=== PATIENT | female | born 1940 | race Caucasian/White ===

== ENCOUNTER → 2023-05-31 | Outpatient (CLI) | payer MEDICARE, SELFPAY ==
--- NOTE | 2023-05-31 07:48 | CT_ITS ---
STUDY: CT LEFT SHOULDER REASON FOR EXAM: Female, 82 years old. Left shoulder pain. Blueprint Protocol. RADIATION DOSAGE (If Supplied By Facility): CTDIvol = ( 22.34 ) mGy, DLP = ( 689.40 ) mGycm TECHNIQUE: The patient was scanned in a multi detector CT scanner. High resolution transaxial imaging was performed without the administration of intravenous contrast material. Sagittal and coronal images were reconstructed. Individualized dose optimization techniques were used for this CT. COMPARISON: None. FINDINGS: There is mild glenohumeral arthrosis with mild marginal osteophyte formation. Intact glenoid rim, neck and visualized scapula. There is superior subluxation of the humeral head with respect to the glenoid with narrowing of the acromiohumeral space. Intact humeral head, neck and tuberosities. Normal coracoid process. Normal visualized lateral clavicle. There is hypertrophic acromioclavicular arthrosis, with inferior osteophyte formation, with mild effacement of the supraspinatus tendon. There is a Type II morphology (curved), with a neutral orientation. Normal visualized muscles and soft tissue structures. CT/Extremity Upper without Contra IMPRESSION: Mild glenohumeral arthrosis. Superior subluxation of the humeral head with narrowing of the acromiohumeral space. Hypertrophic acromioclavicular arthrosis, with inferior osteophyte formation, with mild effacement of the supraspinatus tendon. Electronically Signed: Bishop Solano MD at 8:36 EST ,
--- OUTSIDE RECORDS SUMMARY | 2023-05-31 08:09 | XMS RPT_ITS | CCD ---
Author Name Unknown Address [address] [place] [address] Organization [facility] Care Team Providers Care Senior Project Coordinator Name Role Phone Goode Alice PETERS Primary Care Provider [phone] ZOEY HENDERSON MD Attending Unavailable ZOEY HENDERSON MD Primary Care Unavailable ZOEY HENDERSON MD Admitting Unavailable Goode Alice PETERS Primary Care Provider [phone] DAWNA WICK Referring Unavailable GOODE, M ROGELIO Primary Care Unavailable GOODE, M ROGELIO Primary Care Unavailable ALEJO WHITTEN Attending Unavailable ALEJO WHITTEN Admitting Unavailable GOODE, M ROGELIO Referring Unavailable GOODE, M ROGELIO Primary Care Unavailable ALEJO WHITTEN Attending Unavailable GOODE, M ROGELIO Primary Care Unavailable STEPHANY GONZALEZ Attending Unavailable GOODE, M ROGELIO Primary Care Unavailable GOODE, M ROGELIO Primary Care Unavailable GOODE, M ROGELIO Referring Unavailable MARGARETH SHAVER Attending Unavailable GOODE, M ROGELIO Primary Care Unavailable GOODE, M ROGELIO Primary Care Unavailable TOBY REICH Referring Unavailable GOODE, M ROGELIO Primary Care Unavailable GOODE, M ROGELIO Primary Care Unavailable GOODE, M ROGELIO Referring Unavailable GOODE, M ROGELIO Attending Unavailable GOODE, M ROGELIO Primary Care Unavailable GOODE, M ROGELIO Attending Unavailable GOODE, M ROGELIO Primary Care Unavailable GOODE, M ROGELIO Primary Care Unavailable MATTHIAS JOHNSON Attending Unavailable CHANTALE COULTER Referring Unavailable GOODE, M ROGELIO Primary Care Unavailable CHANTALE COULTER Referring Unavailable GOODE, M ROGELIO Primary Care Unavailable MINDY PANTOJA Attending Unavailable GOODE, M ROGELIO Primary Care Unavailable GOODE, M ROGELIO Attending Unavailable GOODE, M ROGELIO Primary Care Unavailable CHANTALE COULTER Referring Unavailable GOODE, M ROGELIO Primary Care Unavailable TIMA TYLER Referring Unavailable CHANTALE COULTER Attending Unavailable GOODE, M ROGELIO Primary Care Unavailable COULTER, CHANTALE Referring Unavailable GOODE, M ROGELIO Primary Care Unavailable COULTER, CHANTALE Referring Unavailable GOODE, M ROGELIO Primary Care Unavailable KEMI ALEJO T Attending Unavailable GOODE, M ROGELIO Primary Care Unavailable GOODE, M ROGELIO Referring Unavailable GOODE, M ROGELIO Primary Care Unavailable TIMA TYLER A Referring Unavailable GOODE, M ROGELIO Primary Care Unavailable COULTER, CHANTALE Referring Unavailable GOODE, M ROGELIO Primary Care Unavailable GOODE, M ROGELIO Primary Care Unavailable MATTHIAS JOHNSON Attending Unavailable MINDY PANTOJA Referring Unavailable DAWNA WICK Attending Unavailable GOODE, M ROGELIO Primary Care Unavailable GOODE, M ROGELIO Attending Unavailable GOODE, M ROGELIO Primary Care Unavailable GOODE, M ROGELIO Referring Unavailable GOODE, M ROGELIO Primary Care Unavailable GOODE, M ROGELIO Primary Care Unavailable GOODE, M ROGELIO Referring Unavailable KEMI, ALEJO T Referring Unavailable GOODE, M RGOELIO Primary Care Unavailable KEMI, ALEJO T Referring Unavailable GOODE, M ROGELIO Primary Care Unavailable KEMI, ALEJO T Attending Unavailable GOODE, M ROGELIO Primary Care Unavailable HARESH MYLES Referring Unavailable GOODE, M ROGELIO Primary Care Unavailable GOODE, M ROGELIO Referring Unavailable GOODE, M ROGELIO Primary Care Unavailable NATALIYA GROSSMAN Referring Unavailable GOODE, M ROGELIO Attending Unavailable GOODE, M ROGELIO Primary Care Unavailable Medications Current Medications Medication Drug Class(es) Dates Sig (Normalized) Sig (Original) benoxinate hydrochloride 4 mg/ml / fluorescein sodium 2.5 mg/ml ophthalmic solution (2 sources) Diagnostic Dye Start: 11-10-2022 End: 11-11-2022 fluorescein-benoxi mckenzie 0.25-0.4 % 1 Drop (FLURESS) Completed/Discontinued Medications Medication Drug Class(es) Dates Sig (Normalized) Sig (Original) ammonium lactate/emu oil (EMU-LAC TOPICAL) (20 sources) ammonium lactate /emu oil (EMU-LAC TOPICAL) Apply 1 application to affected area as needed. 0 Active Problems Active Problems Problem Classification Problem Date Documented Da te Episodic/Chronic Abdominal hernia (5 sources) Incisional hernia; Translations: [Incisional hernia without obstruction or gangrene] Onset: 03-29-2023 01-21-2023 Episodic Blindness and vision defects (16 sources) Low vision, both eyes ; Translations: [Low vision right eye category 1, low vision left eye category 1] Onset: 12-31-2022 12-31-2022 Chronic Blindness and vision defects (16 sources) Bilateral regular astigmatism; Translations: [Regular astigmatism, bilateral] Onset: 12-31-2022 12-31-2022 Episodic Cataract (20 sources) Bilateral pseudophakia; Translations: [Presence of intraocular lens] Onset: 11-13-2020 12-11-2020 Chronic Diabetes mellitus with complications (20 sources) Type 2 diabetes mellitus; Translations: [Type 2 diabetes mellitus with unspecified complications] Onset: 03-20-2021 Chronic Diabetes mellitus without complication (9 sources) Type 2 diabetes mellitus without complication; Translations: [Type 2 diabetes mellitus without complications] Onset: 03-20-2021 03-20-2021 Chronic Disorders of lipid metabolism (20 sources) Mixed hyperlipidemia; Translations: [Mixed hyperlipidemia] Onset: 04-09-2008 04-20-2018 Chronic E Codes: Adverse effects of medical drugs (1 source) Proton pump inhibitor adverse reaction; Translations: [Adverse effect of other antacids and etys-nonhdii-qhroymz on drugs, initial encounter] Episodic Gastritis and duodenitis (4 sources) Chronic superficial gastritis; Translations: [Chronic superficial gastritis without bleeding] Onset: 07-02-2022 Chronic Miscellaneous mental health disorders (20 sources) Primary insomnia; Translations: [Primary insomnia] Onset: 08-01-2015 08-01-2015 Chronic Mycoses (1 source) Candidiasis of vagina; Translations: [Vaginal yeast infection] Episodic Nutritional deficiencies (20 sources) Vitamin D deficiency; Translations: [Vitamin D deficiency, unspecified] Onset: 08-01-2015 08-01-2015 Chronic Other aftercare (1 source) Drug therapy finding; Translations: [Other usp (current) drug therapy] Episodic Other connective tissue disease (10 sources) History of total replacement of bilateral hip joints; Translations: [Presence of artificial hip joint, bilateral] Onset: 03-16-2023 03-16-2023 Chronic Other connective tissue disease (10 sources) History of right total knee replacement; Translations: [Presence of right artificial knee joint] Onset: 03-16-2023 03-16-2023 Chronic Other connective tissue disease (1 source) Subacromial bursitis of left shoulder; Translations: [Bursitis of left shoulder] Episodic Other endocrine disorders (20 sources) Hyperparathyroidism; Translations: [Hyperparathyroidism , unspecified] Onset: 10-28-2016 06-25-2021 Chronic Other endocrine disorders (1 source) Primary hyperparathyroidism; Translations: [Primary hyperparathyroidism] 03-18-2023 Chronic Other endocrine disorders (1 source) Hyperparathyroidism, unspecified; Translations: [Hyperparathyroidism (HCC)] Onset: 06-25-2021 Chronic Other eye disorders (20 sources) Bilateral posterior vitreous detachment; Translations: [Vitreous degeneration, bilateral] Onset: 01-01-2021 01-01-2021 Chronic Other gastrointestinal disorders (20 sources) Malabsorption - iron; Translations: [Intestinal malabsorption, unspecified] Onset: 12-11-2014 04-30-2016 Chronic Other gastrointestinal disorders (1 source) Intestinal malabsorption, unspecified; Translations: [Malabsorption of iron] Onset: 12-11-2014 Chronic Other injuries and conditions due to external causes (3 sources) Injury of hip region; Translations: [Unspecified injury of right hip, initial encounter] Episodic Other liver diseases (1 source) Elevated liver enzymes level; Translations: [Abnormal levels of other serum enzymes] Episodic Other nervous system disorders (2 sources) Chronic pain syndrome; Translations: [Chronic pain syndrome] Chronic Other nervous system disorders (1 source) Right-sided piriformis syndrome; Translations: [Lesion of sciatic nerve, right lower limb] Chronic Other nervous system disorders (1 source) Other chronic pain; Translations: [Chronic right SI joint pain] Onset: 02-22-2017 Chronic Other nutritional; endocrine; and metabolic disorders (20 sources) Hypercalcemia; Translations: [Hypercalcemia] Onset: 07-01-2017 07-01-2017 Chronic Other nutritional; endocrine; and metabolic disorders (2 sources) Hypercalcemia; Translations: [Serum calcium elevated] Onset: 07-01-2017 Chronic Other skin disorders (1 source) Seborrheic keratosis; Translations: [Other seborrheic keratosis] 01-04-2023 Episodic Regional enteritis and ulcerative colitis (20 sources) Ulcerative pancolitis; Translations: [Ulcerative (chronic) pancolitis with unspecified complications] Onset: 10-26-2016 11-12-2020 Chronic Residual codes; unclassified (1 source) Pain; Translations: [Pain, unspecified] 11-09-2022 Episodic Retinal detachments; defects; vascular occlusion; and retinopathy (20 sources) Retinal pigment epithelium atrophy; 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 primarily involving the retinal pigment epithelium] Onset: 01-01-2021 01-01-2021 Chronic Screening and history of mental health and substance abuse codes (10 sources) Ex-smoker; Translations: [Personal history of nicotine dependence] Onset: 03-16-2023 03-16-2023 Episodic Spondylosis; intervertebral disc disorders; other back problems (20 sources) Degeneration of lumbosacral intervertebral disc; Translations: [Other intervertebral disc degeneration, lumbosacral region] Onset: 08-13-2006 08-13-2006 Chronic Sprains and strains (2 sources) Rupture of tendon of biceps; Translations: [Strain of muscle, fascia and tendon of other parts of biceps, left arm, initial encounter] 03-25-2023 Episodic Thyroid disorders (9 sources) Multinodular goiter; Translations: [Nontoxic multinodular goiter] Onset: 04-20-2018 03-25-2021 Chronic Past or Other Problems Problem Classification Problem Date Documented Date Episodic/Chronic Conditions associated with dizziness or vertigo (20 sources) Lightheadedness; Translations: [Dizziness and giddiness] Onset: 06-10-2020 06-10-2020 Episodic Deficiency and other anemia (20 sources) Iron deficiency anemia secondary to inadequate dietary iron intake; Translations: [Other iron deficiency anemias] Onset: 01-23-2016 01-23-2016 Episodic Deficiency and other anemia (1 source) Other iron deficiency anemias; Translations: [Iron deficiency anemia secondary to inadequate dietary iron intake] Onset: 01-23-2016 Episodic Diabetes mellitus without complication (8 sources) Impaired fasting glycemia; Translations: [Impaired fasting glucose] Onset: 02-19-2021 02-19-2021 Episodic Fluid and electrolyte disorders (1 source) Dehydration; Translations: [Dehydration] Onset: 10-16-2022 Episodic Gastroduodenal ulcer (except hemorrhage) (20 sources) H/O: gastric ulcer; Translations: [Personal history of peptic ulcer disease] Onset: 02-19-2021 02-19-2021 Episodic Other aftercare (1 source) 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; Translations: [Current use of proton pump inhibitor] Onset: 07-02-2022 Episodic Other bone disease and musculoskeletal deformities (20 sources) Disorder of skeletal system; Translations: [Disorder of bone, unspecified] Onset: 04-09-2008 04-20-2018 Episodic Other circulatory disease (20 sources) Orthostatic hypotension; Translations: [Orthostatic hypotension] Onset: 07-22-2020 07-22-2020 Episodic Other circulatory disease (1 source) Orthostatic hypotension; Translations: [Orthostatic hypotension] Onset: 07-22-2020 Episodic Other connective tissue disease (20 sources) Fibromyalgia; Translations: [Fibromyalgia] Onset: 08-01-2015 08-01-2015 Episodic Other connective tissue disease (1 source) Fibromyalgia; Translations: [Fibromyalgia] Onset: 08-01-2015 Episodic Other eye disorders (11 sources) Excess skin of eyelid; Translations: [Dermatochalasis of right upper eyelid] Onset: 01-01-2021 01-01-2021 Episodic Other eye disorders (20 sources) Tear film insufficiency; Translations: [Dry eye syndrome of bilateral lacrimal glands] Onset: 07-02-2021 07-02-2021 Episodic Other eye disorders (20 sources) Dermatochalasis of right upper eyelid; Translations: [Dermatochalasis] Onset: 01-01-2021 01-01-2021 Episodic Other injuries and conditions due to external causes (1 source) Unspecified injury of right hip, initial encounter; Translations: [Hip injury, right, initial encounter] Onset: 07-17-2022 Episodic Other screening for suspected conditions (not mental disorders or infectious disease) (20 sources) Other specified abnormal findings of blood chemistry; Translations: [Other abnormal blood chemistry] Onset: 02-19-2021 02-19-2021 Episodic Other skin disorders (1 source) Other seborrheic keratosis; Translations: [Seborrheic keratosis] Onset: 01-04-2023 Episodic Residual codes; unclassified (20 sources) History of total colectomy; Translations: [Acquired absence of other specified parts of digestive tract] Onset: 04-30-2016 04-30-2016 Episodic Residual codes; unclassified (1 source) Pain, unspecified; Translations: [Pain] Onset: 11-17-2022 Episodic Residual codes; unclassified (1 source) Acquired absence of other specified parts of digestive tract; Translations: [H/O total colectomy] Onset: 04-30-2016 Episodic Spondylosis; intervertebral disc disorders; other back problems (20 sources) Spinal stenosis of lumbar region; Translations: [Spinal stenosis, lumbar region with neurogenic claudication] Onset: 02-13-2016 02-13-2016 Episodic Syncope (20 sources) Near syncope; Translations: [Syncope and collapse] Onset: 06-10-2020 11-12-2020 Episodic Results Test Name Value Interpretation Reference Range Facil ity Vital Signs Date Time Vital Sign Value Performing Clinician Samantha litgerardo 03-25-2023 10:00-0500 Diastolic blood pressure 79 mm[Hg] Treatment Wstr Work Phone: [facility] 03-25-2023 10:00-0500 Heart rate 69 /min Treatment Wstr Work Phone: [facility] 03-25-2023 10:00-0500 SaO2% (BldA) [Mass fraction] 97 % Treatment Wstr Work Phone: [facility] 03-25-2023 10:00-0500 Systolic blood pressure 139 mm[Hg] Treatment Wstr Work Phone: [facility] 03-12-2023 08:46-0500 Body height 167.6 cm Pacc 1 Work Phone: [facility] 03-12-2023 08:46-0500 Body temperature 98.1 [degF] Pacc 1 Work Phone: [facility] 03-12-2023 08:46-0500 Body weight 76.2 kg Pacc 1 Work Phone: [facility] 03-12-2023 08:46-0500 Diastolic blood pressure 82 mm[Hg] Pacc 1 Work Phone: [facility] 03-12-2023 08:46-0500 Heart rate 88 /min Pacc 1 Work Phone: [facility] 03-12-2023 08:46-0500 Respiratory rate 16 /min Pacc 1 Work Phone: [facility] 03-12-2023 08:46-0500 SaO2% (BldA) [Mass fraction] 94 % Pacc 1 Work Phone: [facility] 03-12-2023 08:46-0500 Systolic blood pressure 124 mm[Hg] Pacc 1 Work Phone: [facility] 02-18-2023 15:07-0500 Body height 167.6 cm Alejo Whitten MD Work Phone: [facility] 02-18-2023 15:07-0500 Body temperature 97.7 [degF] Alejo Whitten MD Work Phone: [facility] 02-18-2023 15:07-0500 Body weight 79.74 kg Alejo Whitten MD Work Phone: [facility] 02-18-2023 15:07-0500 Diastolic blood pressure 80 mm[Hg] Alejo Whitten MD Work Phone: [facility] 02-18-2023 15:07-0500 Heart rate 86 /min Alejo Whitten MD Work Phone: [facility] 02-18-2023 15:07-0500 SaO2% (BldA) [Mass fraction] 95 % Alejo Whitten MD Work Phone: [facility] 02-18-2023 15:07-0500 Systolic blood pressure 140 mm[Hg] Alejo Whitten MD Work Phone: [facility] 01-21-2023 15:53-0400 Body height 167.6 cm Alejo Whitten MD Work Phone: [facility] 01-21-2023 15:53-0400 Body temperature 98.2 [degF] Alejo Whitten MD Work Phone: [facility] 01-21-2023 15:53-0400 Body weight 78.93 kg Alejo Whitten MD Work Phone: [facility] 01-21-2023 15:53-0400 Diastolic blood pressure 66 mm[Hg] Alejo Whitten MD Work Phone: [facility] 01-21-2023 15:53-0400 Heart rate 91 /min Alejo Whitten MD Work Phone: [facility] 01-21-2023 15:53-0400 SaO2% (BldA) [Mass fraction] 97 % Alejo Whitten MD Work Phone: [facility] 01-21-2023 15:53-0400 Systolic blood pressure 128 mm[Hg] Alejo Whitten MD Work Phone: [facility] 01-04-2023 10:33-0400 Body weight 78.47 kg NA Goode PA-C Work Phone: [facility] 01-04-2023 10:33-0400 Diastolic blood pressure 64 mm[Hg] NA Goode PA-C Work Phone: [facility] 01-04-2023 10:33-0400 Heart rate 68 /min NA Goode PA-C Work Phone: [facility] 01-04-2023 10:33-0400 Respiratory rate 16 /min NA Goode PA-C Work Phone: [facility] 01-04-2023 10:33-0400 SaO2% (BldA) [Mass fraction] 99 % NA Goode PA-C Work Phone: [facility] 01-04-2023 10:33-0400 Systolic blood pressure 128 mm[Hg] NA Goode PA-C Work Phone: [facility] 11-11-2022 14:00-0400 Body temperature 97.59 [degF] Treatment Wstr Work Phone: [facility] 11-11-2022 14:00-0400 Diastolic blood pressure 73 mm[Hg] Treatment Wstr Work Phone: [facility] 11-11-2022 14:00-0400 Heart rate 77 /min Treatment Wstr Work Phone: [facility] 11-11-2022 14:00-0400 Respiratory rate 18 /min Treatment Wstr Work Phone: [facility] 11-11-2022 14:00-0400 SaO2% (BldA) [Mass fraction] 96 % Treatment Wstr Work Phone: [facility] 11-11-2022 14:00-0400 Systolic blood pressure 131 mm[Hg] Treatment Wstr Work Phone: [facility] 11-09-2022 14:51-0400 Body temperature 97.7 [degF] Treatment Wstr Work Phone: [facility] 11-09-2022 14:51-0400 Diastolic blood pressure 63 mm[Hg] Treatment Wstr Work Phone: [facility] 11-09-2022 14:51-0400 Heart rate 84 /min Treatment Wstr Work Phone: [facility] 11-09-2022 14:51-0400 Respiratory rate 22 /min Treatment Wstr Work Phone: [facility] 11-09-2022 14:51-0400 Systolic blood pressure 110 mm[Hg] Treatment Wstr Work Phone: [facility] 11-06-2022 11:00-0400 Body temperature 97.59 [degF] Treatment Wstr Work Phone: [facility] 11-06-2022 11:00-0400 Diastolic blood pressure 80 mm[Hg] Treatment Wstr Work Phone: [facility] 11-06-2022 11:00-0400 Heart rate 79 /min Treatment Wstr Work Phone: [facility] 11-06-2022 11:00-0400 Respiratory rate 18 /min Treatment Wstr Work Phone: [facility] 11-06-2022 11:00-0400 SaO2% (BldA) [Mass fraction] 98 % Treatment Wstr Work Phone: [facility] 11-06-2022 11:00-0400 Systolic blood pressure 135 mm[Hg] Treatment Wstr Work Phone: [facility] 10-23-2022 10:08-0400 Body height 165.1 cm Whiteville Coulter TEXT TRANSCRIBER.COLD STORAGE WORKER Work Phone: [facility] 10-23-2022 10:08-0400 Body temperature 98.1 [degF] Chantale Coulter TEXT TRANSCRIBER.COLD STORAGE WORKER Work Phone: [facility] 10-23-2022 10:08-0400 Body weight 81.19 kg Chantale Daoenter TEXT TRANSCRIBER.COLD STORAGE WORKER Work Phone: [facility] 10-23-2022 10:08-0400 Diastolic blood pressure 76 mm[Hg] Whiteville Coulter TEXT TRANSCRIBER.COLD STORAGE WORKER Work Phone: [facility] 10-23-2022 10:08-0400 Heart rate 96 /min Chantale Coulter TEXT TRANSCRIBER.COLD STORAGE WORKER Work Phone: [facility] 10-23-2022 10:08-0400 SaO2% (BldA) [Mass fraction] 97 % Chantale Daoenter TEXT TRANSCRIBER.COLD STORAGE WORKER Work Phone: [facility] 10-23-2022 10:08-0400 Systolic blood pressure 133 mm[Hg] Chantale Coulter TEXT TRANSCRIBER.COLD STORAGE WORKER Work Phone: [facility] 07-23-2022 14:28-0400 Body weight 78.47 kg NA Goode PA-C Work Phone: [facility] 07-23-2022 14:28-0400 Diastolic blood pressure 60 mm[Hg] NA Goode PA-C Work Phone: [facility] 07-23-2022 14:28-0400 Heart rate 73 /min NA Goode PA-C Work Phone: [facility] 07-23-2022 14:28-0400 Respiratory rate 16 /min NA Goode PA-C Work Phone: [facility] 07-23-2022 14:28-0400 SaO2% (BldA) [Mass fraction] 97 % NA Goode PA-C Work Phone: [facility] 07-23-2022 14:28-0400 Systolic blood pressure 122 mm[Hg] NA Goode PA-C Work Phone: [facility] 07-02-2022 10:53-0400 Body weight 79.38 kg NA Goode PA-C Work Phone: [facility] 07-02-2022 10:53-0400 Diastolic blood pressure 66 mm[Hg] NA Goode PA-C Work Phone: [facility] 07-02-2022 10:53-0400 Heart rate 79 /min NA Goode PA-C Work Phone: [facility] 07-02-2022 10:53-0400 Respiratory rate 16 /min NA Goode PA-C Work Phone: [facility] 07-02-2022 10:53-0400 SaO2% (BldA) [Mass fraction] 97 % NA Goode PA-C Work Phone: [facility] 07-02-2022 10:53-0400 Systolic blood pressure 124 mm[Hg] NA Goode PA-C Work Phone: [facility] 12-25-2021 09:42-0400 Body weight 87.54 kg NA Goode PA-C Work Phone: [facility] 12-25-2021 09:42-0400 Diastolic blood pressure 78 mm[Hg] NA Goode PA-C Work Phone: [facility] 12-25-2021 09:42-0400 Heart rate 60 /min NA Goode PA-C Work Phone: [facility] 12-25-2021 09:42-0400 Respiratory rate 16 /min NA Goode PA-C Work Phone: [facility] 12-25-2021 09:42-0400 SaO2% (BldA) [Mass fraction] 97 % NA Goode PA-C Work Phone: [facility] 12-25-2021 09:42-0400 Systolic blood pressure 128 mm[Hg] NA Goode PA-C Work Phone: [facility] 10-27-2021 14:28-0400 Body temperature 97.7 [degF] Tima Griffini DO Work Phone: [facility] 10-27-2021 14:28-0400 Body weight 86.86 kg Tima Griffini DO Work Phone: [facility] 10-27-2021 [id number] Diastolic blood pressure 71 mm[Hg] Tima Griffini DO Work Phone: [facility] 10-27-2021 [id number] Heart rate 69 /min Tima Griffini DO Work Phone: [facility] 10-27-2021 14:28-0400 Systolic blood pressure 114 mm[Hg] Tima Griffini DO Work Phone: [facility] Encounters Encounter Date Encounter Type Care Provider Facility Start: 05-28-2023 End: 05-28-2023 ambulatory NATALIYA GROSSMAN Facility:[facility] Start: 05-11-2023 End: 05-11-2023 ambulatory Alice GOOED Facility:[facility] Start: 05-04-2023 End: 05-05-2023 ambulatory TIMA TYLER Facility:[facility] Start: 04-14-2023 End: 04-15-2023 ambulatory Alice GOODE Facility:[facility] Start: 04-06-2023 End: 04-06-2023 ambulatory ALEJO WHITTEN Facility:[facility] Start: 03-29-2023 End: 03-29-2023 ambulatory Alice GOODE Facility:[facility] Start: 03-26-2023 Telephone encounter Vanessa Ca RN Pre Anesthesia Procedures Date Procedure Procedure Detail Performing Clinician Start: 03-25-2023 Basic metabolic pane l calcium total Alice Goode PA-C Work Phone: Start: 02-05-2023 Ct abdomen & pelvis w/o contrast material Alejo Whitten MD Work Phone: Start: 11-10-2022 Computerized ophthal [facility] retina Wendi Nj MD Work Phone: Start: 10-06-2022 Urinalysis ZOEY GIORDANOR AN Plan of Treatment Date Care Activity Detail Author Start: 01-05-2024 Annual PCP Team Chronic Disease Visit Annual PCP Team Chronic Disease Visit [facility] Start: 12-19-2023 OCT MACULA CIRRUS OU (BOTH EYES) OCT MACULA CIRRUS OU (BOTH EYES) OPHT Imaging Routine Intermediate stage nonexudative age-related macular degeneration of both eyes Expected: 12/19/2023 [facility] Work Phone: Immunizations Immunization Date Immunization Notes Care Provider Fa eliud 01-01-2023 influenza, high dose seasonal, preservative-free NA Goode PA-C Work Phone: [facility] 09-27-2022 zoster vaccine recombinant NA Goode PA-C Work Phone: [facility] 07-05-2022 zoster vaccine recombinant NA Goode PA-C Work Phone: [facility] 01-20-2022 COVID-19 booster vaccine, age 12+ yr, bivalent (PFIZER-BIONTHerBabyShower) Tima Cahootify DO Work Phone: [facility] Work Phone: 01-20-2022 influenza (HD-IIV4) vaccine, age 65+ yr, high dose, quadrivalent, PF (FLUZONE HIGH-DOSE) NA Goode PA-C Work Phone: [facility] 01-20-2022 influenza, high dose seasonal, preservative-free Tima Jayson DO Work Phone: [facility] Work Phone: 01-20-2022 influenza virus vacc ine, unspecified formulation Stephany Gonzalez OD Work Phone: [facility] 02-06-2021 COVID-19 vaccine, fu ll dose (MODERNA) Us 2 Work Phone: [facility] 01-20-2021 influenza, high dose seasonal, preservative-free Us 2 Work Phone: [facility] 01-20-2021 influenza, high-dose , quadrivalent vaccine (FLUZONE HIGH DOSE QUADRIVALENT) Us 2 Work Phone: [facility] 06-06-2020 COVID-19 vaccine, fu ll dose (MODERNA) Us 2 Work Phone: [facility] 05-09-2020 COVID-19 vaccine, fu ll dose (MODERNA) Us 2 Work Phone: [facility] 01-22-2020 influenza virus vacc ine, unspecified formulation Us 2 Work Phone: [facility] 01-22-2020 influenza, high-dose , quadrivalent vaccine (FLUZONE HIGH DOSE QUADRIVALENT) Us 2 Work Phone: [facility] 01-22-2020 pneumococcal conjuga te vaccine, 13 valent Us 2 Work Phone: [facility] 12-29-2018 influenza, high dose seasonal, preservative-free Us 2 Work Phone: [facility] 02-28-2018 influenza, injectabl e, quadrivalent, contains preservative Us 2 Work Phone: [facility] Work Phone: 02-28-2018 influenza, injectabl e, quadrivalent, preservative free Us 2 Work Phone: [facility] 02-08-2017 influenza, high dose seasonal, preservative-free Us 2 Work Phone: [facility] 02-22-2016 influenza, high dose seasonal, preservative-free Us 2 Work Phone: [facility] Work Phone: 01-10-2015 influenza, high dose seasonal, preservative-free Us 2 Work Phone: [facility] 01-03-2015 pneumococcal conjuga te vaccine, 13 valent Us 2 Work Phone: [facility] 01-15-2014 influenza, seasonal, injectable Us 2 Work Phone: [facility] 04-13-2013 tetanus toxoid, redu danielito diphtheria toxoid, and acellular pertussis vaccine, adsorbed Us 2 Work Phone: [facility] 04-28-2011 zoster vaccine, live Us 2 Work Phone: [facility] 01-31-2009 novel influenza-H1N1 -09, preservative-free, injectable Us 2 Work Phone: [facility] 02-27-2008 pneumococcal polysaccharide vaccine, 23 valent Us 2 Work Phone: [facility] Work Phone: 02-17-2008 influenza virus vacc ine, unspecified formulation Us 2 Work Phone: [facility] Work Phone: 08-23-2001 hepatitis B vaccine, adult dosage Us 2 Work Phone: [facility] 03-18-2001 hepatitis B vaccine, adult dosage Us 2 Work Phone: [facility] 02-17-2001 hepatitis B vaccine, adult dosage Us 2 Work Phone: [facility] Payers Date Payer Category Payer Medicare [id number] 2021 Unknown [facility] [id number] 2021-Present [phone] [id number] [place] [address] [facility] [id number] 2021 Unknown [id number] 2003 Unknown [id number] 1940 Unknown [id number] Medicare [id number] Social History Date Type Detail Facility Start: 04-28-2011 End: 12-04-2021 Tobacco smoking status NHIS Ex-smoker [facility] Work Phone: End: 08-28-1988 History of tobacco use Current smoker [facility] End: 08-28-1988 History of tobacco use Cigarette Smoker [facility] Start: 07-02-2021 End: 03-26-2023 Alcohol intake Ex-drinker (finding) [facility] Start: 09-18-2019 End: 07-18-2022 History SDOH Alcohol Frequency 2 [facility] Start: 09-18-2019 End: 07-18-2022 History SDOH Alcohol Std Drinks 1 [facility] Start: 03-14-2018 History SDOH Alcohol Comment occasional, 1 drink every 6 months [facility] Start: 10-17-2019 History SDOH Social Connections Get Together 98 [facility] Start: 04-28-2019 End: 07-18-2022 History SDOH Social Connections Living 3 [facility] Start: 04-28-2019 History SDOH Physical Activity DPW 0 [facility] Start: 04-27-2019 Education 15 [facility] Start: 1940 Sex Assigned At Female [facility] Start: 06-22-2021 End: 02-17-2022 Exposure to SARS-CoV-2 (event) Not sure [facility] Start: 04-28-2011 End: 09-03-2022 Cigarettes smoked current (pack per day) - Reported 1 [facility] Start: 04-28-2011 End: 12-04-2021 Tobacco use and exposure Smokeless tobacco non-user [facility] Start: 07-18-2022 History SDOH Social Connections Living 4 [facility] Start: 07-18-2022 End: 09-03-2022 Social connection and isolation panel [facility] Do you belong to any clubs or organizations such as uatsdin groups, unions, fraternal or athletic groups, or school groups? No [facility] Attends Club or Organization Meetings Not on file [facility] Are you now , , , , never or living with a partner? [facility] How often to you hav e a drink containing alcohol? Monthly or less [facility] How many standard dr inks containing alcohol do you have on a typical day? 1 or 2 [facility] How often do you hav e 6 or more drinks on 1 occasion? Never [facility] How hard is it for y ou to pay for the very basics like food, housing, medical care, and heating Not very hard [facility] Do you feel stress - tense, restless, nervous, or anxious, or unable to sleep at night because your mind is troubled all the time - these days [OSQ] To some extent [facility] (I/We) worried wheth er (my/our) food would run out before (I/we) got money to buy more. Never true [facility] Start: 07-05-2018 Gender identity Identifies as female gender (finding) [facility] Start: 07-05-2018 Sexual orientation Heterosexual (finding) [facility] Medical Equipment Procedure Code Equipment Code Equipment Origin al Text Equipment Identifier Dates Lens Acrysof Ultrasert +19.5 Diopter Acrylic Iol 1 Piece Foldable Uv Blue - [id number] Start: 11-04-2020 Lens Acrysof Ultrasert +19.5 Diopter Acrylic Iol 1 Piece Foldable Uv Blue - [id number] Start: 12-02-2020 Clinical Notes 12-10-2020 to 05-11-2023 Telephone Encounter - Vanessa Ca RN - 03/26/2023 11:54 AM ESTTelephone Encounter - Alice Goode PA-C - 03/26/2023 10:42 AM Alice Ramos PA-C - 03/23/2023 12:22 PM EST Note Date & Type Note Facility 05-11-2023 Note HNO ID: [id number] Author: WENDI NJ MD Service: ? Author Type: Physician Type: Progress Notes Filed: 05/13/2023 09:44 Note Text: HPI: Vision hasn't changed. 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 / [facility]USMAN Actinic keratosis 06/22/2008 Arthritis Chronic neck pain Degeneration of lumbar or lumbosacral intervertebral disc 08/13/2006 Diarrhea patient has a J pouch Enthesopathy of hip region 08/13/2006 Gastric ulcer Hypercalcemia syndrome Hyperparathyroidism (HCC) Impaired fasting glucose 02/19/2021 Incisional hernia Insomnia Iron deficiency anemia Knee joint replacement by other means 02/23/2011 right Mixed hyperlipidemia Multiple thyroid nodules 04/20/2018 Multi-nodular goiter with stable nodules, FNA hx benign. No further follow up indicated. 03/24/21 US thyroid: Nodule #1 RUL: stable TR3 no f/u Nodule #2 R lower stable TR2 no f/u Nodule #3 Lower center stable TR4 Nodule #4 LML stable no f/u 05/06/20 US thyroid Nodule #1 RUL, Size: 1.1 x 0.6 x 1 cm; no change, mostly cystic TR3 3: No F/U Nodule #2 R midpole Size: 1.2 x 1 x 1.5 cm; previously Near syncope Orthostatic hypotension Other and unspecified hyperlipidemia 04/09/2008 PMH - PAST MEDICAL HISTORY OF right torn rotator cuff Pseudophakia of left eye 11/2020 Pseudophakia of right eye 11/04/2020 Dr. Emily MD S/P complete repair of rotator cuff 05/15/2010 right arm Spinal stenosis Type 2 diabetes (HCC) Ulcerative colitis, unspecified Ulcerative pancolitis (HCC) Unspecified vitamin D deficiency 04/09/2008 Vitreous degeneration #. Nonexudative with textrafoveal geographic atrophy, both eyes - former smoker, AREDS2 taking - denies plaquenil use - saw Dr. Gonzalez 12/2022 - stable dry both eyes 05/11/2023 #. Pseudophakia, both eyes - stable OU #. PVD, both eyes - stable OU PLAN: Discussed the above findings with the patient Observation recommended Discussed Syfovre, patient elected against syfovre treatment Return to clinic ~ 6 months NEXT: DILATE both eyes, OCT MAC both eyes, FAF both eyes I have confirmed and edited as necessary the relevant ophthalmic history, ROS, and the neuro exam findings as obtained by others. I have seen and examined this patient. I have discussed the case and the management of this patient's care with the Resident and/or fellow if applicable. I also have reviewed and agree with the assessment and plan as stated above and agree with all of its relevant components. Wendi Nj MD, PhD Vitreoretinal Surgery AND Ocular Inflammatory Diseases [facility] 05-04-2023 Note HNO ID: [id number] Author: MARGARETH SHAVER PA-C Service: ? Author Type: Physician Fiberglass Tube Molder Type: Progress Notes Filed: 05/12/2023 16:07 Note Text: FOLLOW UP VISIT - HERNIA NAME: María Mcgarry CLINIC NO.: [id number] DATE OF SERVICE: 05/04/2023 : 1940 REFERRING PHYSICIAN: Alice Goode PA-C María is a patient I am following with Dr. Whitten for an incisional hernia. Dr. Whitten performed an incisional hernia repair with mesh on 03/29/23. The patient currently notes no major complaints. Her appetite has been good. She denies fever, chills or abdominal pain. She does note no incisional discomfort currently. She notes no bulges at the operative site VITALS: Blood pressure 110/78, pulse 96, temperature 36.4 ?C (97.6 ?F), height 162.6 cm (5' 4 ), weight 73.2 kg (161 lb 6.4 oz), SpO2 98%. General: patient is alert, cooperative, pleasant and in no acute distress On examination, the abdomen is benign. The incisions are healing well without signs of infection or inflammation. There are no signs of recurrent hernia formation. Assessment IMPRESSION: status post incisional hernia repair with mesh PLAN: If the patient notes any problems, she should contact me immediately. she may return to her regular activities as tolerated, with the exception of no lifting greater than 20 lbs for 8 weeks post-operatively. If patient feels the urge to cough or sneeze, they should brace against the repair site with their hands or a pillow. Diagnoses: (Z98.890, Z87.19) S/P hernia repair (primary encounter diagnosis) Return to Clinic: The patient is instructed to follow-up with me as needed. Patient verbalized understanding of all above and agreed with the plan. Margareth Shaver PA-C [facility] 04-29-2023 Note HNO ID: [id number] Author: ?, ?, ? Service: ? Author Type: ? Type: Progress Notes Filed: 04/29/2023 13:13 Note Text: María Mcgarry is identified through a medication adherence outreach initiative based on pharmacy claims data from [employer] (insurer) for Non-insulin DM medication(s). Patient is reviewed 04/29/23 due to medication adherence concerns with the following medications (name, strength, sig): januvia 25mg, take 1 tablet daily. Per data/report, last fill date and days supply: due 04/16/23 Per reconcile dispense, last fill date and days supply: filled 03/17/23 for 30 days Per call to pharmacy, last picked up date and days supply: n/a Contacted patient: No answer; unable to leave VM Outcome of review/outreach: (choose outcome source and status) - unable to reach pt, phone just kept ringing, no vm Yas Montgomery [facility] 04-29-2023 Note Patient Outreach ([facility]) MARÍA MCGARRY ([id number]) 1940 F Date Time Provider Department 04/29/23 [facility] During your visit today, we recorded the following information about you: Yas Montgomery 04/29/2023 1:13 PM Signed María Mcgarry is identified through a medication adherence outreach initiative based on pharmacy claims data from [employer] (insurer) for Non-insulin DM medication(s). Patient is reviewed 04/29/23 due to medication adherence concerns with the following medications (name, strength, sig): januvia 25mg, take 1 tablet daily. Per data/report, last fill date and days supply: due 04/16/23 Per reconcile dispense, last fill date and days supply: filled 03/17/23 for 30 days Per call to pharmacy, last picked up date and days supply: n/a Contacted patient: No answer; unable to leave VM Outcome of review/outreach: (choose outcome source and status) - unable to reach pt, phone just kept ringing, no vm Yas Montgomery Allergies As of Date: 04/29/2023 (No Known Allergies) Date Reviewed: 04/06/2023 Reviewed by: Yaz Alva Ma - Fully Assessed Reason for Visit: Allied Health Visit [5] Cmt: Medication Adherence Outreach Prescriptions as of 04/29/2023 - gabapentin (NEURONTIN) 400 mg capsule Take 1 capsule by mouth three times a day for 180 days. - gabapentin (NEURONTIN) 400 mg capsule Take 1 capsule by mouth three times a day for 14 days. - traZODone (DESYREL) 100 mg tablet TAKE 1 TABLET BY MOUTH DAILY AT BEDTIME. - SITagliptin phosphate (JANUVIA) 25 mg tablet Take 1 tablet by mouth once daily. - fluconazole (DIFLUCAN) 150 mg tablet Take 1 tablet by mouth one time a week. - omeprazole (PRILOSEC) 40 mg capsule Take 1 capsule by mouth twice daily before meals. - ergocalciferol 50,000 unit capsule (VITAMIN D2, DRISDOL) Take 1 capsule by mouth two times a week. - vit A/vit C/vit E/zinc/copper (PRESERVISION AREDS ORAL) Take 1 tablet by mouth twice daily. - ammonium lactate/emu oil (EMU-LAC TOPICAL) Apply 1 application to affected area as needed. Meds Comments as of 10/09/2020: 10/09/20 The medications are managed by this patient by: PATIENT Castro Ho, REYES Problem List As Of Date 04/29/2023 Noted Resolved Enthesopathy of hip region [M76.899] 08/13/2006 04/30/2016 LUMB/LUMBOSAC DISC DEGEN [M51.37] 08/13/2006 Hip joint replacement by other means [Z96.649] 12/09/2007 03/26/2016 Abdominal pain, other specified site [R10.9] 02/13/2008 04/30/2016 Diarrhea [R19.7] 02/13/2008 04/30/2016 COLITIS NONINFECTIOUS CHRONIC [K52.9] 02/27/2008 03/26/2016 Hyperlipidemia, mixed [E78.2] 04/09/2008 Unspecified vitamin D deficiency [E55.9] 04/09/2008 04/30/2016 Disorder of bone and cartilage [M89.9, M94.9] 04/09/2008 Neoplasm of uncertain behavior of skin [D48.5] 05/15/2008 08/01/2015 Other seborrheic keratosis [L82.1] 05/15/2008 08/01/2015 SOLAR LENGINES///DYSCHROMIA OTHER [L81.9] 05/15/2008 08/01/2015 Other chronic 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*05/15/2008 08/01/2015 SALEEM ANGIOMA///NEVUS, NON-NEOPLASTIC [I78.1] 05/15/2008 08/01/2015 Hemangioma of skin and subcutaneous tissue [D18*06/26/2008 08/01/2015 Inflamed seborrheic keratosis [L82.0] 06/26/2008 08/01/2015 Benign neoplasm of skin of other and unspecifie*06/26/2008 08/01/2015 Ulcerative colitis (HCC) [K51.90] 07/31/2009 04/30/2016 Anemia due to chronic illness [D63.8] 08/12/2009 03/26/2016 Dehydration [E86.0] 10/10/2009 04/30/2016 S/P complete repair of rotator cuff [Z98.890] 05/15/2010 04/30/2016 Knee joint replacement by other means [Z96.659] 02/23/2011 05/01/2016 Nonallopathic lesion of lumbar region, not else*11/20/2014 05/01/2016 Bilateral low back pain without sciatica [M54.5*11/20/2014 09/30/2015 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] 12/11/2014 Fibromyalgia [M79.7] 08/01/2015 Primary insomnia [F51.01] 08/01/2015 Vitamin D deficiency [E55.9] 08/01/2015 Spondylosis of lumbar region without myelopathy*11/06/2015 Facet arthritis of lumbar region (HCC) [M47.816]11/06/2015 Iron deficiency anemia secondary to inadequate *01/23/2016 Spinal stenosis, lumbar region, with neurogenic*02/13/2016 H/O total colectomy [Z90.49] 04/30/2016 Ulcerative pancolitis with complication (HCC) [*10/26/2016 Hyperparathyroidism (HCC) [E21.3] 10/28/2016 Neck pain, chronic [M54.2, G89.29] 11/30/2016 Chronic right SI joint pain [M53.3, G89.29] 02/22/2017 Hypercalcemia [E83.52] 07/01/2017 Degeneration of lumbosacral intervertebral disc*10/05/2017 12/24/2021 Facet arthritis of cervical region (HCC) [M47.8*10/05/2017 Degenerative disc disease, cervical [M50.30] 10/05/2017 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 [facility] 04-06-2023 Note HNO ID: [id number] Author: Alejo Whitten MD Service: ? Author Type: Physician Type: Progress Notes Filed: 04/07/2023 3:00 PM Note Text: FOLLOW UP VISIT - POST OP NAME: María Cartagena [facility] NO.: [id number] DATE OF SERVICE: 04/06/2023 : 1940 REFERRING PHYSICIAN: Alice Goode PA-C María is a patient I am following for an incisional hernia. María is a 82 year old female with a complaint of a bulge and discomfort at the superior aspect of her prior upper midline incision. The patient has a history of ulcerative colitis and had a total colectomy performed on August [address] Dnet. The procedure was a total proctocolectomy with ileal pouch anal anastomosis and diverting loop ileostomy. She had ileostomy takedown October 25, 2009. The patient notes discomfort in this area with lifting, straining, and moving. The symptoms have increased, over the past few years. The patient has avoided taking care of this due to to the fact that she was caring for her who unfortunately of likely advanced gastric carcinoma 1 year ago. He has been a patient of both Kareem Goode and myself. The patient notes no symptoms of bowel obstruction and denies nausea or vomiting. The patient was seen by her primary care physician who felt the patient has a hernia. María was referred for evaluation and treatment. The patient is being seen by me today at the request of Alice Goode PA-C for my opinion and advice regarding incisional hernia. I obtained a CT scan of the abdomen and pelvis. This was performed on February 08, 2023. This demonstrated a small ventral hernia at the umbilicus and a ventral incisional hernia containing fat in the upper abdomen. The bridge of tissue the bridge of tissue between the upper and umbilical incision is 3.5 cm the total length is 10 cm I performed a laparoscopic incisional hernia repair on March 29, 2023. The patient was noted to have anterior abdominal adhesions with lower small-bowel adhesions to the ileostomy site. These were taken down for laparoscopic lysis of adhesions with the exception of a very dense adhesion right under the ileostomy site where the ileostomy takedown site had been stapled. This was left attached to the anterior abdominal wall. The 2 defects were noted to be 7 cm and 4 cm. A piece of Parietene mesh was cut to 20 x 12 cm to cover the defect. Pathology returned as: FINAL DIAGNOSIS Soft tissue, incisional, herniorrhaphy: - Hernia sac. The patient currently notes that she is moving her bowels. her appetite has been good. she denies fever, chills or abdominal pain. she does note some improved incisional discomfort but noted very significant discomfort for the first 2 days. VITALS: There were no vitals taken for this visit. On examination, she has normoactive bowel sounds. The abdomen is benign. The incisions are intact. She has some bruising over the lateral 5 mm port sites. Assessment IMPRESSION: Status post laparoscopic repair of incisional hernia PLAN: If the patient notes any problems or signs of wound infections, she should contact me immediately. Diagnoses: (K43.2) Incisional hernia, without obstruction or gangrene (primary encounter diagnosis) Return to Clinic: The patient is instructed to follow-up with me in 1 month. Alejo Whitten MD [facility] 03-29-2023 Note HNO ID: [id number] Author: Trenton Gates APRN.WIRE WHEELER Service: Anesthesiology Author Type: Nurse Assistant Womens Volleyball Coach Type: Anesthesia Procedure Notes Filed: 03/29/2023 9:47 AM Note Text: ANESTHESIOLOGY PROCEDURE NOTE PIV General Information Procedure Start Time/Medication Administration: 03/29/2023 9:10 AM Patient Location: OR Staffing WIRE WHEELER: Trenton Gates APRN.WIRE WHEELER Performed by: WIRE WHEELER Preparation Sterility Preparation: hand hygiene performed prior to procedure, surgical cap used, skin prep agent completely dried prior to procedure Site Prep: chlorhexidine Procedure Details Indication: need for IV access Needle Size/Type: 16 gauge angiocath Orientation: Left Location: Hand Imaging Guidance Used: No SIGNATURE: Trenton Gates APRN.CRNA PATIENT NAME: María Mcgarry DATE: March 29, 2023 TIME: 9:46 AM CSN: [id number] [facility] 03-29-2023 Note HNO ID: [id number] Author: Trenton Gates APRN.CRNA Service: Anesthesiology Author Type: Nurse Assistant Womens Volleyball Coach Type: Anesthesia Procedure Notes Filed: 03/29/2023 9:22 AM Note Text: ANESTHESIOLOGY PROCEDURE NOTE Airway General Information Procedure Start Time/Medication Administration: 03/29/2023 9:07 AM Patient location during procedure: OR Timeout Performed Pre-procedure: timeout performed Consent Obtained: Yes Patient identity confirmed: arm band, care crew team member and patient Staffing WIRE WHEELER: Trenton Gates APRN.WIRE WHEELER Performed by: TRACEY Indications and Patient Condition Indications for airway management: anesthesia Preoxygenated: yes anesthesia circuit Method: asleep Difficult Mask: No Final Airway Details Final airway type: endotracheal airway Final Endotracheal Airway: ETT Cuffed: yes Successful intubation technique: direct laryngoscopy Endotracheal tube insertion site: oral Blade: James Blade size: #4 ETT size (mm): 7.0 Measured from: lips Measurement (cm): 23 Placement verified by: chest auscultation and capnometry Cormack-Lehane Classification: grade I - full view of glottis Number of attempts at approach: 1 Airway not difficult SIGNATURE: Trenton Gates APRN.CRNA PATIENT NAME: María Mcgarry DATE: March 29, 2023 TIME: 9:21 AM CSN: [id number] [facility] 03-26-2023 Miscellaneous Notes Response copied below Vanessa Ca RN March 26, 2023 11:54 AM PACC Alice Goode PA-C routed conversation to [facility] Russel Devries 1 hour ago (10:42 AM) Alice Goode PA-C 1 hour ago (10:42 AM) Yes she may proceed with surgery Kareem Jackson PA-C Yes she may proceed with surgery Kareem Jackson PA-C Good morning Patient is scheduled for IMPLANT MESH INCISIONAL HERNIA REPAIR INITIAL GREATER THAN 10 cm with Alejo Whitten MD on 03/29/2023 Patient had BMP drawn 03/25/2023 and calcium level is now 11.4 (down from 12.0) See below Please advise if patient can proceed with hernia surgery Vanessa Ca RN March 26, 2023 8:26 AM PACC Latest Reference Range & Units 10/16/22 12:35 12/31/22 15:08 03/12/23 09:34 03/15/23 15:21 03/16/23 14:09 03/22/23 08:45 03/25/23 11:14 Sodium 136 - 144 mmol/L 139 138 138 Potassium 3.7 - 5.1 mmol/L 4.5 4.1 4.9 Chloride 97 - 105 mmol/L 103 103 105 CO2 22 - 30 mmol/L 24 25 25 BUN 7 - 21 mg/dL 12 18 16 Creatinine 0.58 - 0.96 mg/dL 0.81 0.86 0.79 Glucose 74 - 99 mg/dL 156 (H) 186 (H) 163 (H) Calcium 8.5 - 10.2 mg/dL 11.1 (H) 12.0 (H) 11.4 (H) Ionized Calcium 1.08 - 1.30 mmol/L 1.56 (H) 1.61 (H) 1.56 (H) Normalized Calcium 1.08 - 1.30 mmol/L 1.57 (H) 1.51 (H) 1.51 (H) Anion Gap 9 - 18 mmol/L 12 10 8 (L) eGFR >=60 mL/min/1.73m 73 68 76 Ferritin 14.7 - 205.1 ng/mL 32.3 Iron 41 - 186 ug/dL 26 (L) 68 TIBC 232 - 386 ug/dL 379 310 Transferrin Saturation 15.0 - 57.0 % 6.9 (L) 21.9 Vit D1,25 Dihydroxy 19.9 - 79.3 pg/mL 161.0 (H) Vitamin D 25 Hydroxy 31.0 - 80.0 ng/mL 31.2 29.2 (L) Hemoglobin A1C 4.3 - 5.6 % 6.9 (H) Estimated Average Glucose mg/dL 151 PTH, Intact 15 - 65 pg/mL 77 (H) 66 (H) (H): Data is abnormally high (L): Data is abnormally low documented in this encounter [facility] 03-23-2023 Note HNO ID: [id number] Author: Alice Goode PA-C Service: ? Author Type: Physician Fiberglass Tube Molder Type: Progress Notes Filed: 03/23/2023 12:38 PM Note Text: Pharmacist request change order to [place] r/t insurance coverage. Order printed. Kareem Goode PA-C [facility] 03-23-2023 History of Present illness Narrative Pharmacist request change order to [place] r/t insurance coverage. Order printed. Kareem Goode PA-C documented in this encounter [facility] 03-19-2023 Miscellaneous Notes Patient returned call and given provider's message below with verbalized understanding. Patient reports she will have labs done on Wednesday. Transferred to [facility] hematology to schedule reclast. Please flip orders to [place] for scheduling and Authorization Thank you! Left message for patient to return call. Will reach out to hem/onc to set up infusion Yaz Hernández Ma Please schedule reclast infusion as soon as possible. Recheck lab Wednesday Telephone on 03/19/23 CALCIUM IONIZED BLOOD PTH INTACT BLD Thanks, Kareem Goode PA-C documented in this encounter [facility] 03-19-2023 Note HNO ID: [id number] Author: Kalli Lock MD Service: ? Author Type: Physician Type: Progress Notes Filed: 03/18/2023 10:43 PM Note Text: Thank you for requesting an Endocrinology E-Consult for your 82 year old female patient, María Mcgarry for evaluation/treatment of calcium/parathyroid condition. Your clinical question: 1. Can this patient be cleared for surgery with current calcium and parathryoid readings? 2. Would ciclocet be effective in this situation. Patient with chronic asymptomatic hyperparathyroidism with mild to moderate calcium elevation turned over to me from Dr. Tripp due to stability and lack of sx. She is having needed bowel surgery in 10 days. Calcium erlinda on this check to 12 with elevated ionized calcium as follows: Component Latest Ref Rng AND Units 10/16/2022 03/12/2023 03/15/2023 03/16/2023 Glucose 74 - 99 mg/dL 156 (H) 186 (H) BUN 7 - 21 mg/dL 12 18 Creatinine 0.58 - 0.96 mg/dL 0.81 0.86 Sodium 136 - 144 mmol/L 139 138 Potassium 3.7 - 5.1 mmol/L 4.5 4.1 Chloride 97 - 105 mmol/L 103 103 CO2 22 - 30 mmol/L 24 25 Anion Gap 9 - 18 mmol/L 12 10 Calcium 8.5 - 10.2 mg/dL 11.1 (H) 12.0 (H) eGFR >=60 mL/min/1.73mA? 73 68 Normalized Calcium 1.08 - 1.30 mmol/L 1.57 (H) 1.51 (H) Ionized Calcium 1.08 - 1.30 mmol/L 1.56 (H) 1.61 (H) PTH, Intact 15 - 65 pg/mL 77 (H) Vitamin D 25 Hydroxy 31.0 - 80.0 ng/mL 31.2 Vit D1,25 Dihydroxy 19.9 - 79.3 pg/mL 161.0 (H) Comments and recommendations: More severe hypercalcemia is noted based on ionized calcium compared with total calcium. She she have low albumin? Last albumin in June, was normal. Also there is no recent phosphorus level. If the patient has confirmation of moderate to severe hypercalcemia, calcium levels should be improved ahead of her surgery. Of note, BUN and creatinine are normal. She does not seem to be dehydrated. There is no history of a prior treatment (such as Reclast/zoledronic acid or Prolia). Suggested plan: Obtain fasting labs for ionized calcium and renal function panel ADRIANA If moderate to severe hypercalcemia is confirmed, I suggest treatment with Reclast Follow labs in 3-5 days after treatment. Arrange for in office consult in 1-2 weeks. Our office could help once the patient is informed. Time: 15 minutes. Please don't hesitate to contact us if you have further questions. Sincerely, Kalli Lock MD, LISA [facility] 03-18-2023 History of Present illness Narrative Thank you for requesting an Endocrinology E-Consult for your 82 year old female patient, María Mcgarry for evaluation/treatment of calcium/parathyroid condition. Your clinical question: 1. Can this patient be cleared for surgery with current calcium and parathryoid readings? 2. Would ciclocet be effective in this situation. Patient with chronic asymptomatic hyperparathyroidism with mild to moderate calcium elevation turned over to me from Dr. Tripp due to stability and lack of sx. She is having needed bowel surgery in 10 days. Calcium erlinda on this check to 12 with elevated ionized calcium as follows: Component Latest Ref Rng & Units 10/16/2022 03/12/2023 03/15/2023 03/16/2023 Glucose 74 - 99 mg/dL 156 (H) 186 (H) BUN 7 - 21 mg/dL 12 18 Creatinine 0.58 - 0.96 mg/dL 0.81 0.86 Sodium 136 - 144 mmol/L 139 138 Potassium 3.7 - 5.1 mmol/L 4.5 4.1 Chloride 97 - 105 mmol/L 103 103 CO2 22 - 30 mmol/L 24 25 Anion Gap 9 - 18 mmol/L 12 10 Calcium 8.5 - 10.2 mg/dL 11.1 (H) 12.0 (H) eGFR >=60 mL/min/1.73m 73 68 Normalized Calcium 1.08 - 1.30 mmol/L 1.57 (H) 1.51 (H) Ionized Calcium 1.08 - 1.30 mmol/L 1.56 (H) 1.61 (H) PTH, Intact 15 - 65 pg/mL 77 (H) Vitamin D 25 Hydroxy 31.0 - 80.0 ng/mL 31.2 Vit D1,25 Dihydroxy 19.9 - 79.3 pg/mL 161.0 (H) Comments and recommendations: More severe hypercalcemia is noted based on ionized calcium compared with total calcium. She she have low albumin? Last albumin in June, was normal. Also there is no recent phosphorus level. If the patient has confirmation of moderate to severe hypercalcemia, calcium levels should be improved ahead of her surgery. Of note, BUN and creatinine are normal. She does not seem to be dehydrated. There is no history of a prior treatment (such as Reclast/zoledronic acid or Prolia). Suggested plan: Obtain fasting labs for ionized calcium and renal function panel ADRIANA If moderate to severe hypercalcemia is confirmed, I suggest treatment with Reclast Follow labs in 3-5 days after treatment. Arrange for in office consult in 1-2 weeks. Our office could help once the patient is informed. Time: 15 minutes. Please don't hesitate to contact us if you have further questions. Sincerely, Kalli Lock MD, LISA documented in this encounter [facility] 03-18-2023 Miscellaneous Notes Telephone on 03/18/23 E-CONSULT ENDOCRINOLOGY Spoke with patient. Was ill last week, poor fluid intake, difficult vacation. Not much water intake. Hasn't taken vit D in last few weeks so doubled a dose a few days ago. Discussed cinacalcet, bisphosphonate infusion. Kareem Goode PA-C documented in this encounter [facility] 03-18-2023 Miscellaneous Notes Please read mychart encounters: Just a question? My calcium, although high, has been stable since 2017. What is the big issue now? Hernia surgery is scheduled for 03/29. I have been ill for 7 days with little eating or drinking. I know that I was dehydrated. I plan to drink 2 + gallons of water over weekend and will get a lab recheck on Thursday 03/22. What do you think? documented in this encounter [facility] 03-16-2023 Miscellaneous Notes Unable to reach on home phone. Attempted to contact via mobile #. Patient notified of results, verbalizes understanding of instructions & will complete lab at end of work today. Edna Kothari MA Attempted to contact patient, no answer and no VM set up. Will try again. Cinthya Casper MA Called by [facility] lab services last evening with a critical ionized calcium of 1.56 and normalized calcium of 1.57. she was called and not able to be reached last evening. Please call patient to have labs repeated today Haresh Myles DO documented in this encounter [facility] 03-12-2023 Instructions Toby Reich APRN.COLD STORAGE WORKER - 03/12/2023 8:56 AM EST PATIENT PREOPERATIVE INSTRUCTIONS No ref. provider found has scheduled you for your procedure at this surgery center: [facility]: [phone] -- [address] [address]. Please read below carefully for your personalized instructions. Dietary Restrictions: - No solid food after midnight. - You may have 12 ounces of clear liquids (water, clear juices such as apple juice or gatorade, carbonated beverages, clear tea, black coffee, jello) until 2 hours before scheduled arrival at facility. No red/purple coloring and no creamer/sugar Medications: Unless instructed differently below, stay on all of your medications until your surgery. If you start any new medications after today's visit, please contact your surgeon. Pre-Surgery Med Instructions Medication Instructions traZODone (DESYREL) 100 mg tablet Do not take the day of surgery SITagliptin phosphate (JANUVIA) 25 mg tablet Do not take the day of surgery fluconazole (DIFLUCAN) 150 mg tablet IF needed omeprazole (PRILOSEC) 40 mg capsule Take the day of surgery with a small sip of water gabapentin (NEURONTIN) 400 mg capsule Take the day of surgery with a small sip of water ergocalciferol 50,000 unit capsule (VITAMIN D2, DRISDOL) Stop 7 days before surgery vit A/vit C/vit E/zinc/copper (PRESERVISION AREDS ORAL) Stop 7 days before surgery ammonium lactate/emu oil (EMU-LAC TOPICAL) Do not take the day of surgery If you start any new medications after today's visit, please contact the surgeon's office. Blood Thinning Medications: - Stop NSAIDS (Ibuprofen, Advil, Aleve, Motrin, Celebrex, Mobic, etc.) 7 days before surgery, as directed by your surgeon. - Stop Aspirin 7 days before surgery, as directed by your surgeon. - Stop Vitamin E, ALL multi-vitamins, herbals and dietary supplements 7 days before surgery. - You may take Tylenol (Acetaminophen) or any of your pain medications that do not contain aspirin or NSAIDS as needed. Important Reminders: - Candy, mints, and tobacco products are NOT permitted the morning of surgery. - Hearing aids, dentures and glasses may be worn the morning of surgery. - NO jewelry, body piercings, makeup, hairpins or contacts are to be worn the day of surgery. If you develop symptoms such as a fever, cold, or flu, or have other changes to your health within TWO DAYS of scheduled surgery or the morning of surgery, please contact the surgery center above. Personal Belongings: -Please have photo ID and insurance cards. -If you do not have a copy of advance directives on file with us, please bring a copy with you on the day of surgery. - Leave ALL valuables and money at home or with family members. For Outpatient Procedures: - YOU MUST HAVE A RESPONSIBLE SKYDIVING INSTRUCTOR TAKE YOU HOME. A TREE SHEAR OPERATOR OR TANYARD WORKER CANNOT BE MADE A RESPONSIBLE SKYDIVING INSTRUCTOR. - We recommend that a responsible person stays with you overnight to take care of you. - You cannot stay in a hotel alone after outpatient surgery. You will not be permitted to have your surgery, if you do not have someone to take care of you. Arrival Time for Surgery: - The Surgery Center or hospital where you are having surgery will call the afternoon before surgery (or Wednesday for Wednesday surgery) with a scheduled arrival time. - If you have not heard by 4 pm, please contact the surgery center above. Please be aware that emergency situations arise, which may delay or change your surgical time. If this happens, we will notify you as soon as possible and regret any inconvenience. If you already have an Advance Directive, please fax a copy to [phone] or email to for it to be added to your chart. If you do not have an Advance Directive, you can find the appropriate form and more information at [email or web address]. We recommend that you complete the Advance Directive form found on the website and bring it with you the day of your surgery. It can be witnessed and scanned into your chart that day. Toby Reich APRN.MINA documented in this encounter [facility] 03-12-2023 History and physical note HISTORY AND PHYSICAL EXAMINATION SERVICE DATE: 03/12/2023 SERVICE TIME: 10:05 AM PRIMARY CARE PHYSICIAN: Alice Goode PA-C Assessment Patient has the following medical conditions which may affect damián-operative course: Iron deficiency anemia secondary to inadequate dietary iron intake Assessment: hx IV venofer tx's Hemoglobin (g/dL) Date Value 12/31/2022 13.7 04/15/2021 12.7 Hematocrit (%) Date Value 12/31/2022 43.4 04/15/2021 40.3 WBC (k/uL) Date Value 12/31/2022 9.47 04/15/2021 9.95 Hypercalcemia Assessment: chronic Calcium, Total Date Value Ref Range Status 03/12/2023 12.0 (H) 8.5 - 10.2 mg/dL Final 09/11/2019 TE Spoke with patient's PCP. The following are my recommendations: 1. Patient likely has primary hyperparathyroidism and is not currently a surgical candidate 2. Her Hyperparathyroidism may be managed symptomatically 3. She should be considered for osteoporosis treatment (discussed treatment options) 4. Should calcium be elevated to 11.5 or the patient has symptomatic hypercalcemia, please refer back to endocrinology 5. Routine checks of BMP, PTH, phos, vitamin D Jerome Tripp MD Ulcerative pancolitis with complication (HCC) Assessment: The patient has a history of ulcerative colitis and had a total colectomy performed on August [address] Dent. The procedure was a total proctocolectomy with ileal pouch anal anastomosis and diverting loop ileostomy. She had ileostomy takedown October 25, 2009. Type 2 diabetes mellitus with complication, without long-term current use of insulin (HCC) Assessment: controlled on oral agent Hemoglobin A1C (%) Date Value 03/12/2023 6.9 02/19/2021 8.1 Orthostatic hypotension Assessment: bp's stable and asymptomatic Neck pain, chronic Assessment: rx as needed, decreased CROM Hyperparathyroidism (HCC) Assessment: PCP monitoring, chronic, TE to PCP Calcium, Total Date Value Ref Range Status 03/12/2023 12.0 (H) 8.5 - 10.2 mg/dL Final Near syncope Assessment: hx Kareem Goode PA-C 11/12/20 06/17/2020 ultrasound carotid duplex: R ICA 20 to 39% stenosis, MVA patent and antegrade flow noted; LICA 0 to 19% stenosis, VA patent and antegrade flow noted. 06/24/2020 echocardiogram: LV size NL, mild concentric LVH, LV SF NL, EF 66 5%, indeterminate LVDD, RV size NL, RV SF NL, no significant valvular abnormalities. 06/25/2020 EPS tilt positive at 17 out of 45 minutes at 70 degree tilt with diastolic blood pressure drop and syncope and pending. ZIO 14-day extended rhythm monitor: minimum HR of 49 bpm, max HR of 231 bpm, and avg HR of 77, predominant NSR, SVT x 6 beats with a max rate of 231 bpm, the longest lasting 7beats with an avg rate of 176 bpm. Insignificant ectopy. Hyperlipidemia, mixed Assessment: diet controlled History of gastric ulcer Assessment: controlled on rx Fibromyalgia Assessment: rx as needed Elevated LFTs Assessment: hx Albumin (g/dL) Date Value 07/02/2022 4.1 Bilirubin, Total (mg/dL) Date Value 07/02/2022 0.2 Alkaline Phosphatase (U/L) Date Value 07/02/2022 152 (H) AST (U/L) Date Value 07/02/2022 34 ALT (U/L) Date Value 07/02/2022 36 Protein, Total (g/dL) Date Value 07/02/2022 7.0 Former smoker Assessment: 1ppd/30 years, denies asthma or COPD History of total hip replacement, bilateral Assessment: hx History of total knee replacement, right Assessment: hx Ramires Activity Status Index: METS: Climb a flight of stairs or walk up a hill (5.50 METs) DASI Score: 5.5 Patient denies any chest pain or undue shortness of breath with the above physical activity. Clinical Frailty Scale: 3. Well, with treated comorbid disease STOP-Bang Score: Patient over 50 years old Denies snoring loudly Denies feeling tired, fatigued, or sleepy during the daytime Has not been observed to stop breathing or choking/gasping during sleep Denies having high blood pressure BMI less than or equal to 35 kg/m^2 Does not have a large neck Non-male patient STOP-Bang Score: 1 [id number] Score: Age: >=75 Sex: female CHF history: No Hypertension history: No Stroke/TIA/thromboembolism history: No Vascular disease history: No Diabetes history: Yes [id number] Score: 4 ARISCAT Score: Age: 51-80 Preoperative SpO2: 91-95% Respiratory infection in the last month: No Preoperative anemia: No Surgical incision: upper abdominal Duration of surgery: 2-3 hrs Emergency procedure: No ARISCAT Score: 42 ANESTHESIA FINDINGS: Intubation History: No history of difficult intubation Significant Anesthesia Considerations: none Airway History: No history of difficult airway I - PHYSICAL EVALUATION AIRWAY Patient intubated: No. Tracheostomy tube not present Mallampati: II. TM distance: >3 FB. Neck ROM: full ROM without neurological symptoms. Mouth opening: adequate. Short neck: no. Thick neck: no Gunderson present: no Lip Bite Test: I Microretrognathia/Micronagthia/Rec essed Chin: No DENTAL Dental findings: teeth intact. II - ANESTHESIA PLAN Anesthetic Plan: other Beta Gracy Monitoring Plan Post Procedure Analgesic Plan Informed Consent Anesthetic risks, benefits, alternatives, personnel and consent discussed: yes. Patient / Responsible Green Party agrees to proceed: yes Patient / Surrogate agrees to blood products: blood products not planned Discussed the possibility of lip / dental damage: yes REASON FOR VISIT: María Mcgarry is a 82 year old female who is scheduled for Procedure(s): IMPLANT MESH INCISIONAL HERNIA REPAIR INITIAL GREATER THAN 10 cm (N/A) at the request of @REFPROV2@ for consultation. My final recommendation will be communicated back to the requesting physician by way of shared medical record or letter. 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 Iron Deficiency Anemia Secondary to Inadequate Dietary Iron Intake Spinal Stenosis, Lumbar Region, With Neurogenic Claudication H/O Total Colectomy Ulcerative Pancolitis With Complication (Hcc) Hyperparathyroidism (Hcc) Neck Pain, Chronic Chronic Right Si Joint Pain Hypercalcemia Facet Arthritis of Cervical Region Degenerative Disc Disease, Cervical Near Syncope Lightheadedness Orthostatic Hypotension Foraminal Stenosis of Cervical Region Pseudophakia of Both Eyes 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 Dermatochalasis of Both Upper Eyelids History of Gastric Ulcer Elevated Lfts Type 2 Diabetes Mellitus With Complication, Without Long-Term Current Use of Insulin (Hcc) Intermediate Stage Nonexudative Age-Related Macular Degeneration of Both Eyes Dry Eye Syndrome of Both Eyes Nonexudative Age-Related Macular Degeneration, Bilateral, Advanced Atrophic Without Subfoveal Involvement Bilateral Pseudophakia Pvd (Posterior Vitreous Detachment), Bilateral Low Vision Right Eye Category 1, Low Vision Left Eye Category 1 Regular Astigmatism of Both Eyes Former Smoker History of Total Hip Replacement, Bilateral History of Total Knee Replacement, Right COVID-19 Immunization Status Covid-19 Vaccine (Series Information) Completed 01/20/2023 Imm Admin: COVID-19 vaccine, age 12+ yr, 2022- season (MODERNA) 01/20/2022 Imm Admin: COVID-19 vaccine, age 12+ yr, bivalent (PFIZER-BIONTECH) 07/29/2021 Imm Admin: COVID-19 original vaccine, full dose, monovalent (MODERNA) Only the first 3 history entries have been loaded, but more history exists. CHIEF COMPLAINT: Pre-op exam HPI: María Mcgarry is a 82 year old seen for PAC due to scheduled above surgery because of an incisional hernia. 02/18/2023, Dr. Whitten HPI: María is a 82 year old female with a complaint of a bulge and discomfort at the superior aspect of her prior upper midline incision. The patient has a history of ulcerative colitis and had a total colectomy performed on August [address] Dent. The procedure was a total proctocolectomy with ileal pouch anal anastomosis and diverting loop ileostomy. She had ileostomy takedown October 25, 2009. The patient notes discomfort in this area with lifting, straining, and moving. The symptoms have increased, over the past few years. The patient has avoided taking care of this due to to the fact that she was caring for her who unfortunately of likely advanced gastric carcinoma 1 year ago. He has been a patient of both Kareem Goode and myself. The patient notes no symptoms of bowel obstruction and denies nausea or vomiting. The patient was seen by her primary care physician who felt the patient has a hernia. María was referred for evaluation and treatment. The patient is being seen by me today at the request of Alice Goode PA-C for my opinion and advice regarding incisional hernia. I obtained a CT scan of the abdomen and pelvis. This was performed on February 08, 2023. This demonstrated a small ventral hernia at the umbilicus and a ventral incisional hernia containing fat in the upper abdomen. The bridge of tissue the bridge of tissue between the upper and umbilical incision is 3.5 cm the total length is 10 cm REVIEW OF SYSTEMS: General: No weight loss, malaise or fevers. Neurological: No history of TIA's, stroke, WASH HOUSE SUPERVISOR tumor, impaired sensorium, hemiplegia, paraplegia or quadraplegia. No neurological symptoms or problems. Respiratory: Positive for: URI < 2 weeks. Negative for: asthma, COPD, pneumonia within 6 weeks, tobacco use and obstructive sleep apnea. Cardiovascular: No history of HTN requiring medication, no history of angina, CHF, DE, cardiac surgery or stents. Denies rest pain, gangrene or revascularization/amputation for PVD. No history of cardiovascular symptoms or problems. GI: See HPI. Positive for: inflammatory bowel disease (+UC s/p colectomy, PCP managing) Negative for: abdominal pain. : No history of dysuria, frequency or incontinence, stones or chronic kidney disease. No difficulty urinating, nocturia > 1 time per night or hematuria. GRAPHIC USER INTERFACE DESIGNER: Negative for abnormal vaginal bleeding, abnormal vaginal discharge. Endocrine: Positive for: diabetes mellitus and hyperparathyroidism (+hypercalcemia). Patient's diabetes mellitus is controlled by oral agents. Hematology: Positive for: anemia and iron deficiency anemia (hx IV Venofer, following Dr. Tyler). Negative for: bruises/bleeds easily, transfusion of at least 4 units within 72 hours prior to surgery and chronic anti-coagulation/platelet meds. Oncology: No history of CA metastasis, chemo within 30 days, or radiotherapy within 90 days. No history of oncological symptoms or problems. Psych: No history of psychiatric symptoms or problems. Musculoskeletal: +hx bilateral RUPINDER +hx right TKA +pending bilateral shoulders with [facility]. Negative for joint pain or swelling, back pain or muscle pain. Positive for: joint pain. Skin: Negative for lesions, rash and itching. 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 / Gwendolyn.Dianelys GUSMAN Actinic keratosis 06/22/2008 Arthritis Chronic neck pain Degeneration of lumbar or lumbosacral intervertebral disc 08/13/2006 Diarrhea patient has a J pouch Enthesopathy of hip region 08/13/2006 Gastric ulcer Hypercalcemia syndrome Hyperparathyroidism (HCC) Impaired fasting glucose 02/19/2021 Incisional hernia Insomnia Iron deficiency anemia Knee joint replacement by other means 02/23/2011 right Mixed hyperlipidemia Multiple thyroid nodules 04/20/2018 Multi-nodular goiter with stable nodules, FNA hx benign. No further follow up indicated. 03/24/21 US thyroid: Nodule #1 RUL: stable TR3 no f/u Nodule #2 R lower stable TR2 no f/u Nodule #3 Lower center stable TR4 Nodule #4 LML stable no f/u 05/06/20 US thyroid Nodule #1 RUL, Size: 1.1 x 0.6 x 1 cm; no change, mostly cystic TR3 3: No F/U Nodule #2 R midpole Size: 1.2 x 1 x 1.5 cm; previously Near syncope Orthostatic hypotension Other and unspecified hyperlipidemia 04/09/2008 [facility] - PAST MEDICAL HISTORY OF right torn rotator cuff Pseudophakia of left eye 11/2020 Pseudophakia of right eye 11/04/2020 Dr. Emily MD S/P complete repair of rotator cuff 05/15/2010 right arm Spinal stenosis Type 2 diabetes (HCC) Ulcerative colitis, unspecified Ulcerative pancolitis (HCC) Unspecified vitamin D deficiency 04/09/2008 Vitreous degeneration PAST SURGICAL HISTORY Procedure Laterality Date ABDOMINAL SURGERY HX ARTHRP ACETBLR/PROX FEM PROSTC AGRFT/ALGRFT 06/27/2012 left hip ARTHRP KNE CONDYLE&PLATU MEDIAL&LAT COMPARTMENTS 02/16/2011 Knee replacement, total right [facility] Dr. Gimenez BACK SURGERY HX CATARACT EXTRACTION W/ INTRAOCULAR LENS IMPLANT HX Right 11/04/2020 Dr. Pantoja CATARACT EXTRACTION W/ INTRAOCULAR LENS IMPLANT HX Left 12/02/2020 Dr. Pantoja COLON SURGERY HX COLONOSCOPY FLX DX W/COLLJ SPEC WHEN PFRMD 01/1999 Colonoscopy COLONOSCOPY FLX DX W/COLLJ SPEC WHEN PFRMD 02/13/2008 Colonoscopy COLONOSCOPY FLX DX W/COLLJ SPEC WHEN PFRMD 05/17/2017 Colonoscopy COLONOSCOPY FLX DX W/COLLJ SPEC WHEN PFRMD 06/27/2018 pouchoscopy COLONOSCOPY W/BIOPSY SINGLE/MULTIPLE 07/31/2009 ESOPHAGOGASTRODUODENOSCOPY TRANSORAL DIAGNOSTIC 06/27/2018 EGD EYE SURGERY HX JOINT REPLACEMENT HX LAMINOTOMY (HEMILAMINECTOMY), WITH DECOMPRESSION OF NERVE ROOT(S) 01/16/2020 Partial L1, complete L2, complete L3, complete L4 laminectomy with decompression of neural elements from L1-L4 LAPAROSCOPY SURG CHOLECYSTECTOMY Cholecystectomy, lap OOPHORECTOMY PARTIAL/TOTAL UNI/BI Left Oophorectomy OPEN REPAIR OF ROTATOR CUFF ACUTE Right 04/12/2010 Rotator cuff repair PAST SURGICAL HISTORY OF 2007 right hip replacement PAST SURGICAL HISTORY OF 08/13/2009 exp lap, TPC and IPAA. Colectomy, ileostomy with J pouch, takedown 7-10 PAST SURGICAL HISTORY OF cervical calcium deposits removed surgically, foraminotomy? POUCHOSCOPY 02/03/2016 SIGMOIDOSCOPY FLX DX W/COLLJ SPEC BR/WA IF PFRMD 05/28/2008 SIGMOIDOSCOPY FLX DX W/COLLJ SPEC BR/WA IF PFRMD 10/01/2011 epeat 1 year SIGMOIDOSCOPY FLX DX W/COLLJ SPEC BR/WA IF PFRMD 07/03/2013 Sigmoidoscopy, flexible SIGMOIDOSCOPY FLX DX W/COLLJ SPEC BR/WA IF PFRMD 12/10/2014 Sigmoidoscopy, flexible SIGMOIDOSCOPY FLX DX W/COLLJ SPEC BR/WA IF PFRMD 02/17/2022 Sigmoidoscopy, flexible SKIN BIOPSY HX XCAPSL CTRC RMVL INSJ IO LENS PROSTH W/O ECP Left 12/02/2020 FAMILY HISTORY Problem Relation Age of Onset Cancer Brother lung Diabetes Father Cancer Paternal Grandmother lung Alcohol/Drug Mother liver cirrhosis No Ocular Disease No Family History Social History Tobacco Use Smoking status: Former Packs/day: 1.00 Years: 30.00 Additional pack years: 0.00 Total pack years: 30.00 Types: Cigarettes Quit date: 08/28/1988 Years since quittin.5 Smokeless tobacco: Never Vaping Use Vaping Use: Never used Substance Use Topics Alcohol use: Not Currently Comment: occasional, 1 drink every 6 months Drug use: No Prior to Admission medications as of 03/12/23 0854 Medication Sig Last Dose Taking traZODone (DESYREL) 100 mg tablet TAKE 1 TABLET BY MOUTH DAILY AT BEDTIME. Taking Yes SITagliptin phosphate (JANUVIA) 25 mg tablet Take 1 tablet by mouth once daily. Taking Yes fluconazole (DIFLUCAN) 150 mg tablet Take 1 tablet by mouth one time a week. Taking Yes omeprazole (PRILOSEC) 40 mg capsule Take 1 capsule by mouth twice daily before meals. Taking Yes ergocalciferol 50,000 unit capsule (VITAMIN D2, DRISDOL) Take 1 capsule by mouth two times a week. Taking Yes vit A/vit C/vit E/zinc/copper (PRESERVISION AREDS ORAL) Take 1 tablet by mouth twice daily. Taking Yes ammonium lactate/emu oil (EMU-LAC TOPICAL) Apply 1 application to affected area as needed. Taking Yes gabapentin (NEURONTIN) 400 mg capsule Take 1 capsule by mouth three times a day for 180 days. gabapentin (NEURONTIN) 400 mg capsule Take 1 capsule by mouth three times a day for 14 days. Medication Comments documented by Castro Ho COT on 10/09/2020 at 1548. 10/09/20 The medications are managed by this patient by: PATIENT REYES Barker ALLERGIES No Known Allergies Objective PHYSICAL EXAM: General: alert and oriented (x3) and healthy appearance. Pertinent negatives noted - not distressed. Skin: normal color, no rash or lesions. HEENT: EOM intact and pupils equal round. Pertinent negatives noted - no carotid bruit. Cardiovascular: regular rate and rhythm, normal S1 and S2, no rub, murmurs, or gallop. Respiratory: normal breath sounds, no wheezes or crackles. No chest wall deformity or tenderness. Abdomen: soft. Pertinent negatives noted - not tender. Extremities: no deformity, no edema or tenderness, no joint swelling or clubbing. Neurological: normal cognition and motor skills. Gait normal. No weakness or sensory deficit. PAIN ASSESSMENT: Pain Pain Level: 2 Pain Location: Abdomen Description: Aching Duration Units: Months Frequency: Intermittent VITALS: BP 124/82 Pulse 88 Temp (Src) 98.1 (Temporal) Resp 16 Ht 5' 6 (1.68m) Wt 168 lb (76.2kg) SpO2 94% BMI 27.13 kg/(m^2). Diagnostic tests reviewed for today's visit: Lab Value Units Date High Low HB 13.7 g/dL 12/31/2022 15.5 11.5 HCT 43.4 % 12/31/2022 46.0 36.0 WBC 9.47 k/uL 12/31/2022 11.00 3.70 PLT 218 k/uL 12/31/2022 400 150 NA 138 mmol/L 03/12/2023 144 136 K 4.1 mmol/L 03/12/2023 5.1 3.7 GLUC 186 mg/dL 03/12/2023 99 74 BUN 18 mg/dL 03/12/2023 21 7 CREAT 0.86 mg/dL 03/12/2023 0.96 0.58 PTSEC No results within date range. INR No results within date range. APTT No results within date range. ALT No results within date range. AST No results within date range. TBILI No results within date range. TSH No results within date range. Lab Value Units Date High Low HCGQT No results within date range. UHCG No results within date range. HCG, BODY* No results within date range. Lab Value Units Date High Low ABORHD No results within date range. ABSCREEN No results within date range. Hemoglobin A1C (%) Date Value 03/12/2023 6.9 10/05/2022 7.6 07/02/2022 7.6 11/24/2021 8.2 02/19/2021 8.1 04/28/2019 6.4 04/15/2018 6.4 No results found for this or any previous visit (from the past 8760 hour(s)). Recent Results (from the past 43745 hour(s)) ECHO Collection Time: 06/24/20 11:08 AM Impression CONCLUSIONS: - Technically difficult exam due to body habitus. - Exam indication: Syncope - The left ventricle is normal in size. There is mild concentric left ventricular hypertrophy. Left ventricular systolic function is normal. EF = 66 5% (2D 4-ch.) Indeterminate left ventricular diastolic dysfunction due to inconsistent or technically suboptimal data. - The right ventricle is normal in size. Right ventricular systolic function is normal. - There are no significant valvular abnormalities. - The patient has not had a prior CC echocardiographic exam for comparison. * * * Final * * * Prepared for Surgery: optimally prepared for surgery. Labs TE for medical clearance 2/2 hypercalcemia CONSULTS: Patient does not require consults for optimization at this time Planned Anesthetic: other anesthesia choice The Following Tests/Procedures Have Been Initiated: Orders Placed This Encounter >BMP Standing Status: Future Number of Occurrences: 1 Standing Expiration Date: 06/11/2023 Instructions Given to Patient: Instructions located in the after visit summary. Patient given verbal and written preop instructions and voices comprehension and compliance. SIGNATURE: Toby Reich APRN.CNP PATIENT NAME: María Mcgarry DATE: March 12, 2023 TIME: 8:54 AM PAGER/CONTACT #: documented in this encounter [facility] 02-20-2023 Note HNO ID: [id number] Author: Alejo Whitten MD Service: ? Author Type: Physician Type: Progress Notes Filed: 02/20/2023 6:25 AM Note Text: HISTORY AND PHYSICAL María Mcgarry 1940 REFERRING PHYSICIAN: No ref. provider found CHIEF COMPLAINT: Consult (Umbilical hernia) HPI: María is a 82 year old female with a complaint of a bulge and discomfort at the superior aspect of her prior upper midline incision. The patient has a history of ulcerative colitis and had a total colectomy performed on August [address] Dent. The procedure was a total proctocolectomy with ileal pouch anal anastomosis and diverting loop ileostomy. She had ileostomy takedown October 25, 2009. The patient notes discomfort in this area with lifting, straining, and moving. The symptoms have increased, over the past few years. The patient has avoided taking care of this due to to the fact that she was caring for her who unfortunately of likely advanced gastric carcinoma 1 year ago. He has been a patient of both Kareem Goode and myself. The patient notes no symptoms of bowel obstruction and denies nausea or vomiting. The patient was seen by her primary care physician who felt the patient has a hernia. María was referred for evaluation and treatment. The patient is being seen by me today at the request of Alice Goode PA-C for my opinion and advice regarding incisional hernia. I obtained a CT scan of the abdomen and pelvis. This was performed on February 08, 2023. This demonstrated a small ventral hernia at the umbilicus and a ventral incisional hernia containing fat in the upper abdomen. 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 / S.Ivory STRAIGHTENER Actinic keratosis 06/22/2008 Arthritis Chronic neck pain Degeneration of lumbar or lumbosacral intervertebral disc 08/13/2006 Diarrhea patient has a J pouch Enthesopathy of hip region 08/13/2006 Gastric ulcer Hypercalcemia syndrome Hyperparathyroidism (HCC) Impaired fasting glucose 02/19/2021 Incisional hernia Insomnia Iron deficiency anemia Knee joint replacement by other means 02/23/2011 right Mixed hyperlipidemia Multiple thyroid nodules 04/20/2018 Multi-nodular goiter with stable nodules, FNA hx benign. No further follow up indicated. 03/24/21 US thyroid: Nodule #1 RUL: stable TR3 no f/u Nodule #2 R lower stable TR2 no f/u Nodule #3 Lower center stable TR4 Nodule #4 LML stable no f/u 05/06/20 US thyroid Nodule #1 RUL, Size: 1.1 x 0.6 x 1 cm; no change, mostly cystic TR3 3: No F/U Nodule #2 R midpole Size: 1.2 x 1 x 1.5 cm; previously Near syncope Orthostatic hypotension Other and unspecified hyperlipidemia 04/09/2008 PMH - PAST MEDICAL HISTORY OF right torn rotator cuff Pseudophakia of left eye 11/2020 Pseudophakia of right eye 11/04/2020 Dr. Emily MD S/P complete repair of rotator cuff 05/15/2010 right arm Spinal stenosis Type 2 diabetes (HCC) Ulcerative colitis, unspecified Ulcerative pancolitis (HCC) Unspecified vitamin D deficiency 04/09/2008 Vitreous degeneration PAST SURGICAL HISTORY Procedure Laterality Date ABDOMINAL SURGERY HX ARTHRP ACETBLR/PROX FEM PROSTC AGRFT/ALGRFT 06/27/2012 left hip ARTHRP KNE CONDYLEANDPLATU MEDIALANDLAT COMPARTMENTS 02/16/2011 Knee replacement, total right [facility] Dr. Gimenez BACK SURGERY HX CATARACT EXTRACTION W/ INTRAOCULAR LENS IMPLANT HX Right 11/04/2020 Dr. Pantoja CATARACT EXTRACTION W/ INTRAOCULAR LENS IMPLANT HX Left 12/02/2020 Dr. Pantoja COLON SURGERY HX COLONOSCOPY FLX DX W/COLLJ SPEC WHEN PFRMD 01/1999 Colonoscopy COLONOSCOPY FLX DX W/COLLJ SPEC WHEN PFRMD 02/13/2008 Colonoscopy COLONOSCOPY FLX DX W/COLLJ SPEC WHEN PFRMD 05/17/2017 Colonoscopy COLONOSCOPY FLX DX W/COLLJ SPEC WHEN PFRMD 06/27/2018 pouchoscopy COLONOSCOPY W/BIOPSY SINGLE/MULTIPLE 07/31/2009 ESOPHAGOGASTRODUODENOSCOPY TRANSORAL DIAGNOSTIC 06/27/2018 EGD EYE SURGERY HX JOINT REPLACEMENT HX LAMINOTOMY (HEMILAMINECTOMY), WITH DECOMPRESSION OF NERVE ROOT(S) 01/16/2020 Partial L1, complete L2, complete L3, complete L4 laminectomy with decompression of neural elements from L1-L4 LAPAROSCOPY SURG CHOLECYSTECTOMY Cholecystectomy, lap OOPHORECTOMY PARTIAL/TOTAL UNI/BI Left Oophorectomy OPEN REPAIR OF ROTATOR CUFF ACUTE Right 04/12/2010 Rotator cuff repair PAST SURGICAL HISTORY OF 2007 right hip replacement PAST SURGICAL HISTORY OF 08/13/2009 exp lap, TPC and IPAA. Colectomy, ileostomy with J pouch, takedown 7- PAST SURGICAL HISTORY OF cervical calcium deposits removed surgically, foraminotomy? POUCHOSCOPY 02/03/2016 SIGMOIDOSCOPY FLX DX W/COLLJ SPEC BR/WA IF PFRMD 05/28/2008 SIGMOIDOSCOPY FLX DX W/COLLJ SPEC BR/WA IF PFRMD 09/11 (more content not included)... [facility] 02-20-2023 History of Present illness Narrative HISTORY AND PHYSICAL María Cartagena Zeferino 1940 REFERRING PHYSICIAN: No ref. provider found CHIEF COMPLAINT: Consult (Umbilical hernia) HPI: María is a 82 year old female with a complaint of a bulge and discomfort at the superior aspect of her prior upper midline incision. The patient has a history of ulcerative colitis and had a total colectomy performed on August [address] Dent. The procedure was a total proctocolectomy with ileal pouch anal anastomosis and diverting loop ileostomy. She had ileostomy takedown October 25, 2009. The patient notes discomfort in this area with lifting, straining, and moving. The symptoms have increased, over the past few years. The patient has avoided taking care of this due to to the fact that she was caring for her who unfortunately of likely advanced gastric carcinoma 1 year ago. He has been a patient of both Kareem Goode and myself. The patient notes no symptoms of bowel obstruction and denies nausea or vomiting. The patient was seen by her primary care physician who felt the patient has a hernia. María was referred for evaluation and treatment. The patient is being seen by me today at the request of Alice Goode PA-C for my opinion and advice regarding incisional hernia. I obtained a CT scan of the abdomen and pelvis. This was performed on February 08, 2023. This demonstrated a small ventral hernia at the umbilicus and a ventral incisional hernia containing fat in the upper abdomen. 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 / Johnson WADSWORTHN Actinic keratosis 06/22/2008 Arthritis Chronic neck pain Degeneration of lumbar or lumbosacral intervertebral disc 08/13/2006 Diarrhea patient has a J pouch Enthesopathy of hip region 08/13/2006 Gastric ulcer Hypercalcemia syndrome Hyperparathyroidism (HCC) Impaired fasting glucose 02/19/2021 Incisional hernia Insomnia Iron deficiency anemia Knee joint replacement by other means 02/23/2011 right Mixed hyperlipidemia Multiple thyroid nodules 04/20/2018 Multi-nodular goiter with stable nodules, FNA hx benign. No further follow up indicated. 03/24/21 US thyroid: Nodule #1 RUL: stable TR3 no f/u Nodule #2 R lower stable TR2 no f/u Nodule #3 Lower center stable TR4 Nodule #4 LML stable no f/u 05/06/20 US thyroid Nodule #1 RUL, Size: 1.1 x 0.6 x 1 cm; no change, mostly cystic TR3 3: No F/U Nodule #2 R midpole Size: 1.2 x 1 x 1.5 cm; previously Near syncope Orthostatic hypotension Other and unspecified hyperlipidemia 04/09/2008 PMH - PAST MEDICAL HISTORY OF right torn rotator cuff Pseudophakia of left eye 11/2020 Pseudophakia of right eye 11/04/2020 Dr. Emily MD S/P complete repair of rotator cuff 05/15/2010 right arm Spinal stenosis Type 2 diabetes (HCC) Ulcerative colitis, unspecified Ulcerative pancolitis (HCC) Unspecified vitamin D deficiency 04/09/2008 Vitreous degeneration PAST SURGICAL HISTORY Procedure Laterality Date ABDOMINAL SURGERY HX ARTHRP ACETBLR/PROX FEM PROSTC AGRFT/ALGRFT 06/27/2012 left hip ARTHRP KNE CONDYLE&PLATU MEDIAL&LAT COMPARTMENTS 02/16/2011 Knee replacement, total right [facility] Dr. Gimenez BACK SURGERY HX CATARACT EXTRACTION W/ INTRAOCULAR LENS IMPLANT HX Right 11/04/2020 Dr. Pantoja CATARACT EXTRACTION W/ INTRAOCULAR LENS IMPLANT HX Left 12/02/2020 Dr. Pantoja COLON SURGERY HX COLONOSCOPY FLX DX W/COLLJ SPEC WHEN PFRMD 01/1999 Colonoscopy COLONOSCOPY FLX DX W/COLLJ SPEC WHEN PFRMD 02/13/2008 Colonoscopy COLONOSCOPY FLX DX W/COLLJ SPEC WHEN PFRMD 05/17/2017 Colonoscopy COLONOSCOPY FLX DX W/COLLJ SPEC WHEN PFRMD 06/27/2018 pouchoscopy COLONOSCOPY W/BIOPSY SINGLE/MULTIPLE 07/31/2009 ESOPHAGOGASTRODUODENOSCOPY TRANSORAL DIAGNOSTIC 06/27/2018 EGD EYE SURGERY HX JOINT REPLACEMENT HX LAMINOTOMY (HEMILAMINECTOMY), WITH DECOMPRESSION OF NERVE ROOT(S) 01/16/2020 Partial L1, complete L2, complete L3, complete L4 laminectomy with decompression of neural elements from L1-L4 LAPAROSCOPY SURG CHOLECYSTECTOMY Cholecystectomy, lap OOPHORECTOMY PARTIAL/TOTAL UNI/BI Left Oophorectomy OPEN REPAIR OF ROTATOR CUFF ACUTE Right 04/12/2010 Rotator cuff repair PAST SURGICAL HISTORY OF 2007 right hip replacement PAST SURGICAL HISTORY OF 08/13/2009 exp lap, TPC and IPAA. Colectomy, ileostomy with J pouch, takedown 7-10 PAST SURGICAL HISTORY OF cervical calcium deposits removed surgically, foraminotomy? POUCHOSCOPY 02/03/2016 SIGMOIDOSCOPY FLX DX W/COLLJ SPEC BR/WA IF PFRMD 05/28/2008 SIGMOIDOSCOPY FLX DX W/COLLJ SPEC BR/WA IF PFRMD 10/01/2011 epeat 1 year SIGMOIDOSCOPY FLX DX W/COLLJ SPEC BR/WA IF PFRMD 07/03/2013 Sigmoidoscopy, flexible SIGMOIDOSCOPY FLX DX W/COLLJ SPEC BR/WA IF PFRMD 12/10/2014 Sigmoidoscopy, flexible SIGMOIDOSCOPY FLX DX W/COLLJ SPEC BR/WA IF PFRMD 02/17/2022 Sigmoidoscopy, flexible SKIN BIOPSY HX XCAPSL CTRC RMVL INSJ IO LENS PROSTH W/O ECP Left 12/02/2020 Current Outpatient Medications Medication Sig traZODone (DESYREL) 100 mg tablet TAKE 1 TABLET BY MOUTH DAILY AT BEDTIME. SITagliptin phosphate (JANUVIA) 25 mg tablet Take 1 tablet by mouth once daily. fluconazole (DIFLUCAN) 150 mg tablet Take 1 tablet by mouth one time a week. omeprazole (PRILOSEC) 40 mg capsule Take 1 capsule by mouth twice daily before meals. gabapentin (NEURONTIN) 400 mg capsule Take 1 capsule by mouth three times daily for 180 days. ergocalciferol 50,000 unit capsule (VITAMIN D2, DRISDOL) Take 1 capsule by mouth two times a week. vit A/vit C/vit E/zinc/copper (PRESERVISION AREDS ORAL) Take 1 tablet by mouth twice daily. ammonium lactate/emu oil (EMU-LAC TOPICAL) Apply 1 application to affected area as needed. DULoxetine (CYMBALTA) 30 mg capsule Take 1 capsule by mouth once daily. (Patient not taking: Reported on 01/04/2023) No current facility-administered medications for this visit. ALLERGIES: Patient has no known allergies. PERSONAL HISTORY: Social History Tobacco Use Smoking status: Former Packs/day: 1.00 Years: 30.00 Additional pack years: 0.00 Total pack years: 30.00 Types: Cigarettes Quit date: 08/28/1988 Years since quittin.5 Smokeless tobacco: Never Vaping Use Vaping Use: Never used Substance Use Topics Alcohol use: Not Currently Comment: occasional, 1 drink every 6 months Drug use: No FAMILY HISTORY: FAMILY HISTORY Problem Relation Age of Onset Cancer Brother lung Diabetes Father Cancer Paternal Grandmother lung Alcohol/Drug Mother liver cirrhosis No Ocular Disease No Family History REVIEW OF SYMPTOMS: The review of systems data was entered by the nurse and reviewed by me There are no exam notes on file for this visit. PHYSICAL EXAMINATION: General: The patient is 82 year old female, well nourished, well hydrated in no acute distress. The patient is oriented to time, place, and person. VITALS: Blood pressure 140/80, pulse 86, temperature 36.5 C (97.7 F), height 167.6 cm (5' 6 ), weight 79.7 kg (175 lb 12.8 oz), SpO2 95 %. Body mass index is 28.37 kg/m . HEENT: Normal cephalic, ataumatic, pupils are equally round, sclera are anicteric, mucous membranes are moist, oropharynx is clear. Neck has no masses, asymmetry or lymphadenopathy. Thyroid is unremarkable. Respiratory: Clear to auscultation and percussion. Normal respiratory excursion and pattern. Cardiac: Examination is regular rate and rhythm. Abdominal exam: Soft, nontender, with no palpable masses. No hepatosplenomegaly. A moderate reducible incisional hernia in the upper aspect of the incision. No obvious other palpable hernias are noted Rectal exam: exam deferred Extremities: no clubbing, cyanosis or edema. No adenopathy. Other: LABORATORY VALUES: As Noted RADIOLOGIC STUDIES: As Noted Assessment IMPRESSION: prior upper midline incisional hernia PLAN The patient did inquire about nonmesh repair. I told her I would contact one of my partners at the [facility] for their opinion but my plan would be for a laparoscopic ventral hernia repair. My plan is to perform a laparoscopic hernia repair with intraperitoneal onlay mesh placement. We discussed the possible open repair given the fact that she has no omentum and had a total colectomy along with a splenic injury at the time of initial surgery. The planned surgical procedure was discussed extensively with the patient. The risks, benefits, anticipated outcomes and possible complications were mentioned. María mcphersonands that all hernia repair surgery has a chance of recurrence and/or chronic post operative pain. My staff has also explained the procedure in understandable terms and the patient was given the option to take printed material concerning the planned procedure. The patient had the opportunity to ask questions concerning the planned procedure. The patient freely consents to the planned procedure. The patient is actually on a cruise to [place] in February. We will plan for surgical repair in March Anticipated Surgical Procedure/ CPT Code: Initial anterior abdominal hernia repair: 54238 - >10 cm reducible Anticipated Anesthetic: General Patient weight: Blood pressure 140/80, pulse 86, temperature 36.5 C (97.7 F), height 167.6 cm (5' 6 ), weight 79.7 kg (175 lb 12.8 oz), SpO2 95 %. BMI: Body mass index is 28.37 kg/m . Planned antibiotic: Ancef 2gm IVPB head insulation board saw operator to OR SCDs needed: Yes Fiberglass Tube Molder Needed: Yes Pre Op Clearance: None Anticoagulation: No Diabetic: No Location: [facility] My findings have been communicated to Alice Goode PA-C via shared medical record. This note will be forwarded to Alice Goode PA-C. Diagnoses: (K43.2) Incisional hernia, without obstruction or gangrene (primary encounter diagnosis) Return to Clinic: The patient is instructed to follow-up with me 1 week postoperatively. Alejo Whitten MD documented in this encounter [facility] 02-05-2023 Note HNO ID: [id number] Author: Mindy Kendrick RT(R) Service: ? Author Type: Boring Machine Operator Double End Type: Progress Notes Filed: 02/05/2023 1:46 PM Note Text: Radiology Service Progress Note PATIENT NAME: María Mcgarry DATE OF SERVICE: February 05, 2023 TIME: 1:46 PM PATIENT IDENTITY VERIFICATION COMPLETED USING TWO (2) IDENTIFIERS: Name and Date of confirmed by patient verbally. FALL SCREENING: Has the patient had 2 falls in the last year or 1 fall with injury or currently using an Ambulatory Assistive Device (Walker, Cane, Wheelchair, Crutches, etc.)? No PATIENT GENDER DATA: Female. status: : No status: NO. PATIENT RELEVANT IMPLANT DATA REVIEWED: Yes RADIOLOGY DEPARTMENT: CT; Exam(s) Completed: Abdomen/Pelvis PERIPHERAL IV DATA: Not applicable SIGNED BY: RT Hollis(Eder) February 05, 2023 1:46 PM [facility] 02-05-2023 History of Present illness Narrative Radiology Service Progress Note PATIENT NAME: María Mcgarry DATE OF SERVICE: February 05, 2023 TIME: 1:46 PM PATIENT IDENTITY VERIFICATION COMPLETED USING TWO (2) IDENTIFIERS: Name and Date of confirmed by patient verbally. FALL SCREENING: Has the patient had 2 falls in the last year or 1 fall with injury or currently using an Ambulatory Assistive Device (Walker, Cane, Wheelchair, Crutches, etc.)? No PATIENT GENDER DATA: Female. status: : No status: NO. PATIENT RELEVANT IMPLANT DATA REVIEWED: Yes RADIOLOGY DEPARTMENT: CT; Exam(s) Completed: Abdomen/Pelvis PERIPHERAL IV DATA: Not applicable SIGNED BY: RT Hollis(R) February 05, 2023 1:46 PM documented in this encounter [facility] 01-24-2023 Note HNO ID: [id number] Author: Alejo Whitten MD Service: ? Author Type: Physician Type: Progress Notes Filed: 01/24/2023 8:13 PM Note Text: HISTORY AND PHYSICAL María Mcgarry 1940 REFERRING PHYSICIAN: No ref. provider found CHIEF COMPLAINT: Consult (Umbilical hernia) HPI: María is a 82 year old female with a complaint of a bulge and discomfort at the superior aspect of her prior upper midline incision. The patient has a history of ulcerative colitis and had a total colectomy performed on August [address] Dent. The procedure was a total proctocolectomy with ileal pouch anal anastomosis and diverting loop ileostomy. She had ileostomy takedown October 25, 2009. The patient notes discomfort in this area with lifting, straining, and moving. The symptoms have increased, over the past few years. The patient has avoided taking care of this due to to the fact that she was caring for her who unfortunately of likely advanced gastric carcinoma 1 year ago. He has been a patient of both Kareem Goode and myself. The patient notes no symptoms of bowel obstruction and denies nausea or vomiting. The patient was seen by her primary care physician who felt the patient has a hernia. María was referred for evaluation and treatment. The patient is being seen by me today at the request of Alice Goode PA-C for my opinion and advice regarding incisional hernia. 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 No further follow up indicated. 03/24/21 US thyroid: Nodule #1 RUL: stable TR3 no f/u Nodule #2 R lower stable TR2 no f/u Nodule #3 Lower center stable TR4 Nodule #4 LML stable no f/u 05/06/20 US thyroid Nodule #1 RUL, Size: 1.1 x 0.6 x 1 cm; no change, mostly cystic TR3 3: No F/U Nodule #2 R midpole Size: 1.2 x 1 x 1.5 cm; previously Other and unspecified hyperlipidemia 04/09/2008 PMH - PAST MEDICAL HISTORY OF right torn rotator cuff Pseudophakia of left eye 11/2020 Pseudophakia of right eye 11/04/2020 Dr. Emily MD S/P complete repair of rotator cuff 05/15/2010 right arm Ulcerative colitis, unspecified Unspecified vitamin D deficiency 04/09/2008 PAST SURGICAL HISTORY Procedure Laterality Date ABDOMINAL SURGERY HX ARTHRP ACETBLR/PROX FEM PROSTC AGRFT/ALGRFT 06/27/2012 left hip ARTHRP KNE CONDYLEANDPLATU MEDIALANDLAT COMPARTMENTS 02/16/2011 Knee replacement, total right [facility] Dr. Gimenez BACK SURGERY HX CATARACT EXTRACTION W/ INTRAOCULAR LENS IMPLANT HX Right 11/04/2020 Dr. Pantoja CATARACT EXTRACTION W/ INTRAOCULAR LENS IMPLANT HX Left 12/02/2020 Dr. Pantoja COLON SURGERY HX COLONOSCOPY FLX DX W/COLLJ SPEC WHEN PFRMD 01/1999 Colonoscopy COLONOSCOPY FLX DX W/COLLJ SPEC WHEN PFRMD 02/13/2008 Colonoscopy COLONOSCOPY FLX DX W/COLLJ SPEC WHEN PFRMD 05/17/2017 Colonoscopy COLONOSCOPY FLX DX W/COLLJ SPEC WHEN PFRMD 06/27/2018 pouchoscopy COLONOSCOPY W/BIOPSY SINGLE/MULTIPLE 07/31/2009 ESOPHAGOGASTRODUODENOSCOPY TRANSORAL DIAGNOSTIC 06/27/2018 EGD EYE SURGERY HX JOINT REPLACEMENT HX LAMINOTOMY (HEMILAMINECTOMY), WITH DECOMPRESSION OF NERVE ROOT(S) 01/16/2020 Partial L1, complete L2, complete L3, complete L4 laminectomy with decompression of neural elements from L1-L4 LAPAROSCOPY SURG CHOLECYSTECTOMY Cholecystectomy, lap OOPHORECTOMY PARTIAL/TOTAL UNI/BI Left Oophorectomy OPEN REPAIR OF ROTATOR CUFF ACUTE Right 04/12/2010 Rotator cuff repair PAST SURGICAL HISTORY OF 2007 right hip replacement PAST SURGICAL HISTORY OF 08/13/2009 exp lap, TPC and IPAA. Colectomy, ileostomy with J pouch, takedown 7-10 PAST SURGICAL HISTORY OF cervical calcium deposits removed surgically, foraminotomy? POUCHOSCOPY 02/03/2016 SIGMOIDOSCOPY FLX DX W/COLLJ SPEC BR/WA IF PFRMD 05/28/2008 SIGMOIDOSCOPY FLX DX W/COLLJ SPEC BR/WA IF PFRMD 10/01/2011 epeat 1 year SIGMOIDOSCOPY FLX DX W/COLLJ SPEC BR/WA IF PFRMD 07/03/2013 Sigmoidoscopy, flexible SIGMOIDOSCOPY FLX DX W/COLLJ SPEC BR/WA IF PFRMD 12/10/2014 Sigmoidoscopy, flexible SIGMOIDOSCOPY FLX DX W/COLLJ SPEC BR/WA IF PFRMD 02/17/2022 Sigmoidoscopy, flexible SKIN BIOPSY HX XCAPSL CTRC RMVL INSJ IO LENS PROSTH W/O ECP Left 12/02/2020 Current Outpatient Medications Medication Sig ammonium lactate/emu oil (EMU-LAC TOPICAL) Apply 1 application to affected area as needed. DULoxetine (CYMBALTA) 30 mg capsule Take 1 capsule by mouth once daily. (Patient not taking: Reported on 9 (more content not included)... [facility] 01-24-2023 History of Present illness Narrative HISTORY AND PHYSICAL María Cartagena Zeferino 1940 REFERRING PHYSICIAN: No ref. provider found CHIEF COMPLAINT: Consult (Umbilical hernia) HPI: María is a 82 year old female with a complaint of a bulge and discomfort at the superior aspect of her prior upper midline incision. The patient has a history of ulcerative colitis and had a total colectomy performed on August [address] Dent. The procedure was a total proctocolectomy with ileal pouch anal anastomosis and diverting loop ileostomy. She had ileostomy takedown October 25, 2009. The patient notes discomfort in this area with lifting, straining, and moving. The symptoms have increased, over the past few years. The patient has avoided taking care of this due to to the fact that she was caring for her who unfortunately of likely advanced gastric carcinoma 1 year ago. He has been a patient of both Kareem Goode and myself. The patient notes no symptoms of bowel obstruction and denies nausea or vomiting. The patient was seen by her primary care physician who felt the patient has a hernia. María was referred for evaluation and treatment. The patient is being seen by me today at the request of Alice Goode PA-C for my opinion and advice regarding incisional hernia. 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 / [facility] Actinic keratosis 06/22/2008 Arthritis Degeneration of lumbar or lumbosacral intervertebral disc 08/13/2006 Diarrhea patient has a J pouch Enthesopathy of hip region 08/13/2006 Hyperparathyroidism (HCC) Impaired fasting glucose 02/19/2021 Knee joint replacement by other means 02/23/2011 right Multiple thyroid nodules 04/20/2018 Multi-nodular goiter with stable nodules, FNA hx benign. No further follow up indicated. 03/24/21 US thyroid: Nodule #1 RUL: stable TR3 no f/u Nodule #2 R lower stable TR2 no f/u Nodule #3 Lower center stable TR4 Nodule #4 LML stable no f/u 05/06/20 US thyroid Nodule #1 RUL, Size: 1.1 x 0.6 x 1 cm; no change, mostly cystic TR3 3: No F/U Nodule #2 R midpole Size: 1.2 x 1 x 1.5 cm; previously Other and unspecified hyperlipidemia 04/09/2008 PMH - PAST MEDICAL HISTORY OF right torn rotator cuff Pseudophakia of left eye 11/2020 Pseudophakia of right eye 11/04/2020 Dr. Emily MD S/P complete repair of rotator cuff 05/15/2010 right arm Ulcerative colitis, unspecified Unspecified vitamin D deficiency 04/09/2008 PAST SURGICAL HISTORY Procedure Laterality Date ABDOMINAL SURGERY HX ARTHRP ACETBLR/PROX FEM PROSTC AGRFT/ALGRFT 06/27/2012 left hip ARTHRP KNE CONDYLE&PLATU MEDIAL&LAT COMPARTMENTS 02/16/2011 Knee replacement, total right [facility] Dr. Gimenez BACK SURGERY HX CATARACT EXTRACTION W/ INTRAOCULAR LENS IMPLANT HX Right 11/04/2020 Dr. Pantoja CATARACT EXTRACTION W/ INTRAOCULAR LENS IMPLANT HX Left 12/02/2020 Dr. Pantoja COLON SURGERY HX COLONOSCOPY FLX DX W/COLLJ SPEC WHEN PFRMD 01/1999 Colonoscopy COLONOSCOPY FLX DX W/COLLJ SPEC WHEN PFRMD 02/13/2008 Colonoscopy COLONOSCOPY FLX DX W/COLLJ SPEC WHEN PFRMD 05/17/2017 Colonoscopy COLONOSCOPY FLX DX W/COLLJ SPEC WHEN PFRMD 06/27/2018 pouchoscopy COLONOSCOPY W/BIOPSY SINGLE/MULTIPLE 07/31/2009 ESOPHAGOGASTRODUODENOSCOPY TRANSORAL DIAGNOSTIC 06/27/2018 EGD EYE SURGERY HX JOINT REPLACEMENT HX LAMINOTOMY (HEMILAMINECTOMY), WITH DECOMPRESSION OF NERVE ROOT(S) 01/16/2020 Partial L1, complete L2, complete L3, complete L4 laminectomy with decompression of neural elements from L1-L4 LAPAROSCOPY SURG CHOLECYSTECTOMY Cholecystectomy, lap OOPHORECTOMY PARTIAL/TOTAL UNI/BI Left Oophorectomy OPEN REPAIR OF ROTATOR CUFF ACUTE Right 04/12/2010 Rotator cuff repair PAST SURGICAL HISTORY OF 2007 right hip replacement PAST SURGICAL HISTORY OF 08/13/2009 exp lap, TPC and IPAA. Colectomy, ileostomy with J pouch, takedown 7-10 PAST SURGICAL HISTORY OF cervical calcium deposits removed surgically, foraminotomy? POUCHOSCOPY 02/03/2016 SIGMOIDOSCOPY FLX DX W/COLLJ SPEC BR/WA IF PFRMD 05/28/2008 SIGMOIDOSCOPY FLX DX W/COLLJ SPEC BR/WA IF PFRMD 10/01/2011 epeat 1 year SIGMOIDOSCOPY FLX DX W/COLLJ SPEC BR/WA IF PFRMD 07/03/2013 Sigmoidoscopy, flexible SIGMOIDOSCOPY FLX DX W/COLLJ SPEC BR/WA IF PFRMD 12/10/2014 Sigmoidoscopy, flexible SIGMOIDOSCOPY FLX DX W/COLLJ SPEC BR/WA IF PFRMD 02/17/2022 Sigmoidoscopy, flexible SKIN BIOPSY HX XCAPSL CTRC RMVL INSJ IO LENS PROSTH W/O ECP Left 12/02/2020 Current Outpatient Medications Medication Sig ammonium lactate/emu oil (EMU-LAC TOPICAL) Apply 1 application to affected area as needed. DULoxetine (CYMBALTA) 30 mg capsule Take 1 capsule by mouth once daily. (Patient not taking: Reported on 01/04/2023) ergocalciferol 50,000 unit capsule (VITAMIN D2, DRISDOL) Take 1 capsule by mouth two times a week. fluconazole (DIFLUCAN) 150 mg tablet Take 1 tablet by mouth one time a week. gabapentin (NEURONTIN) 400 mg capsule Take 1 capsule by mouth three times daily for 180 days. omeprazole (PRILOSEC) 40 mg capsule Take 1 capsule by mouth twice daily before meals. SITagliptin phosphate (JANUVIA) 25 mg tablet Take 1 tablet by mouth once daily. traZODone (DESYREL) 100 mg tablet TAKE 1 TABLET BY MOUTH DAILY AT BEDTIME. vit A/vit C/vit E/zinc/copper (PRESERVISION AREDS ORAL) Take 1 tablet by mouth twice daily. No current facility-administered medications for this visit. ALLERGIES: Patient has no known allergies. PERSONAL HISTORY: Social History Tobacco Use Smoking status: Former Packs/day: 1.00 Years: 30.00 Additional pack years: 0.00 Total pack years: 30.00 Types: Cigarettes Quit date: 08/28/1988 Years since quittin.4 Smokeless tobacco: Never Vaping Use Vaping Use: Never used Substance Use Topics Alcohol use: Not Currently Comment: occasional, 1 drink every 6 months Drug use: No FAMILY HISTORY: FAMILY HISTORY Problem Relation Age of Onset Cancer Brother lung Diabetes Father Cancer Paternal Grandmother lung Alcohol/Drug Mother liver cirrhosis No Ocular Disease No Family History REVIEW OF SYMPTOMS: The review of systems data was entered by the nurse and reviewed by ny Nursing Notes: Lalita Cristina LPN 01/21/2023 4:00 PM Signed REVIEW OF SYSTEMS: General: The patient denies fatigue, denies weight loss, denies weight gain, denies feeling hot, and denies feelings of cold. Eyes: The patient denies glaucoma, denies eye injury/surgery, wears glasses or contacts. Ear/Nose/Throat: The patient denies allergies, denies hayfever, denies ear infections, and denies bloody noses. Cardiovascular: The patient denies chest pain, denies heart disease, denies high blood pressure,denies cardiac stent, denies prior heart attack, denies irregular heart beat, denies high cholesterol, denies poor circulation, denies heart failure, other cardiac issues, denies claudication, denies cold feet, denies peripheral arterial stent. Respiratory: The patient denies tuberculosis, denies pneumonia, denies frequent cough, denies pulmonary embolism, denies shortness of breath, and denies coughing up blood. Gastrointestinal: The patient denies difficulty swallowing, denies acid reflux, denies ulcers, denies vomiting, denies jaundice/hepatitis, denies gallbladder problems, denies black or tarry stools, denies hemorrhoids, denies bleeding from rectum, denies diverticulitis, denies constipation, denies diarrhea, denies loss of stool control, and NOTES hernias. Kidney/Bladder: The patient denies kidney stones, denies urine infections, and denies bloody urine. Skin: The patient denies a history of skin cancer, denies bleeding/changing moles, and denies a history of skin rash. Neurologic: The patient denies a history of epilepsy/convulsions, denies headaches, denies head/spinal injuries, and denies stroke/TIA. Psychiatric: The patient denies psychiatric medications, denies depression, and denies voices, denies substance abuse. Endocrine: The patient NOTES thyroid disorders, denies diabetes, and denies hormonal problems. Hematologic: The patient denies a history of bruising, denies bleeding, and denies anemia, denies blood clots. Infections: The patient denies a history of measles and mumps, denies rheumatic fever, and denies sexually transmitted diseases. Musculoskeletal: The patient denies back pain/injury, denies back problems, denies sciatica, denies knee/foot trouble, denies arthritis, or denies gout. When was patient's last Mammogram screening? years Last Colonoscopy: 2018 Lalita Cristina LPN PHYSICAL EXAMINATION: General: The patient is 82 year old female, well nourished, well hydrated in no acute distress. The patient is oriented to time, place, and person. VITALS: Blood pressure 128/66, pulse 91, temperature 36.8 C (98.2 F), height 167.6 cm (5' 6 ), weight 78.9 kg (174 lb), SpO2 97 %. Body mass index is 28.08 kg/m . HEENT: Normal cephalic, ataumatic, pupils are equally round, sclera are anicteric, mucous membranes are moist, oropharynx is clear. Neck has no masses, asymmetry or lymphadenopathy. Thyroid is unremarkable. Respiratory: Clear to auscultation and percussion. Normal respiratory excursion and pattern. Cardiac: Examination is regular rate and rhythm. Abdominal exam: Soft, nontender, with no palpable masses. No hepatosplenomegaly. A moderate reducible incisional hernia in the upper aspect of the incision. No obvious other palpable hernias are noted Rectal exam: exam deferred Extremities: no clubbing, cyanosis or edema. No adenopathy. Other: LABORATORY VALUES: As Noted RADIOLOGIC STUDIES: As Noted Assessment IMPRESSION: prior upper midline incisional hernia PLAN: I plan to obtain a CT scan of the abdomen pelvis to assess for additional hernias/occult hernias. My plan is to perform a open or laparoscopic hernia repair depending upon the CT scan. We discussed the possible open repair given the fact that she has no omentum and had a total colectomy along with a splenic injury at the time of initial surgery. The planned surgical procedure was discussed extensively with the patient. The risks, benefits, anticipated outcomes and possible complications were mentioned. María mcphersonands that all hernia repair surgery has a chance of recurrence and/or chronic post operative pain. My staff has also explained the procedure in understandable terms and the patient was given the option to take printed material concerning the planned procedure. The patient had the opportunity to ask questions concerning the planned procedure. The patient freely consents to the planned procedure. The patient is actually on a cruise to [place] in February. We will plan to obtain the CAT scan and then plan to repair the hernia when she returns from her vacation. My findings have been communicated to Alice Goode PA-C via shared medical record. This note will be forwarded to Alice Goode PA-C. Diagnoses: (K43.2) Incisional hernia, without obstruction or gangrene (primary encounter diagnosis) Return to Clinic: The patient is instructed to follow-up with me after the testing has been completed. Alejo Whitten MD documented in this encounter [facility] 01-21-2023 Nurse Note REVIEW OF SYSTEMS: General: The patient denies fatigue, denies weight loss, denies weight gain, denies feeling hot, and denies feelings of cold. Eyes: The patient denies glaucoma, denies eye injury/surgery, wears glasses or contacts. Ear/Nose/Throat: The patient denies allergies, denies hayfever, denies ear infections, and denies bloody noses. Cardiovascular: The patient denies chest pain, denies heart disease, denies high blood pressure,denies cardiac stent, denies prior heart attack, denies irregular heart beat, denies high cholesterol, denies poor circulation, denies heart failure, other cardiac issues, denies claudication, denies cold feet, denies peripheral arterial stent. Respiratory: The patient denies tuberculosis, denies pneumonia, denies frequent cough, denies pulmonary embolism, denies shortness of breath, and denies coughing up blood. Gastrointestinal: The patient denies difficulty swallowing, denies acid reflux, denies ulcers, denies vomiting, denies jaundice/hepatitis, denies gallbladder problems, denies black or tarry stools, denies hemorrhoids, denies bleeding from rectum, denies diverticulitis, denies constipation, denies diarrhea, denies loss of stool control, and NOTES hernias. Kidney/Bladder: The patient denies kidney stones, denies urine infections, and denies bloody urine. Skin: The patient denies a history of skin cancer, denies bleeding/changing moles, and denies a history of skin rash. Neurologic: The patient denies a history of epilepsy/convulsions, denies headaches, denies head/spinal injuries, and denies stroke/TIA. Psychiatric: The patient denies psychiatric medications, denies depression, and denies voices, denies substance abuse. Endocrine: The patient NOTES thyroid disorders, denies diabetes, and denies hormonal problems. Hematologic: The patient denies a history of bruising, denies bleeding, and denies anemia, denies blood clots. Infections: The patient denies a history of measles and mumps, denies rheumatic fever, and denies sexually transmitted diseases. Musculoskeletal: The patient denies back pain/injury, denies back problems, denies sciatica, denies knee/foot trouble, denies arthritis, or denies gout. When was patient's last Mammogram screening? years Last Colonoscopy: 2017 Lalita Cristina LPN documented in this encounter [facility] 01-04-2023 Note HNO ID: [id number] Author: Alice Goode PA-C Service: ? Author Type: Physician [employer] Type: Progress Notes Filed: 01/04/2023 1:08 PM Note Text: 82 year old female with c/o here for 6 month follow up Started Go-Low plant based food for weight loss, Release vitamin. Two concerns: Couple spots on the back 2. Notes area of pouch is growing more uncomfortable and protruding. Has consult 01/21/2023 Dr. Whitten. Met a man on-line dating. They've met once and seem to really enjoy each other. Planning to come to visit again. Orthostatic hypotension Near syncope Lightheadedness Doing well, working at [employer]-loves it. No issues with lightheadedness or dizziness. Had a fall a few days ago r/t eye sight. Had low vision exam a few days ago. 10/06/2022 was feeling well: went to ER 10/06/2022 echocardiogram: LV: Mild concentric LVH, LV SF WNL, EF 55-60%, no regional wall motion abnormalities. Normal diastole. RV: Size and RV SF WNL LA mildly enlarged, RA WNL, no evidence of intra atrial shunt, PFO not assessed. MV appears thick, mildly posteriorly directed mitral valve regurgitation without stenosis. TV WNL, trivial regurgitation and no stenosis AV with diffuse sclerosis, no regurgitation or stenosis. PV WNL with trivial regurgitation Aortic root size WNL, aortic arch, descending thoracic aorta inadequately visualized, IVC/SVC size WNL with 50% collapse of inspiration. RAP 3 mmHg. Pulmonary veins are normal. Pericardium no pericardial effusion 10/06/2022 cardiac stress SPECT with treadmill exercise: Rocco protocol 2 minutes 18 seconds, peak heart rate 131 92% MHR, 4.60 METS: Demonstrated mild perfusion defect in mid to distal anterior wall which improved with stress likely from breast attenuation artifact. Calculated ejection fraction 66%, no regional wall motion abnormalities. No evidence of reversible ischemia or infarct. Hyperlipidemia, mixed Current medication none Last 2 Lipids: Component Latest Ref Rng AND Units 10/16/2020 06/23/2021 11/24/2021 11/24/2021 12:17 PM 12:17 PM Cholesterol, Total <200 mg/dL 207 (H) 228 (H) Triglyceride <150 mg/dL 352 (H) 795 (H) HDL Cholesterol >39 mg/dL 32 (L) 27 (L) Non HDL Cholesterol <130 mg/dL 175 (H) 201 (H) Fasting Time hrs 16 12 VLDL Cholesterol 71 (H) 70 (H) 125 (H) TC:HDL Ratio <5.10 6.47 (H) 8.44 (H) LDL Cholesterol 105 (H) LDL:HDL Ratio 3.28 (H) LDL Cholesterol, Direct <100 mg/dL 88 76 Type 2 diabetes mellitus with complication, without long-term current use of insulin (hcc) (primary encounter diagnosis) Current medications: Empagliflozin 10 mg daily with breakfast stopped due to side effects, vaginal itching persistent: stopped 3wweks ago. Taking medication as directed consistently? Yes Medication side effects: Notes improvement off metformin. Stopped empagliflozin due to persistent issues with vaginitis. Medical Issues / Complications: hypertension, hyperlipidemia, and peripheral neuropathy Checking blood sugars at home? Occasional. Not recent. Watching diet? Yes Physical Activity: Regular Hypoglycemic spells? No Any visual disturbance? No Chest pain? No New numbness, tingling or loss of sensation? unchanged Any recent foot problems, sores or rashes? No Any recent or sudden weight loss? No, 18lb loss intentioinally Change in urination? No. If yes: Any recent illness? No Last eye exam: up to date. Last foot exam: up to date. HBA1C: Hemoglobin A1C (%) Date Value 10/05/2022 7.6 07/02/2022 7.6 02/19/2021 8.1 04/28/2019 6.4 ) CMP: Glucose 156 10/16/2022 BUN 12 10/16/2022 Creatinine 0.81 10/16/2022 Sodium 139 10/16/2022 Potassium 4.5 10/16/2022 Chloride 103 10/16/2022 CO2 Content, Venous 24 10/16/2022 Protein, Total 7.0 07/02/2022 Albumin 4.1 07/02/2022 Calcium 11.1 10/16/2022 Alkaline Phosphatase 152 07/02/2022 Bilirubin, Total 0.2 07/02/2022 AST 34 07/02/2022 ALT 36 07/02/2022 Last 2 Encounter Wt Readings: Date: Wt: 01/04/2023 78.5 kg (173 lb) 10/23/2022 81.2 kg (179 lb) Hyperparathyroidism (hcc) Hypercalcemia Vitamin d deficiency Current medications: Vit D3 50k weekly Component Latest Ref Rng AND Units 06/23/2021 11/24/2021 07/02/2022 10/16/2022 Protein, Total 6.3 - 8.0 g/dL 7.2 7.0 Albumin 3.9 - 4.9 g/dL 4.4 4.1 Calcium 8.5 - 10.2 mg/dL 11.4 (H) 11.2 (H) 11.1 (H) Bilirubin, Total 0.2 - 1.3 mg/dL 0.4 0.2 Alkaline Phosphatase 34 - 123 U/L 149 (H) 152 (H) AST 13 - 35 U/L 55 (H) 34 ALT 7 - 38 U/L 65 (H) 36 Glucose 74 - 99 mg/dL 140 (H) 172 (H) 156 (H) BUN 7 - 21 mg/dL 14 12 12 Creatinine 0.58 - 0.96 mg/dL 0.80 0.81 0.81 Sodium 136 - 144 mmol/L 140 139 139 Potassium 3.7 - 5.1 mmol/L 4.3 4.7 4.5 Chloride 97 - 105 mmol/L 105 105 103 CO2 22 - 30 mmol/L 23 23 24 Anion Gap 9 - 18 mmol/L 12 11 12 eGFR >=60 mL/min/1.73mA? 76 74 73 Normalized Calcium 1.08 - 1.30 mmol/L 1.51 (H) Ionized Calcium 1.08 - 1.30 mmol/L 1.56 (H) PTH, Intact 15 - 65 (more content not included)... [facility] 01-04-2023 History of Present illness Narrative 82 year old female with c/o here for 6 month follow up Started [employer] plant based food for weight loss, Release vitamin. Two concerns: Couple spots on the back 2. Notes area of pouch is growing more uncomfortable and protruding. Has consult 01/21/2023 Dr. Whitten. Met a man on-line dating. They've met once and seem to really enjoy each other. Planning to come to visit again. Orthostatic hypotension Near syncope Lightheadedness Doing well, working at [employer]-loves it. No issues with lightheadedness or dizziness. Had a fall a few days ago r/t eye sight. Had low vision exam a few days ago. 10/06/2022 was feeling well: went to ER 10/06/2022 echocardiogram: LV: Mild concentric LVH, LV SF WNL, EF 55-60%, no regional wall motion abnormalities. Normal diastole. RV: Size and RV SF WNL LA mildly enlarged, RA WNL, no evidence of intra atrial shunt, PFO not assessed. MV appears thick, mildly posteriorly directed mitral valve regurgitation without stenosis. TV WNL, trivial regurgitation and no stenosis AV with diffuse sclerosis, no regurgitation or stenosis. PV WNL with trivial regurgitation Aortic root size WNL, aortic arch, descending thoracic aorta inadequately visualized, IVC/SVC size WNL with 50% collapse of inspiration. RAP 3 mmHg. Pulmonary veins are normal. Pericardium no pericardial effusion 10/06/2022 cardiac stress SPECT with treadmill exercise: Rocco protocol 2 minutes 18 seconds, peak heart rate 131 92% MHR, 4.60 METS: Demonstrated mild perfusion defect in mid to distal anterior wall which improved with stress likely from breast attenuation artifact. Calculated ejection fraction 66%, no regional wall motion abnormalities. No evidence of reversible ischemia or infarct. Hyperlipidemia, mixed Current medication none Last 2 Lipids: Component Latest Ref Rng & Units 10/16/2020 06/23/2021 11/24/2021 11/24/2021 12:17 PM 12:17 PM Cholesterol, Total <200 mg/dL 207 (H) 228 (H) Triglyceride <150 mg/dL 352 (H) 795 (H) HDL Cholesterol >39 mg/dL 32 (L) 27 (L) Non HDL Cholesterol <130 mg/dL 175 (H) 201 (H) Fasting Time hrs 16 12 VLDL Cholesterol 71 (H) 70 (H) 125 (H) TC:HDL Ratio <5.10 6.47 (H) 8.44 (H) LDL Cholesterol 105 (H) LDL:HDL Ratio 3.28 (H) LDL Cholesterol, Direct <100 mg/dL 88 76 Type 2 diabetes mellitus with complication, without long-term current use of insulin (hcc) (primary encounter diagnosis) Current medications: Empagliflozin 10 mg daily with breakfast stopped due to side effects, vaginal itching persistent: stopped 3wweks ago. Taking medication as directed consistently? Yes Medication side effects: Notes improvement off metformin. Stopped empagliflozin due to persistent issues with vaginitis. Medical Issues / Complications: hypertension, hyperlipidemia, and peripheral neuropathy Checking blood sugars at home? Occasional. Not recent. Watching diet? Yes Physical Activity: Regular Hypoglycemic spells? No Any visual disturbance? No Chest pain? No New numbness, tingling or loss of sensation? unchanged Any recent foot problems, sores or rashes? No Any recent or sudden weight loss? No, 18lb loss intentioinally Change in urination? No. If yes: Any recent illness? No Last eye exam: up to date. Last foot exam: up to date. HBA1C: Hemoglobin A1C (%) Date Value 10/05/2022 7.6 07/02/2022 7.6 02/19/2021 8.1 04/28/2019 6.4 ) CMP: Glucose 156 10/16/2022 BUN 12 10/16/2022 Creatinine 0.81 10/16/2022 Sodium 139 10/16/2022 Potassium 4.5 10/16/2022 Chloride 103 10/16/2022 CO2 Content, Venous 24 10/16/2022 Protein, Total 7.0 07/02/2022 Albumin 4.1 07/02/2022 Calcium 11.1 10/16/2022 Alkaline Phosphatase 152 07/02/2022 Bilirubin, Total 0.2 07/02/2022 AST 34 07/02/2022 ALT 36 07/02/2022 Last 2 Encounter Wt Readings: Date: Wt: 01/04/2023 78.5 kg (173 lb) 10/23/2022 81.2 kg (179 lb) Hyperparathyroidism (hcc) Hypercalcemia Vitamin d deficiency Current medications: Vit D3 50k weekly Component Latest Ref Rng & Units 06/23/2021 11/24/2021 07/02/2022 10/16/2022 Protein, Total 6.3 - 8.0 g/dL 7.2 7.0 Albumin 3.9 - 4.9 g/dL 4.4 4.1 Calcium 8.5 - 10.2 mg/dL 11.4 (H) 11.2 (H) 11.1 (H) Bilirubin, Total 0.2 - 1.3 mg/dL 0.4 0.2 Alkaline Phosphatase 34 - 123 U/L 149 (H) 152 (H) AST 13 - 35 U/L 55 (H) 34 ALT 7 - 38 U/L 65 (H) 36 Glucose 74 - 99 mg/dL 140 (H) 172 (H) 156 (H) BUN 7 - 21 mg/dL 14 12 12 Creatinine 0.58 - 0.96 mg/dL 0.80 0.81 0.81 Sodium 136 - 144 mmol/L 140 139 139 Potassium 3.7 - 5.1 mmol/L 4.3 4.7 4.5 Chloride 97 - 105 mmol/L 105 105 103 CO2 22 - 30 mmol/L 23 23 24 Anion Gap 9 - 18 mmol/L 12 11 12 eGFR >=60 mL/min/1.73m 76 74 73 Normalized Calcium 1.08 - 1.30 mmol/L 1.51 (H) Ionized Calcium 1.08 - 1.30 mmol/L 1.56 (H) PTH, Intact 15 - 65 pg/mL 109 (H) 105 (H) 102 (H) Vitamin D 25 Hydroxy 31.0 - 80.0 ng/mL 31.4 30.0 (L) 22.7 (L) Phosphorus 2.7 - 4.8 mg/dL 2.6 (L) Magnesium 1.7 - 2.3 mg/dL 2.1 H/o total colectomy Iron deficiency anemia secondary to inadequate dietary iron intake Malabsorption of iron Current medication: Omeprazole 40mg daily AC Periodic parenteral iron sucrose 200mg IV x 3, 11/04-11/09/2022 Current symptoms: none. Last Mg level if on PPI chronically: none. Heartburn is controlled: Yes. Dysphagia: No. Bloody or black stools: No. Bowel changes: No. Last EGD and/or colonoscopy: Dr Whitten sigmoidoscopy: - Stenosed but manually dilated post-surgical anastomosis found on digital exam. - The rectal pouch is normal. - Two medium, bleeding polyps in the distal rectum, removed with a hot snare. Resected and retrieved. Injected. Treated with argon beam coagulation. - The colonic anastomosis is normal. FINAL DIAGNOSIS A. Distal anal pouch nodule, biopsy: - Colonic mucosa with acutely inflamed granulation tissue and ulceration. B. Distal anal pouch nodule, biopsy: - Colonic mucosa with acutely inflamed granulation tissue and ulceration. Last lab Component Latest Ref Rng & Units 10/27/2021 04/27/2022 WBC 3.70 - 11.00 k/uL 9.65 RBC 3.90 - 5.20 m/uL 4.80 Hemoglobin 11.5 - 15.5 g/dL 12.9 Hematocrit 36.0 - 46.0 % 41.3 MCV 80.0 - 100.0 fL 86.0 MCH 26.0 - 34.0 pg 26.9 MCHC 30.5 - 36.0 g/dL 31.2 RDW-CV 11.5 - 15.0 % 14.4 Platelet Count 150 - 400 k/uL 347 MPV 9.0 - 12.7 fL 8.8 (L) Neut% % 65.7 Abs Neut (ANC) 1.45 - 7.50 k/uL 6.34 Lymph% % 23.5 Abs Lymph 1.00 - 4.00 k/uL 2.27 Cherokee% % 7.4 Abs Cherokee <0.87 k/uL 0.71 Eosin% % 1.7 Abs Eosin <0.46 k/uL 0.16 Baso% % 1.2 Abs Baso <0.11 k/uL 0.12 (H) Immature Gran % % 0.5 IMMATURE GRANS (ABS) <0.10 k/uL 0.05 NRBC /100 WBC 0.0 Absolute nRBC <0.01 k/uL <0.01 DTYPE Auto Iron 41 - 186 ug/dL 64 34 (L) TIBC 232 - 386 ug/dL 322 319 Transferrin Saturation 15.0 - 57.0 % 19.9 10.7 (L) Ferritin 14.7 - 205.1 ng/mL 130.0 70.5 Foraminal stenosis of cervical region Facet arthritis of cervical region Degenerative disc disease, cervical Chronic right si joint pain Spinal stenosis, lumbar region, 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 On the right, severe in degree electrically. On the left, mild to moderate in degree electrically. 2. Bilateral C6/C7 radiculopathy, chronic, without active denervation. Continued issues with feet, intermittently on fire, RLS sx improved with CBD. Primary insomnia Current medications: Trazodone 100 mg daily at bedtime Stable on medication Macular degeneration Has been more problematic Dr. Marissa Tang. Dr. Moser low division chair Loves to read. Using magnifier and sewing lamp. 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 / [facility] Actinic keratosis 06/22/2008 Arthritis Degeneration of lumbar or lumbosacral intervertebral disc 08/13/2006 Diarrhea patient has a J pouch Enthesopathy of hip region 08/13/2006 Hyperparathyroidism (HCC) Impaired fasting glucose 02/19/2021 Knee joint replacement by other means 02/23/2011 right Multiple thyroid nodules 04/20/2018 Multi-nodular goiter with stable nodules, FNA hx benign. No further follow up indicated. 03/24/21 US thyroid: Nodule #1 RUL: stable TR3 no f/u Nodule #2 R lower stable TR2 no f/u Nodule #3 Lower center stable TR4 Nodule #4 LML stable no f/u 05/06/20 US thyroid Nodule #1 RUL, Size: 1.1 x 0.6 x 1 cm; no change, mostly cystic TR3 3: No F/U Nodule #2 R midpole Size: 1.2 x 1 x 1.5 cm; previously Other and unspecified hyperlipidemia 04/09/2008 PMH - PAST MEDICAL HISTORY OF right torn rotator cuff Pseudophakia of left eye 11/2020 Pseudophakia of right eye 11/04/2020 Dr. Emily MD S/P complete repair of rotator cuff 05/15/2010 right arm Ulcerative colitis, unspecified Unspecified vitamin D deficiency 04/09/2008 PAST SURGICAL HISTORY Procedure Laterality Date ABDOMINAL SURGERY HX ARTHRP ACETBLR/PROX FEM PROSTC AGRFT/ALGRFT 06/27/2012 left hip ARTHRP KNE CONDYLE&PLATU MEDIAL&LAT COMPARTMENTS 02/16/2011 Knee replacement, total right [facility] Dr. Gimenez BACK SURGERY HX CATARACT EXTRACTION W/ INTRAOCULAR LENS IMPLANT HX Right 11/04/2020 Dr. Pantoja CATARACT EXTRACTION W/ INTRAOCULAR LENS IMPLANT HX Left 12/02/2020 Dr. Pantoja COLON SURGERY HX COLONOSCOPY FLX DX W/COLLJ SPEC WHEN PFRMD 01/1999 Colonoscopy COLONOSCOPY FLX DX W/COLLJ SPEC WHEN PFRMD 02/13/2008 Colonoscopy COLONOSCOPY FLX DX W/COLLJ SPEC WHEN PFRMD 05/17/2017 Colonoscopy COLONOSCOPY FLX DX W/COLLJ SPEC WHEN PFRMD 06/27/2018 pouchoscopy COLONOSCOPY W/BIOPSY SINGLE/MULTIPLE 07/31/2009 ESOPHAGOGASTRODUODENOSCOPY TRANSORAL DIAGNOSTIC 06/27/2018 EGD EYE SURGERY HX JOINT REPLACEMENT HX LAMINOTOMY (HEMILAMINECTOMY), WITH DECOMPRESSION OF NERVE ROOT(S) 01/16/2020 Partial L1, complete L2, complete L3, complete L4 laminectomy with decompression of neural elements from L1-L4 LAPAROSCOPY SURG CHOLECYSTECTOMY Cholecystectomy, lap OOPHORECTOMY PARTIAL/TOTAL UNI/BI Left Oophorectomy OPEN REPAIR OF ROTATOR CUFF ACUTE Right 04/12/2010 Rotator cuff repair PAST SURGICAL HISTORY OF 2007 right hip replacement PAST SURGICAL HISTORY OF 08/13/2009 exp lap, TPC and IPAA. Colectomy, ileostomy with J pouch, takedown 7-10 PAST SURGICAL HISTORY OF cervical calcium deposits removed surgically, foraminotomy? POUCHOSCOPY 02/03/2016 SIGMOIDOSCOPY FLX DX W/COLLJ SPEC BR/WA IF PFRMD 05/28/2008 SIGMOIDOSCOPY FLX DX W/COLLJ SPEC BR/WA IF PFRMD 10/01/2011 epeat 1 year SIGMOIDOSCOPY FLX DX W/COLLJ SPEC BR/WA IF PFRMD 07/03/2013 Sigmoidoscopy, flexible SIGMOIDOSCOPY FLX DX W/COLLJ SPEC BR/WA IF PFRMD 12/10/2014 Sigmoidoscopy, flexible SIGMOIDOSCOPY FLX DX W/COLLJ SPEC BR/WA IF PFRMD 02/17/2022 Sigmoidoscopy, flexible SKIN BIOPSY HX XCAPSL CTRC RMVL INSJ IO LENS PROSTH W/O ECP Left 12/02/2020 Social History Tobacco Use Smoking status: Former Packs/day: 1.00 Years: 30.00 Additional pack years: 0.00 Total pack years: 30.00 Types: Cigarettes Quit date: 08/28/1988 Years since quittin.3 Smokeless tobacco: Never Vaping Use Vaping Use: Never used Substance Use Topics Alcohol use: Not Currently Comment: occasional, 1 drink every 6 months Drug use: No ACTIVE PROBLEM LIST Degeneration of Lumbar Or Lumbosacral Intervertebral Disc Hyperlipidemia, 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 Fibromyalgia Primary Insomnia Vitamin D Deficiency 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 Iron Deficiency Anemia Secondary to Inadequate Dietary Iron Intake Spinal Stenosis, Lumbar Region, With Neurogenic Claudication H/O Total Colectomy Ulcerative Pancolitis With Complication (Hcc) Hyperparathyroidism ([facility]) Neck Pain, Chronic Chronic Right Si Joint Pain Hypercalcemia Facet Arthritis of Cervical Region Degenerative Disc Disease, Cervical Near Syncope Lightheadedness Orthostatic Hypotension Foraminal Stenosis of Cervical Region Pseudophakia of Both Eyes 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 Dermatochalasis of Both Upper Eyelids History of Gastric Ulcer Elevated Lfts Type 2 Diabetes Mellitus With Complication, Without Long-Term Current Use of Insulin ([facility]) 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 6 tablet 0 empagliflozin (JARDIANCE) 10 mg tablet Take 1 tablet by mouth daily with breakfast. 30 tablet 5 DULoxetine (CYMBALTA) 30 mg capsule Take 1 capsule by mouth once daily. 90 capsule 1 omeprazole (PRILOSEC) 40 mg capsule Take 1 capsule by mouth twice daily before meals. 180 capsule 3 gabapentin (NEURONTIN) 400 mg capsule Take 1 capsule by mouth three times daily for 180 days. 90 capsule 5 ergocalciferol 50,000 unit capsule (VITAMIN D2, DRISDOL) Take 1 capsule by mouth two times a week. 24 capsule 3 vit A/vit C/vit E/zinc/copper (PRESERVISION AREDS ORAL) Take 1 tablet by mouth twice daily. ammonium lactate/emu oil (EMU-LAC TOPICAL) Apply 1 application to affected area as needed. No current facility-administered medications for this visit. Meningococcal B Vaccine: Consider Based On Risk(1 of 4 - Increased Risk) Never done Hepatitis A Vaccine(1 of 2 - Risk 2-dose series) Never done MMR Vaccine(1 of 2 - Risk 2-dose series) Never done Shingrix Vaccine(2 of 3) due on 06/23/2011 Depression Assessment Never done Covid-19 Vaccine(6 - Moderna series) due on 05/23/2022 Diabetic Foot Exam due on 06/23/2022 Influenza Vaccine(1) due on 12/11/2022 EXAM: BP 128/64 Pulse 68 Resp 16 Wt 78.5 kg (173 lb) SpO2 99% BMI 28.79 kg/m Pleasant well appearing older adult woman in no acute distress. Alert and oriented all spheres. Normal affect and cognition. Speech normal. No deficits to learning or comprehension. Skin warm, dry, pink to lips and nailbeds. Normal turgor. One lesion I 1.4cm brown SK.second lesion is partially unroof oxidized epidermal cyst. Respirations regular and unlabored. HEENT: NCAT. No scleral icterus or conjunctival injection. TM's clear. Nose and oropharynx free from injection or lesion. Oral membranes moist and pink. No cervical lymph nodes. Thyroid non-tender, no masses, or enlargement. Carotids pulses 2+/4+ without bruits. No JVD with HOB at 30 degrees. Chest is normal shape. Lungs are clear to all [place] with good air exchange through out. HRRR without murmur or gallop. No lifts, heaves, or rubs. Abdomen: active bowel sounds throughout, soft, nontender, Diastasis recti, possible hernia. Nontender. No masses or organomegaly. No CVAT. Extrem: no clubbing or cyanosis. Edema: none. Extremities are warm and pink with prompt capillary refill. ASSESSMENT/PLAN: 1. Orthostatic hypotension - ICD9: 458.0, ICD10: I95.1 (primary diagnosis) 2. Near syncope - ICD9: 780.2, ICD10: R55 3. Lightheadedness - ICD9: 780.4, ICD10: R42 Currently doing well. No issues, on fall not related. 4. Hyperlipidemia, mixed - ICD9: 272.2, ICD10: E78.2 - Controlled - Continue current medications - Counseled on healthy diet and regular exercise 5. Type 2 diabetes mellitus with complication, without long-term current use of insulin (HCC) - ICD9: 250.90, ICD10: E11.8 - Controlled - Continue current medications - HGB A1C 6. Hyperparathyroidism (HCC) - ICD9: 252.00, ICD10: E21.3 7. Hypercalcemia - ICD9: 275.42, ICD10: E83.52 8. Vitamin D deficiency - ICD9: 268.9, ICD10: E55.9 Stable, calcium has diminished 9. Ulcerative pancolitis with complication (HCC) - ICD9: 556.6, ICD10: K51.019 10. H/O total colectomy - ICD9: V45.89, ICD10: Z90.[address] Whitten this week. Possible hernia ventral. 11. Iron deficiency anemia secondary to inadequate dietary iron intake - ICD9: 280.1, ICD10: D50.8 12. Malabsorption of iron - ICD9: 579.8, ICD10: K90.9 Recent iron transfusions x 5 13. Foraminal stenosis of cervical region - ICD9: 723.0, ICD10: M48.02 14. Facet arthritis of cervical region - ICD9: 721.0, ICD10: M47.812 15. Chronic right SI joint pain - ICD9: 724.6, 338.29, ICD10: M53.3, G89.29 16. Spinal stenosis, lumbar region, with neurogenic claudication - ICD9: 724.03, ICD10: M48.062 17. Degenerative disc disease, cervical - ICD9: 722.4, ICD10: M50.30 18. Facet arthritis of lumbar region - ICD9: 721.3, ICD10: M47.816 19. Spondylosis of lumbar region without myelopathy or radiculopathy - ICD9: 721.3, ICD10: M47.816 Continues with chronic pain but doing better. More active, exercising which helps 20. Primary insomnia - ICD9: 307.42, ICD10: F51.01 - TRAZODONE 100 MG TABLET 21. Seborrheic keratosis - ICD9: 702.19, ICD10: L82.1 Discussed options. Cryo might be temporary but she would like to try. We discussed risks and benefits of cryotherapy as well as other options for sussyt treament: agreed to proceed. 10 sec freeze twice to each area. Alice Goode PA-C documented in this encounter [facility] 12-31-2022 Note HNO ID: [id number] Author: Stephany Gonzalez OD Service: ? Author Type: PATROLLER Type: Progress Notes Filed: 12/31/2022 1:45 PM Note Text: Low vision right eye category 1, low vision left eye category 1 (primary encounter diagnosis) Bilateral pseudophakia Regular astigmatism of both eyes Dry eye syndrome of both eyes Recommend Mobilux 10D rect LED lighted magnifier and stand. Recommend RAYMOND light to improve contrast and color discrimination. Reviewed lens size and strength relationship, working distances, and instructed in the use of low vision aids. Demonstrated computer modifications and albert for smartphone that allows for magnification, reads text, and identifies currency, colors, and people. Discussed activities of daily living and recommended non-optical aids for assistance. Recommended local resources for support groups and agencies. Provided applications for audio books/Bible/magazines. 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 Return as needed for low vision care. Glasses Rx given with stronger add and PAL. For dryness/burning/watering: Recommend artificial tears (Refresh, Systane, Blink, TheraTears or equivalent) in both eyes four times a day. If needed more frequently, should use preservative free artifical tears. If symptoms are severe, may use artificial tear gel or ointment (Refresh PM, Genteal Gel, Systane ointment or equivalent) at bedtime. Time spent with patient included over 50% counseling, reviewing and demonstrating various lens combinations and conditions for low vision, including but not limited to the discussion of magnifiers and lighting. Attending Note The majority of the visit was spent counseling and/or coordinating care for the patient. Counseled the patient regarding visual impairment. Total face to face time was 60 minutes. Signature: Stephany Gonzalez OD Date: 12/31/2022 Time: 1:41 PM Dilation not repeated today, recently performed by referring doctor. Continue care as directed by referring doctor. [facility] 12-[facility]-2022 Instructions Stephany Gonzalez, OD - 12/31/2022 1:43 PM EDT People with Adrian Bonnet syndrome can vouch for the saying that things aren't always as they seem. This syndrome, named for the eighteenth-century philosopher who first described it, is characterized by visual hallucinations. People may see anything from abstract patterns to birds and babies and white [place] beaches. The folks who perceive these visions know they're just mirages, of sorts. That is, the images are illusions, not delusions. The difference is that a person with delusions is convinced that what she sees is real. Patients with Adrian Bonnet syndrome may initially second-guess themselves but they ultimately accept that their perceptions have no substance. Cause The cause of this disorder is thought to be a misfire in the brain similar to the neurological mixup that occurs in patients with phantom limb syndrome. As vision wanes, the brain continues to interpret visual imagery in the absence of corresponding visual input, just as it sometimes continues to process pain signals from a limb that's no longer there. Symptoms Adrian Bonnet syndrome has one principal symptom: the periodic occurrence of hallucinatory visions. Sometimes the hallucinations are very animated and detailed. A person who has such visual illusions may wonder if he's becoming mentally ill or developing senile dementia. He may hesitate to tell his doctors or loved ones about the problem for fear they'll draw that very conclusion. Risk factors Roughly one third of patients with low vision develop Adrian Bonnet syndrome, including those with age-related macular degeneration, cataracts, diabetic retinopathy, and other eye disorders. The hallucinations are more likely to occur when the person is awake, alone, and in dim light, or when he or she is physically inactive or lacks distractions, such as television. Turning on an extra lamp or two, staying physically and mentally occupied, spending time with family or friends, and participating in social activities can reduce the frequency and vividness of the hallucinations. Each patient must learn what works for him or her. A positive attitude is the wilson. Diagnosis Your retail sales professional is the best healthcare professional to diagnose this condition. In addition, your eye care provider will already be aware of any underlying vision disorders you have that may be associated with the syndrome. A thorough eye examination to rule out additional problems and a few targeted questions about your symptoms are usually all that's needed to diagnose the syndrome. Treatment Fortunately, the saying This, too, shall pass is also true for those with Adrian Bonnet syndrome. After a year or perhaps 18 months, the brain seems to adjust to the person's vision loss, and the hallucinations begin to recede. In the meantime, of course, the underlying visual impairment should be treated or monitored. For most patients, just knowing that they aren't becoming mentally ill and that the symptoms will eventually subside is all the treatment they need. For dryness/burning/watering: Recommend artificial tears (Refresh, Systane, Blink, TheraTears or equivalent) in both eyes four times a day. If needed more frequently, should use preservative free artifical tears. If symptoms are severe, may use artificial tear gel or ointment (Refresh PM, Genteal Gel, Systane ointment or equivalent) at bedtime. documented in this encounter [facility] 12-31-2022 History of Present illness Narrative Low vision right eye category 1, low vision left eye category 1 (primary encounter diagnosis) Bilateral pseudophakia Regular astigmatism of both eyes Dry eye syndrome of both eyes Recommend Mobilux 10D rect LED lighted magnifier and stand. Recommend RAYMOND light to improve contrast and color discrimination. Reviewed lens size and strength relationship, working distances, and instructed in the use of low vision aids. Demonstrated computer modifications and albert for smartphone that allows for magnification, reads text, and identifies currency, colors, and people. Discussed activities of daily living and recommended non-optical aids for assistance. Recommended local resources for support groups and agencies. Provided applications for audio books/Bible/magazines. 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 Return as needed for low vision care. Glasses Rx given with stronger add and PAL. For dryness/burning/watering: Recommend artificial tears (Refresh, Systane, Blink, TheraTears or equivalent) in both eyes four times a day. If needed more frequently, should use preservative free artifical tears. If symptoms are severe, may use artificial tear gel or ointment (Refresh PM, Genteal Gel, Systane ointment or equivalent) at bedtime. Time spent with patient included over 50% counseling, reviewing and demonstrating various lens combinations and conditions for low vision, including but not limited to the discussion of magnifiers and lighting. Attending Note The majority of the visit was spent counseling and/or coordinating care for the patient. Counseled the patient regarding visual impairment. Total face to face time was 60 minutes. Signature: Stephany Gonzalez OD Date: 12/31/2022 Time: 1:41 PM Dilation not repeated today, recently performed by referring doctor. Continue care as directed by referring doctor. documented in this encounter [facility] 11-20-2022 Miscellaneous Notes Patient notified [facility] has 1 refill & to contact for refill. Edna Kothari MA Patient has been identified by name and date of : Yes Last office visit in this department: 10/16/2022 RX INSTRUCTIONS: Patient aware RX will be sent to pharmacy. No need to notify patient. Patient phones requesting refills as follows: Requested Prescriptions Pending Prescriptions Disp Refills DULoxetine (CYMBALTA) 30 mg capsule 90 capsule 1 Sig: Take 1 capsule by mouth once daily. Please review and advise. Yas Arcos documented in this encounter [facility] 11-17-2022 Note HNO ID: [id number] Author: Dawna Wick PA-C Service: ? Author Type: Physician Fiberglass Tube Molder Type: Progress Notes Filed: 11/19/2022 12:00 PM Note Text: Dawna Wick PA-C Department of Orthopaedics Orthopaedics [address] [place], [place] [id number] Dept: [phone] November 17, 2022 CHIEF COMPLAINT: New and Pain of the Left Shoulder Ms. María Mcgarry is a 82 year old female who presents with left shoulder pain and weakness since an injury this past July, her daughter tripped coming into the home, the patient wrapped her arm around her daughter to keep her from falling. She felt some pain in her left biceps region and reports she had quite a bit of bruising from the shoulder down to the elbow. She is having issues with raising her hand overhead and reaching forward, her arm feels very weak. She also has shoulder pain which is a 2 out of 10 shooting aching along the lateral border of the shoulder. She has been using a kinesiology taping and Aspercreme which helps somewhat, the patient cannot tolerate NSAIDs as she has a personal history of colectomy and anemia. 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 ASSESSMENT: S46.212A Rupture of left proximal biceps tendon, initial encounter (primary encounter diagnosis) S46.012A Traumatic tear of left rotator cuff, unspecified tear extent, initial encounter PLAN: From her description I suspect that she may have had a proximal biceps rupture. She does have quite a bit of weakness in the shoulder, we discussed getting an ultrasound to evaluate the biceps and rotator cuff. He did offer a corticosteroid injection, she declines today. We will contact her via [employer] with the results of her ultrasound. Ms. María Mcgarry was advised as to contrast therapies and/or to take analgesics/anti-inflammatories as needed and all contraindications were reviewed. OBJECTIVE: Ms. María Mcgarry is a pleasant 82 year old in no apparent distress. Gen:There were no vitals taken for this visit. nl development, non obese, no deformities ENT: Normocephalic, normal hearing, moist mucosa CV: Pulses:Radial= 2+ and symmetric, capillary refill < 2 secs, no peripheral edema/varicosities Skin: no rash, bruising or lesions. Good turgor. Psych: cooperative and appropriate, alert and oriented x 3, good mood and affect. Musculoskeletal: Supple range of motion of the cervical spine without pain. Spurling signs are negative. No atrophy of the deltoid and shoulder musculature. Left shoulder is nontender to palpation over the SC joint, clavicle and AC joint, palpable degenerative changes at the AC joint noted.. Negative tenderness to palpation over the posterior shoulder, nontender anterior lateral corner of the shoulder and greater tuberosity. Nontender at the bicipital groove and coracoid. Active range of motion is 130 degrees of forward elevation, 65 degrees external rotation, and internal rotation to the lower lumbar spine. Passive range of motion is 160 degrees, 65 degrees, respectively. No laxity with anterior and posterior stress. Positive Neer and positive Tuttle impingement signs. 4+/5 strength with supraspinatus, infraspinatus and subscapularis. Sensation is intact in the axillary, radial, median and ulnar nerve distribution. Speeds testing elicits pain and weakness. Imaging: * * *Final Report* * * DATE OF EXAM: Nov 17 2022 1:09PM KALINA [id number] - XR SHLDR >/=3V AP/XIMENA AP/OTHR LT / PROCEDURE REASON: [id number] * * * * Physician Interpretation * * * * PROCEDURE: Left shoulder INDICATION: Pain .PAIN IN LEFT SHOULDER TECHNIQUE: XR SHLDR >/=3V AP/XIMENA AP/OTHR LT COMPARISON: 09/24/2020 FINDINGS: Narrowing with spurring and heterotopic ossifications at the AC joint, slightly more prominent than previous. Glenohumeral joint and acromiohumeral interval are maintained. Degenerative change in the imaged cervical spine. No fracture. No acute soft tissue abnormality. IMPRESSION IMPRESSION: Progressive AC joint arthrosis Galley Cook: [facility] Transcribe Date/Time: Nov 19 2022 11:37A Dictated by : CASTRO RAY MD This examination was interpreted and the report reviewed and electronically signed by: CASTRO RAY MD on Nov 19 2022 11:39AM EST Supporting Subjective Information Below: Past Surgical History: PAST SURGICAL HISTORY Procedure Laterality Date ABDOMINAL SURGERY HX ARTHRP ACETBLR/PROX FEM PROSTC AGRFT/ALGRFT 06/27/2012 left hip ARTHRP KNE CONDYLEANDPLATU MEDIALANDLAT COMPARTMENTS 02/16/2011 Knee replacement, total right [facility] Dr. Gimeenz BACK SURGERY HX CATARACT EXTRACTION W/ INTRAOCULAR LENS IMPLANT HX Right 11/04/2020 Dr. Pantoja CATARACT EXTRACTION W/ INTRAOCULAR LENS IMPLANT HX Left 12/02/2020 Dr. Pantoja COLON SURGERY HX COLONOSCOPY FLX DX W/COLLJ SPEC WHEN PFRMD 01/1999 Colonoscopy COLONOSCOPY (more content not included)... [facility] 11-17-2022 Miscellaneous Notes Pt declined to scheduled at thi time and will request a paper order to go to a local facility. Visit Type: US MSK1 Visit Length: 45 OR 60 MINUTES Order Name/Protocol: US SHOULDER LT; EVAL FOR LT PROXIMAL BICEP RUPTURE Preferred Provider: N/A Comment: Please ask if the patient has ever had any prior surgery to their LT SHOULDER. If so, notate the surgical hx in the Appointment Note. Location: [facility] Slot held: N/A documented in this encounter [facility] 11-17-2022 Note HNO ID: [id number] Author: Apoorva Hoffman Tech Service: Radiology Author Type: Boring Machine Operator Double End Type: Progress Notes Filed: 11/17/2022 1:22 PM Note Text: Radiology Service Progress Note PATIENT NAME: María Mcgarry DATE OF SERVICE: November 17, 2022 TIME: 1:21 PM PATIENT IDENTITY VERIFICATION COMPLETED USING TWO (2) IDENTIFIERS: Name and Date of confirmed by patient verbally. FALL SCREENING: Has the patient had 2 falls in the last year or 1 fall with injury or currently using an Ambulatory Assistive Device (Walker, Cane, Wheelchair, Crutches, etc.)? No PATIENT GENDER DATA: Female. status: : No status: NO. PATIENT RELEVANT IMPLANT DATA REVIEWED: Not Applicable RADIOLOGY DEPARTMENT: General X-ray: Exam(s) Completed: Upper Extremity X-Ray(s): Shoulder, AP / TRUE AP / AXILLARY / SUPRA OUTLET left PERIPHERAL IV DATA: Not applicable SIGNED BY: Jose Hernandez November 17, 2022 1:21 PM [facility] 11-10-2022 Note HNO ID: [id number] Author: Wendi Nj MD Service: ? 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 / Johnson WADSWORTHN Actinic keratosis 06/22/2008 Arthritis Degeneration of lumbar or lumbosacral intervertebral disc 08/13/2006 Diarrhea patient has a J pouch Enthesopathy of hip region 08/13/2006 Hyperparathyroidism (HCC) Impaired fasting glucose 02/19/2021 Knee joint replacement by other means 02/23/2011 right Multiple thyroid nodules 04/20/2018 Multi-nodular goiter with stable nodules, FNA hx benign. No further follow up indicated. 03/24/21 US thyroid: Nodule #1 RUL: stable TR3 no f/u Nodule #2 R lower stable TR2 no f/u Nodule #3 Lower center stable TR4 Nodule #4 LML stable no f/u 05/06/20 US thyroid Nodule #1 RUL, Size: 1.1 x 0.6 x 1 cm; no change, mostly cystic TR3 3: No F/U Nodule #2 R midpole Size: 1.2 x 1 x 1.5 cm; previously Other and unspecified hyperlipidemia 04/09/2008 PMH - PAST MEDICAL HISTORY OF right torn rotator cuff Pseudophakia of left eye 11/2020 Pseudophakia of right eye 11/04/2020 Dr. Emily MD S/P complete repair of rotator cuff 05/15/2010 right arm Ulcerative colitis, unspecified Unspecified vitamin D deficiency 04/09/2008 #. Nonexudative with textrafoveal geographic atrophy, both eyes - stable both eyes, former smoker, AREDS2 taking #. Pseudophakia, both eyes - stable OU #. PVD, both eyes - stable OU PLAN: Discussed the above findings with the patient AREDS2 not a smoker Return to clinic ~ 6 months NEXT: DILATE both eyes, OCT both eyes, Autofluorescenc OU I have confirmed and edited as necessary the relevant ophthalmic history, ROS, and the neuro exam findings as obtained by others. I have seen and examined this patient. I have discussed the case and the management of this patient's care with the Resident and/or fellow if applicable. I also have reviewed and agree with the assessment and plan as stated above and agree with all of its relevant components. 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 / SKenisha STRAIGHTENER Actinic keratosis 06/22/2008 Arthritis Degeneration of lumbar or lumbosacral intervertebral disc 08/13/2006 Diarrhea patient has a J pouch Enthesopathy of hip region 08/13/2006 Hyperparathyroidism (HCC) Impaired fasting glucose 02/19/2021 Knee joint replacement by other means 02/23/2011 right Multiple thyroid nodules 04/20/2018 Multi-nodular goiter with stable nodules, FNA hx benign. No further follow up indicated. 03/24/21 US thyroid: Nodule #1 RUL: stable TR3 no f/u Nodule #2 R lower stable TR2 no f/u Nodule #3 Lower center stable TR4 Nodule #4 LML stable no f/u 05/06/20 US thyroid Nodule #1 RUL, Size: 1.1 x 0.6 x 1 cm; no change, mostly cystic TR3 3: No F/U Nodule #2 R midpole Size: 1.2 x 1 x 1.5 cm; previously Other and unspecified hyperlipidemia 04/09/2008 PMH - PAST MEDICAL HISTORY OF right torn rotator cuff Pseudophakia of left eye 11/2020 Pseudophakia of right eye 11/04/2020 Dr. Emily MD S/P complete repair of rotator cuff 05/15/2010 right arm Ulcerative colitis, unspecified Unspecified vitamin D deficiency 04/09/2008 #. Nonexudative with textrafoveal geographic atrophy, both eyes - stable both eyes, former smoker, AREDS2 taking #. Pseudophakia, both eyes - stable OU #. PVD, both eyes - stable OU PLAN: Discussed the above findings with the patient AREDS2 not a smoker Return to clinic ~ 6 months NEXT: DILATE both eyes, OCT both eyes, Autofluorescenc OU I have confirmed and edited as necessary the relevant ophthalmic history, ROS, and the neuro exam findings as obtained by others. I have seen and examined this patient. I have discussed the case and the management of this patient's care with the Resident and/or fellow if applicable. I also have reviewed and agree with the assessment and plan as stated above and agree with all of its relevant components. Wendi Nj MD, PhD Vitreoretinal Surgery & Ocular Inflammatory Diseases [facility] documented in this encounter [facility] 11-09-2022 Miscellaneous Notes Attempted to reach patient left message for patient in regards to her appointment with Dawna Wick PA-C on 11/17/2022 I see that the appointment center scheduled her for an xray the day before 11/16/2022 at the [place] no need for separate appointment patient can come to [place] and get her xray here before her appointment just would need to arrive 20-15 mins earlier than her scheduled time to allow time for xray. Lt call back number if any questions. Edna De La Fuente MA November 09, 2022 11:23 AM documented in this encounter [facility] 10-26-2022 Miscellaneous Notes Reviewed patient on the 1st time tx report. The patient does not have a cancer dx or a chemo/radiation regimen. No further FN intervention is needed at this time. documented in this encounter [facility] 10-23-2022 Note HNO ID: [id number] Author: Chantale Coulter APRN.COLD STORAGE WORKER Service: ? Author Type: Nurse Practitioner Type: Progress Notes Filed: 10/23/2022 10:48 AM Note Text: Chief Complaint Patient presents with: Established Patient HPI: María Mcgarry is a 82 year old female who presents here today for follow up JANA. Per Dr. Tyler's previous note: H/o ulcerative colitis (status post subtotal colectomy with J-pouch reconstruction), hyperlipidemia, FM and remote history of positive TB test (1 year of INH in 2002). She had noticed more fatigue and had developed less tolerance for exercise. She had been taking an iron supplement on a periodic basis. Current therapy: 1) Periodic iron sucrose. Pts. in Mar. No new concerns today. Appetite: I eat. Energy level: Fair. Denies fevers or recent illness. Resp:denies cough or sob Cardiac:denies chest pain/palpitations GI:denies abd pain, n/v, :denies dysuria/hematuria Extrem: I have chronic body pain. Neuro:+neuropathy to BLE/hands Skin:denies rashes Heme:denies bleeding The ROS is otherwise negative. Past medical history, appointments, medications, allergies reviewed. No changes. EXAM: BP 133/76 Pulse 96 Temp 36.7 ?C (98.1 ?F) (Temporal) Ht 165.1 cm (5' 5 ) Wt 81.2 kg (179 lb) SpO2 97% BMI 29.79 kg/m? APPEARANCE Well appearing, alert, in no acute distress, well-hydrated, well nourished. HEART RRR with normal S1 and S2, no murmurs LUNG clear to auscultation LYMPH NODES No cervical lymphadenopathy, No supraclavicular lymphadenopathy, and No axillary lymphadenopathy. ABDOMEN bowel sounds normoactive, soft, non-tender EXTREMITIES No edema NEURO Awake, alert and oriented x 3, Normal gait, and No involuntary motions. SKIN Skin color, texture, turgor normal, no suspicious rashes or lesions LABS: Component Latest Ref Rng AND Units 10/27/2021 04/27/2022 10/16/2022 WBC 3.70 - 11.00 k/uL 10.95 9.65 12.13 (H) RBC 3.90 - 5.20 m/uL 4.74 4.80 4.57 Hemoglobin 11.5 - 15.5 g/dL 13.8 12.9 11.2 (L) Hematocrit 36.0 - 46.0 % 41.8 41.3 37.1 MCV 80.0 - 100.0 fL 88.2 86.0 81.2 MCH 26.0 - 34.0 pg 29.1 26.9 24.5 (L) MCHC 30.5 - 36.0 g/dL 33.0 31.2 30.2 (L) RDW-CV 11.5 - 15.0 % 13.6 14.4 15.0 Platelet Count 150 - 400 k/uL 208 347 342 MPV 9.0 - 12.7 fL 9.4 8.8 (L) 9.0 Neut% % 67.0 65.7 66.5 Abs Neut (ANC) 1.45 - 7.50 k/uL 7.33 6.34 8.06 (H) Lymph% % 23.7 23.5 24.3 Abs Lymph 1.00 - 4.00 k/uL 2.59 2.27 2.95 Cherokee% % 7.0 7.4 6.4 Abs Cherokee <0.87 k/uL 0.77 0.71 0.78 Eosin% % 0.7 1.7 1.5 Abs Eosin <0.46 k/uL 0.08 0.16 0.18 Baso% % 1.0 1.2 0.9 Abs Baso <0.11 k/uL 0.11 (H) 0.12 (H) 0.11 (H) Immature Gran % % 0.6 0.5 0.4 IMMATURE GRANS (ABS) <0.10 k/uL 0.07 0.05 0.05 NRBC /100 WBC 0.0 0.0 0.0 Absolute nRBC <0.01 k/uL <0.01 <0.01 <0.01 DTYPE Auto Auto Auto Component Latest Ref Rng AND Units 10/27/2021 04/27/2022 10/16/2022 Iron 41 - 186 ug/dL 64 34 (L) 26 (L) TIBC 232 - 386 ug/dL 322 319 379 Transferrin Saturation 15.0 - 57.0 % 19.9 10.7 (L) 6.9 (L) Component Latest Ref Rng AND Units 10/27/2021 04/27/2022 10/16/2022 Ferritin 14.7 - 205.1 ng/mL 130.0 70.5 32.3 ASSESSMENT/PLAN: 1. Iron deficiency anemia secondary to inadequate dietary iron intake - ICD9: 280.1, ICD10: D50.8 - No concerning findings on exam. - Pt. last received iron sucrose 2021. - Reviewed labs with pt. Ferritin drifting down. - Please schedule iron sucrose x5. - CBC/iron studies in 6 months. - Follow up with Dr. Tyler in one year with CBC/iron studies. - Pt. aware to call office with any questions/concerns. The patient indicates understanding of these issues and agrees with the plan. All documentation from previous visit of 10/27/21-Dr. Tyler was copied and pasted, documentation has been reviewed and edited as necessary for today's visit. Chantale Coulter APRN.[facility] 10-23-2022 History of Present illness Narrative Chief Complaint Patient presents with: Established Patient HPI: María Mcgarry is a 82 year old female who presents here today for follow up JANA. Per Dr. Tyler's previous note: H/o ulcerative colitis (status post subtotal colectomy with J-pouch reconstruction), hyperlipidemia, FM and remote history of positive TB test (1 year of INH in 2002). She had noticed more fatigue and had developed less tolerance for exercise. She had been taking an iron supplement on a periodic basis. Current therapy: 1) Periodic iron sucrose. Pts. in Mar. No new concerns today. Appetite: I eat. Energy level: Fair. Denies fevers or recent illness. Resp:denies cough or sob Cardiac:denies chest pain/palpitations GI:denies abd pain, n/v, :denies dysuria/hematuria Extrem: I have chronic body pain. Neuro:+neuropathy to BLE/hands Skin:denies rashes Heme:denies bleeding The ROS is otherwise negative. Past medical history, appointments, medications, allergies reviewed. No changes. EXAM: BP 133/76 Pulse 96 Temp 36.7 C (98.1 F) (Temporal) Ht 165.1 cm (5' 5 ) Wt 81.2 kg (179 lb) SpO2 97% BMI 29.79 kg/m APPEARANCE Well appearing, alert, in no acute distress, well-hydrated, well nourished. HEART RRR with normal S1 and S2, no murmurs LUNG clear to auscultation LYMPH NODES No cervical lymphadenopathy, No supraclavicular lymphadenopathy, and No axillary lymphadenopathy. ABDOMEN bowel sounds normoactive, soft, non-tender EXTREMITIES No edema NEURO Awake, alert and oriented x 3, Normal gait, and No involuntary motions. SKIN Skin color, texture, turgor normal, no suspicious rashes or lesions LABS: Component Latest Ref Rng & Units 10/27/2021 04/27/2022 10/16/2022 WBC 3.70 - 11.00 k/uL 10.95 9.65 12.13 (H) RBC 3.90 - 5.20 m/uL 4.74 4.80 4.57 Hemoglobin 11.5 - 15.5 g/dL 13.8 12.9 11.2 (L) Hematocrit 36.0 - 46.0 % 41.8 41.3 37.1 MCV 80.0 - 100.0 fL 88.2 86.0 81.2 MCH 26.0 - 34.0 pg 29.1 26.9 24.5 (L) MCHC 30.5 - 36.0 g/dL 33.0 31.2 30.2 (L) RDW-CV 11.5 - 15.0 % 13.6 14.4 15.0 Platelet Count 150 - 400 k/uL 208 347 342 MPV 9.0 - 12.7 fL 9.4 8.8 (L) 9.0 Neut% % 67.0 65.7 66.5 Abs Neut (ANC) 1.45 - 7.50 k/uL 7.33 6.34 8.06 (H) Lymph% % 23.7 23.5 24.3 Abs Lymph 1.00 - 4.00 k/uL 2.59 2.27 2.95 Cherokee% % 7.0 7.4 6.4 Abs Cherokee <0.87 k/uL 0.77 0.71 0.78 Eosin% % 0.7 1.7 1.5 Abs Eosin <0.46 k/uL 0.08 0.16 0.18 Baso% % 1.0 1.2 0.9 Abs Baso <0.11 k/uL 0.11 (H) 0.12 (H) 0.11 (H) Immature Gran % % 0.6 0.5 0.4 IMMATURE GRANS (ABS) <0.10 k/uL 0.07 0.05 0.05 NRBC /100 WBC 0.0 0.0 0.0 Absolute nRBC <0.01 k/uL <0.01 <0.01 <0.01 DTYPE Auto Auto Auto Component Latest Ref Rng & Units 10/27/2021 04/27/2022 10/16/2022 Iron 41 - 186 ug/dL 64 34 (L) 26 (L) TIBC 232 - 386 ug/dL 322 319 379 Transferrin Saturation 15.0 - 57.0 % 19.9 10.7 (L) 6.9 (L) Component Latest Ref Rng & Units 10/27/2021 04/27/2022 10/16/2022 Ferritin 14.7 - 205.1 ng/mL 130.0 70.5 32.3 ASSESSMENT/PLAN: 1. Iron deficiency anemia secondary to inadequate dietary iron intake - ICD9: 280.1, ICD10: D50.8 - No concerning findings on exam. - Pt. last received iron sucrose 2021. - Reviewed labs with pt. Ferritin drifting down. - Please schedule iron sucrose x5. - CBC/iron studies in 6 months. - Follow up with Dr. Tyler in one year with CBC/iron studies. - Pt. aware to call office with any questions/concerns. The patient indicates understanding of these issues and agrees with the plan. All documentation from previous visit of 10/27/21-Dr. Tyler was copied and pasted, documentation has been reviewed and edited as necessary for today's visit. Chantale Coulter APRN.COLD STORAGE WORKER documented in this encounter [facility] 10-23-2022 Note [facility] DISCHARGE SUMMARY NAME ACCOUNT SEX AGE ADMIT DISCHARGE PT MED. RECORD# NUMBER DATE DATE TYPE MARÍA MCGARRY [id number] F 81 10/05/22 10/06/22 2 [id number] ROOM: [facility] DATE OF : 1940 ATTENDING PHYSICIAN: Zoey Henderson ADMITTING DIAGNOSES: 1. Near syncope. 2. Dehydration. FINAL DIAGNOSES: 1. Near syncope most likely multifactorial, resolved. 2. Back pain, cramping between the shoulder blade, could be angina equivalent. Stress test did not reveal any ischemia. 3. Diabetes on no treatment. Hemoglobin A1c is 7.3. I discussed metformin treatment with the patient, and the benefit of metformin. 4. Hypercalcemia. I did explain in length to the patient the importance of treating hypercalcemia and management to prevent long-term complication. HOSPITAL COURSE: This is a 81-year-old lady who presented to the emergency room after a near syncopal episode. The patient was at work. 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 She started to get dizzy, and it was almost hard for her to move. Due to the severity of symptoms and the excessive sweating, she was brought to the emergency room. In the emergency room, the patient was awake, alert. She has no further significant symptoms. Laboratory data has revealed a slightly elevated white count of 11.4, hemoglobin was 10.4. BUN was 27, creatinine 1.63, which is much higher than her baseline. At that point, the patient was admitted and initiated on aggressive IV fluid resuscitation. After dosing in the ER with boluses, her symptoms improved, and the patient was admitted to the hospital. I did interview the patient the night before. She did have some back cramps, but when I asked her about the area, it appeared to be between her shoulder blade. At that point, that raised the question of angina equivalent, and I did order an echocardiogram and stress. She did have a carotid ordered. The stress test did not reveal any evidence of ischemia. The echocardiogram did reveal normal ejection fraction of 55 to 60, and there was mild thickening in the mitral valve leaflet and mild regurgitation. Both of those were asymptomatic. The patient has no further pain. She did undergo stress testing, carotid and echocardiogram. The echocardiogram revealed mild left atrial enlargement, and the Page 1 of 2 MARÍA MCGARRY Discharge Summary MARÍA MCGARRY : 1940 patient at that point was informed of all her testing. She was discharged to home in stable condition. Condition on discharge is stable. I had a lengthy discussion with the patient on the day of admission pertinent to the importance of managing diabetes, especially with metformin in the long run, as well as managing the hypercalcemia. The patient takes large amounts of vitamin D apparently, and I did explain to her she has to be careful with that due to the fact it may make her calcium go up, which is a complication. DISPOSITION: Discharge destination: Home. MEDICATIONS ON DISCHARGE: The patient was discharged on her own home medications without any changes. She will be on duloxetine 30 mg daily, gabapentin 400 mg 3 times a day, omeprazole 40 mg daily, Tramadol 50 mg at bedtime as needed, and Trazodone 50 mg at bedtime. DISCHARGE INSTRUCTIONS/PLAN: Diet: Regular. No added salt, diabetic. Activity: As tolerated. Dictated By: Zoey Henderson MD 10/06/22 12:23 JOB #: [id number] Transcribed By: am 10/07/22 15:27 Electronically signed by: E-Sign: ZOEY HENDERSON MD 10/23/22 07:39 Page 2 of 2 MARÍA MCGARRY Discharge Summary [facility] 10-23-2022 Note [facility] HISTORY & PHYSICAL NAME ACCOUNT SEX AGE ADMIT DISCHARGE PT MED. RECORD# NUMBER DATE DATE TYPE MARÍA MCGARRY [id number] F 81 10/05/22 2 C [id number] ROOM: [facility] DATE OF : 44 DICTATING PHYSICIAN: Zoey Henderson ADMITTING DIAGNOSES: 1. Dizziness. 2. Blood pressure. CHIEF COMPLAINT: Dizziness and weakness and cramping between shoulder blades. HISTORY OF PRESENT ILLNESS: This is a 81-year-old lady who claims she is not a diabetic and she was surprised about it, but at one time she had a hemoglobin A1c of greater than 9, and it has been coming down. I did explain to her by definition this is diabetes. The patient is not receiving any treatment. She was offered metformin and Jardiance in the past, and she declined both options. The patient has been experiencing dizziness for a few months. 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 She almost could not keep up, and she left and went home. Eventually, she came to the emergency room due to the dizziness. She did have a short episode of palpitations lasting a few seconds only. She did have cramps between her shoulder blades. She described it as tightness between her shoulder blades, which was persistent. At that point, the patient also came in a with a BUN of 27, creatinine 1.3, which is higher than her baseline, and at that point the patient was admitted for dehydration and management of her other complaint. The patient did not report specifically chest pain, but the cramping of her back is described as cramping between the two shoulder blades would be chest pain equivalent. She did get a short episode of excessive sweating when this occurred, but she did not have significant nausea or vomiting. PAST MEDICAL HISTORY: Remarkable for (1) Diabetes. The patient has been having an elevated sugar. According to her, her hemoglobin A1c was 9 or higher at one point. Her most recent hemoglobin A1c was 7. According to her, she is not taking any medications. She is working with exercise and diet. (2) Hypercholesterolemia. (3) Page 1 of 4 MARÍA MCGARRY History & Physical MARÍA MCGARRY :1940 Hypercalcemia in the past secondary to parathyroid disease. (4) Thyroid disease. (5) Neuropathy. (6) Acid reflux. (7) Chronic pain syndrome. (8) Fibromyalgia. (9) Depression. (10) Insomnia. PAST SURGICAL HISTORY: The patient has had (1) Bilateral hip replacement. (2) Knee replacement. (3) She had cervical spine surgery. (4) She had lower spine surgery. (5) She had a cholecystectomy. (6) She had a total colectomy for ulcerative colitis, and no problems since. MEDICATIONS: The patient takes Cymbalta 20 mg daily, gabapentin 400 mg 3 times a day, omeprazole 40 mg daily, tramadol 40 mg as needed at bedtime, and Trazodone 50 mg daily. SOCIAL HISTORY: The patient quit smoking in 1978. She does not drink alcohol routinely. She does it on occasion like a dinner or special social event. REVIEW OF SYSTEMS: The patient has denied any fever or chills. She has been losing weight, 25 total, in the last 2 months. She denied a headache, blurry vision, earache, or sore throat. No neck pain, chest pain as described above. No nausea. She did have diaphoresis. No abdominal pain, diarrhea, constipation, difficulty with urination, increased frequency or burning, and no skin rashes. PHYSICAL EXAMINATION GENERAL APPEARANCE: This is a 81-year-old lady who is sitting up in bed fairly comfortable at the time of assessment. VITAL SIGNS: Vital signs revealed her blood pressure to be 171/83, heart rate 80, temperature 98.1. HEENT: Normocephalic and atraumatic. Pupils are round, equal, and reactive. Tongue to midline. NECK: Neck is supple. LUNGS: Clear. HEART: Regular. No gallop or murmurs. ABDOMEN: Soft. EXTREMITIES: Revealed no edema. DIAGNOSTIC DATA: Laboratory data today has revealed her white count was 11.4, hemoglobin 10.4. Her MCV is 79. Chemistries revealed a sodium of 138, potassium 4.1, BUN 27, creatinine 1.63, higher than her baseline. Calcium was 10.5. Lactate is 2.7. Page 2 of 4 MARÍA MCGARRY History & Physical ZEFERINO, MARÍA Cartagena :1940 IMPRESSION: 1. Near syncopal episode most likely secondary to dehydration. 2. Dehydration. 3. Acute kidney injury. 4. Hypercalcemia. 5. Neuropathy, appeared to be stable. 6. Palpitations, could be related to Cymbalta. 7. Back cramps. This is most consistent with chest pain equivalent. The duration and the associated sweating is very concerning. I will go ahead and order testing to rule out a coronary event. PLAN: 1. The patient will be admitted. 2. IV fluids. 3. Stress test. 4. Echocardiogram. 5. Deep venous thrombosis prophylaxis with sequential compression devices. 6. Continue the patient's Cymbalta and gabapentin and Tramadol. (more content not included)... [facility] 10-22-2022 Miscellaneous Notes Spoke with patient, confirmed per physician her glasses Rx did change. Put copy of Rx in the mail for patient. Patient is still looking for coding from insurance that denied per Josh. She said if she finds it she will let us know. I told her to use my direct line if she needs anything further. She cannot always get through to our main number María Elena Henry October 22, 2022 3:05 PM Spoke with patient. She is requesting updated glasses Rx from Dr. Pantoja. Dr. Pantoja, She also wants to know if there were any changes in her Glasses Rx prescription. Please advise She received a denial from josh but could not tell me what for. She is going to call back to my direct line with the information so I can help her further María Elena Henry October 15, 2022 11:09 AM Received missed call from patient. Called patient again, Left message on machine for patient to call back into my direct line María Elena Henry October 15, 2022 9:16 AM Per Sybil's request, contacted patient to see if I could assist with a medication question she has. Patient did not answer call, left message giving her my direct line to call into. Informed her we are closed for Holiday tomorrow, 10/13 María Elena Henry 2022 4:00 PM documented in this encounter [facility] 10-16-2022 Note HNO ID: [id number] Author: Alice Goode PA-C Service: ? Author Type: Physician Fiberglass Tube Molder Type: Progress Notes Filed: 10/16/2022 5:08 PM Note Text: 82 year old female with c/o Hospital discharge follow-up Facility: [facility] Date of admission 10/05/2022 Date of discharge 10/06/2022 Admitted through ER with complaint of feeling dehydrated at work, lightheaded, slightly short of breath with some mild chest discomfort records obtained only include diagnostics. Patient states she just did not feel well, short of breath, having some light discomfort in the upper chest and felt with her history she should be evaluated. 10/05/2020 hemoglobin A1c 7.6 Abnormal chemistries: GLU 253-BUN 27-CRE 1.63 TSH 2.23 WNL Mg 2.0 D-dimer 708 high CBC WBC 11.4-hemoglobin 10.4-hematocrit 33.8-PLT 330 10/06/2022 lab: Chemistries: WNL, CBC abnormals: Hemoglobin 10.6-hematocrit 32.7, MCH 26, RDW/CV 15.3%-PLT 316-differential WNL BNP: 163 WNL Lactate 2.7H CRP less than 0.20 10/05-10/06/2022 high sensitive troponin 9.7 WNL, repeat 12.3 WNL, repeat 11.1, repeat 12.0 10/06/2022 UA micro WNL, 1-5 WBCs, amorphous debris. 10/06/2022 echocardiogram: LV: Mild concentric LVH, LV SF WNL, EF 55-60%, no regional wall motion abnormalities. Normal diastole. RV: Size and RV SF WNL LA mildly enlarged, RA WNL, no evidence of intra atrial shunt, PFO not assessed. MV appears thick, mildly posteriorly directed mitral valve regurgitation without stenosis. TV WNL, trivial regurgitation and no stenosis AV with diffuse sclerosis, no regurgitation or stenosis. PV WNL with trivial regurgitation Aortic root size WNL, aortic arch, descending thoracic aorta inadequately visualized, IVC/SVC size WNL with 50% collapse of inspiration. RAP 3 mmHg. Pulmonary veins are normal. Pericardium no pericardial effusion 10/06/2022 cardiac stress SPECT with treadmill exercise: Rocco protocol 2 minutes 18 seconds, peak heart rate 131 92% MHR, 4.60 METS: Demonstrated mild perfusion defect in mid to distal anterior wall which improved with stress likely from breast attenuation artifact. Calculated ejection fraction 66%, no regional wall motion abnormalities. No evidence of reversible ischemia or infarct. Current status: Her only uncorrected concern was calcium level Reviewed calcium levels from prior labs with her and PTH and vitamin D we've been checking. Still some lightheadedness or dizziness with movement getting up. Had fall, missed a step due to eye sight. 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 Taking [employer] restless leg SL tablet for leg cramps. 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 No further follow up indicated. 03/24/21 US thyroid: Nodule #1 RUL: stable TR3 no f/u Nodule #2 R lower stable TR2 no f/u Nodule #3 Lower center stable TR4 Nodule #4 LML stable no f/u 05/06/20 US thyroid Nodule #1 RUL, Size: 1.1 x 0.6 x 1 cm; no change, mostly cystic TR3 3: No F/U Nodule #2 R midpole Size: 1.2 x 1 x 1.5 cm; previously Other and unspecified hyperlipidemia 04/09/2008 PMH - PAST MEDICAL HISTORY OF right torn rotator cuff Pseudophakia of left eye 11/2020 Pseudophakia of right eye 11/04/2020 Dr. Emily MD S/P complete repair of rotator cuff 05/15/2010 right arm Ulcerative colitis, unspecified Unspecified vitamin D deficiency 04/09/2008 PAST SURGICAL HISTORY Procedure Laterality Date ABDOMINAL SURGERY HX ARTHRP ACETBLR/PROX FEM PROSTC AGRFT/ALGRFT 06/27/2012 left hip ARTHRP KNE CONDYLEANDPLATU MEDIALANDLAT COMPARTMENTS 02/16/2011 Knee replacement, total right [facility] Dr. Gimenez BACK SURGERY HX CATARACT EXTRACTION W/ INTRAOCULAR LENS IMPLANT HX Right 11/04/2020 Dr. Pantoja CATARACT EXTRACTION W/ INTRAOCULAR LENS IMPLANT HX Left 12/02/2020 Dr. Pantoja COLON SURGERY HX COLONOSCOPY FLX DX W/COLLJ SPEC WHEN PFRMD 01/1999 Colonoscopy COLONOSCOPY FLX DX W/COLLJ SPEC WHEN PFRMD 02/13/2008 Colonoscopy COLONOSCOPY FLX DX W/COLLJ SPEC WHEN PFRMD 05/17/2017 (more content not included)... [facility] 09-10-2022 Miscellaneous Notes Left message to return call to office. Dennis Christensen LPN Called and left message on patients voicemail to return call to the office and ask to speak with a FM triage nurse. Eveline Yeh Ma LM for patient to contact office regarding Tramadol refill request. 90 day was just sent to pharmacy 08/12/22. Cinthya Casper MA It looks like Kareem just refilled 180 tabs with one refill on 08/12? documented in this encounter [facility] 09-09-2022 Miscellaneous Notes This is a duplicate message. Pt has been called x 2 with message left to return call to office. Eveline Yeh Ma It looks like Kareem just ordered 180 with one refill of tramadol on 08/12 Patient has been identified by name and date of : Yes Last office visit in this department: 07/23/2022 RX INSTRUCTIONS: Patient aware RX will be sent to pharmacy. No need to nofity patient. Controlled medication - must be call in. Patient phones requesting refills as follows: Requested Prescriptions Pending Prescriptions Disp Refills traMADol (ULTRAM) 50 mg tablet 180 tablet 1 Sig: Take 1 tablet by mouth twice daily as needed for pain. Please review and advise. Una Kim documented in this encounter [facility] 09-03-2022 Note HNO ID: [id number] Author: Mindy Pantoja MD Service: ? Author Type: Physician Type: Progress Notes Filed: 09/03/2022 5:19 PM Note Text: (H53.10) Subjective visual disturbance (primary encounter diagnosis) Comment: Discussed findings on exam. Plan: Recommendations as below. 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 Discussed stable findings on exam both eyes. Plan: OCT macula both eyes done today and reviewed in office. Retinal limitations discussed. Continue to monitor the grid and take Ocuvite. Grid reprinted. Previous visit: OCT macula both eyes done today and reviewed with patient MARCO. Amsler grid printed and given to patient MARCO to monitor at home. Patient instructed to call if changes occur. Recommend start Preservision vitamins. (H43.813) Posterior vitreous detachment of both eyes Comment: Discussed findings on exam. Plan: Signs and symptoms of worsening floaters discussed. Patient instructed to call if changes occur. (H04.123) Dry eye syndrome of both eyes Comment: Discussed findings on exam. Plan: Recommend continue Artificial tears and gel qhs as needed. 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 Plan: Monitor. (H52.223) Regular astigmatism of both eyes Comment: Discussed change in Manifest refraction. Plan: Manifest refraction updated and dispensed. Recommend polycarbonate lenses. Follow up for baseline Retinal evaluation. Yearly complete eye exam. I have confirmed and edited as necessary the relevant ophthalmic history, ROS, and the neuro exam findings as obtained by others. I have seen and examined this patient. I have discussed the case and the management of this patient's care with the Resident/Fellow, if applicable. I also have reviewed and agree with the assessment and plan as stated above and agree with all of its relevant components. Mindy Pantoja MD September 03, 2022 5:17 PM [facility] 08-12-2022 Miscellaneous Notes The following approved medication requests have been transmitted electronically. Requested Prescriptions Signed Prescriptions Disp Refills traMADol (ULTRAM) 50 mg tablet 180 tablet 1 Sig: Take 1 tablet by mouth twice daily as needed for pain. Authorizing Provider: Alice GOODE PA-C [facility] 07/23/22 NOV 01/04/23 Patient has been identified by name and date of : Yes Requested Prescriptions Pending Prescriptions Disp Refills traMADol (ULTRAM) 50 mg tablet 180 tablet 1 Sig: Take 1 tablet by mouth twice daily as needed for pain. RX INSTRUCTIONS: Requested 90 days to mail order Pharmacy. Patient aware RX escripted to mail away pharmacy. No need to notify patient. Awilda Bridges Pss documented in this encounter [facility] 07-23-2022 Note HNO ID: [id number] Author: Alice Goode PA-C Service: ? Author Type: Physician [employer]erglass Tube Molder Type: Progress Notes Filed: 07/24/2022 7:57 AM Note Text: 81 year old female with c/o c/o pain in right SIJ (not hip) since fall. Non-radiating. Hurts with movement, particularly exercises involving stepping with bent knee. Affects walking pain radiates down lateral posterior leg to calf. No weakness or giving way Also having left shoulder pain which has been chronic but worsening over several weeks, difficulty lifting past 90 degrees in flexion or extension, rotating arm behind her back. Has been using Ultram in the past for issues with chronic cervical and lumbar pain following surgery. Asking for refill even though she has not been on the medication over the last year, she identifies this is because her was dying from cancer and she spent most of her time focused on him. She does not use the medication daily but would like to have it available as it seems to help pain significantly. 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 No further follow up indicated. 03/24/21 US thyroid: Nodule #1 RUL: stable TR3 no f/u Nodule #2 R lower stable TR2 no f/u Nodule #3 Lower center stable TR4 Nodule #4 LML stable no f/u 05/06/20 US thyroid Nodule #1 RUL, Size: 1.1 x 0.6 x 1 cm; no change, mostly cystic TR3 3: No F/U Nodule #2 R midpole Size: 1.2 x 1 x 1.5 cm; previously Other and unspecified hyperlipidemia 04/09/2008 PMH - PAST MEDICAL HISTORY OF right torn rotator cuff Pseudophakia of left eye 11/2020 Pseudophakia of right eye 11/04/2020 Dr. Emily MD S/P complete repair of rotator cuff 05/15/2010 right arm Ulcerative colitis, unspecified Unspecified vitamin D deficiency 04/09/2008 PAST SURGICAL HISTORY Procedure Laterality Date ABDOMINAL SURGERY HX ARTHRP ACETBLR/PROX FEM PROSTC AGRFT/ALGRFT 06/27/2012 left hip ARTHRP KNE CONDYLEANDPLATU MEDIALANDLAT COMPARTMENTS 02/16/2011 Knee replacement, total right [facility] Dr. Gimenez BACK SURGERY HX CATARACT EXTRACTION W/ INTRAOCULAR LENS IMPLANT HX Right 11/04/2020 Dr. Pantoja CATARACT EXTRACTION W/ INTRAOCULAR LENS IMPLANT HX Left 12/02/2020 Dr. Pantoja COLON SURGERY HX COLONOSCOPY FLX DX W/COLLJ SPEC WHEN PFRMD 01/1999 Colonoscopy COLONOSCOPY FLX DX W/COLLJ SPEC WHEN PFRMD 02/13/2008 Colonoscopy COLONOSCOPY FLX DX W/COLLJ SPEC WHEN PFRMD 05/17/2017 Colonoscopy COLONOSCOPY FLX DX W/COLLJ SPEC WHEN PFRMD 06/27/2018 pouchoscopy COLONOSCOPY W/BIOPSY SINGLE/MULTIPLE 07/31/2009 ESOPHAGOGASTRODUODENOSCOPY TRANSORAL DIAGNOSTIC 06/27/2018 EGD EYE SURGERY HX JOINT REPLACEMENT HX LAMINOTOMY (HEMILAMINECTOMY), WITH DECOMPRESSION OF NERVE ROOT(S) 01/16/2020 Partial L1, complete L2, complete L3, complete L4 laminectomy with decompression of neural elements from L1-L4 LAPAROSCOPY SURG CHOLECYSTECTOMY Cholecystectomy, lap OOPHORECTOMY PARTIAL/TOTAL UNI/BI Left Oophorectomy OPEN REPAIR OF ROTATOR CUFF ACUTE Right 04/12/2010 Rotator cuff repair PAST SURGICAL HISTORY OF 2007 right hip replacement PAST SURGICAL HISTORY OF 08/13/2009 exp lap, TPC and IPAA. Colectomy, ileostomy with J pouch, takedown 7-10 PAST SURGICAL HISTORY OF cervical calcium deposits removed surgically, foraminotomy? POUCHOSCOPY 02/03/2016 SIGMOIDOSCOPY FLX DX W/COLLJ SPEC BR/WA IF PFRMD 05/28/2008 SIGMOIDOSCOPY FLX DX W/COLLJ SPEC BR/WA IF PFRMD 10/01/2011 epeat 1 year SIGMOIDOSCOPY FLX DX W/COLLJ SPEC BR/WA IF PFRMD 07/03/2013 Sigmoidoscopy, flexible SIGMOIDOSCOPY FLX DX W/COLLJ SPEC BR/WA IF PFRMD 12/10/2014 Sigmoidoscopy, flexible SIGMOIDOSCOPY FLX DX W/COLLJ SPEC BR/WA IF PFRMD 02/17/2022 Sigmoidoscopy, flexible SKIN BIOPSY HX XCAPSL CTRC RMVL INSJ IO LENS PROSTH W/O ECP Left 12/02/2020 Social History Tobacco Use Smoking status: Former Packs/day: 1.00 Years: 30.00 Pack years: 30.00 Types: Cigarettes Quit date: 08/28/1988 Years since quittin.9 Smokeless tobacco: Never Vaping Use Vaping Use: Never used Substance Use Topics Alcohol use: Not Currently Comment: occasional, 1 drink every 6 months Drug use: No ACTIVE PROBLEM LIST Degeneration of Lumbar Or Lumbosacral Intervertebra (more content not included)... [facility] 07-23-2022 Instructions Alice Goode PA-C - 07/23/2022 3:02 PM EDT See instruction sheet on piriformis release. Rest the shoulder for the next 5 days from any heavy work or lifting. documented in this encounter [facility] 07-23-2022 History of Present illness Narrative 81 year old female with c/o c/o pain in right SIJ (not hip) since fall. Non-radiating. Hurts with movement, particularly exercises involving stepping with bent knee. Affects walking pain radiates down lateral posterior leg to calf. No weakness or giving way Also having left shoulder pain which has been chronic but worsening over several weeks, difficulty lifting past 90 degrees in flexion or extension, rotating arm behind her back. Has been using Ultram in the past for issues with chronic cervical and lumbar pain following surgery. Asking for refill even though she has not been on the medication over the last year, she identifies this is because her was dying from cancer and she spent most of her time focused on him. She does not use the medication daily but would like to have it available as it seems to help pain significantly. 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 / Johnson WADSWORTHN Actinic keratosis 06/22/2008 Arthritis Degeneration of lumbar or lumbosacral intervertebral disc 08/13/2006 Diarrhea patient has a J pouch Enthesopathy of hip region 08/13/2006 Hyperparathyroidism (HCC) Impaired fasting glucose 02/19/2021 Knee joint replacement by other means 02/23/2011 right Multiple thyroid nodules 04/20/2018 Multi-nodular goiter with stable nodules, FNA hx benign. No further follow up indicated. 03/24/21 US thyroid: Nodule #1 RUL: stable TR3 no f/u Nodule #2 R lower stable TR2 no f/u Nodule #3 Lower center stable TR4 Nodule #4 LML stable no f/u 05/06/20 US thyroid Nodule #1 RUL, Size: 1.1 x 0.6 x 1 cm; no change, mostly cystic TR3 3: No F/U Nodule #2 R midpole Size: 1.2 x 1 x 1.5 cm; previously Other and unspecified hyperlipidemia 04/09/2008 PMH - PAST MEDICAL HISTORY OF right torn rotator cuff Pseudophakia of left eye 11/2020 Pseudophakia of right eye 11/04/2020 Dr. Emily MD S/P complete repair of rotator cuff 05/15/2010 right arm Ulcerative colitis, unspecified Unspecified vitamin D deficiency 04/09/2008 PAST SURGICAL HISTORY Procedure Laterality Date ABDOMINAL SURGERY HX ARTHRP ACETBLR/PROX FEM PROSTC AGRFT/ALGRFT 06/27/2012 left hip ARTHRP KNE CONDYLE&PLATU MEDIAL&LAT COMPARTMENTS 02/16/2011 Knee replacement, total right [facility] Dr. Gimenez BACK SURGERY HX CATARACT EXTRACTION W/ INTRAOCULAR LENS IMPLANT HX Right 11/04/2020 Dr. Pantoja CATARACT EXTRACTION W/ INTRAOCULAR LENS IMPLANT HX Left 12/02/2020 Dr. Pantoja COLON SURGERY HX COLONOSCOPY FLX DX W/COLLJ SPEC WHEN PFRMD 01/1999 Colonoscopy COLONOSCOPY FLX DX W/COLLJ SPEC WHEN PFRMD 02/13/2008 Colonoscopy COLONOSCOPY FLX DX W/COLLJ SPEC WHEN PFRMD 05/17/2017 Colonoscopy COLONOSCOPY FLX DX W/COLLJ SPEC WHEN PFRMD 06/27/2018 pouchoscopy COLONOSCOPY W/BIOPSY SINGLE/MULTIPLE 07/31/2009 ESOPHAGOGASTRODUODENOSCOPY TRANSORAL DIAGNOSTIC 06/27/2018 EGD EYE SURGERY HX JOINT REPLACEMENT HX LAMINOTOMY (HEMILAMINECTOMY), WITH DECOMPRESSION OF NERVE ROOT(S) 01/16/2020 Partial L1, complete L2, complete L3, complete L4 laminectomy with decompression of neural elements from L1-L4 LAPAROSCOPY SURG CHOLECYSTECTOMY Cholecystectomy, lap OOPHORECTOMY PARTIAL/TOTAL UNI/BI Left Oophorectomy OPEN REPAIR OF ROTATOR CUFF ACUTE Right 04/12/2010 Rotator cuff repair PAST SURGICAL HISTORY OF 2007 right hip replacement PAST SURGICAL HISTORY OF 08/13/2009 exp lap, TPC and IPAA. Colectomy, ileostomy with J pouch, takedown 7-10 PAST SURGICAL HISTORY OF cervical calcium deposits removed surgically, foraminotomy? POUCHOSCOPY 02/03/2016 SIGMOIDOSCOPY FLX DX W/COLLJ SPEC BR/WA IF PFRMD 05/28/2008 SIGMOIDOSCOPY FLX DX W/COLLJ SPEC BR/WA IF PFRMD 10/01/2011 epeat 1 year SIGMOIDOSCOPY FLX DX W/COLLJ SPEC BR/WA IF PFRMD 07/03/2013 Sigmoidoscopy, flexible SIGMOIDOSCOPY FLX DX W/COLLJ SPEC BR/WA IF PFRMD 12/10/2014 Sigmoidoscopy, flexible SIGMOIDOSCOPY FLX DX W/COLLJ SPEC BR/WA IF PFRMD 02/17/2022 Sigmoidoscopy, flexible SKIN BIOPSY HX XCAPSL CTRC RMVL INSJ IO LENS PROSTH W/O ECP Left 12/02/2020 Social History Tobacco Use Smoking status: Former Packs/day: 1.00 Years: 30.00 Pack years: 30.00 Types: Cigarettes Quit date: 08/28/1988 Years since quittin.9 Smokeless tobacco: Never Vaping Use Vaping Use: Never used Substance Use Topics Alcohol use: Not Currently Comment: occasional, 1 drink every 6 months Drug use: No ACTIVE PROBLEM LIST Degeneration of Lumbar Or Lumbosacral Intervertebral Disc Hyperlipidemia, 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 Fibromyalgia Primary Insomnia Vitamin D Deficiency 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 Iron Deficiency Anemia Secondary to Inadequate Dietary Iron Intake Spinal Stenosis, Lumbar Region, With Neurogenic Claudication H/O Total Colectomy Ulcerative Pancolitis With Complication (Hcc) Hyperparathyroidism (Hcc) Neck Pain, Chronic Chronic Right Si Joint Pain Hypercalcemia Facet Arthritis of Cervical Region Degenerative Disc Disease, Cervical Near Syncope Lightheadedness Orthostatic Hypotension Foraminal Stenosis of Cervical Region Pseudophakia of Both Eyes 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 Dermatochalasis of Both Upper Eyelids History of Gastric Ulcer Elevated Lfts Type 2 Diabetes Mellitus With Complication, Without Long-Term Current Use of Insulin (Hcc) Intermediate Stage Nonexudative Age-Related Macular Degeneration of Both Eyes Dry Eye Syndrome of Both Eyes Current Outpatient Medications Medication Sig Dispense Refill DULoxetine (CYMBALTA) 30 mg capsule Take 1 capsule by mouth once daily. 90 capsule 1 omeprazole (PRILOSEC) 40 mg capsule Take 1 capsule by mouth twice daily before meals. 180 capsule 3 gabapentin (NEURONTIN) 400 mg capsule Take 1 capsule by mouth three times daily for 180 days. 90 capsule 5 traMADol (ULTRAM) 50 mg tablet Take 1 tablet by mouth twice daily as needed for pain. 20 tablet 0 traZODone (DESYREL) 100 mg tablet TAKE 1 TABLET BY MOUTH DAILY AT BEDTIME. 90 tablet 3 ergocalciferol 50,000 unit capsule (VITAMIN D2, DRISDOL) Take 1 capsule by mouth two times a week. 24 capsule 3 empagliflozin (JARDIANCE) 10 mg tablet Take 1 tablet by mouth daily with breakfast. 30 tablet 5 vit A/vit C/vit E/zinc/copper (PRESERVISION AREDS ORAL) Take 1 tablet by mouth twice daily. ammonium lactate/emu oil (EMU-LAC TOPICAL) Apply 1 application to affected area as needed. No current facility-administered medications for this visit. SHINGRIX VACCINE(2 of 3) due on 06/23/2011 ADVANCE DIRECTIVE DISCUSSION due on 04/12/2022 DEPRESSION ASSESSMENT Never done DIABETIC FOOT EXAM due on 06/23/2022 EXAM: BP 122/60 Pulse 73 Resp 16 Wt 78.5 kg (173 lb) SpO2 97% BMI 27.92 kg/m Pleasant well-appearing adult woman, in no acute distress. Seems energetic, bright and cheerful which is good to see. Alert and oriented all spheres. Normal affect and cognition. Speech normal. No deficits to learning or comprehension. Skin warm, dry, pink to lips and nailbeds. Normal turgor. Respirations regular and unlabored. Chest is normal shape. Lungs are clear to all [place] with good air exchange through out. HRRR without murmur or gallop. No lifts, heaves, or rubs. Left shoulder with pain on movement, negative [place]'s, positive Tuttle, positive liftoff, negative speeds, negative belly press. Multidirectional pain. Right SIJ is tender with positive trigger point pain across the piriformis. Pressure is area reproduces pain which radiates down the lateral thigh to the knee level. Extrem: no clubbing or cyanosis. Edema: None. Extremities are warm and pink with prompt capillary refill. DTRs are 2 out of 4 plus and brisk, negative straight leg raise, no pain with internal and external rotation of the hip. No tenderness over the greater trochanter bursa, negative Scott's test. OMT: Myofascial release to piriformis trigger points with stretching alleviated pain and radiating pain. PROCEDURE NOTE: Discussed shoulder steroid injection risks and benefits as well as options for PT or orthopedic referral. Wishes to proceed with steroid injection, site, ID, allergies verified. Moment of care was provided. Consent form was completed Injected celestone 6mg/1mL mixed with 1% Xylocaine 2ml and Bupivacaine 0.5% 2ml into the left subacromial bursa. Had marked improvement in ROM and pain within a few minutes. ASSESSMENT/PLAN: 1. Piriformis syndrome, right - ICD9: 355.0, ICD10: G57.01 (primary diagnosis) Given Baycarevpiriformis stretching and [facility] lumbar rehab handouts 2. Hip injury, right, initial encounter - ICD9: 959.6, ICD10: S79.911A No fracture, hardware intact on xray 3. Subacromial bursitis of left shoulder joint - ICD9: 726.19, ICD10: M75.52 Rest shoulder 5 days, f/u prn - [facility] [employer] 4. Facet arthritis of cervical region - ICD9: 721.0, ICD10: M47.812 5. Degenerative disc disease, cervical - ICD9: 722.4, ICD10: M50.30 6. Fibromyalgia - ICD9: 729.1, ICD10: M79.7 7. Neck pain, chronic - ICD9: 723.1, 338.29, ICD10: M54.2, G89.29 8. Spinal stenosis, lumbar region, with neurogenic claudication - ICD9: 724.03, ICD10: M48.062 Notify when tramadol is completed- has only used three. Will provide additional rx. Alice Goode PA-C documented in this encounter [facility] 07-17-2022 Note HNO ID: [id number] Author: RT Osman(R) Service: ? Author Type: Technologist Type: Progress Notes Filed: 07/17/2022 3:29 PM Note Text: Radiology Service Progress Note PATIENT NAME: María Mcgarry DATE OF SERVICE: July 17, 2022 TIME: 3:28 PM PATIENT IDENTITY VERIFICATION COMPLETED USING TWO (2) IDENTIFIERS: Name and Date of confirmed by patient verbally. FALL SCREENING: Has the patient had 2 falls in the last year or 1 fall with injury or currently using an Ambulatory Assistive Device (Walker, Cane, Wheelchair, Crutches, etc.)? No PATIENT GENDER DATA: Female. status: : No status: NO. PATIENT RELEVANT IMPLANT DATA REVIEWED: Not Applicable RADIOLOGY DEPARTMENT: General X-ray: Exam(s) Completed: Pelvis X-Ray: Pelvis with Hip Right PERIPHERAL IV DATA: Not applicable SIGNED BY: RT Osman(R) July 17, 2022 3:28 PM [facility] 07-17-2022 Note Patient Outreach ([facility]) MARÍA MCGARRY ([id number]) 1940 F Date Time Provider Department 07/17/22 [facility] During your visit today, we recorded the following information about you: Lana Devlin (Hospitality Aide) 07/17/2022 8:41 AM Signed María Cartagena Zeferino is identified through a medication adherence outreach initiative based on pharmacy claims data from [employer] (insurer) for Non-insulin DM medication(s). Patient is reviewed 07/17/22 due to medication adherence concerns with the following medications (name, strength, sig): Jardiance 10mg take 1 tab every day Per reconcile dispense, last fill date and days supply: 05/17/22 for a 30 day supply Outcome of review/outreach: (choose outcome source and status) - Medication changed or discontinued as of 07/02/22 per PCP Lana Devlin (Eg[employer]) Allergies As of Date: 07/17/2022 (No Known Allergies) Date Reviewed: 07/02/2022 Reviewed by: Yaz Hernández Ma - Fully Assessed Reason for Visit: Allied Health Visit [5] Cmt: Medication Adherence Outreach Prescriptions as of 07/17/2022 - DULoxetine (CYMBALTA) 30 mg capsule Take 1 capsule by mouth once daily. - omeprazole (PRILOSEC) 40 mg capsule Take 1 capsule by mouth twice daily before meals. - gabapentin (NEURONTIN) 400 mg capsule Take 1 capsule by mouth three times daily for 180 days. - traMADol (ULTRAM) 50 mg tablet Take 1 tablet by mouth twice daily as needed for pain. - traZODone (DESYREL) 100 mg tablet TAKE 1 TABLET BY MOUTH DAILY AT BEDTIME. - ergocalciferol 50,000 unit capsule (VITAMIN D2, DRISDOL) Take 1 capsule by mouth two times a week. - empagliflozin (JARDIANCE) 10 mg tablet Take 1 tablet by mouth daily with breakfast. - vit A/vit C/vit E/zinc/copper (PRESERVISION AREDS ORAL) Take 1 tablet by mouth twice daily. - ammonium lactate/emu oil (EMU-LAC TOPICAL) Apply 1 application to affected area as needed. Meds Comments as of 10/09/2020: 10/09/20 The medications are managed by this patient by: PATIENT Castro Ho, REYES Problem List As Of Date 07/17/2022 Noted Resolved Enthesopathy of hip region [M76.899] 08/13/2006 04/30/2016 LUMB/LUMBOSAC DISC DEGEN [M51.37] 08/13/2006 Hip joint replacement by other means [Z96.649] 12/09/2007 03/26/2016 Abdominal pain, other specified site [R10.9] 02/13/2008 04/30/2016 Diarrhea [R19.7] 02/13/2008 04/30/2016 COLITIS NONINFECTIOUS CHRONIC [K52.9] 02/27/2008 03/26/2016 Hyperlipidemia, mixed [E78.2] 04/09/2008 Unspecified vitamin D deficiency [E55.9] 04/09/2008 04/30/2016 Disorder of bone and cartilage [M89.9, M94.9] 04/09/2008 Neoplasm of uncertain behavior of skin [D48.5] 05/15/2008 08/01/2015 Other seborrheic keratosis [L82.1] 05/15/2008 08/01/2015 SOLAR LENGINES///DYSCHROMIA OTHER [L81.9] 05/15/2008 08/01/2015 Other chronic 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*05/15/2008 08/01/2015 SALEEM ANGIOMA///NEVUS, NON-NEOPLASTIC [I78.1] 05/15/2008 08/01/2015 Hemangioma of skin and subcutaneous tissue [D18*06/26/2008 08/01/2015 Inflamed seborrheic keratosis [L82.0] 06/26/2008 08/01/2015 Benign neoplasm of skin of other and unspecifie*06/26/2008 08/01/2015 Ulcerative colitis (HCC) [K51.90] 07/31/2009 04/30/2016 Anemia due to chronic illness [D63.8] 08/12/2009 03/26/2016 Dehydration [E86.0] 10/10/2009 04/30/2016 S/P complete repair of rotator cuff [Z98.890] 05/15/2010 04/30/2016 Knee joint replacement by other means [Z96.659] 02/23/2011 05/01/2016 Nonallopathic lesion of lumbar region, not else*11/20/2014 05/01/2016 Bilateral low back pain without sciatica [M54.5*11/20/2014 09/30/2015 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] 12/11/2014 Fibromyalgia [M79.7] 08/01/2015 Primary insomnia [F51.01] 08/01/2015 Vitamin D deficiency [E55.9] 08/01/2015 Spondylosis of lumbar region without myelopathy*11/06/2015 Facet arthritis of lumbar region (HCC) [M47.816]11/06/2015 Iron deficiency anemia secondary to inadequate *01/23/2016 Spinal stenosis, lumbar region, with neurogenic*02/13/2016 H/O total colectomy [Z90.49] 04/30/2016 Ulcerative pancolitis with complication (HCC) [*10/26/2016 Hyperparathyroidism (HCC) [E21.3] 10/28/2016 Neck pain, chronic [M54.2, G89.29] 11/30/2016 Chronic right SI joint pain [M53.3, G89.29] 02/22/2017 Hypercalcemia [E83.52] 07/01/2017 Degeneration of lumbosacral intervertebral disc*10/05/2017 12/24/2021 Facet arthritis of cervical region (HCC) [M47.8*10/05/2017 Degenerative disc disease, cervical [M50.30] 10/05/2017 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 [facility] 07-17-2022 Note HNO ID: [id number] Author: Lana Devlin (Egodeus) Service: ? Author Type: ? Type: Progress Notes Filed: 07/17/2022 8:41 AM Note Text: María Mcgarry is identified through a medication adherence outreach initiative based on pharmacy claims data from [employer] (insurer) for Non-insulin DM medication(s). Patient is reviewed 07/17/22 due to medication adherence concerns with the following medications (name, strength, sig): Jardiance 10mg take 1 tab every day Per reconcile dispense, last fill date and days supply: 05/17/22 for a 30 day supply Outcome of review/outreach: (choose outcome source and status) - Medication changed or discontinued as of 07/02/22 per PCP Lana Devlin (Egodeus) [facility] 07-17-2022 History of Present illness Narrative María Mcgarry is identified through a medication adherence outreach initiative based on pharmacy claims data from [employer] (insurer) for Non-insulin DM medication(s). Patient is reviewed 07/17/22 due to medication adherence concerns with the following medications (name, strength, sig): Jardiance 10mg take 1 tab every day Per reconcile dispense, last fill date and days supply: 05/17/22 for a 30 day supply Outcome of review/outreach: (choose outcome source and status) - Medication changed or discontinued as of 07/02/22 per PCP Lana Devlin (Egodeus) documented in this encounter [facility] 07-16-2022 Miscellaneous Notes See other encounter Hasn't been on Ultram in last year. Has something changed? Would need to see to renew rx (per policy) ThanksKareem PA-C Patient calling to request refill of Tramadol. Says she discussed pain issues @ [facility] on 07/02. Also needs scripts sent to mail delivery pharmacy. Patient has been identified by name and date of : Yes, Provider Date Time Patient phones for refill(s): Requested Prescriptions Pending Prescriptions Disp Refills DULoxetine (CYMBALTA) 30 mg capsule 90 capsule 1 Sig: Take 1 capsule by mouth once daily. omeprazole (PRILOSEC) 40 mg capsule 180 capsule 3 Sig: Take 1 capsule by mouth twice daily before meals. gabapentin (NEURONTIN) 400 mg capsule 90 capsule 5 Sig: Take 1 capsule by mouth three times daily for 180 days. traMADol (ULTRAM) 50 mg tablet 180 tablet 0 Sig: TAKE 1 TABLET BY MOUTH EVERY 12 HOURS NEEDED FOR PAIN Date of last office visit with pcp: 07/02/22 Date of last office visit in primary care: Last 2 Encounter Wt Readings: Date: Wt: 07/02/2022 79.4 kg (175 lb) 02/17/2022 87.5 kg (192 lb 14.4 oz) Previous labs/tests for medication: Not applicable Please advise. Thank you. Susan Sheldon RN documented in this encounter [facility] 07-03-2022 Miscellaneous Notes Call to client services and lab was added Please add [id number] from CBC drawn yesterday. Telephone on 07/03/22 HGB A1C Thanks, Kareem Goode PA-C documented in this encounter [facility] 07-02-2022 Note HNO ID: [id number] Author: Alice Goode PA-C Service: ? Author Type: Physician Fiberglass Tube Molder Type: Progress Notes Filed: 07/02/2022 12:49 PM Note Text: 81 year old female with c/o here for 6 month follow up Doing okay. Some days better than others. Intermittent waves of emotions. Talked about her concerns about care, questions why no tube feeding was started, again diagnosis. Orthostatic hypotension Near syncope Lightheadedness Had fallen: attributes to neuropathy in feet, slipped on ice. Hyperlipidemia, mixed Current medication none Last 2 Lipids: Component Latest Ref Rng AND Units 10/16/2020 06/23/2021 11/24/2021 11/24/2021 12:17 PM 12:17 PM Cholesterol, Total <200 mg/dL 207 (H) 228 (H) Triglyceride <150 mg/dL 352 (H) 795 (H) HDL Cholesterol >39 mg/dL 32 (L) 27 (L) Non HDL Cholesterol <130 mg/dL 175 (H) 201 (H) Fasting Time hrs 16 12 VLDL Cholesterol 71 (H) 70 (H) 125 (H) TC:HDL Ratio <5.10 6.47 (H) 8.44 (H) LDL Cholesterol 105 (H) LDL:HDL Ratio 3.28 (H) LDL Cholesterol, Direct <100 mg/dL 88 76 Type 2 diabetes mellitus with complication, without long-term current use of insulin (hcc) (primary encounter diagnosis) Current medications: Empagliflozin 10 mg daily with breakfast stopped due to side effects, vaginal itching persistent Taking medication as directed consistently? Yes Medication side effects: Notes improvement off metformin. Stopped empagliflozin due to persistent issues with vaginitis. Medical Issues / Complications: hypertension, hyperlipidemia, and peripheral neuropathy Checking blood sugars at home? Occasional. Not recent. Watching diet? Yes Physical Activity: Regular Hypoglycemic spells? No Any visual disturbance? No Chest pain? No New numbness, tingling or loss of sensation? unchanged Any recent foot problems, sores or rashes? No Any recent or sudden weight loss? No, 18lb loss intentioinally Change in urination? No. If yes: Any recent illness? No Last eye exam: up to date. Last foot exam: up to date. HBA1C: Hemoglobin A1C (%) Date Value 11/24/2021 8.2 02/19/2021 8.1 04/28/2019 6.4 ) CMP: Glucose 140 06/23/2021 BUN 14 06/23/2021 Creatinine 0.80 06/23/2021 Sodium 140 06/23/2021 Potassium 4.3 06/23/2021 Chloride 105 06/23/2021 CO2 Content, Venous 23 06/23/2021 Protein, Total 7.2 06/23/2021 Albumin 4.4 06/23/2021 Calcium 11.4 06/23/2021 Alkaline Phosphatase 149 06/23/2021 Bilirubin, Total 0.4 06/23/2021 AST 55 06/23/2021 ALT 65 06/23/2021 Last 2 Encounter Wt Readings: Date: Wt: 02/17/2022 87.5 kg (192 lb 14.4 oz) 12/25/2021 87.5 kg (193 lb) Hyperparathyroidism (hcc) Hypercalcemia Vitamin d deficiency Current medications: Vit D3 50k weekly Component Latest Ref Rng AND Units 05/25/2019 06/26/2019 10/16/2020 06/23/2021 11/24/2021 Normalized CAlcium 1.08 - 1.30 mmol/L 1.51 (H) Ionized Calcium 1.08 - 1.30 mmol/L 1.56 (H) PTH Related Peptide 0.0 - 3.4 pmol/L <2.0 Vitamin D 25 Hydroxy 31.0 - 80.0 ng/mL 34.9 28.4 (L) 31.4 30.0 (L) PTH, Intact 15 - 65 pg/mL 92 (H) 86 (H) 109 (H) 105 (H) H/o total colectomy Iron deficiency anemia secondary to inadequate dietary iron intake Malabsorption of iron Current medication: Omeprazole 40mg daily AC Periodic parenteral iron Current symptoms: none. Last Mg level if on PPI chronically: none. Heartburn is controlled: Yes. Dysphagia: No. Bloody or black stools: No. Bowel changes: No. Last EGD and/or colonoscopy: Dr Whitten sigmoidoscopy: - Stenosed but manually dilated post-surgical anastomosis found on digital exam. - The rectal pouch is normal. - Two medium, bleeding polyps in the distal rectum, removed with a hot snare. Resected and retrieved. Injected. Treated with argon beam coagulation. - The colonic anastomosis is normal. FINAL DIAGNOSIS A. Distal anal pouch nodule, biopsy: - Colonic mucosa with acutely inflamed granulation tissue and ulceration. B. Distal anal pouch nodule, biopsy: - Colonic mucosa with acutely inflamed granulation tissue and ulceration. Last lab Component Latest Ref Rng AND Units 10/27/2021 04/27/2022 WBC 3.70 - 11.00 k/uL 9.65 RBC 3.90 - 5.20 m/uL 4.80 Hemoglobin 11.5 - 15.5 g/dL 12.9 Hematocrit 36.0 - 46.0 % 41.3 MCV 80.0 - 100.0 fL 86.0 MCH 26.0 - 34.0 pg 26.9 MCHC 30.5 - 36.0 g/dL 31.2 RDW-CV 11.5 - 15.0 % 14.4 Platelet Count 150 - 400 k/uL 347 MPV 9.0 - 12.7 fL 8.8 (L) Neut% % 65.7 Abs Neut (ANC) 1.45 - 7.50 k/uL 6.34 Lymph% % 23.5 Abs Lymph 1.00 - 4.00 k/uL 2.27 [place]% % 7.4 Abs [place] <0.87 k/uL 0.71 Eosin% % 1.7 Abs Eosin <0.46 k/uL 0.16 Baso% % 1.2 Abs Baso <0.11 k/uL 0.12 (H) Immature Gran % % 0.5 IMMATURE GRANS (ABS) <0.10 k/uL 0.05 NRBC /100 WBC 0.0 Absolute nRBC <0.01 k/uL <0.01 DTYPE Auto Iron 41 - 186 ug/dL 64 34 (L) TIBC 232 - 386 ug/dL 322 319 Transferrin Saturation 15.0 - 57.0 % 19.9 10.7 (L) Ferritin 14.7 - 205.1 ng/mL 130.0 70.5 Foraminal stenosis o (more content not included)... [facility] 07-02-2022 History of Present illness Narrative 81 year old female with c/o here for 6 month follow up Doing okay. Some days better than others. Intermittent waves of emotions. Talked about her concerns about care, questions why no tube feeding was started, again diagnosis. Orthostatic hypotension Near syncope Lightheadedness Had fallen: attributes to neuropathy in feet, slipped on ice. Hyperlipidemia, mixed Current medication none Last 2 Lipids: Component Latest Ref Rng & Units 10/16/2020 06/23/2021 11/24/2021 11/24/2021 12:17 PM 12:17 PM Cholesterol, Total <200 mg/dL 207 (H) 228 (H) Triglyceride <150 mg/dL 352 (H) 795 (H) HDL Cholesterol >39 mg/dL 32 (L) 27 (L) Non HDL Cholesterol <130 mg/dL 175 (H) 201 (H) Fasting Time hrs 16 12 VLDL Cholesterol 71 (H) 70 (H) 125 (H) TC:HDL Ratio <5.10 6.47 (H) 8.44 (H) LDL Cholesterol 105 (H) LDL:HDL Ratio 3.28 (H) LDL Cholesterol, Direct <100 mg/dL 88 76 Type 2 diabetes mellitus with complication, without long-term current use [facility] insulin [facility] (primary encounter diagnosis) Current medications: Empagliflozin 10 mg daily with breakfast stopped due to side effects, vaginal itching persistent Taking medication as directed consistently? Yes Medication side effects: Notes improvement off metformin. Stopped empagliflozin due to persistent issues with vaginitis. Medical Issues / Complications: hypertension, hyperlipidemia, and peripheral neuropathy Checking blood sugars at home? Occasional. Not recent. Watching diet? Yes Physical Activity: Regular Hypoglycemic spells? No Any visual disturbance? No Chest pain? No New numbness, tingling or loss of sensation? unchanged Any recent foot problems, sores or rashes? No Any recent or sudden weight loss? No, 18lb loss intentioinally Change in urination? No. If yes: Any recent illness? No Last eye exam: up to date. Last foot exam: up to date. HBA1C: Hemoglobin A1C (%) Date Value 11/24/2021 8.2 02/19/2021 8.1 04/28/2019 6.4 ) CMP: Glucose 140 06/23/2021 BUN 14 06/23/2021 Creatinine 0.80 06/23/2021 Sodium 140 06/23/2021 Potassium 4.3 06/23/2021 Chloride 105 06/23/2021 CO2 Content, Venous 23 06/23/2021 Protein, Total 7.2 06/23/2021 Albumin 4.4 06/23/2021 Calcium 11.4 06/23/2021 Alkaline Phosphatase 149 06/23/2021 Bilirubin, Total 0.4 06/23/2021 AST 55 06/23/2021 ALT 65 06/23/2021 Last 2 Encounter Wt Readings: Date: Wt: 02/17/2022 87.5 kg (192 lb 14.4 oz) 12/25/2021 87.5 kg (193 lb) Hyperparathyroidism (hcc) Hypercalcemia Vitamin d deficiency Current medications: Vit D3 50k weekly Component Latest Ref Rng & Units 05/25/2019 06/26/2019 10/16/2020 06/23/2021 11/24/2021 Normalized CAlcium 1.08 - 1.30 mmol/L 1.51 (H) Ionized Calcium 1.08 - 1.30 mmol/L 1.56 (H) PTH Related Peptide 0.0 - 3.4 pmol/L <2.0 Vitamin D 25 Hydroxy 31.0 - 80.0 ng/mL 34.9 28.4 (L) 31.4 30.0 (L) PTH, Intact 15 - 65 pg/mL 92 (H) 86 (H) 109 (H) 105 (H) H/o total colectomy Iron deficiency anemia secondary to inadequate dietary iron intake Malabsorption of iron Current medication: Omeprazole 40mg daily AC Periodic parenteral iron Current symptoms: none. Last Mg level if on PPI chronically: none. Heartburn is controlled: Yes. Dysphagia: No. Bloody or black stools: No. Bowel changes: No. Last EGD and/or colonoscopy: Dr Whitten sigmoidoscopy: - Stenosed but manually dilated post-surgical anastomosis found on digital exam. - The rectal pouch is normal. - Two medium, bleeding polyps in the distal rectum, removed with a hot snare. Resected and retrieved. Injected. Treated with argon beam coagulation. - The colonic anastomosis is normal. FINAL DIAGNOSIS A. Distal anal pouch nodule, biopsy: - Colonic mucosa with acutely inflamed granulation tissue and ulceration. B. Distal anal pouch nodule, biopsy: - Colonic mucosa with acutely inflamed granulation tissue and ulceration. Last lab Component Latest Ref Rng & Units 10/27/2021 04/27/2022 WBC 3.70 - 11.00 k/uL 9.65 RBC 3.90 - 5.20 m/uL 4.80 Hemoglobin 11.5 - 15.5 g/dL 12.9 Hematocrit 36.0 - 46.0 % 41.3 MCV 80.0 - 100.0 fL 86.0 MCH 26.0 - 34.0 pg 26.9 MCHC 30.5 - 36.0 g/dL 31.2 RDW-CV 11.5 - 15.0 % 14.4 Platelet Count 150 - 400 k/uL 347 MPV 9.0 - 12.7 fL 8.8 (L) Neut% % 65.7 Abs Neut (ANC) 1.45 - 7.50 k/uL 6.34 Lymph% % 23.5 Abs Lymph 1.00 - 4.00 k/uL 2.27 Cherokee% % 7.4 Abs [place] <0.87 k/uL 0.71 Eosin% % 1.7 Abs Eosin <0.46 k/uL 0.16 Baso% % 1.2 Abs Baso <0.11 k/uL 0.12 (H) Immature Gran % % 0.5 IMMATURE GRANS (ABS) <0.10 k/uL 0.05 NRBC /100 WBC 0.0 Absolute nRBC <0.01 k/uL <0.01 DTYPE Auto Iron 41 - 186 ug/dL 64 34 (L) TIBC 232 - 386 ug/dL 322 319 Transferrin Saturation 15.0 - 57.0 % 19.9 10.7 (L) Ferritin 14.7 - 205.1 ng/mL 130.0 70.5 Foraminal stenosis of cervical region Facet arthritis of cervical region Degenerative disc disease, cervical Chronic right si joint pain Spinal stenosis, lumbar region, 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 On the right, severe in degree electrically. On the left, mild to moderate in degree electrically. 2. Bilateral C6/C7 radiculopathy, chronic, without active denervation. Continued issues with feet, intermittently on fire, RLS sx improved with CBD. 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 / [facility] [employer] Actinic keratosis 06/22/2008 Arthritis Degeneration of lumbar or lumbosacral intervertebral disc 08/13/2006 Diarrhea patient has a J pouch Enthesopathy of hip region 08/13/2006 Hyperparathyroidism (HCC) Impaired fasting glucose 02/19/2021 Knee joint replacement by other means 02/23/2011 right Multiple thyroid nodules 04/20/2018 Multi-nodular goiter with stable nodules, FNA hx benign. No further follow up indicated. 03/24/21 US thyroid: Nodule #1 RUL: stable TR3 no f/u Nodule #2 R lower stable TR2 no f/u Nodule #3 Lower center stable TR4 Nodule #4 LML stable no f/u 05/06/20 US thyroid Nodule #1 RUL, Size: 1.1 x 0.6 x 1 cm; no change, mostly cystic TR3 3: No F/U Nodule #2 R midpole Size: 1.2 x 1 x 1.5 cm; previously Other and unspecified hyperlipidemia 04/09/2008 PMH - PAST MEDICAL HISTORY OF right torn rotator cuff Pseudophakia of left eye 11/2020 Pseudophakia of right eye 11/04/2020 Dr. Emily MD S/P complete repair of rotator cuff 05/15/2010 right arm Ulcerative colitis, unspecified Unspecified vitamin D deficiency 04/09/2008 PAST SURGICAL HISTORY Procedure Laterality Date ABDOMINAL SURGERY HX ARTHRP ACETBLR/PROX FEM PROSTC AGRFT/ALGRFT 06/27/2012 left hip ARTHRP KNE CONDYLE&PLATU MEDIAL&LAT COMPARTMENTS 02/16/2011 Knee replacement, total right [facility] Dr. Gimenez BACK SURGERY HX CATARACT EXTRACTION W/ INTRAOCULAR LENS IMPLANT HX Right 11/04/2020 Dr. Pantoja CATARACT EXTRACTION W/ INTRAOCULAR LENS IMPLANT HX Left 12/02/2020 Dr. Pantoja COLON SURGERY HX COLONOSCOPY FLX DX W/COLLJ SPEC WHEN PFRMD 01/1999 Colonoscopy COLONOSCOPY FLX DX W/COLLJ SPEC WHEN PFRMD 02/13/2008 Colonoscopy COLONOSCOPY FLX DX W/COLLJ SPEC WHEN PFRMD 05/17/2017 Colonoscopy COLONOSCOPY FLX DX W/COLLJ SPEC WHEN PFRMD 06/27/2018 pouchoscopy COLONOSCOPY W/BIOPSY SINGLE/MULTIPLE 07/31/2009 ESOPHAGOGASTRODUODENOSCOPY TRANSORAL DIAGNOSTIC 06/27/2018 EGD EYE SURGERY HX JOINT REPLACEMENT HX LAMINOTOMY (HEMILAMINECTOMY), WITH DECOMPRESSION OF NERVE ROOT(S) 01/16/2020 Partial L1, complete L2, complete L3, complete L4 laminectomy with decompression of neural elements from L1-L4 LAPAROSCOPY SURG CHOLECYSTECTOMY Cholecystectomy, lap OOPHORECTOMY PARTIAL/TOTAL UNI/BI Left Oophorectomy OPEN REPAIR OF ROTATOR CUFF ACUTE Right 04/12/2010 Rotator cuff repair PAST SURGICAL HISTORY OF 2007 right hip replacement PAST SURGICAL HISTORY OF 08/13/2009 exp lap, TPC and IPAA. Colectomy, ileostomy with J pouch, takedown 7-10 PAST SURGICAL HISTORY OF cervical calcium deposits removed surgically, foraminotomy? POUCHOSCOPY 02/03/2016 SIGMOIDOSCOPY FLX DX W/COLLJ SPEC BR/WA IF PFRMD 05/28/2008 SIGMOIDOSCOPY FLX DX W/COLLJ SPEC BR/WA IF PFRMD 10/01/2011 epeat 1 year SIGMOIDOSCOPY FLX DX W/COLLJ SPEC BR/WA IF PFRMD 07/03/2013 Sigmoidoscopy, flexible SIGMOIDOSCOPY FLX DX W/COLLJ SPEC BR/WA IF PFRMD 12/10/2014 Sigmoidoscopy, flexible SIGMOIDOSCOPY FLX DX W/COLLJ SPEC BR/WA IF PFRMD 02/17/2022 Sigmoidoscopy, flexible SKIN BIOPSY HX XCAPSL CTRC RMVL INSJ IO LENS PROSTH W/O ECP Left 12/02/2020 Social History Tobacco Use Smoking status: Former Packs/day: 1.00 Years: 30.00 Pack years: 30.00 Types: Cigarettes Quit date: 08/28/1988 Years since quittin.8 Smokeless tobacco: Never Vaping Use Vaping Use: Never used Substance Use Topics Alcohol use: Not Currently Comment: occasional, 1 drink every 6 months Drug use: No ACTIVE PROBLEM LIST Degeneration of Lumbar Or Lumbosacral Intervertebral Disc Hyperlipidemia, 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 Fibromyalgia Primary Insomnia Vitamin D Deficiency 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 Iron Deficiency Anemia Secondary to Inadequate Dietary Iron Intake Spinal Stenosis, Lumbar Region, With Neurogenic Claudication H/O Total Colectomy Ulcerative Pancolitis With Complication (Hcc) Hyperparathyroidism (Hcc) Neck Pain, Chronic Chronic Right Si Joint Pain Hypercalcemia Facet Arthritis of Cervical Region Degenerative Disc Disease, Cervical Near Syncope Lightheadedness Orthostatic Hypotension Foraminal Stenosis of Cervical Region Pseudophakia of Both Eyes 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 90 capsule 5 DULoxetine (CYMBALTA) 30 mg capsule Take 1 capsule by mouth once daily. 90 capsule 1 gabapentin (NEURONTIN) 300 mg capsule Take 1 capsule by mouth three times daily for 180 days. 270 capsule 1 empagliflozin (JARDIANCE) 10 mg tablet Take 1 tablet by mouth daily with breakfast. 30 tablet 5 ergocalciferol 50,000 unit capsule (VITAMIN D2, DRISDOL) Take 1 capsule by mouth two times a week. 24 capsule 3 traZODone (DESYREL) 100 mg tablet TAKE 1 TABLET BY MOUTH DAILY AT BEDTIME. 90 tablet 3 omeprazole (PRILOSEC) 40 mg capsule Take 1 capsule by mouth twice daily before meals. 180 capsule 3 vit A/vit C/vit E/zinc/copper (PRESERVISION AREDS ORAL) Take 1 tablet by mouth twice daily. ammonium lactate/emu oil (EMU-LAC TOPICAL) Apply 1 application to affected area as needed. No current facility-administered medications for this visit. SHINGRIX VACCINE(2 of 3) due on 06/23/2011 HBA1C due on 02/24/2022 ADVANCE DIRECTIVE DISCUSSION due on 04/12/2022 DEPRESSION ASSESSMENT Never done URINE ALBUMIN:CREATININE RATIO due on 06/23/2022 DIABETIC FOOT EXAM due on 06/23/2022 EXAM: BP 124/66 Pulse 79 Resp 16 Wt 79.4 kg (175 lb) SpO2 97% BMI 28.25 kg/m Pleasant well appearing older adult woman in no acute distress, notable weight loss. Alert and oriented all spheres. Normal affect and cognition. Speech normal. No deficits to learning or comprehension. Skin warm, dry, pink to lips and nailbeds. Normal turgor. Respirations regular and unlabored. HEENT: NCAT. No scleral icterus or conjunctival injection. TM's clear. Nose and oropharynx free from injection or lesion. Oral membranes moist and pink. No cervical lymph nodes. Thyroid non-tender, no masses, or enlargement. Carotids pulses 2+/4+ without bruits. No JVD with HOB at 30 degrees. Chest is normal shape. Lungs are clear to all [place] with good air exchange through out. HRRR without murmur or gallop. No lifts, heaves, or rubs. Extrem: no clubbing, cyanosis, edema. Distal pulses 2+/4, prompt capillary refill. ASSESSMENT/PLAN: 1. Type 2 diabetes mellitus with complication, without long-term current use of insulin (HCC) - ICD9: 250.90, ICD10: E11.8 (primary diagnosis) Need lab to determine progress - Continue current medications - Follow up in 6 month, sooner should any other issues arise. 2. Orthostatic hypotension - ICD9: 458.0, ICD10: I95.1 stable 3. Near syncope - ICD9: 780.2, ICD10: R55 Stable, no issues 4. Lightheadedness - ICD9: 780.4, ICD10: R42 As above slight 5. Hyperlipidemia, mixed - ICD9: 272.2, ICD10: E78.2 - suboptimal control - Encouraged following a low fat, low cholesterol diet. - Discussed the benefits of regular aerobic exercise and weight loss. - Encouraged following a low carbohydrate, healthy oil intake diet. - LIPID PANEL BASIC - COMP METABOLIC PANEL 6. Hyperparathyroidism (HCC) - ICD9: 252.00, ICD10: E21.3 - ALBUMIN/CREAT RATIO RND UR - HGB A1C - COMP METABOLIC PANEL - VITAMIN D 25 HYDROXY - PTH INTACT BLD 7. Hypercalcemia - ICD9: 275.42, ICD10: E83.52 - COMP METABOLIC PANEL - VITAMIN D 25 HYDROXY - PTH INTACT BLD 8. H/O total colectomy - ICD9: V45.89, ICD10: Z90.49 Stable bowel pattern. Recent sigmoid 9. Iron deficiency anemia secondary to inadequate dietary iron intake - ICD9: 280.1, ICD10: D50.8 stable 10. 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 Foraminal stenosis of cervical region - ICD9: 723.0, ICD10: M48.02 12. Facet arthritis of cervical region - ICD9: 721.0, ICD10: M47.812 13. Degenerative disc disease, cervical - ICD9: 722.4, ICD10: M50.30 14. Chronic right SI joint pain - ICD9: 724.6, 338.29, ICD10: M53.3, G89.29 15. Spinal stenosis, lumbar region, with neurogenic claudication - ICD9: 724.03, ICD10: M48.062 16. Spondylosis of lumbar region without myelopathy or radiculopathy - ICD9: 721.3, ICD10: M47.816 17. Facet arthritis of lumbar region - ICD9: 721.3, ICD10: M47.816 18. Fibromyalgia - ICD9: 729.1, ICD10: M79.7 At baseline. Meds help. Weight loss has helped. Continue meds - DULOXETINE 30 MG CAPSULE,DELAYED RELEASE 19. Primary insomnia - ICD9: 307.42, ICD10: F51.01 Doing well, continue medicaitons - TRAZODONE 100 MG TABLET 20. Vitamin D deficiency - ICD9: 268.9, ICD10: E55.9 - ERGOCALCIFEROL (VITAMIN D2) 1,250 MCG (50,000 UNIT) CAPSULE - VITAMIN D 25 HYDROXY 21. Chronic superficial gastritis without bleeding - ICD9: 535.10, ICD10: K29.30 - OMEPRAZOLE 40 MG CAPSULE,DELAYED RELEASE - MAGNESIUM BLD 22. Current use of proton pump inhibitor - ICD9: V58.69, ICD10: Z79.899 - MAGNESIUM BLD 45 minute visit, emotional support and processing 's . Alice Goode PA-C Some of this note may have been copied and pasted for the purpose of history context and comparison.' documented in this encounter [facility] 06-29-2022 Note HNO ID: [id number] Author: Margareth Fink ([employer]) Service: ? Author Type: ? Type: Progress Notes Filed: 06/30/2022 2:56 PM Note Text: María Mcgarry is identified through a medication adherence outreach initiative based on pharmacy claims data from [employer] (insurer) for Non-insulin DM medication(s). Patient is reviewed 06/29/22 due to medication adherence concerns with the following medications (name, strength, sig): Jardiance 10mg, QD. Per reconcile dispense, last fill date and days supply: Filled 05/17/22 for 30 day supply Contacted patient: No answer; unable to leave VM Outcome of review/outreach: (choose outcome source and status) - Per Refill encounter on 06/29/22, pt stated that she is no longer taking the medication. She will discuss with PCP at appt on 07/02/22 Margareth Fink ([employer]) [facility] 06-29-2022 Note Patient Outreach ( PO) MARÍA MCGARRY ([id number]) 1940 F Date Time Provider Department 06/29/22 Alice GOODE During your visit today, we recorded the following information about you: Margareth Fink ([employer]) 06/30/2022 2:56 PM Signed María Cartagena Zeferino is identified through a medication adherence outreach initiative based on pharmacy claims data from [employer] (insurer) for Non-insulin DM medication(s). Patient is reviewed 06/29/22 due to medication adherence concerns with the following medications (name, strength, sig): Jardiance 10mg, QD. Per reconcile dispense, last fill date and days supply: Filled 05/17/22 for 30 day supply Contacted patient: No answer; unable to leave Outcome of review/outreach: (choose outcome source and status) - Per Refill encounter on 06/29/22, pt stated that she is no longer taking the medication. She will discuss with PCP at appt on 07/02/22 Margareth Fink (Hospitality Aide) Allergies As of Date: 06/29/2022 (No Known Allergies) Date Reviewed: 02/17/2022 Reviewed by: Saida Marie RN - Fully Assessed Reason for Visit: Allied Health Visit [5] Cmt: Medication Adherence Outreach Prescriptions as of 06/30/2022 - gabapentin (NEURONTIN) 400 mg capsule Take 1 capsule by mouth three times daily for 180 days. - DULoxetine (CYMBALTA) 30 mg capsule Take 1 capsule by mouth once daily. - gabapentin (NEURONTIN) 300 mg capsule Take 1 capsule by mouth three times daily for 180 days. - empagliflozin (JARDIANCE) 10 mg tablet Take 1 tablet by mouth daily with breakfast. - ergocalciferol 50,000 unit capsule (VITAMIN D2, DRISDOL) Take 1 capsule by mouth two times a week. - traZODone (DESYREL) 100 mg tablet TAKE 1 TABLET BY MOUTH DAILY AT BEDTIME. - omeprazole (PRILOSEC) 40 mg capsule Take 1 capsule by mouth twice daily before meals. - vit A/vit C/vit E/zinc/copper (PRESERVISION AREDS ORAL) Take 1 tablet by mouth twice daily. - ammonium lactate/emu oil (EMU-LAC TOPICAL) Apply 1 application to affected area as needed. Meds Comments as of 10/09/2020: 10/09/20 The medications are managed by this patient by: PATIENT REYES Barker Problem List As Of Date 06/29/2022 Noted Resolved Enthesopathy of hip region [M76.899] 08/13/2006 04/30/2016 LUMB/LUMBOSAC DISC DEGEN [M51.37] 08/13/2006 Hip joint replacement by other means [Z96.649] 12/09/2007 03/26/2016 Abdominal pain, other specified site [R10.9] 02/13/2008 04/30/2016 Diarrhea [R19.7] 02/13/2008 04/30/2016 COLITIS NONINFECTIOUS CHRONIC [K52.9] 02/27/2008 03/26/2016 Hyperlipidemia, mixed [E78.2] 04/09/2008 Unspecified vitamin D deficiency [E55.9] 04/09/2008 04/30/2016 Disorder of bone and cartilage [M89.9, M94.9] 04/09/2008 Neoplasm of uncertain behavior of skin [D48.5] 05/15/2008 08/01/2015 Other seborrheic keratosis [L82.1] 05/15/2008 08/01/2015 SOLAR LENGINES///DYSCHROMIA OTHER [L81.9] 05/15/2008 08/01/2015 Other chronic 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*05/15/2008 08/01/2015 SALEEM ANGIOMA///NEVUS, NON-NEOPLASTIC [I78.1] 05/15/2008 08/01/2015 Hemangioma of skin and subcutaneous tissue [D18*06/26/2008 08/01/2015 Inflamed seborrheic keratosis [L82.0] 06/26/2008 08/01/2015 Benign neoplasm of skin of other and unspecifie*06/26/2008 08/01/2015 Ulcerative colitis (HCC) [K51.90] 07/31/2009 04/30/2016 Anemia due to chronic illness [D63.8] 08/12/2009 03/26/2016 Dehydration [E86.0] 10/10/2009 04/30/2016 S/P complete repair of rotator cuff [Z98.890] 05/15/2010 04/30/2016 Knee joint replacement by other means [Z96.659] 02/23/2011 05/01/2016 Nonallopathic lesion of lumbar region, not else*11/20/2014 05/01/2016 Bilateral low back pain without sciatica [M54.5*11/20/2014 09/30/2015 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] 12/11/2014 Fibromyalgia [M79.7] 08/01/2015 Primary insomnia [F51.01] 08/01/2015 Vitamin D deficiency [E55.9] 08/01/2015 Spondylosis of lumbar region without myelopathy*11/06/2015 Facet arthritis of lumbar region (HCC) [M47.816]11/06/2015 Iron deficiency anemia secondary to inadequate *01/23/2016 Spinal stenosis, lumbar region, with neurogenic*02/13/2016 H/O total colectomy [Z90.49] 04/30/2016 Ulcerative pancolitis with complication (HCC) [*10/26/2016 Hyperparathyroidism (HCC) [E21.3] 10/28/2016 Neck pain, chronic [M54.2, G89.29] 11/30/2016 Chronic right SI joint pain [M53.3, G89.29] 02/22/2017 Hypercalcemia [E83.52] 07/01/2017 Degeneration of lumbosacral intervertebral disc*10/05/2017 12/24/2021 Facet arthritis of cervical region (HCC) [M47.8*10/05/2017 Degenerative disc disease, cervical [M50.30] 10/05/2017 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 [facility] 06-29-2022 Miscellaneous Notes Patient has been identified by name and date of : Yes, Kaila Akbar RN Date 06/29/2022 Time 10:40 am Pharmacy phones for refill(s): Requested Prescriptions Pending Prescriptions Disp Refills empagliflozin (JARDIANCE) 10 mg tablet 30 tablet 5 Sig: Take 1 tablet by mouth daily with breakfast. gabapentin (NEURONTIN) 400 mg capsule 90 capsule 5 Sig: Take 1 capsule by mouth three times daily for 180 days. Pharmacy calls to request prescription refills. Call placed to patient to verify what she needed. Patient declines Jardiance d/t no longer taking. Follow up appointment scheduled for 07/02/2022 and patient will discuss that at appointment. Date of last office visit with pcp: 12/25/2022 Future appt: 07/02/2022 Last 2 Encounter Wt Readings: Date: Wt: 02/17/2022 87.5 kg (192 lb 14.4 oz) 12/25/2021 87.5 kg (193 lb) Previous labs/tests for medication: Blood Pressure: BUN (mg/dL) Date Value 06/23/2021 14 03/20/2021 15 Sodium (mmol/L) Date Value 06/23/2021 140 03/20/2021 140 Last 1 Encounter BP Readings: Date: BP: 02/17/2022 154/75 Liver Function: ALT (U/L) Date Value 06/23/2021 65 03/20/2021 44 AST (U/L) Date Value 06/23/2021 55 03/20/2021 44 Please advise. Thank you. Kaila Akbar RN documented in this encounter [facility] 01-13-2022 Miscellaneous Notes Patient notified. She states she is only having severe itching. No complaint of discharge, redness or odor. Patient advised if not improved after trying the diflucan to contact office to be seen. Patient verbalized understanding. I ramsey to know if she is red, having discharge, itching. If severe could be allergy issue. Should be checked. Can try diflucan but if any worse needs to be seen byo ne of us. The following approved medication requests have been transmitted electronically. Requested Prescriptions Signed Prescriptions Disp Refills fluconazole (DIFLUCAN) 150 mg tablet 1 tablet 0 Sig: Take 1 tablet by mouth once daily for 1 day. Authorizing Provider: Alice GOODE PA-C Pt called and is notified of providers message and instructions. Pt voices understanding. Pt asking if provider could send medication in to [facility] in [place]. She states she didn't sleep at all last night, and has been squirming all day from the itching. Margareth Babulski, RN Left message to return call to office. Dennis Christensen LPN These are common side effects with jardiance which usually improve over the first 4 weeks. May need treatment for yeast infection.] If red, rash, discharge may benefit from medication, let me know. Usually the body will adjust. Thanks, Kareem Goode PA-C Patient reports that had severe itching in groin area with jardiance. She has stopped medication and itching is subsiding. She is going to continue to monitor and will update office. documented in this encounter [facility] 12-29-2021 History of Present illness Narrative Assessment and Plan: 1. Intermediate stage nonexudative age-related macular degeneration of both eyes - OCT MACULA CIRRUS OU (BOTH EYES) -Please monitor each eye daily with the [employer] Grid. -AREDS 2 Vitamins are available over the counter at any pharmacy. -Please call the office with decreased vision or increased eye pain. -Return in six months for follow up. 2. RPE (retinal pigment epithelium) atrophy -Please monitor each eye daily with the [employer]ler Grid. -AREDS 2 Vitamins are available over the counter at any pharmacy. -Please call the office with decreased vision or increased eye pain. -Return in six months for follow up. 3. Posterior vitreous detachment of both eyes -Please call the office immediately if you notice flashes of light, a sudden increase in floaters, or a sudden change in vision. 4. Dry eye syndrome of both eyes -Increase Artificial tear use to three times a day Both eyes. -Systane Artificial tears, 1 drop, three times a day, Both eyes. -Systane Gel at bedtime Both eyes. 5. Pseudophakia of both eyes -Intraocular lens implant in good position both eyes. Dashawn Levi, OD I have reviewed, confirmed, and edited as necessary the relevant ophthalmic history, review of systems, allergies, patient history, and ophthalmological examination findings as obtained by the ophthalmic technical staff. I have seen and examined María Mcgarry. I have discussed the examination findings, diagnosis, and treatment options with María Mcgarry and/or her family. I have also reviewed and agree with the assessment and plan as stated above and agree with all its relevant components. I gave the patient the opportunity to ask questions about the examination findings, diagnosis, and treatment options. documented in this encounter [facility] 12-29-2021 Instructions Dashawn Levi, OD - 12/29/2021 11:10 AM EDT Please monitor each eye daily with the [employer]msler Grid. AREDS 2 Vitamins are available over the counter at any pharmacy. Systane Artificial tears, 1 drop, three times a day, Both eyes. Systane Gel at bedtime Both eyes. Please call the office with decreased vision or increased eye pain. documented in this encounter [facility] 12-25-2021 Instructions Alice Goode PA-C - 12/25/2021 10:22 AM EDT Plastic Surgery Nurse Dr. Maxime Bucio Empagliflozin: Patient drug information Access [employer] for additional drug information, tools, and databases. Copyright 4825-0112 [employer]. All rights reserved. (For additional information see Empagliflozin: Drug information ) You must carefully read the Consumer Information Use and Disclaimer below in order to understand and correctly use this information. Brand Names: [place] Jardiance Brand Names: Chase Jardiance What is this drug used for? It is used to lower blood sugar in patients with high blood sugar (diabetes). It is used to lower the chance of from heart disease in certain people. What do I need to tell my doctor BEFORE I take this drug? If you are allergic to this drug; any part of this drug; or any other drugs, foods, or substances. Tell your doctor about the allergy and what signs you had. If you have any of these health problems: Acidic blood problem or type 1 diabetes. If you have kidney disease. If you are dehydrated, talk with your doctor. If you are or may be . Do not take this drug if you are in the second or third trimester of . If you are breast-feeding. Do not breast-feed while you take this drug. This is not a list of all drugs or health problems that interact with this drug. Tell your doctor and pharmacist about all of your drugs (prescription or OTC, natural products, vitamins) and health problems. You must check to make sure that it is safe for you to take this drug with all of your drugs and health problems. Do not start, stop, or change the dose of any drug without checking with your doctor. What are some things I need to know or do while I take this drug? Tell all of your health care providers that you take this drug. This includes your doctors, nurses, pharmacists, and dentists. This drug may need to be stopped before certain types of surgery as your doctor has told you. If this drug is stopped, your doctor will tell you when to start taking this drug again after your surgery or procedure. Do not drive if your blood sugar has been low. There is a greater chance of you having a crash. To lower the chance of feeling dizzy or passing out, rise slowly if you have been sitting or lying down. Be careful going up and down stairs. Be careful in hot weather or while being active. Drink lots of fluids to stop fluid loss. If you are not able to eat or drink like normal, talk with your doctor. This includes if you are sick, fasting, or you are having certain procedures or surgery. If you cannot drink liquids by mouth or if you have upset stomach, throwing up, or diarrhea that does not go away; you need to avoid getting dehydrated. Contact your doctor to find out what to do. Dehydration may lead to new or worse kidney problems. High cholesterol has happened with this drug. If you have questions, talk with the doctor. Have blood work checked as you have been told by the doctor. Talk with the doctor. This drug may affect certain lab tests. Tell all of your health care providers and lab workers that you take this drug. It may be harder to control blood sugar during times of stress such as fever, infection, injury, or surgery. A change in physical activity, exercise, or diet may also affect blood sugar. Check your blood sugar as you have been told by your doctor. Talk with your doctor about which glucose tests are best to use. Too much acid in the blood or urine (ketoacidosis) and severe urinary tract infections (UTIs) have happened. Ketoacidosis can be deadly. Both of these may need to be treated in a hospital. Kidney problems have happened. Sometimes, these may need to be treated in the hospital or with dialysis. Follow the diet and workout plan that your doctor told you about. If you are on a low-salt or salt-free diet, talk with your doctor. Talk with your doctor before you drink alcohol. A rare but very bad infection has happened with drugs like this one. This infection may be deadly. Get medical help right away if your genitals or the area between your genitals and rectum becomes tender, red, or swollen, and you have a fever or do not feel well. If you are 65 or older, use this drug with care. You could have more side effects. This drug may cause harm to the unborn baby if you take it while you are . If you are or you get while taking this drug, call your doctor right away. What are some side effects that I need to call my doctor about right away? WARNING/CAUTION: Even though it may be rare, some people may have very bad and sometimes deadly side effects when taking a drug. Tell your doctor or get medical help right away if you have any of the following signs or symptoms that may be related to a very bad side effect: Signs of an allergic reaction, like rash; hives; itching; red, swollen, blistered, or peeling skin with or without fever; wheezing; tightness in the chest or throat; trouble breathing, swallowing, or talking; unusual hoarseness; or swelling of the mouth, face, lips, tongue, or throat. Signs of fluid and electrolyte problems like mood changes, confusion, muscle pain or weakness, a heartbeat that does not feel normal, very bad dizziness or passing out, fast heartbeat, more thirst, seizures, feeling very tired or weak, not hungry, unable to pass urine or change in the amount of urine produced, dry mouth, dry eyes, or very bad upset stomach or throwing up. Signs of kidney problems like unable to pass urine, change in how much urine is passed, blood in the urine, or a big weight gain. Signs of too much acid in the blood (acidosis) like confusion; fast breathing; fast heartbeat; a heartbeat that does not feel normal; very bad stomach pain, upset stomach, or throwing up; feeling very sleepy; shortness of breath; or feeling very tired or weak. Signs of a urinary tract infection (UTI) like blood in the urine, burning or pain when passing urine, feeling the need to pass urine often or right away, fever, lower stomach pain, or pelvic pain. Vaginal yeast infection. Report itching or discharge. Yeast infection of the penis. Report pain, swelling, rash, or discharge. Low blood sugar can happen. The chance may be raised when this drug is used with other drugs for diabetes. Signs may be dizziness, headache, feeling sleepy or weak, shaking, fast heartbeat, confusion, hunger, or sweating. Call your doctor right away if you have any of these signs. Follow what you have been told to do for low blood sugar. This may include taking glucose tablets, liquid glucose, or some fruit juices. What are some other side effects of this drug? All drugs may cause side effects. However, many people have no side effects or only have minor side effects. Call your doctor or get medical help if you have any side effects that bother you or do not go away. These are not all of the side effects that may occur. If you have questions about side effects, call your doctor. Call your doctor for medical advice about side effects. You may report side effects to your national health agency. How is this drug best taken? Use this drug as ordered by your doctor. Read all information given to you. Follow all instructions closely. Take with or without food. Take in the morning. Drink lots of noncaffeine liquids unless told to drink less liquid by your doctor. Keep taking this drug as you have been told by your doctor or other health care provider, even if you feel well. What do I do if I miss a dose? Take a missed dose as soon as you think about it. If it is close to the time for your next dose, skip the missed dose and go back to your normal time. Do not take 2 doses at the same time or extra doses. If you are not sure what to do if you miss a dose, call your doctor. How do I store and/or throw out this drug? Store at room temperature in a dry place. Do not store in a bathroom. Keep all drugs in a safe place. Keep all drugs out of the reach of children and pets. Throw away unused or drugs. Do not flush down a toilet or pour down a drain unless you are told to do so. Check with your pharmacist if you have questions about the best way to throw out drugs. There may be drug take-back programs in your area. General drug facts If your symptoms or health problems do not get better or if they become worse, call your doctor. Do not share your drugs with others and do not take anyone else's drugs. Some drugs may have another patient information leaflet. If you have any questions about this drug, please talk with your doctor, nurse, pharmacist, or other health care provider. If you think there has been an overdose, call your poison control center or get medical care right away. Be ready to tell or show what was taken, how much, and when it happened. Last Reviewed [id number] Consumer Information Use and Disclaimer This information should not be used to decide whether or not to take this medicine or any other medicine. Only the healthcare provider has the knowledge and training to decide which medicines are right for a specific patient. This information does not endorse any medicine as safe, effective, or approved for treating any patient or health condition. This is only a brief summary of general information about this medicine. It does NOT include all information about the possible uses, directions, warnings, precautions, interactions, adverse effects, or risks that may apply to this medicine. This information is not specific medical advice and does not replace information you receive from the healthcare provider. You must talk with the healthcare provider for complete information about the risks and benefits of using this medicine. The use of this information is governed by the [employer] End User License Agreement, available at https://[email or web address]/en/s olutions/[employer]/about/gamal. 2020 [employer]. and its affiliates and/or licensors. All rights reserved. Use of UpToDate is subject to the Subscription and License Agreement. Topic 03230 Version 70.0 documented in this encounter [facility] 12-25-2021 History of Present illness Narrative 81 year old female with c/o her for follow up Current concerns: A lot going on- renovating home, not at pace she had hoped. Everything in chaos. Increase in anxiety. Worried about 's weight loss, napping frequently, being evaluated for PTSD- helping but more verbally explosive. Issues from [employer]. Worried he may and she will be left alone, money issues, overwhelmed because she pretty much does everything. Talking about , burial plans [facility] [place] [facility] [place] Lightheadedness Near syncope Orthostatic hypotension Doing better, only a couple of times has had to stop. Taking fluids more. Using shower chair. Hyperlipidemia, mixed Hyperlipidemia: Current medication none Taking medication consistently N/A Observing low cholesterol high fiber diet Yes Last 2 Lipids: Component Latest Ref Rng & Units 10/16/2020 06/23/2021 11/24/2021 11/24/2021 12:17 PM 12:17 PM Cholesterol, Total <200 mg/dL 207 (H) 228 (H) Triglyceride <150 mg/dL 352 (H) 795 (H) HDL Cholesterol >39 mg/dL 32 (L) 27 (L) Non HDL Cholesterol <130 mg/dL 175 (H) 201 (H) Fasting Time hrs 16 12 VLDL Cholesterol 71 (H) 70 (H) 125 (H) TC:HDL Ratio <5.10 6.47 (H) 8.44 (H) LDL Cholesterol 105 (H) LDL:HDL Ratio 3.28 (H) LDL Cholesterol, Direct <100 mg/dL 88 76 Hyperparathyroidism (hcc) Hypercalcemia Vitamin d deficiency Disorder of bone and cartilage Current medications: Vitamin D2 50,000 units 1 capsule twice a week Component Latest Ref Rng & Units 10/16/2020 06/23/2021 11/24/2021 Normalized CAlcium 1.08 - 1.30 mmol/L 1.51 (H) Ionized Calcium 1.08 - 1.30 mmol/L 1.56 (H) Vitamin D 25 Hydroxy 31.0 - 80.0 ng/mL 28.4 (L) 31.4 30.0 (L) Notes no pain issues outside her neck and back issues which are chronic Primary insomnia Current medications: Trazodone 100 mg daily at bedtime Seems to help, doing well. H/o total colectomy Malabsorption of iron Iron deficiency anemia secondary to inadequate dietary iron intake Current medication: Omeprazole 40 mg twice daily AC. Current symptoms: none. Last Mg level if on PPI chronically: none. Heartburn is controlled: Yes. Dysphagia: No. Notes chokes more often following EGD Bloody or black stools: pouch stable. Bowel changes: No. Last EGD and/or colonoscopy: due for surveillance- will discussed with Dr. Jackson. Multiple thyroid nodules Resolved to hx, no further work up. 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 [place] foggy during the day at first, getting better Pin level is increased a little- if busy doesn't think about it as much. Hyperglycemia: No current medication. At last visit wanted to work on diet, exercise. Doesn't want metformin. 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 / [facility] Actinic keratosis 06/22/2008 Degeneration of lumbar or lumbosacral intervertebral disc 08/13/2006 Diarrhea patient has a J pouch Enthesopathy of hip region 08/13/2006 Hyperparathyroidism (HCC) Knee joint replacement by other means 02/23/2011 right Other and unspecified hyperlipidemia 04/09/2008 PMH - PAST MEDICAL HISTORY OF right torn rotator cuff Pseudophakia of left eye 11/2020 Pseudophakia of right eye 11/04/2020 Dr. Emily MD S/P complete repair of rotator cuff 05/15/2010 right arm Ulcerative colitis, unspecified Unspecified vitamin D deficiency 04/09/2008 PAST SURGICAL HISTORY Procedure Laterality Date ARTHRP ACETBLR/PROX FEM PROSTC AGRFT/ALGRFT 06/27/2012 left hip ARTHRP KNE CONDYLE&PLATU MEDIAL&LAT COMPARTMENTS 02/16/2011 Knee replacement, total right [facility] Dr. Gimenez CATARACT EXTRACTION W/ INTRAOCULAR LENS IMPLANT HX Right 11/04/2020 Dr. Pantoja CATARACT EXTRACTION W/ INTRAOCULAR LENS IMPLANT HX Left 12/02/2020 Dr. Pantoja COLONOSCOPY FLX DX W/COLLJ SPEC WHEN PFRMD 01/1999 Colonoscopy COLONOSCOPY FLX DX W/COLLJ SPEC WHEN PFRMD 02/13/2008 Colonoscopy COLONOSCOPY FLX DX W/COLLJ SPEC WHEN PFRMD 05/17/2017 Colonoscopy COLONOSCOPY FLX DX W/COLLJ SPEC WHEN PFRMD 06/27/2018 pouchoscopy COLONOSCOPY W/BIOPSY SINGLE/MULTIPLE 07/31/2009 ESOPHAGOGASTRODUODENOSCOPY TRANSORAL DIAGNOSTIC 06/27/2018 EGD LAMINOTOMY (HEMILAMINECTOMY), WITH DECOMPRESSION OF NERVE ROOT(S) 01/16/2020 Partial L1, complete L2, complete L3, complete L4 laminectomy with decompression of neural elements from L1-L4 LAPAROSCOPY SURG CHOLECYSTECTOMY Cholecystectomy, lap OOPHORECTOMY PARTIAL/TOTAL UNI/BI Left Oophorectomy OPEN REPAIR OF ROTATOR CUFF ACUTE Right 04/12/2010 Rotator cuff repair PAST SURGICAL HISTORY OF 2007 right hip replacement PAST SURGICAL HISTORY OF 08/13/2009 exp lap, TPC and IPAA. Colectomy, ileostomy with J pouch, takedown 7-10 PAST SURGICAL HISTORY OF cervical calcium deposits removed surgically, foraminotomy? POUCHOSCOPY 02/03/2016 SIGMOIDOSCOPY FLX DX W/COLLJ SPEC BR/WA IF PFRMD 05/28/2008 SIGMOIDOSCOPY FLX DX W/COLLJ SPEC BR/WA IF PFRMD 10/01/2011 epeat 1 year SIGMOIDOSCOPY FLX DX W/COLLJ SPEC BR/WA IF PFRMD 07/03/2013 Sigmoidoscopy, flexible SIGMOIDOSCOPY FLX DX W/COLLJ SPEC BR/WA IF PFRMD 12/10/2014 Sigmoidoscopy, flexible SIGMOIDOSCOPY FLX DX W/COLLJ SPEC BR/WA IF PFRMD Sigmoidoscopy, flexible XCAPSL CTRC RMVL INSJ IO LENS PROSTH W/O ECP Left 12/02/2020 Social History Tobacco Use Smoking status: Former Packs/day: 1.00 Years: 30.00 Pack years: 30.00 Types: Cigarettes Quit date: 08/28/1988 Years since quittin.3 Smokeless tobacco: Never Vaping Use Vaping Use: Never used Substance Use Topics Alcohol use: Not Currently Comment: occasional, 1 drink every 6 months Drug use: No ACTIVE PROBLEM LIST Degeneration of Lumbar Or Lumbosacral Intervertebral Disc Hyperlipidemia, 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 Fibromyalgia Primary Insomnia Vitamin D Deficiency 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 Iron Deficiency Anemia Secondary to Inadequate Dietary Iron Intake Spinal Stenosis, Lumbar Region, With Neurogenic Claudication H/O Total Colectomy Ulcerative Pancolitis With Complication (Hcc) Hyperparathyroidism (Hcc) Neck Pain, Chronic Chronic Right Si Joint Pain Hypercalcemia Degeneration of Lumbosacral Intervertebral Disc Facet Arthritis of Cervical Region Degenerative Disc Disease, Cervical Spondylarthrosis Multiple Thyroid Nodules Lumbar Stenosis Near Syncope Lightheadedness Orthostatic Hypotension Foraminal Stenosis of Cervical Region Pseudophakia of Both Eyes 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 24 capsule 3 DULoxetine (CYMBALTA) 30 mg capsule Take 1 capsule by mouth once daily. 90 capsule 1 traZODone (DESYREL) 100 mg tablet TAKE 1 TABLET BY MOUTH DAILY AT BEDTIME. 90 tablet 3 omeprazole (PRILOSEC) 40 mg capsule Take 1 capsule by mouth twice daily before meals. 180 capsule 3 omeprazole (PRILOSEC) 40 mg capsule Take 1 capsule by mouth twice daily before meals. 42 capsule 0 gabapentin (NEURONTIN) 300 mg capsule Take 1 capsule by mouth three times daily for 180 days. 270 capsule 1 gabapentin (NEURONTIN) 100 mg capsule TITRATE DIRECTED. INCREASE BY 1 CAPSULE EVERY 5 DAYS, UNTIL GOAL DOSE OF 3 CAPSULES BY MOUTH THREE TIMES A DAY. 270 capsule 0 naproxen (NAPROSYN) 500 mg tablet Take 1 tablet by mouth twice daily as needed (for pain). Take with food 10 tablet 0 vit A/vit C/vit E/zinc/copper (PRESERVISION AREDS ORAL) Take 1 tablet by mouth twice daily. ammonium lactate/emu oil (EMU-LAC TOPICAL) Apply 1 application to affected area as needed. No current facility-administered medications for this visit. ADVANCE DIRECTIVE DISCUSSION Never done INFLUENZA(1) due on 12/11/2021 EXAM: BP 128/78 Pulse 60 Resp 16 Wt 87.5 kg (193 lb) SpO2 97% BMI 31.15 kg/m Pleasant adult woman in no acute distress. Alert and oriented all spheres. Normal affect and cognition. Speech normal. No deficits to learning or comprehension. Skin warm, dry, pink to lips and nailbeds. Normal turgor. Respirations regular and unlabored. HEENT: NCAT. No scleral icterus or conjunctival injection. TM's clear. Nose and oropharynx free from injection or lesion. Oral membranes moist and pink. No cervical lymph nodes. Thyroid non-tender, no masses, or enlargement. Carotids pulses 2+/4+ without bruits. No JVD with HOB at 30 degrees. Chest is normal shape. Lungs are clear to all hutchison with good air exchange through out. HRRR without murmur or gallop. No lifts, heaves, or rubs. Extrem: no clubbing or cyanosis. Edema: none. Extremities are warm and pink with prompt capillary refill. ASSESSMENT/PLAN: 1. Lightheadedness - ICD9: 780.4, ICD10: R42 2. Near syncope - ICD9: 780.2, ICD10: R55 3. Orthostatic hypotension - ICD9: 458.0, ICD10: I95.1 Stable, managing issues, no falls 4. Hyperlipidemia, mixed - ICD9: 272.2, ICD10: E78.2 - poor control, declines statin or other medications. - Encouraged following a low fat, low cholesterol diet. - Discussed the benefits of regular aerobic exercise and weight loss. - Encouraged following a low carbohydrate, healthy oil intake diet. - Wants nothing to worsen bowel or muscle pain 5. Hyperparathyroidism (HCC) - ICD9: 252.00, ICD10: E21.3 Stable without significant increase. Vit D low 6. Hypercalcemia - ICD9: 275.42, ICD10: E83.52 stable 7. Vitamin D deficiency - ICD9: 268.9, ICD10: E55.9 Low- discussed increasing dose. 8. Disorder of bone and cartilage - ICD9: 733.90, ICD10: M89.9, M94.9 9. Primary insomnia - ICD9: 307.42, ICD10: F51.01 stable Stable with chronic loose stools. 11. Malabsorption of iron - ICD9: 579.8, ICD10: K90.9 12. Iron deficiency anemia secondary to inadequate dietary iron intake - ICD9: 280.1, ICD10: D50.8 controlled 13. Multiple thyroid nodules - ICD9: 241.1, ICD10: E04.2 Stable, benign- no further f/u 14. Fibromyalgia - ICD9: 729.1, ICD10: M79.7 Cymbalta helps slightly since added. Continue gabapentin Constant pain but manageable 15. Foraminal stenosis of cervical region - ICD9: 723.0, ICD10: M48.0216. Degenerative disc disease, cervical - ICD9: 722.4, ICD10: M50.30 17. Facet arthritis of cervical region - ICD9: 721.0, ICD10: M47.812 18. Spondylosis of lumbar region without myelopathy or radiculopathy - ICD9: 721.3, ICD10: M47.81 19. Spinal stenosis, lumbar region, with neurogenic claudication - ICD9: 724.03, ICD10: M48.06 20. Degeneration of lumbar or lumbosacral intervertebral disc - ICD9: 722.52, ICD10: M51.37 21. Facet arthritis of lumbar region - ICD9: 721.3, ICD10: M47.816 22. Spondylarthrosis - ICD9: 721.90, ICD10: M47.9 23. Chronic right SI joint pain - ICD9: 724.6, 338.29, ICD10: M53.3, G89.29 Continue meds, following with pain management. F/u 3 months and as needed. 24. Type 2 diabetes mellitus with complication, without long-term current use of insulin (HCC) - ICD9: 250.90, ICD10: E11.8 uncontrolled - Add empagliflozin Reviewed new medication, onset symptoms, warnings, common side effects, drug interactions. We will monitor for UTI, vaginitis, follow electrolytes especially with current issues with hypercalcemia. Patient is comfortable with medication and joint decision. - HGB A1C Alice Goode PA-C Spent a good portion of visit discussing concerns abut and future Alice Goode PA-C Some of this note may have been copied and pasted for the purpose of history context and comparison. documented in this encounter [facility] 11-26-2021 Miscellaneous Notes documented in this encounter [facility] 10-27-2021 History of Present illness Narrative Diagnosis: 1) JANA. 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 She had noticed more fatigue and had developed less tolerance for exercise. She had been taking an iron supplement on a periodic basis. Current therapy: 1) Periodic iron sucrose. Presents for ongoing hematologic management. Interim history: No complaints today. Now on Cymbalta for FM and feels much better--sleeping better. Remains very active. No unusual bleeding. Still has chronic stool urgency but no signs of GI bleeding. Most recent eval 09/2019--pouchoscopy. PMH, medications and allergies personally reviewed by me today. Any changes documented in appropriate section. ROS: Constitutional: Denies episodes of fever and night sweats. Neuro: No symptoms of neuropathy. HEENT: No recent change in voice, vision or hearing. Resp: Denies cough, wheeze and hemoptysis. No shortness of breath at rest. CVS: Denies PND, orthopnea and LE edema. GI: See above. : No dysuria or gross hematuria. No symptoms of bladder outlet obstruction. Endo: No hot flashes. Musculoskeletal: See above. Derm: No rash. Heme: No unusual bleeding or bruising. Psych: Normal mood. PHYSICAL EXAM: Vitals: Blood pressure 114/71, pulse 69, temperature 36.5 C (97.7 F), temperature source Temporal, weight 86.9 kg (191 lb 8 oz). Well-appearing and in no acute distress. EYES: Sclerae are anicteric bilaterally. NECK: Supple. LYMPHATIC: There is no palpable cervical, supraclavicular l adenopathy. RESPIRATORY: Inspiratory breath sounds are of normal intensity in all hutchison. No rales, wheezes or rhonchi. CARDIOVASCULAR: Rhythm is regular. Normal intensity S1/S2. There is no gallop or murmur. ABDOMEN: The abdomen is nondistended. Extremities: Free of edema. SKIN: No jaundice or rash. No petechiae. NEUROLOGIC: complaint clerk II-XII are grossly intact. No focal motor weakness. LABS: Component Latest Ref Rng & Units 07/24/2019 01/08/2020 04/15/2021 06/23/2021 10/27/2021 WBC 3.70 - 11.00 k/uL 9.25 10.32 9.95 10.02 10.95 RBC 3.90 - 5.20 m/uL 5.23 (H) 4.91 4.86 5.23 (H) 4.74 Hemoglobin 11.5 - 15.5 g/dL 14.6 14.0 12.7 14.6 13.8 Hematocrit 36.0 - 46.0 % 45.9 42.5 40.3 46.8 (H) 41.8 MCV 80.0 - 100.0 fL 87.8 86.6 82.9 89.5 88.2 MCH 26.0 - 34.0 pg 27.9 28.5 26.1 27.9 29.1 MCHC 30.5 - 36.0 g/dL 31.8 32.9 31.5 31.2 33.0 RDW-CV 11.5 - 15.0 % 13.7 13.7 15.6 (H) 17.5 (H) 13.6 Platelet Count 150 - 400 k/uL 260 222 244 250 208 MPV 9.0 - 12.7 fL 9.0 9.2 9.2 10.0 9.4 Neut% % 60.0 61.9 67.0 Abs Neut (ANC) 1.45 - 7.50 k/uL 5.55 6.15 7.33 Lymph% % 32.0 27.6 23.7 Abs Lymph 1.00 - 4.00 k/uL 2.96 2.75 2.59 Cherokee% % 5.4 6.7 7.0 Abs [place] <0.87 k/uL 0.50 0.67 0.77 Eosin% % 1.3 2.5 0.7 Abs Eosin <0.46 k/uL 0.12 0.25 0.08 Baso% % 1.3 1.3 1.0 Abs Baso <0.11 k/uL 0.12 (H) 0.13 (H) 0.11 (H) Immature Gran % % 0.6 IMMATURE GRANS (ABS) <0.10 k/uL 0.07 NRBC /100 WBC 0.0 Absolute nRBC <0.01 k/uL <0.01 <0.01 <0.01 <0.01 <0.01 DTYPE Auto Nucleated Reds 0 /100 WBC 0.0 0.0 Diff Type Auto Diff Auto Diff Iron 41 - 186 ug/dL 37 (L) TIBC 232 - 386 ug/dL 367 Transferrin Saturation 15 - 57 % 10 (L) Ferritin 14.7 - 205.1 ng/mL 25.0 ASSESSMENT/PLAN: (D50.8) Iron deficiency anemia secondary to inadequate dietary iron intake (primary encounter diagnosis) Assessment: -History and laboratory bowel disease. -No symptoms of GI bleeding. -She responded symptomatically well to parenteral iron infusion in the past. -Hemoglobin remains normal. Parenteral iron was in May 2018 and again 04/2021. -Reviewed labs in plan in detail. Plan: -Recheck in 6 months. -OV in a year. During this patient visit I have spent approximately 10 minutes out of 20 in counseling regarding treatment options and test results and coordinating care. Tima Tyler DO documented in this encounter [facility] 09-15-2021 Miscellaneous Notes RANDAL 06/23/21 Scheduled 12/25/21 Patient has been identified by name and date of : Yes Pending Prescriptions Disp Refills ERGOCALCIFEROL (VITAMIN D2) 1,250 MCG (50,000 UNIT) CAPSULE 24 capsule 3 Sig: Take 1 capsule by mouth two times a week. TAINA: No RX INSTRUCTIONS: Patient is using [facility] for this medication. Please send today, she has been out the entire time. Patient aware RX will be sent to pharmacy. No need to notify patient. Awilda Wells documented in this encounter [facility] 07-23-2021 Miscellaneous Notes Patient reports recent Cymbalta script was sent to incorrect pharmacy. Requesting it be sent to [facility]. No call back needed to patient unless questions. Thank you. documented in this encounter [facility] 07-11-2021 Miscellaneous Notes Done. The following approved medication requests have been transmitted electronically. Signed Prescriptions Disp Refills gabapentin (NEURONTIN) 300 mg capsule 270 capsule 1 Sig: Take 1 capsule by mouth three times daily for 180 days. Authorizing Provider: Alice GOODE PA-C María Cartagena [place] is calling Alice Goode PA-C today called for 2 reasons: First, she is requesting her Gabapentin prescription is changed to 300mg; Take 3 tablets once daily; she prefers this dosage since she has increased as instructed and now taking 900 mg daily. Please send new prescription to [facility]. Next, please update her current medication list; she is not taking: Metformin and not taking Cymbalta. Please notify patient once completed. Patient has been identified by name and birthdate. Duration of symptoms: N/A Person calling: self Call patient at: at home [phone] (home) [phone] (cell) Was an appointment scheduled: No Closing statement: Results or non-symptom based questions: Thank you for calling [facility], your call will be returned within the next business day. Awilda Bridges Pss documented in this encounter [facility] 07-11-2021 Miscellaneous Notes Patient has been identified by name and date of : Yes Pending Prescriptions Disp Refills TRAZODONE 100 MG TABLET 90 tablet 3 Sig: TAKE 1 TABLET BY MOUTH DAILY AT BEDTIME. TAINA: No OMEPRAZOLE 40 MG CAPSULE,DELAYED RELEASE 180 capsule 3 Sig: Take 1 capsule by mouth twice daily before meals. TAINA: No OMEPRAZOLE 40 MG CAPSULE,DELAYED RELEASE 42 capsule 0 Sig: Take 1 capsule by mouth twice daily before meals. TAINA: No ERGOCALCIFEROL (VITAMIN D2) 1,250 MCG (50,000 UNIT) CAPSULE 24 capsule 3 Sig: Take 1 capsule by mouth two times a week. TAINA: No ERGOCALCIFEROL (VITAMIN D2) 1,250 MCG (50,000 UNIT) CAPSULE 6 capsule 0 Sig: Take 1 capsule by mouth two times a week. TAINA: No RANDAL-06/23/21 Labs-06/23/21 NOV-12/25/21 RX INSTRUCTIONS: Patient is now using [facility]. She is out of 2 medications and requesting 90 days to [facility] and I made copies and attached short term supply to [facility] for the 2 medications she is out of; all attached to correct Pharmacy, please send today. Patient aware RX will be sent to pharmacy. No need to notify patient. Patient aware RX escripted to mail away pharmacy. No need to notify patient. Awilda Bridges Pss documented in this encounter [facility] documented as of this encounter (statuses as of 07/09/2021) [facility] History of Past illness Narrative* Problem Noted Date Resolved Date Carpal tunnel syndrome, right 02/19/2021 Nuclear senile cataract of both eyes 11/04/2020 12/02/2020 Nonallopathic lesion of lumb ar region, not elsewhere classified 11/20/2014 05/01/2016 Bilateral low back pain without sciatica 015 09/30/2015 Knee joint replacement by other means 02/23/2011 05/01/2016 S/P complete repair of rotator cuff 05/15/2010 04/30/2016 Dehydration 10/10/2009 04/30/2016 Anemia due to chronic illness 08/12/2009 Ulcerative colitis 07/31/2009 04/30/2016 Hemangioma of skin and subcutaneous tissue 06/2608/01/2015 Inflamed seborrheic keratosis 06/26/2008 Benign neoplasm of skin of o ther and unspecified parts of face 06/26/2008 08/01/2015 Neoplasm of uncertain behavior of skin 9 08/01/2015 Other seborrheic keratosis 05/15/200807/31 SOLAR LENGINES///DYSCHROMIA OTHER 05/15/2008 08/01/2015 Other chronic 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 05/15/2008 08/01/2015 SALEEM ANGIOMA///NEVUS, NON-NEOPLASTIC 9 08/01/2015 Unspecified vitamin D deficiency 04/09/2008 04/30/2016 COLITIS NONINFECTIOUS CHRONIC 02/27/2008 03/26/2016 Abdominal pain, other specified site 02/13/2008 04/30/2016 Diarrhea 02/13/2008 04/30/2016 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 03/26/2016 Enthesopathy of hip region 08/13/200604/30 documented as of this encounter (statuses as of 07/11/2021) [facility] History of Past illness Narrative* Problem Noted Date Resolved Date Carpal tunnel syndrome, right 02/19/2021 Nuclear senile cataract of both eyes 11/04/2020 12/02/2020 Nonallopathic lesion of lumb ar region, not elsewhere classified 11/20/2014 05/01/2016 Bilateral low back pain without sciatica 015 09/30/2015 Knee joint replacement by other means 02/23/2011 05/01/2016 S/P complete repair of rotator cuff 05/15/2010 04/30/2016 Dehydration 10/10/2009 04/30/2016 Anemia due to chronic illness 08/12/2009 Ulcerative colitis 07/31/2009 04/30/2016 Hemangioma of skin and subcutaneous tissue 06/2608/01/2015 Inflamed seborrheic keratosis 06/26/2008 Benign neoplasm of skin of o ther and unspecified parts of face 06/26/2008 08/01/2015 Neoplasm of uncertain behavior of skin 9 08/01/2015 Other seborrheic keratosis 05/15/200807/31 SOLAR LENGINES///DYSCHROMIA OTHER 05/15/2008 08/01/2015 Other chronic 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 05/15/2008 08/01/2015 SALEEM ANGIOMA///NEVUS, NON-NEOPLASTIC 9 08/01/2015 Unspecified vitamin D deficiency 04/09/2008 04/30/2016 COLITIS NONINFECTIOUS CHRONIC 02/27/2008 03/26/2016 Abdominal pain, other specified site 02/13/2008 04/30/2016 Diarrhea 02/13/2008 04/30/2016 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 03/26/2016 Enthesopathy of hip region 08/13/200604/30 documented as of this encounter (statuses as of 07/23/2021) [facility] History of Past illness Narrative* Problem Noted Date Resolved Date Carpal tunnel syndrome, right 02/19/2021 Nuclear senile cataract of both eyes 11/04/2020 12/02/2020 Nonallopathic lesion of lumb ar region, not elsewhere classified 11/20/2014 05/01/2016 Bilateral low back pain without sciatica 015 09/30/2015 Knee joint replacement by other means 02/23/2011 05/01/2016 S/P complete repair of rotator cuff 05/15/2010 04/30/2016 Dehydration 10/10/2009 04/30/2016 Anemia due to chronic illness 08/12/2009 Ulcerative colitis 07/31/2009 04/30/2016 Hemangioma of skin and subcutaneous tissue 06/2608/01/2015 Inflamed seborrheic keratosis 06/26/2008 Benign neoplasm of skin of o ther and unspecified parts of face 06/26/2008 08/01/2015 Neoplasm of uncertain behavior of skin 9 08/01/2015 Other seborrheic keratosis 05/15/200807/31 SOLAR LENGINES///DYSCHROMIA OTHER 05/15/2008 08/01/2015 Other chronic 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 05/15/2008 08/01/2015 SALEEM ANGIOMA///NEVUS, NON-NEOPLASTIC 9 08/01/2015 Unspecified vitamin D deficiency 04/09/2008 04/30/2016 COLITIS NONINFECTIOUS CHRONIC 02/27/2008 03/26/2016 Abdominal pain, other specified site 02/13/2008 04/30/2016 Diarrhea 02/13/2008 04/30/2016 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 03/26/2016 Enthesopathy of hip region 08/13/200604/30 documented as of this encounter (statuses as of 07/26/2021) [facility] History of Past illness Narrative* Problem Noted Date Resolved Date Carpal tunnel syndrome, right 02/19/2021 Nuclear senile cataract of both eyes 11/04/2020 12/02/2020 Nonallopathic lesion of lumb ar region, not elsewhere classified 11/20/2014 05/01/2016 Bilateral low back pain without sciatica 015 09/30/2015 Knee joint replacement by other means 02/23/2011 05/01/2016 S/P complete repair of rotator cuff 05/15/2010 04/30/2016 Dehydration 10/10/2009 04/30/2016 Anemia due to chronic illness 08/12/2009 Ulcerative colitis 07/31/2009 04/30/2016 Hemangioma of skin and subcutaneous tissue 06/2608/01/2015 Inflamed seborrheic keratosis 06/26/2008 Benign neoplasm of skin of o ther and unspecified parts of face 06/26/2008 08/01/2015 Neoplasm of uncertain behavior of skin 9 08/01/2015 Other seborrheic keratosis 05/15/200807/31 SOLAR LENGINES///DYSCHROMIA OTHER 05/15/2008 08/01/2015 Other chronic 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 05/15/2008 08/01/2015 SALEEM ANGIOMA///NEVUS, NON-NEOPLASTIC 9 08/01/2015 Unspecified vitamin D deficiency 04/09/2008 04/30/2016 COLITIS NONINFECTIOUS CHRONIC 02/27/2008 03/26/2016 Abdominal pain, other specified site 02/13/2008 04/30/2016 Diarrhea 02/13/2008 04/30/2016 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 03/26/2016 Enthesopathy of hip region 08/13/200604/30 documented as of this encounter (statuses as of 09/15/2021) [facility] History of Past illness Narrative* Problem Noted Date Resolved Date Carpal tunnel syndrome, right 02/19/2021 Nuclear senile cataract of both eyes 11/04/2020 12/02/2020 Nonallopathic lesion of lumb ar region, not elsewhere classified 11/20/2014 05/01/2016 Bilateral low back pain without sciatica 015 09/30/2015 Knee joint replacement by other means 02/23/2011 05/01/2016 S/P complete repair of rotator cuff 05/15/2010 04/30/2016 Dehydration 10/10/2009 04/30/2016 Anemia due to chronic illness 08/12/2009 Ulcerative colitis 07/31/2009 04/30/2016 Hemangioma of skin and subcutaneous tissue 06/2608/01/2015 Inflamed seborrheic keratosis 06/26/2008 Benign neoplasm of skin of o ther and unspecified parts of face 06/26/2008 08/01/2015 Neoplasm of uncertain behavior of skin 9 08/01/2015 Other seborrheic keratosis 05/15/200807/31 SOLAR LENGINES///DYSCHROMIA OTHER 05/15/2008 08/01/2015 Other chronic 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 05/15/2008 08/01/2015 SALEEM ANGIOMA///NEVUS, NON-NEOPLASTIC 9 08/01/2015 Unspecified vitamin D deficiency 04/09/2008 04/30/2016 COLITIS NONINFECTIOUS CHRONIC 02/27/2008 03/26/2016 Abdominal pain, other specified site 02/13/2008 04/30/2016 Diarrhea 02/13/2008 04/30/2016 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 03/26/2016 Enthesopathy of hip region 08/13/200604/30 documented as of this encounter (statuses as of 10/24/2021) [facility] History of Past illness Narrative* Problem Noted Date Resolved Date Carpal tunnel syndrome, right 02/19/2021 Nuclear senile cataract of both eyes 11/04/2020 12/02/2020 Nonallopathic lesion of lumb ar region, not elsewhere classified 11/20/2014 05/01/2016 Bilateral low back pain without sciatica 015 09/30/2015 Knee joint replacement by other means 02/23/2011 05/01/2016 S/P complete repair of rotator cuff 05/15/2010 04/30/2016 Dehydration 10/10/2009 04/30/2016 Anemia due to chronic illness 08/12/2009 Ulcerative colitis 07/31/2009 04/30/2016 Hemangioma of skin and subcutaneous tissue 06/2608/01/2015 Inflamed seborrheic keratosis 06/26/2008 Benign neoplasm of skin of o ther and unspecified parts of face 06/26/2008 08/01/2015 Neoplasm of uncertain behavior of skin 9 08/01/2015 Other seborrheic keratosis 05/15/200807/31 SOLAR LENGINES///DYSCHROMIA OTHER 05/15/2008 08/01/2015 Other chronic 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 05/15/2008 08/01/2015 SALEEM ANGIOMA///NEVUS, NON-NEOPLASTIC 9 08/01/2015 Unspecified vitamin D deficiency 04/09/2008 04/30/2016 COLITIS NONINFECTIOUS CHRONIC 02/27/2008 03/26/2016 Abdominal pain, other specified site 02/13/2008 04/30/2016 Diarrhea 02/13/2008 04/30/2016 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 03/26/2016 Enthesopathy of hip region 08/13/200604/30 documented as of this encounter (statuses as of 10/27/2021) [facility] History of Past illness Narrative* Problem Noted Date Resolved Date Carpal tunnel syndrome, right 02/19/2021 Nuclear senile cataract of both eyes 11/04/2020 12/02/2020 Nonallopathic lesion of lumb ar region, not elsewhere classified 11/20/2014 05/01/2016 Bilateral low back pain without sciatica 015 09/30/2015 Knee joint replacement by other means 02/23/2011 05/01/2016 S/P complete repair of rotator cuff 05/15/2010 04/30/2016 Dehydration 10/10/2009 04/30/2016 Anemia due to chronic illness 08/12/2009 Ulcerative colitis 07/31/2009 04/30/2016 Hemangioma of skin and subcutaneous tissue 06/2608/01/2015 Inflamed seborrheic keratosis 06/26/2008 Benign neoplasm of skin of o ther and unspecified parts of face 06/26/2008 08/01/2015 Neoplasm of uncertain behavior of skin 9 08/01/2015 Other seborrheic keratosis 05/15/200807/31 SOLAR LENGINES///DYSCHROMIA OTHER 05/15/2008 08/01/2015 Other chronic 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 05/15/2008 08/01/2015 SALEEM ANGIOMA///NEVUS, NON-NEOPLASTIC 9 08/01/2015 Unspecified vitamin D deficiency 04/09/2008 04/30/2016 COLITIS NONINFECTIOUS CHRONIC 02/27/2008 03/26/2016 Abdominal pain, other specified site 02/13/2008 04/30/2016 Diarrhea 02/13/2008 04/30/2016 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 03/26/2016 Enthesopathy of hip region 08/13/200604/30 documented as of this encounter (statuses as of 11/26/2021) [facility] History of Past illness Narrative* Problem Noted Date Resolved Date Carpal tunnel syndrome, right 02/19/2021 Impaired fasting glucose 02/19/2021 022 Nuclear senile cataract of both eyes 11/04/2020 12/02/2020 Lumbar stenosis 01/16/2020 12/24/2021 Last Assessment & Plan: Assessment: S/p L1-4 decompression PLAN: -Pain control: dexamethasone added for right leg pain, improving -Continue davol drain -PT recommending no needs at discharge -No postop imaging needed -DVT ppx: continue IPCs, heparin SQ beginning POD2 -Mobilize at least 3x daily, OOB for meals -Anticipate d/c in 1-2 days -D/w Dr. Gibbs Multiple thyroid nodules 04/20/2018 022 Overview: Multi-nodular goiter with stable nodules, FNA hx benign. No further follow up indicated. 03/24/21 US thyroid: Nodule #1 RUL: stable TR3 no f/u Nodule #2 R lower stable TR2 no f/u Nodule #3 Lower center stable TR4 Nodule #4 LML stable no f/u 05/06/20 US thyroid Nodule #1 RUL, Size: 1.1 x 0.6 x 1 cm; no change, mostly cystic TR3 3: No F/U Nodule #2 R midpole Size: 1.2 x 1 x 1.5 cm; previously 1.1 x 1 x 1.3 cm, solid, hypoechoic TR4 1,2,3,5 year f/u Nodule #3 Left midpole, 1 x 0.8 x 0.7 cm; no change, solid TR3, No FNA or F/U Nodule #4 Left midpole,8 x 6 x 8 mm; no change: Mixed cystic and solid No FNA or F/U 05/05/19 US thyroidMultiple nodules. Nodule #1 RUL: 1.1x1.2x0.7cm 20% increase TR3 1-3-5 year f/u Nodule #2 R midpole 1.3x1.1x1.0cm no change, TR4:1-2-3-5 year f/u; Nodule #3 L [id number] no change, TR3 1-3-5 year f/u Nodule #4 LML 11x9mm TR2 no follow up. 11/12/16 Thyroid NM uptake: bilateral hypervascular nodules. 11/23/16 US: RIGHT: A sonolucent nodule in the superior thyroid measuring 9 x 5 x 8 mm. A complex nodule in the superior thyroid measuring 10 x 7 x 9 mm. A solid nodule in the mid thyroid measuring 12 x 9 x 12 mm. A complex nodule with foci of calcifications in the inferior thyroid measuring 9 x 4 x 8 mm. LEFT Multiple nodules identified and the largest ones are measured. A complex nodule in the superior thyroid measuring 9 x 7 x 9 mm. A complex nodule seen in the mid thyroid measuring 8 x 6 x 9 mm. A hypoechoic nodule in the inferior thyroid measuring 15 x 7 x 9 mm. A solid nodule in the inferior thyroid adjacent to the isthmus measuring 10 x 7 x 10 mm. 01/26/17 FNA bilateral nodules Benign:Follicular cells and colloid. 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 12/24/2021 Overview: Added automatically from request for surgery [id number] Degeneration of lumbosacral intervertebral disc 10/05/2017 12/24/2021 Overview: Added automatically from request for surgery [id number] Nonallopathic lesion of lumb ar region, not elsewhere classified 11/20/2014 05/01/2016 Bilateral low back pain without sciatica 015 09/30/2015 Knee joint replacement by other means 02/23/2011 05/01/2016 S/P complete repair of rotator cuff 05/15/2010 04/30/2016 Dehydration 10/10/2009 04/30/2016 Anemia due to chronic illness 08/12/2009 Ulcerative colitis 07/31/2009 04/30/2016 Hemangioma of skin and subcutaneous tissue 06/2608/01/2015 Inflamed seborrheic keratosis 06/26/2008 Benign neoplasm of skin of o ther and unspecified parts of face 06/26/2008 08/01/2015 Neoplasm of uncertain behavior of skin 9 08/01/2015 Other seborrheic keratosis 05/15/200807/31 SOLAR LENGINES///DYSCHROMIA OTHER 05/15/2008 08/01/2015 Other chronic 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 05/15/2008 08/01/2015 SALEEM ANGIOMA///NEVUS, NON-NEOPLASTIC 9 08/01/2015 Unspecified vitamin D deficiency 04/09/2008 04/30/2016 COLITIS NONINFECTIOUS CHRONIC 02/27/2008 03/26/2016 Abdominal pain, other specified site 02/13/2008 04/30/2016 Diarrhea 02/13/2008 04/30/2016 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 03/26/2016 Enthesopathy of hip region 08/13/200604/30 documented as of this encounter (statuses as of 12/26/2021) [facility] History of Past illness Narrative* Problem Noted Date Resolved Date Carpal tunnel syndrome, right 02/19/2021 Impaired fasting glucose 02/19/2021 022 Nuclear senile cataract of both eyes 11/04/2020 12/02/2020 Lumbar stenosis 01/16/2020 12/24/2021 Last Assessment & Plan: Assessment: S/p L1-4 decompression PLAN: -Pain control: dexamethasone added for right leg pain, improving -Continue davol drain -PT recommending no needs at discharge -No postop imaging needed -DVT ppx: continue IPCs, heparin SQ beginning POD2 -Mobilize at least 3x daily, OOB for meals -Anticipate d/c in 1-2 days -D/w Dr. Gibbs Multiple thyroid nodules 04/20/2018 022 Overview: Multi-nodular goiter with stable nodules, FNA hx benign. No further follow up indicated. 03/24/21 US thyroid: Nodule #1 RUL: stable TR3 no f/u Nodule #2 R lower stable TR2 no f/u Nodule #3 Lower center stable TR4 Nodule #4 LML stable no f/u 05/06/20 US thyroid Nodule #1 RUL, Size: 1.1 x 0.6 x 1 cm; no change, mostly cystic TR3 3: No F/U Nodule #2 R midpole Size: 1.2 x 1 x 1.5 cm; previously 1.1 x 1 x 1.3 cm, solid, hypoechoic TR4 1,2,3,5 year f/u Nodule #3 Left midpole, 1 x 0.8 x 0.7 cm; no change, solid TR3, No FNA or F/U Nodule #4 Left midpole,8 x 6 x 8 mm; no change: Mixed cystic and solid No FNA or F/U 05/05/19 US thyroidMultiple nodules. Nodule #1 RUL: 1.1x1.2x0.7cm 20% increase TR3 1-3-5 year f/u Nodule #2 R midpole 1.3x1.1x1.0cm no change, TR4:1-2-3-5 year f/u; Nodule #3 L [id number] no change, TR3 1-3-5 year f/u Nodule #4 LML 11x9mm TR2 no follow up. 11/12/16 Thyroid NM uptake: bilateral hypervascular nodules. 11/23/16 US: RIGHT: A sonolucent nodule in the superior thyroid measuring 9 x 5 x 8 mm. A complex nodule in the superior thyroid measuring 10 x 7 x 9 mm. A solid nodule in the mid thyroid measuring 12 x 9 x 12 mm. A complex nodule with foci of calcifications in the inferior thyroid measuring 9 x 4 x 8 mm. LEFT Multiple nodules identified and the largest ones are measured. A complex nodule in the superior thyroid measuring 9 x 7 x 9 mm. A complex nodule seen in the mid thyroid measuring 8 x 6 x 9 mm. A hypoechoic nodule in the inferior thyroid measuring 15 x 7 x 9 mm. A solid nodule in the inferior thyroid adjacent to the isthmus measuring 10 x 7 x 10 mm. 01/26/17 FNA bilateral nodules Benign:Follicular cells and colloid. 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 12/24/2021 Overview: Added automatically from request for surgery [id number] Degeneration of lumbosacral intervertebral disc 10/05/2017 12/24/2021 Overview: Added automatically from request for surgery [id number] Nonallopathic lesion of lumb ar region, not elsewhere classified 11/20/2014 05/01/2016 Bilateral low back pain without sciatica 015 09/30/2015 Knee joint replacement by other means 02/23/2011 05/01/2016 S/P complete repair of rotator cuff 05/15/2010 04/30/2016 Dehydration 10/10/2009 04/30/2016 Anemia due to chronic illness 08/12/2009 Ulcerative colitis 07/31/2009 04/30/2016 Hemangioma of skin and subcutaneous tissue 06/2608/01/2015 Inflamed seborrheic keratosis 06/26/2008 Benign neoplasm of skin of o ther and unspecified parts of face 06/26/2008 08/01/2015 Neoplasm of uncertain behavior of skin 9 08/01/2015 Other seborrheic keratosis 05/15/200807/31 SOLAR LENGINES///DYSCHROMIA OTHER 05/15/2008 08/01/2015 Other chronic 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 05/15/2008 08/01/2015 SALEEM ANGIOMA///NEVUS, NON-NEOPLASTIC 9 08/01/2015 Unspecified vitamin D deficiency 04/09/2008 04/30/2016 COLITIS NONINFECTIOUS CHRONIC 02/27/2008 03/26/2016 Abdominal pain, other specified site 02/13/2008 04/30/2016 Diarrhea 02/13/2008 04/30/2016 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 03/26/2016 Enthesopathy of hip region 08/13/200604/30 documented as of this encounter (statuses as of 12/29/2021) [facility] History of Past illness Narrative* Problem Noted Date Resolved Date Carpal tunnel syndrome, right 02/19/2021 Impaired fasting glucose 02/19/2021 022 Nuclear senile cataract of both eyes 11/04/2020 12/02/2020 Lumbar stenosis 01/16/2020 12/24/2021 Last Assessment & Plan: Assessment: S/p L1-4 decompression PLAN: -Pain control: dexamethasone added for right leg pain, improving -Continue davol drain -PT recommending no needs at discharge -No postop imaging needed -DVT ppx: continue IPCs, heparin SQ beginning POD2 -Mobilize at least 3x daily, OOB for meals -Anticipate d/c in 1-2 days -D/w Dr. Gibbs Multiple thyroid nodules 04/20/2018 022 Overview: Multi-nodular goiter with stable nodules, FNA hx benign. No further follow up indicated. 03/24/21 US thyroid: Nodule #1 RUL: stable TR3 no f/u Nodule #2 R lower stable TR2 no f/u Nodule #3 Lower center stable TR4 Nodule #4 LML stable no f/u 05/06/20 US thyroid Nodule #1 RUL, Size: 1.1 x 0.6 x 1 cm; no change, mostly cystic TR3 3: No F/U Nodule #2 R midpole Size: 1.2 x 1 x 1.5 cm; previously 1.1 x 1 x 1.3 cm, solid, hypoechoic TR4 1,2,3,5 year f/u Nodule #3 Left midpole, 1 x 0.8 x 0.7 cm; no change, solid TR3, No FNA or F/U Nodule #4 Left midpole,8 x 6 x 8 mm; no change: Mixed cystic and solid No FNA or F/U 05/05/19 US thyroidMultiple nodules. Nodule #1 RUL: 1.1x1.2x0.7cm 20% increase TR3 1-3-5 year f/u Nodule #2 R midpole 1.3x1.1x1.0cm no change, TR4:1-2-3-5 year f/u; Nodule #3 L [id number] no change, TR3 1-3-5 year f/u Nodule #4 LML 11x9mm TR2 no follow up. 11/12/16 Thyroid NM uptake: bilateral hypervascular nodules. 11/23/16 US: RIGHT: A sonolucent nodule in the superior thyroid measuring 9 x 5 x 8 mm. A complex nodule in the superior thyroid measuring 10 x 7 x 9 mm. A solid nodule in the mid thyroid measuring 12 x 9 x 12 mm. A complex nodule with foci of calcifications in the inferior thyroid measuring 9 x 4 x 8 mm. LEFT Multiple nodules identified and the largest ones are measured. A complex nodule in the superior thyroid measuring 9 x 7 x 9 mm. A complex nodule seen in the mid thyroid measuring 8 x 6 x 9 mm. A hypoechoic nodule in the inferior thyroid measuring 15 x 7 x 9 mm. A solid nodule in the inferior thyroid adjacent to the isthmus measuring 10 x 7 x 10 mm. 01/26/17 FNA bilateral nodules Benign:Follicular cells and colloid. 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 12/24/2021 Overview: Added automatically from request for surgery [id number] Degeneration of lumbosacral intervertebral disc 10/05/2017 12/24/2021 Overview: Added automatically from request for surgery [id number] Nonallopathic lesion of lumb ar region, not elsewhere classified 11/20/2014 05/01/2016 Bilateral low back pain without sciatica 015 09/30/2015 Knee joint replacement by other means 02/23/2011 05/01/2016 S/P complete repair of rotator cuff 05/15/2010 04/30/2016 Dehydration 10/10/2009 04/30/2016 Anemia due to chronic illness 08/12/2009 Ulcerative colitis 07/31/2009 04/30/2016 Hemangioma of skin and subcutaneous tissue 06/2608/01/2015 Inflamed seborrheic keratosis 06/26/2008 Benign neoplasm of skin of o ther and unspecified parts of face 06/26/2008 08/01/2015 Neoplasm of uncertain behavior of skin 9 08/01/2015 Other seborrheic keratosis 05/15/200807/31 SOLAR LENGINES///DYSCHROMIA OTHER 05/15/2008 08/01/2015 Other chronic 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 05/15/2008 08/01/2015 SALEEM ANGIOMA///NEVUS, NON-NEOPLASTIC 08/01/2015 Unspecified vitamin D deficiency 04/09/2008 04/30/2016 COLITIS NONINFECTIOUS CHRONIC 02/27/2008 03/26/2016 Abdominal pain, other specified site 02/13/2008 04/30/2016 Diarrhea 02/13/2008 04/30/2016 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 03/26/2016 Enthesopathy of hip region 08/13/200604/30 documented as of this encounter (statuses as of 03/12/2022) [facility] History of Past illness Narrative* Problem Noted Date Resolved Date Carpal tunnel syndrome, right 02/19/2021 Impaired fasting glucose 02/19/2021 022 Nuclear senile cataract of both eyes 11/04/2020 12/02/2020 Lumbar stenosis 01/16/2020 12/24/2021 Last Assessment & Plan: Assessment: S/p L1-4 decompression PLAN: -Pain control: dexamethasone added for right leg pain, improving -Continue davol drain -PT recommending no needs at discharge -No postop imaging needed -DVT ppx: continue IPCs, heparin SQ beginning POD2 -Mobilize at least 3x daily, OOB for meals -Anticipate d/c in 1-2 days -D/w Dr. Gibbs Multiple thyroid nodules 04/20/2018 022 Overview: Multi-nodular goiter with stable nodules, FNA hx benign. No further follow up indicated. 03/24/21 US thyroid: Nodule #1 RUL: stable TR3 no f/u Nodule #2 R lower stable TR2 no f/u Nodule #3 Lower center stable TR4 Nodule #4 LML stable no f/u 05/06/20 US thyroid Nodule #1 RUL, Size: 1.1 x 0.6 x 1 cm; no change, mostly cystic TR3 3: No F/U Nodule #2 R midpole Size: 1.2 x 1 x 1.5 cm; previously 1.1 x 1 x 1.3 cm, solid, hypoechoic TR4 1,2,3,5 year f/u Nodule #3 Left midpole, 1 x 0.8 x 0.7 cm; no change, solid TR3, No FNA or F/U Nodule #4 Left midpole,8 x 6 x 8 mm; no change: Mixed cystic and solid No FNA or F/U 05/05/19 US thyroidMultiple nodules. Nodule #1 RUL: 1.1x1.2x0.7cm 20% increase TR3 1-3-5 year f/u Nodule #2 R midpole 1.3x1.1x1.0cm no change, TR4:1-2-3-5 year f/u; Nodule #3 L [id number] no change, TR3 1-3-5 year f/u Nodule #4 LML 11x9mm TR2 no follow up. 11/12/16 Thyroid NM uptake: bilateral hypervascular nodules. 11/23/16 US: RIGHT: A sonolucent nodule in the superior thyroid measuring 9 x 5 x 8 mm. A complex nodule in the superior thyroid measuring 10 x 7 x 9 mm. A solid nodule in the mid thyroid measuring 12 x 9 x 12 mm. A complex nodule with foci of calcifications in the inferior thyroid measuring 9 x 4 x 8 mm. LEFT Multiple nodules identified and the largest ones are measured. A complex nodule in the superior thyroid measuring 9 x 7 x 9 mm. A complex nodule seen in the mid thyroid measuring 8 x 6 x 9 mm. A hypoechoic nodule in the inferior thyroid measuring 15 x 7 x 9 mm. A solid nodule in the inferior thyroid adjacent to the isthmus measuring 10 x 7 x 10 mm. 01/26/17 FNA bilateral nodules Benign:Follicular cells and colloid. 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 12/24/2021 Overview: Added automatically from request for surgery [id number] Degeneration of lumbosacral intervertebral disc 10/05/2017 12/24/2021 Overview: Added automatically from request for surgery [id number] Nonallopathic lesion of lumb ar region, not elsewhere classified 11/20/2014 05/01/2016 Bilateral low back pain without sciatica 015 09/30/2015 Knee joint replacement by other means 02/23/2011 05/01/2016 S/P complete repair of rotator cuff 05/15/2010 04/30/2016 Dehydration 10/10/2009 04/30/2016 Anemia due to chronic illness 08/12/2009 Ulcerative colitis 07/31/2009 04/30/2016 Hemangioma of skin and subcutaneous tissue 06/2608/01/2015 Inflamed seborrheic keratosis 06/26/2008 Benign neoplasm of skin of o ther and unspecified parts of face 06/26/2008 08/01/2015 Neoplasm of uncertain behavior of skin 9 08/01/2015 Other seborrheic keratosis 05/15/200807/31 SOLAR LENGINES///DYSCHROMIA OTHER 05/15/2008 08/01/2015 Other chronic 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 05/15/2008 08/01/2015 SALEEM ANGIOMA///NEVUS, NON-NEOPLASTIC 9 08/01/2015 Unspecified vitamin D deficiency 04/09/2008 04/30/2016 COLITIS NONINFECTIOUS CHRONIC 02/27/2008 03/26/2016 Abdominal pain, other specified site 02/13/2008 04/30/2016 Diarrhea 02/13/2008 04/30/2016 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 03/26/2016 Enthesopathy of hip region 08/13/200604/30 documented as of this encounter (statuses as of 04/25/2022) [facility]-10-[facility]21 History of Past illness Narrative* Problem Noted Date Resolved Date Carpal tunnel syndrome, right 02/19/2021 Impaired fasting glucose 02/19/2021 022 Nuclear senile cataract of both eyes 11/04/2020 12/02/2020 Lumbar stenosis 01/16/2020 12/24/2021 Last Assessment & Plan: Assessment: S/p L1-4 decompression PLAN: -Pain control: dexamethasone added for right leg pain, improving -Continue davol drain -PT recommending no needs at discharge -No postop imaging needed -DVT ppx: continue IPCs, heparin SQ beginning POD2 -Mobilize at least 3x daily, OOB for meals -Anticipate d/c in 1-2 days -D/w Dr. Gibbs Multiple thyroid nodules 04/20/2018 022 Overview: Multi-nodular goiter with stable nodules, FNA hx benign. No further follow up indicated. 03/24/21 US thyroid: Nodule #1 RUL: stable TR3 no f/u Nodule #2 R lower stable TR2 no f/u Nodule #3 Lower center stable TR4 Nodule #4 LML stable no f/u 05/06/20 US thyroid Nodule #1 RUL, Size: 1.1 x 0.6 x 1 cm; no change, mostly cystic TR3 3: No F/U Nodule #2 R midpole Size: 1.2 x 1 x 1.5 cm; previously 1.1 x 1 x 1.3 cm, solid, hypoechoic TR4 1,2,3,5 year f/u Nodule #3 Left midpole, 1 x 0.8 x 0.7 cm; no change, solid TR3, No FNA or F/U Nodule #4 Left midpole,8 x 6 x 8 mm; no change: Mixed cystic and solid No FNA or F/U 05/05/19 US thyroidMultiple nodules. Nodule #1 RUL: 1.1x1.2x0.7cm 20% increase TR3 1-3-5 year f/u Nodule #2 R midpole 1.3x1.1x1.0cm no change, TR4:1-2-3-5 year f/u; Nodule #3 L [id number]-[id number] no change, TR3 1-3-5 year f/u Nodule #4 LML 11x9mm TR2 no follow up. 11/12/16 Thyroid NM uptake: bilateral hypervascular nodules. 11/23/16 US: RIGHT: A sonolucent nodule in the superior thyroid measuring 9 x 5 x 8 mm. A complex nodule in the superior thyroid measuring 10 x 7 x 9 mm. A solid nodule in the mid thyroid measuring 12 x 9 x 12 mm. A complex nodule with foci of calcifications in the inferior thyroid measuring 9 x 4 x 8 mm. LEFT Multiple nodules identified and the largest ones are measured. A complex nodule in the superior thyroid measuring 9 x 7 x 9 mm. A complex nodule seen in the mid thyroid measuring 8 x 6 x 9 mm. A hypoechoic nodule in the inferior thyroid measuring 15 x 7 x 9 mm. A solid nodule in the inferior thyroid adjacent to the isthmus measuring 10 x 7 x 10 mm. 01/26/17 FNA bilateral nodules Benign:Follicular cells and colloid. 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 12/24/2021 Overview: Added automatically from request for surgery [id number] Degeneration of lumbosacral intervertebral disc 10/05/2017 12/24/2021 Overview: Added automatically from request for surgery [id number] Nonallopathic lesion of lumb ar region, not elsewhere classified 11/20/2014 05/01/2016 Bilateral low back pain without sciatica 015 09/30/2015 Knee joint replacement by other means 02/23/2011 05/01/2016 S/P complete repair of rotator cuff 05/15/2010 04/30/2016 Dehydration 10/10/2009 04/30/2016 Anemia due to chronic illness 08/12/2009 Ulcerative colitis 07/31/2009 04/30/2016 Hemangioma of skin and subcutaneous tissue 06/2608/01/2015 Inflamed seborrheic keratosis 06/26/2008 Benign neoplasm of skin of o ther and unspecified parts of face 06/26/2008 08/01/2015 Neoplasm of uncertain behavior of skin 9 08/01/2015 Other seborrheic keratosis 05/15/200807/31 SOLAR LENGINES///DYSCHROMIA OTHER 05/15/2008 08/01/2015 Other chronic 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 05/15/2008 08/01/2015 SALEEM ANGIOMA///NEVUS, NON-NEOPLASTIC 9 08/01/2015 Unspecified vitamin D deficiency 04/09/2008 04/30/2016 COLITIS NONINFECTIOUS CHRONIC 02/27/2008 03/26/2016 Abdominal pain, other specified site 02/13/2008 04/30/2016 Diarrhea 02/13/2008 04/30/2016 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 03/26/2016 Enthesopathy of hip region 08/13/200604/30 documented as of this encounter (statuses as of 06/30/2022) [facility] History of Past illness Narrative* Problem Noted Date Resolved Date Carpal tunnel syndrome, right 02/19/2021 Impaired fasting glucose 02/19/2021 022 Nuclear senile cataract of both eyes 11/04/2020 12/02/2020 Lumbar stenosis 01/16/2020 12/24/2021 Last Assessment & Plan: Assessment: S/p L1-4 decompression PLAN: -Pain control: dexamethasone added for right leg pain, improving -Continue davol drain -PT recommending no needs at discharge -No postop imaging needed -DVT ppx: continue IPCs, heparin SQ beginning POD2 -Mobilize at least 3x daily, OOB for meals -Anticipate d/c in 1-2 days -D/w Dr. Gibbs Multiple thyroid nodules 04/20/2018 022 Overview: Multi-nodular goiter with stable nodules, FNA hx benign. No further follow up indicated. 03/24/21 US thyroid: Nodule #1 RUL: stable TR3 no f/u Nodule #2 R lower stable TR2 no f/u Nodule #3 Lower center stable TR4 Nodule #4 LML stable no f/u 05/06/20 US thyroid Nodule #1 RUL, Size: 1.1 x 0.6 x 1 cm; no change, mostly cystic TR3 3: No F/U Nodule #2 R midpole Size: 1.2 x 1 x 1.5 cm; previously 1.1 x 1 x 1.3 cm, solid, hypoechoic TR4 1,2,3,5 year f/u Nodule #3 Left midpole, 1 x 0.8 x 0.7 cm; no change, solid TR3, No FNA or F/U Nodule #4 Left midpole,8 x 6 x 8 mm; no change: Mixed cystic and solid No FNA or F/U 05/05/19 US thyroidMultiple nodules. Nodule #1 RUL: 1.1x1.2x0.7cm 20% increase TR3 1-3-5 year f/u Nodule #2 R midpole 1.3x1.1x1.0cm no change, TR4:1-2-3-5 year f/u; Nodule #3 L [id number]-iuhxqhy no change, TR3 1-3-5 year f/u Nodule #4 LML 11x9mm TR2 no follow up. 11/12/16 Thyroid NM uptake: bilateral hypervascular nodules. 11/23/16 US: RIGHT: A sonolucent nodule in the superior thyroid measuring 9 x 5 x 8 mm. A complex nodule in the superior thyroid measuring 10 x 7 x 9 mm. A solid nodule in the mid thyroid measuring 12 x 9 x 12 mm. A complex nodule with foci of calcifications in the inferior thyroid measuring 9 x 4 x 8 mm. LEFT Multiple nodules identified and the largest ones are measured. A complex nodule in the superior thyroid measuring 9 x 7 x 9 mm. A complex nodule seen in the mid thyroid measuring 8 x 6 x 9 mm. A hypoechoic nodule in the inferior thyroid measuring 15 x 7 x 9 mm. A solid nodule in the inferior thyroid adjacent to the isthmus measuring 10 x 7 x 10 mm. 01/26/17 FNA bilateral nodules Benign:Follicular cells and colloid. 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 12/24/2021 Overview: Added automatically from request for surgery [id number] Degeneration of lumbosacral intervertebral disc 10/05/2017 12/24/2021 Overview: Added automatically from request for surgery [id number] Nonallopathic lesion of lumb ar region, not elsewhere classified 11/20/2014 05/01/2016 Bilateral low back pain without sciatica 015 09/30/2015 Knee joint replacement by other means 02/23/2011 05/01/2016 S/P complete repair of rotator cuff 05/15/2010 04/30/2016 Dehydration 10/10/2009 04/30/2016 Anemia due to chronic illness 08/12/2009 Ulcerative colitis 07/31/2009 04/30/2016 Hemangioma of skin and subcutaneous tissue 06/2608/01/2015 Inflamed seborrheic keratosis 06/26/2008 Benign neoplasm of skin of o ther and unspecified parts of face 06/26/2008 08/01/2015 Neoplasm of uncertain behavior of skin 9 08/01/2015 Other seborrheic keratosis 05/15/200807/31 SOLAR LENGINES///DYSCHROMIA OTHER 05/15/2008 08/01/2015 Other chronic 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 05/15/2008 08/01/2015 SALEEM ANGIOMA///NEVUS, NON-NEOPLASTIC 9 08/01/2015 Unspecified vitamin D deficiency 04/09/2008 04/30/2016 COLITIS NONINFECTIOUS CHRONIC 02/27/2008 03/26/2016 Abdominal pain, other specified site 02/13/2008 04/30/2016 Diarrhea 02/13/2008 04/30/2016 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 03/26/2016 Enthesopathy of hip region 08/13/200604/30 documented as of this encounter (statuses as of 07/02/2022) [facility] History of Past illness Narrative* Problem Noted Date Resolved Date Carpal tunnel syndrome, right 02/19/2021 Impaired fasting glucose 02/19/2021 022 Nuclear senile cataract of both eyes 11/04/2020 12/02/2020 Lumbar stenosis 01/16/2020 12/24/2021 Last Assessment & Plan: Assessment: S/p L1-4 decompression PLAN: -Pain control: dexamethasone added for right leg pain, improving -Continue davol drain -PT recommending no needs at discharge -No postop imaging needed -DVT ppx: continue IPCs, heparin SQ beginning POD2 -Mobilize at least 3x daily, OOB for meals -Anticipate d/c in 1-2 days -D/w Dr. Gibbs Multiple thyroid nodules 04/20/2018 022 Overview: Multi-nodular goiter with stable nodules, FNA hx benign. No further follow up indicated. 03/24/21 US thyroid: Nodule #1 RUL: stable TR3 no f/u Nodule #2 R lower stable TR2 no f/u Nodule #3 Lower center stable TR4 Nodule #4 LML stable no f/u 05/06/20 US thyroid Nodule #1 RUL, Size: 1.1 x 0.6 x 1 cm; no change, mostly cystic TR3 3: No F/U Nodule #2 R midpole Size: 1.2 x 1 x 1.5 cm; previously 1.1 x 1 x 1.3 cm, solid, hypoechoic TR4 1,2,3,5 year f/u Nodule #3 Left midpole, 1 x 0.8 x 0.7 cm; no change, solid TR3, No FNA or F/U Nodule #4 Left midpole,8 x 6 x 8 mm; no change: Mixed cystic and solid No FNA or F/U 05/05/19 US thyroidMultiple nodules. Nodule #1 RUL: 1.1x1.2x0.7cm 20% increase TR3 1-3-5 year f/u Nodule #2 R midpole 1.3x1.1x1.0cm no change, TR4:1-2-3-5 year f/u; Nodule #3 L haw-xehse-awbthcy no change, TR3 1-3-5 year f/u Nodule #4 LML 11x9mm TR2 no follow up. 11/12/16 Thyroid NM uptake: bilateral hypervascular nodules. 11/23/16 US: RIGHT: A sonolucent nodule in the superior thyroid measuring 9 x 5 x 8 mm. A complex nodule in the superior thyroid measuring 10 x 7 x 9 mm. A solid nodule in the mid thyroid measuring 12 x 9 x 12 mm. A complex nodule with foci of calcifications in the inferior thyroid measuring 9 x 4 x 8 mm. LEFT Multiple nodules identified and the largest ones are measured. A complex nodule in the superior thyroid measuring 9 x 7 x 9 mm. A complex nodule seen in the mid thyroid measuring 8 x 6 x 9 mm. A hypoechoic nodule in the inferior thyroid measuring 15 x 7 x 9 mm. A solid nodule in the inferior thyroid adjacent to the isthmus measuring 10 x 7 x 10 mm. 01/26/17 FNA bilateral nodules Benign:Follicular cells and colloid. 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 12/24/2021 Overview: Added automatically from request for surgery [id number] Degeneration of lumbosacral intervertebral disc 10/05/2017 12/24/2021 Overview: Added automatically from request for surgery [id number] Nonallopathic lesion of lumb ar region, not elsewhere classified 11/20/2014 05/01/2016 Bilateral low back pain without sciatica 015 09/30/2015 Knee joint replacement by other means 02/23/2011 05/01/2016 S/P complete repair of rotator cuff 05/15/2010 04/30/2016 Dehydration 10/10/2009 04/30/2016 Anemia due to chronic illness 08/12/2009 Ulcerative colitis 07/31/2009 04/30/2016 Hemangioma of skin and subcutaneous tissue 06/2608/01/2015 Inflamed seborrheic keratosis 06/26/2008 Benign neoplasm of skin of o ther and unspecified parts of face 06/26/2008 08/01/2015 Neoplasm of uncertain behavior of skin 9 08/01/2015 Other seborrheic keratosis 05/15/200807/31 SOLAR LENGINES///DYSCHROMIA OTHER 05/15/2008 08/01/2015 Other chronic 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 05/15/2008 08/01/2015 SALEEM ANGIOMA///NEVUS, NON-NEOPLASTIC 9 08/01/2015 Unspecified vitamin D deficiency 04/09/2008 04/30/2016 COLITIS NONINFECTIOUS CHRONIC 02/27/2008 03/26/2016 Abdominal pain, other specified site 02/13/2008 04/30/2016 Diarrhea 02/13/2008 04/30/2016 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 03/26/2016 Enthesopathy of hip region 08/13/200604/30 documented as of this encounter (statuses as of 07/03/2022) [facility] History of Past illness Narrative* Problem Noted Date Resolved Date Carpal tunnel syndrome, right 02/19/2021 Impaired fasting glucose 02/19/2021 022 Nuclear senile cataract of both eyes 11/04/2020 12/02/2020 Lumbar stenosis 01/16/2020 12/24/2021 Last Assessment & Plan: Assessment: S/p L1-4 decompression PLAN: -Pain control: dexamethasone added for right leg pain, improving -Continue davol drain -PT recommending no needs at discharge -No postop imaging needed -DVT ppx: continue IPCs, heparin SQ beginning POD2 -Mobilize at least 3x daily, OOB for meals -Anticipate d/c in 1-2 days -D/w Dr. Gibbs Multiple thyroid nodules 04/20/2018 022 Overview: Multi-nodular goiter with stable nodules, FNA hx benign. No further follow up indicated. 03/24/21 US thyroid: Nodule #1 RUL: stable TR3 no f/u Nodule #2 R lower stable TR2 no f/u Nodule #3 Lower center stable TR4 Nodule #4 LML stable no f/u 05/06/20 US thyroid Nodule #1 RUL, Size: 1.1 x 0.6 x 1 cm; no change, mostly cystic TR3 3: No F/U Nodule #2 R midpole Size: 1.2 x 1 x 1.5 cm; previously 1.1 x 1 x 1.3 cm, solid, hypoechoic TR4 1,2,3,5 year f/u Nodule #3 Left midpole, 1 x 0.8 x 0.7 cm; no change, solid TR3, No FNA or F/U Nodule #4 Left midpole,8 x 6 x 8 mm; no change: Mixed cystic and solid No FNA or F/U 05/05/19 US thyroidMultiple nodules. Nodule #1 RUL: 1.1x1.2x0.7cm 20% increase TR3 1-3-5 year f/u Nodule #2 R midpole 1.3x1.1x1.0cm no change, TR4:1-2-3-5 year f/u; Nodule #3 L eaz-sfzqd-eszrezy no change, TR3 1-3-5 year f/u Nodule #4 LML 11x9mm TR2 no follow up. 11/12/16 Thyroid NM uptake: bilateral hypervascular nodules. 11/23/16 US: RIGHT: A sonolucent nodule in the superior thyroid measuring 9 x 5 x 8 mm. A complex nodule in the superior thyroid measuring 10 x 7 x 9 mm. A solid nodule in the mid thyroid measuring 12 x 9 x 12 mm. A complex nodule with foci of calcifications in the inferior thyroid measuring 9 x 4 x 8 mm. LEFT Multiple nodules identified and the largest ones are measured. A complex nodule in the superior thyroid measuring 9 x 7 x 9 mm. A complex nodule seen in the mid thyroid measuring 8 x 6 x 9 mm. A hypoechoic nodule in the inferior thyroid measuring 15 x 7 x 9 mm. A solid nodule in the inferior thyroid adjacent to the isthmus measuring 10 x 7 x 10 mm. 01/26/17 FNA bilateral nodules Benign:Follicular cells and colloid. 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 12/24/2021 Overview: Added automatically from request for surgery [id number] Degeneration of lumbosacral intervertebral disc 10/05/2017 12/24/2021 Overview: Added automatically from request for surgery [id number] Nonallopathic lesion of lumb ar region, not elsewhere classified 11/20/2014 05/01/2016 Bilateral low back pain without sciatica 015 09/30/2015 Knee joint replacement by other means 02/23/2011 05/01/2016 S/P complete repair of rotator cuff 05/15/2010 04/30/2016 Dehydration 10/10/2009 04/30/2016 Anemia due to chronic illness 08/12/2009 Ulcerative colitis 07/31/2009 04/30/2016 Hemangioma of skin and subcutaneous tissue 06/2608/01/2015 Inflamed seborrheic keratosis 06/26/2008 Benign neoplasm of skin of o ther and unspecified parts of face 06/26/2008 08/01/2015 Neoplasm of uncertain behavior of skin 9 08/01/2015 Other seborrheic keratosis 05/15/200807/31 SOLAR LENGINES///DYSCHROMIA OTHER 05/15/2008 08/01/2015 Other chronic 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 05/15/2008 08/01/2015 SALEEM ANGIOMA///NEVUS, NON-NEOPLASTIC 9 08/01/2015 Unspecified vitamin D deficiency 04/09/2008 04/30/2016 COLITIS NONINFECTIOUS CHRONIC 02/27/2008 03/26/2016 Abdominal pain, other specified site 02/13/2008 04/30/2016 Diarrhea 02/13/2008 04/30/2016 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 03/26/2016 Enthesopathy of hip region 08/13/200604/30 documented as of this encounter (statuses as of 07/17/2022) [facility] History of Past illness Narrative* Problem Noted Date Resolved Date Carpal tunnel syndrome, right 02/19/2021 Impaired fasting glucose 02/19/2021 022 Nuclear senile cataract of both eyes 11/04/2020 12/02/2020 Lumbar stenosis 01/16/2020 12/24/2021 Last Assessment & Plan: Assessment: S/p L1-4 decompression PLAN: -Pain control: dexamethasone added for right leg pain, improving -Continue davol drain -PT recommending no needs at discharge -No postop imaging needed -DVT ppx: continue IPCs, heparin SQ beginning POD2 -Mobilize at least 3x daily, OOB for meals -Anticipate d/c in 1-2 days -D/w Dr. Gibbs Multiple thyroid nodules 04/20/2018 022 Overview: Multi-nodular goiter with stable nodules, FNA hx benign. No further follow up indicated. 03/24/21 US thyroid: Nodule #1 RUL: stable TR3 no f/u Nodule #2 R lower stable TR2 no f/u Nodule #3 Lower center stable TR4 Nodule #4 LML stable no f/u 05/06/20 US thyroid Nodule #1 RUL, Size: 1.1 x 0.6 x 1 cm; no change, mostly cystic TR3 3: No F/U Nodule #2 R midpole Size: 1.2 x 1 x 1.5 cm; previously 1.1 x 1 x 1.3 cm, solid, hypoechoic TR4 1,2,3,5 year f/u Nodule #3 Left midpole, 1 x 0.8 x 0.7 cm; no change, solid TR3, No FNA or F/U Nodule #4 Left midpole,8 x 6 x 8 mm; no change: Mixed cystic and solid No FNA or F/U 05/05/19 US thyroidMultiple nodules. Nodule #1 RUL: 1.1x1.2x0.7cm 20% increase TR3 1-3-5 year f/u Nodule #2 R midpole 1.3x1.1x1.0cm no change, TR4:1-2-3-5 year f/u; Nodule #3 L qqv-kdchu-aaafyim no change, TR3 1-3-5 year f/u Nodule #4 LML 11x9mm TR2 no follow up. 11/12/16 Thyroid NM uptake: bilateral hypervascular nodules. 11/23/16 US: RIGHT: A sonolucent nodule in the superior thyroid measuring 9 x 5 x 8 mm. A complex nodule in the superior thyroid measuring 10 x 7 x 9 mm. A solid nodule in the mid thyroid measuring 12 x 9 x 12 mm. A complex nodule with foci of calcifications in the inferior thyroid measuring 9 x 4 x 8 mm. LEFT Multiple nodules identified and the largest ones are measured. A complex nodule in the superior thyroid measuring 9 x 7 x 9 mm. A complex nodule seen in the mid thyroid measuring 8 x 6 x 9 mm. A hypoechoic nodule in the inferior thyroid measuring 15 x 7 x 9 mm. A solid nodule in the inferior thyroid adjacent to the isthmus measuring 10 x 7 x 10 mm. 01/26/17 FNA bilateral nodules Benign:Follicular cells and colloid. 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 12/24/2021 Overview: Added automatically from request for surgery [id number] Degeneration of lumbosacral intervertebral disc 10/05/2017 12/24/2021 Overview: Added automatically from request for surgery [id number] Nonallopathic lesion of lumb ar region, not elsewhere classified 11/20/2014 05/01/2016 Bilateral low back pain without sciatica 015 09/30/2015 Knee joint replacement by other means 02/23/2011 05/01/2016 S/P complete repair of rotator cuff 05/15/2010 04/30/2016 Dehydration 10/10/2009 04/30/2016 Anemia due to chronic illness 08/12/2009 Ulcerative colitis 07/31/2009 04/30/2016 Hemangioma of skin and subcutaneous tissue 06/2608/01/2015 Inflamed seborrheic keratosis 06/26/2008 Benign neoplasm of skin of o ther and unspecified parts of face 06/26/2008 08/01/2015 Neoplasm of uncertain behavior of skin 9 08/01/2015 Other seborrheic keratosis 05/15/200807/31 SOLAR LENGINES///DYSCHROMIA OTHER 05/15/2008 08/01/2015 Other chronic 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 05/15/2008 08/01/2015 SALEEM ANGIOMA///NEVUS, NON-NEOPLASTIC 9 08/01/2015 Unspecified vitamin D deficiency 04/09/2008 04/30/2016 COLITIS NONINFECTIOUS CHRONIC 02/27/2008 03/26/2016 Abdominal pain, other specified site 02/13/2008 04/30/2016 Diarrhea 02/13/2008 04/30/2016 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 03/26/2016 Enthesopathy of hip region 08/13/200604/30 documented as of this encounter (statuses as of 07/17/2022) [facility] History of Past illness Narrative* Problem Noted Date Resolved Date Carpal tunnel syndrome, right 02/19/2021 Impaired fasting glucose 02/19/2021 022 Nuclear senile cataract of both eyes 11/04/2020 12/02/2020 Lumbar stenosis 01/16/2020 12/24/2021 Last Assessment & Plan: Assessment: S/p L1-4 decompression PLAN: -Pain control: dexamethasone added for right leg pain, improving -Continue davol drain -PT recommending no needs at discharge -No postop imaging needed -DVT ppx: continue IPCs, heparin SQ beginning POD2 -Mobilize at least 3x daily, OOB for meals -Anticipate d/c in 1-2 days -D/w Dr. Gibbs Multiple thyroid nodules 04/20/2018 022 Overview: Multi-nodular goiter with stable nodules, FNA hx benign. No further follow up indicated. 03/24/21 US thyroid: Nodule #1 RUL: stable TR3 no f/u Nodule #2 R lower stable TR2 no f/u Nodule #3 Lower center stable TR4 Nodule #4 LML stable no f/u 05/06/20 US thyroid Nodule #1 RUL, Size: 1.1 x 0.6 x 1 cm; no change, mostly cystic TR3 3: No F/U Nodule #2 R midpole Size: 1.2 x 1 x 1.5 cm; previously 1.1 x 1 x 1.3 cm, solid, hypoechoic TR4 1,2,3,5 year f/u Nodule #3 Left midpole, 1 x 0.8 x 0.7 cm; no change, solid TR3, No FNA or F/U Nodule #4 Left midpole,8 x 6 x 8 mm; no change: Mixed cystic and solid No FNA or F/U 05/05/19 US thyroidMultiple nodules. Nodule #1 RUL: 1.1x1.2x0.7cm 20% increase TR3 1-3-5 year f/u Nodule #2 R midpole 1.3x1.1x1.0cm no change, TR4:1-2-3-5 year f/u; Nodule #3 L jtl-ygybw-kopifhm no change, TR3 1-3-5 year f/u Nodule #4 LML 11x9mm TR2 no follow up. 11/12/16 Thyroid NM uptake: bilateral hypervascular nodules. 11/23/16 US: RIGHT: A sonolucent nodule in the superior thyroid measuring 9 x 5 x 8 mm. A complex nodule in the superior thyroid measuring 10 x 7 x 9 mm. A solid nodule in the mid thyroid measuring 12 x 9 x 12 mm. A complex nodule with foci of calcifications in the inferior thyroid measuring 9 x 4 x 8 mm. LEFT Multiple nodules identified and the largest ones are measured. A complex nodule in the superior thyroid measuring 9 x 7 x 9 mm. A complex nodule seen in the mid thyroid measuring 8 x 6 x 9 mm. A hypoechoic nodule in the inferior thyroid measuring 15 x 7 x 9 mm. A solid nodule in the inferior thyroid adjacent to the isthmus measuring 10 x 7 x 10 mm. 01/26/17 FNA bilateral nodules Benign:Follicular cells and colloid. 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 12/24/2021 Overview: Added automatically from request for surgery [id number] Degeneration of lumbosacral intervertebral disc 10/05/2017 12/24/2021 Overview: Added automatically from request for surgery [id number] Nonallopathic lesion of lumb ar region, not elsewhere classified 11/20/2014 05/01/2016 Bilateral low back pain without sciatica 015 09/30/2015 Knee joint replacement by other means 02/23/2011 05/01/2016 S/P complete repair of rotator cuff 05/15/2010 04/30/2016 Dehydration 10/10/2009 04/30/2016 Anemia due to chronic illness 08/12/2009 Ulcerative colitis 07/31/2009 04/30/2016 Hemangioma of skin and subcutaneous tissue 06/2608/01/2015 Inflamed seborrheic keratosis 06/26/2008 Benign neoplasm of skin of o ther and unspecified parts of face 06/26/2008 08/01/2015 Neoplasm of uncertain behavior of skin 9 08/01/2015 Other seborrheic keratosis 05/15/200807/31 SOLAR LENGINES///DYSCHROMIA OTHER 05/15/2008 08/01/2015 Other chronic 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 05/15/2008 08/01/2015 SALEEM ANGIOMA///NEVUS, NON-NEOPLASTIC 9 08/01/2015 Unspecified vitamin D deficiency 04/09/2008 04/30/2016 COLITIS NONINFECTIOUS CHRONIC 02/27/2008 03/26/2016 Abdominal pain, other specified site 02/13/2008 04/30/2016 Diarrhea 02/13/2008 04/30/2016 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 03/26/2016 Enthesopathy of hip region 08/13/200604/30 documented as of this encounter (statuses as of 07/24/2022) [facility] History of Past illness Narrative* Problem Noted Date Resolved Date Carpal tunnel syndrome, right 02/19/2021 Impaired fasting glucose 02/19/2021 022 Nuclear senile cataract of both eyes 11/04/2020 12/02/2020 Lumbar stenosis 01/16/2020 12/24/2021 Last Assessment & Plan: Assessment: S/p L1-4 decompression PLAN: -Pain control: dexamethasone added for right leg pain, improving -Continue davol drain -PT recommending no needs at discharge -No postop imaging needed -DVT ppx: continue IPCs, heparin SQ beginning POD2 -Mobilize at least 3x daily, OOB for meals -Anticipate d/c in 1-2 days -D/w Dr. Gibbs Multiple thyroid nodules 04/20/2018 022 Overview: Multi-nodular goiter with stable nodules, FNA hx benign. No further follow up indicated. 03/24/21 US thyroid: Nodule #1 RUL: stable TR3 no f/u Nodule #2 R lower stable TR2 no f/u Nodule #3 Lower center stable TR4 Nodule #4 LML stable no f/u 05/06/20 US thyroid Nodule #1 RUL, Size: 1.1 x 0.6 x 1 cm; no change, mostly cystic TR3 3: No F/U Nodule #2 R midpole Size: 1.2 x 1 x 1.5 cm; previously 1.1 x 1 x 1.3 cm, solid, hypoechoic TR4 1,2,3,5 year f/u Nodule #3 Left midpole, 1 x 0.8 x 0.7 cm; no change, solid TR3, No FNA or F/U Nodule #4 Left midpole,8 x 6 x 8 mm; no change: Mixed cystic and solid No FNA or F/U 05/05/19 US thyroidMultiple nodules. Nodule #1 RUL: 1.1x1.2x0.7cm 20% increase TR3 1-3-5 year f/u Nodule #2 R midpole 1.3x1.1x1.0cm no change, TR4:1-2-3-5 year f/u; Nodule #3 L vus-lqzxr-iuymeas no change, TR3 1-3-5 year f/u Nodule #4 LML 11x9mm TR2 no follow up. 11/12/16 Thyroid NM uptake: bilateral hypervascular nodules. 11/23/16 US: RIGHT: A sonolucent nodule in the superior thyroid measuring 9 x 5 x 8 mm. A complex nodule in the superior thyroid measuring 10 x 7 x 9 mm. A solid nodule in the mid thyroid measuring 12 x 9 x 12 mm. A complex nodule with foci of calcifications in the inferior thyroid measuring 9 x 4 x 8 mm. LEFT Multiple nodules identified and the largest ones are measured. A complex nodule in the superior thyroid measuring 9 x 7 x 9 mm. A complex nodule seen in the mid thyroid measuring 8 x 6 x 9 mm. A hypoechoic nodule in the inferior thyroid measuring 15 x 7 x 9 mm. A solid nodule in the inferior thyroid adjacent to the isthmus measuring 10 x 7 x 10 mm. 01/26/17 FNA bilateral nodules Benign:Follicular cells and colloid. 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 12/24/2021 Overview: Added automatically from request for surgery [id number] Degeneration of lumbosacral intervertebral disc 10/05/2017 12/24/2021 Overview: Added automatically from request for surgery [id number] Nonallopathic lesion of lumb ar region, not elsewhere classified 11/20/2014 05/01/2016 Bilateral low back pain without sciatica 015 09/30/2015 Knee joint replacement by other means 02/23/2011 05/01/2016 S/P complete repair of rotator cuff 05/15/2010 04/30/2016 Dehydration 10/10/2009 04/30/2016 Anemia due to chronic illness 08/12/2009 Ulcerative colitis 07/31/2009 04/30/2016 Hemangioma of skin and subcutaneous tissue 06/2608/01/2015 Inflamed seborrheic keratosis 06/26/2008 Benign neoplasm of skin of o ther and unspecified parts of face 06/26/2008 08/01/2015 Neoplasm of uncertain behavior of skin 9 08/01/2015 Other seborrheic keratosis 05/15/200807/31 SOLAR LENGINES///DYSCHROMIA OTHER 05/15/2008 08/01/2015 Other chronic 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 05/15/2008 08/01/2015 SALEEM ANGIOMA///NEVUS, NON-NEOPLASTIC 9 08/01/2015 Unspecified vitamin D deficiency 04/09/2008 04/30/2016 COLITIS NONINFECTIOUS CHRONIC 02/27/2008 03/26/2016 Abdominal pain, other specified site 02/13/2008 04/30/2016 Diarrhea 02/13/2008 04/30/2016 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 03/26/2016 Enthesopathy of hip region 08/13/200604/30 documented as of this encounter (statuses as of 08/12/2022) [facility] History of Past illness Narrative* Problem Noted Date Resolved Date Carpal tunnel syndrome, right 02/19/2021 Impaired fasting glucose 02/19/2021 022 Nuclear senile cataract of both eyes 11/04/2020 12/02/2020 Lumbar stenosis 01/16/2020 12/24/2021 Last Assessment & Plan: Assessment: S/p L1-4 decompression PLAN: -Pain control: dexamethasone added for right leg pain, improving -Continue davol drain -PT recommending no needs at discharge -No postop imaging needed -DVT ppx: continue IPCs, heparin SQ beginning POD2 -Mobilize at least 3x daily, OOB for meals -Anticipate d/c in 1-2 days -D/w Dr. Gibbs Multiple thyroid nodules 04/20/2018 022 Overview: Multi-nodular goiter with stable nodules, FNA hx benign. No further follow up indicated. 03/24/21 US thyroid: Nodule #1 RUL: stable TR3 no f/u Nodule #2 R lower stable TR2 no f/u Nodule #3 Lower center stable TR4 Nodule #4 LML stable no f/u 05/06/20 US thyroid Nodule #1 RUL, Size: 1.1 x 0.6 x 1 cm; no change, mostly cystic TR3 3: No F/U Nodule #2 R midpole Size: 1.2 x 1 x 1.5 cm; previously 1.1 x 1 x 1.3 cm, solid, hypoechoic TR4 1,2,3,5 year f/u Nodule #3 Left midpole, 1 x 0.8 x 0.7 cm; no change, solid TR3, No FNA or F/U Nodule #4 Left midpole,8 x 6 x 8 mm; no change: Mixed cystic and solid No FNA or F/U 05/05/19 US thyroidMultiple nodules. Nodule #1 RUL: 1.1x1.2x0.7cm 20% increase TR3 1-3-5 year f/u Nodule #2 R midpole 1.3x1.1x1.0cm no change, TR4:1-2-3-5 year f/u; Nodule #3 L xes-mqprd-ybobmwr no change, TR3 1-3-5 year f/u Nodule #4 LML 11x9mm TR2 no follow up. 11/12/16 Thyroid NM uptake: bilateral hypervascular nodules. 11/23/16 US: RIGHT: A sonolucent nodule in the superior thyroid measuring 9 x 5 x 8 mm. A complex nodule in the superior thyroid measuring 10 x 7 x 9 mm. A solid nodule in the mid thyroid measuring 12 x 9 x 12 mm. A complex nodule with foci of calcifications in the inferior thyroid measuring 9 x 4 x 8 mm. LEFT Multiple nodules identified and the largest ones are measured. A complex nodule in the superior thyroid measuring 9 x 7 x 9 mm. A complex nodule seen in the mid thyroid measuring 8 x 6 x 9 mm. A hypoechoic nodule in the inferior thyroid measuring 15 x 7 x 9 mm. A solid nodule in the inferior thyroid adjacent to the isthmus measuring 10 x 7 x 10 mm. 01/26/17 FNA bilateral nodules Benign:Follicular cells and colloid. 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 12/24/2021 Overview: Added automatically from request for surgery [id number] Degeneration of lumbosacral intervertebral disc 10/05/2017 12/24/2021 Overview: Added automatically from request for surgery [id number] Nonallopathic lesion of lumb ar region, not elsewhere classified 11/20/2014 05/01/2016 Bilateral low back pain without sciatica 015 09/30/2015 Knee joint replacement by other means 02/23/2011 05/01/2016 S/P complete repair of rotator cuff 05/15/2010 04/30/2016 Dehydration 10/10/2009 04/30/2016 Anemia due to chronic illness 08/12/2009 Ulcerative colitis 07/31/2009 04/30/2016 Hemangioma of skin and subcutaneous tissue 06/2608/01/2015 Inflamed seborrheic keratosis 06/26/2008 Benign neoplasm of skin of o ther and unspecified parts of face 06/26/2008 08/01/2015 Neoplasm of uncertain behavior of skin 9 08/01/2015 Other seborrheic keratosis 05/15/200807/31 SOLAR LENGINES///DYSCHROMIA OTHER 05/15/2008 08/01/2015 Other chronic 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 05/15/2008 08/01/2015 SALEEM ANGIOMA///NEVUS, NON-NEOPLASTIC 9 08/01/2015 Unspecified vitamin D deficiency 04/09/2008 04/30/2016 COLITIS NONINFECTIOUS CHRONIC 02/27/2008 03/26/2016 Abdominal pain, other specified site 02/13/2008 04/30/2016 Diarrhea 02/13/2008 04/30/2016 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 03/26/2016 Enthesopathy of hip region 08/13/200604/30 documented as of this encounter (statuses as of 09/10/2022) [facility] History of Past illness Narrative* Problem Noted Date Resolved Date Carpal tunnel syndrome, right 02/19/2021 Impaired fasting glucose 02/19/2021 022 Nuclear senile cataract of both eyes 11/04/2020 12/02/2020 Lumbar stenosis 01/16/2020 12/24/2021 Last Assessment & Plan: Assessment: S/p L1-4 decompression PLAN: -Pain control: dexamethasone added for right leg pain, improving -Continue davol drain -PT recommending no needs at discharge -No postop imaging needed -DVT ppx: continue IPCs, heparin SQ beginning POD2 -Mobilize at least 3x daily, OOB for meals -Anticipate d/c in 1-2 days -D/w Dr. Gibbs Multiple thyroid nodules 04/20/2018 022 Overview: Multi-nodular goiter with stable nodules, FNA hx benign. No further follow up indicated. 03/24/21 US thyroid: Nodule #1 RUL: stable TR3 no f/u Nodule #2 R lower stable TR2 no f/u Nodule #3 Lower center stable TR4 Nodule #4 LML stable no f/u 05/06/20 US thyroid Nodule #1 RUL, Size: 1.1 x 0.6 x 1 cm; no change, mostly cystic TR3 3: No F/U Nodule #2 R midpole Size: 1.2 x 1 x 1.5 cm; previously 1.1 x 1 x 1.3 cm, solid, hypoechoic TR4 1,2,3,5 year f/u Nodule #3 Left midpole, 1 x 0.8 x 0.7 cm; no change, solid TR3, No FNA or F/U Nodule #4 Left midpole,8 x 6 x 8 mm; no change: Mixed cystic and solid No FNA or F/U 05/05/19 US thyroidMultiple nodules. Nodule #1 RUL: 1.1x1.2x0.7cm 20% increase TR3 1-3-5 year f/u Nodule #2 R midpole 1.3x1.1x1.0cm no change, TR4:1-2-3-5 year f/u; Nodule #3 L uhy-dvgfo-rnduywp no change, TR3 1-3-5 year f/u Nodule #4 LML 11x9mm TR2 no follow up. 11/12/16 Thyroid NM uptake: bilateral hypervascular nodules. 11/23/16 US: RIGHT: A sonolucent nodule in the superior thyroid measuring 9 x 5 x 8 mm. A complex nodule in the superior thyroid measuring 10 x 7 x 9 mm. A solid nodule in the mid thyroid measuring 12 x 9 x 12 mm. A complex nodule with foci of calcifications in the inferior thyroid measuring 9 x 4 x 8 mm. LEFT Multiple nodules identified and the largest ones are measured. A complex nodule in the superior thyroid measuring 9 x 7 x 9 mm. A complex nodule seen in the mid thyroid measuring 8 x 6 x 9 mm. A hypoechoic nodule in the inferior thyroid measuring 15 x 7 x 9 mm. A solid nodule in the inferior thyroid adjacent to the isthmus measuring 10 x 7 x 10 mm. 01/26/17 FNA bilateral nodules Benign:Follicular cells and colloid. 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 12/24/2021 Overview: Added automatically from request for surgery [id number] Degeneration of lumbosacral intervertebral disc 10/05/2017 12/24/2021 Overview: Added automatically from request for surgery [id number] Nonallopathic lesion of lumb ar region, not elsewhere classified 11/20/2014 05/01/2016 Bilateral low back pain without sciatica 015 09/30/2015 Knee joint replacement by other means 02/23/2011 05/01/2016 S/P complete repair of rotator cuff 05/15/2010 04/30/2016 Dehydration 10/10/2009 04/30/2016 Anemia due to chronic illness 08/12/2009 Ulcerative colitis 07/31/2009 04/30/2016 Hemangioma of skin and subcutaneous tissue 06/2608/01/2015 Inflamed seborrheic keratosis 06/26/2008 Benign neoplasm of skin of o ther and unspecified parts of face 06/26/2008 08/01/2015 Neoplasm of uncertain behavior of skin 9 08/01/2015 Other seborrheic keratosis 05/15/200807/31 SOLAR LENGINES///DYSCHROMIA OTHER 05/15/2008 08/01/2015 Other chronic 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 05/15/2008 08/01/2015 SALEEM ANGIOMA///NEVUS, NON-NEOPLASTIC 9 08/01/2015 Unspecified vitamin D deficiency 04/09/2008 04/30/2016 COLITIS NONINFECTIOUS CHRONIC 02/27/2008 03/26/2016 Abdominal pain, other specified site 02/13/2008 04/30/2016 Diarrhea 02/13/2008 04/30/2016 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 03/26/2016 Enthesopathy of hip region 08/13/200604/30 documented as of this encounter (statuses as of 09/10/2022) [facility] History of Past illness Narrative* Problem Noted Date Resolved Date Carpal tunnel syndrome, right 02/19/2021 Impaired fasting glucose 02/19/2021 022 Nuclear senile cataract of both eyes 11/04/2020 12/02/2020 Lumbar stenosis 01/16/2020 12/24/2021 Last Assessment & Plan: Assessment: S/p L1-4 decompression PLAN: -Pain control: dexamethasone added for right leg pain, improving -Continue davol drain -PT recommending no needs at discharge -No postop imaging needed -DVT ppx: continue IPCs, heparin SQ beginning POD2 -Mobilize at least 3x daily, OOB for meals -Anticipate d/c in 1-2 days -D/w Dr. Gibbs Multiple thyroid nodules 04/20/2018 022 Overview: Multi-nodular goiter with stable nodules, FNA hx benign. No further follow up indicated. 03/24/21 US thyroid: Nodule #1 RUL: stable TR3 no f/u Nodule #2 R lower stable TR2 no f/u Nodule #3 Lower center stable TR4 Nodule #4 LML stable no f/u 05/06/20 US thyroid Nodule #1 RUL, Size: 1.1 x 0.6 x 1 cm; no change, mostly cystic TR3 3: No F/U Nodule #2 R midpole Size: 1.2 x 1 x 1.5 cm; previously 1.1 x 1 x 1.3 cm, solid, hypoechoic TR4 1,2,3,5 year f/u Nodule #3 Left midpole, 1 x 0.8 x 0.7 cm; no change, solid TR3, No FNA or F/U Nodule #4 Left midpole,8 x 6 x 8 mm; no change: Mixed cystic and solid No FNA or F/U 05/05/19 US thyroidMultiple nodules. Nodule #1 RUL: 1.1x1.2x0.7cm 20% increase TR3 1-3-5 year f/u Nodule #2 R midpole 1.3x1.1x1.0cm no change, TR4:1-2-3-5 year f/u; Nodule #3 L [id number]-tatrw-exjepin no change, TR3 1-3-5 year f/u Nodule #4 LML 11x9mm TR2 no follow up. 11/12/16 Thyroid NM uptake: bilateral hypervascular nodules. 11/23/16 US: RIGHT: A sonolucent nodule in the superior thyroid measuring 9 x 5 x 8 mm. A complex nodule in the superior thyroid measuring 10 x 7 x 9 mm. A solid nodule in the mid thyroid measuring 12 x 9 x 12 mm. A complex nodule with foci of calcifications in the inferior thyroid measuring 9 x 4 x 8 mm. LEFT Multiple nodules identified and the largest ones are measured. A complex nodule in the superior thyroid measuring 9 x 7 x 9 mm. A complex nodule seen in the mid thyroid measuring 8 x 6 x 9 mm. A hypoechoic nodule in the inferior thyroid measuring 15 x 7 x 9 mm. A solid nodule in the inferior thyroid adjacent to the isthmus measuring 10 x 7 x 10 mm. 01/26/17 FNA bilateral nodules Benign:Follicular cells and colloid. 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 12/24/2021 Overview: Added automatically from request for surgery [id number] Degeneration of lumbosacral intervertebral disc 10/05/2017 12/24/2021 Overview: Added automatically from request for surgery [id number] Nonallopathic lesion of lumb ar region, not elsewhere classified 11/20/2014 05/01/2016 Bilateral low back pain without sciatica 015 09/30/2015 Knee joint replacement by other means 02/23/2011 05/01/2016 S/P complete repair of rotator cuff 05/15/2010 04/30/2016 Dehydration 10/10/2009 04/30/2016 Anemia due to chronic illness 08/12/2009 Ulcerative colitis 07/31/2009 04/30/2016 Hemangioma of skin and subcutaneous tissue 06/2608/01/2015 Inflamed seborrheic keratosis 06/26/2008 Benign neoplasm of skin of o ther and unspecified parts of face 06/26/2008 08/01/2015 Neoplasm of uncertain behavior of skin 9 08/01/2015 Other seborrheic keratosis 05/15/200807/31 SOLAR LENGINES///DYSCHROMIA OTHER 05/15/2008 08/01/2015 Other chronic 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 05/15/2008 08/01/2015 SALEEM ANGIOMA///NEVUS, NON-NEOPLASTIC 9 08/01/2015 Unspecified vitamin D deficiency 04/09/2008 04/30/2016 COLITIS NONINFECTIOUS CHRONIC 02/27/2008 03/26/2016 Abdominal pain, other specified site 02/13/2008 04/30/2016 Diarrhea 02/13/2008 04/30/2016 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 03/26/2016 Enthesopathy of hip region 08/13/200604/30 documented as of this encounter (statuses as of 09/11/2022) [facility] History of Past illness Narrative* Problem Noted Date Diagnosed Date Resolved Date Carpal tunnel syndrome, right 02/19/2021 02/21/2021 Impaired fasting glucose 02/19/2021 Nuclear senile cataract of both eyes 11/04/2020 12/02/2020 Lumbar stenosis 01/16/2020 12/24/2021 Last Assessment & Plan: Assessment: S/p L1-4 decompression PLAN: -Pain control: dexamethasone added for right leg pain, improving -Continue davol drain -PT recommending no needs at discharge -No postop imaging needed -DVT ppx: continue IPCs, heparin SQ beginning POD2 -Mobilize at least 3x daily, OOB for meals -Anticipate d/c in 1-2 days -D/w Dr. Gibbs Multiple thyroid nodules 04/20/2018 Overview: Multi-nodular goiter with stable nodules, FNA hx benign. No further follow up indicated. 03/24/21 US thyroid: Nodule #1 RUL: stable TR3 no f/u Nodule #2 R lower stable TR2 no f/u Nodule #3 Lower center stable TR4 Nodule #4 LML stable no f/u 05/06/20 US thyroid Nodule #1 RUL, Size: 1.1 x 0.6 x 1 cm; no change, mostly cystic TR3 3: No F/U Nodule #2 R midpole Size: 1.2 x 1 x 1.5 cm; previously 1.1 x 1 x 1.3 cm, solid, hypoechoic TR4 1,2,3,5 year f/u Nodule #3 Left midpole, 1 x 0.8 x 0.7 cm; no change, solid TR3, No FNA or F/U Nodule #4 Left midpole,8 x 6 x 8 mm; no change: Mixed cystic and solid No FNA or F/U 05/05/19 US thyroidMultiple nodules. Nodule #1 RUL: 1.1x1.2x0.7cm 20% increase TR3 1-3-5 year f/u Nodule #2 R midpole 1.3x1.1x1.0cm no change, TR4:1-2-3-5 year f/u; Nodule #3 L qia-leetq-mxlhqsw no change, TR3 1-3-5 year f/u Nodule #4 LML 11x9mm TR2 no follow up. 11/12/16 Thyroid NM uptake: bilateral hypervascular nodules. 11/23/16 US: RIGHT: A sonolucent nodule in the superior thyroid measuring 9 x 5 x 8 mm. A complex nodule in the superior thyroid measuring 10 x 7 x 9 mm. A solid nodule in the mid thyroid measuring 12 x 9 x 12 mm. A complex nodule with foci of calcifications in the inferior thyroid measuring 9 x 4 x 8 mm. LEFT Multiple nodules identified and the largest ones are measured. A complex nodule in the superior thyroid measuring 9 x 7 x 9 mm. A complex nodule seen in the mid thyroid measuring 8 x 6 x 9 mm. A hypoechoic nodule in the inferior thyroid measuring 15 x 7 x 9 mm. A solid nodule in the inferior thyroid adjacent to the isthmus measuring 10 x 7 x 10 mm. 01/26/17 FNA bilateral nodules Benign:Follicular cells and colloid. 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 12/24/2021 Overview: Added automatically from request for surgery [id number] Degeneration of lumbosacral intervertebral disc 10/05/2017 12/24/2021 Overview: Added automatically from request for surgery [id number] Nonallopathic lesion of lumb ar region, not elsewhere classified 11/20/2014 05/01/2016 Bilateral low back pain without sciatica 11/20/2014 09/30/2015 Knee joint replacement by other means 02/23/2011 05/01/2016 S/P complete repair of rotator cuff 05/15/2010 04/30/2016 Dehydration 10/10/2009 04/30/2016 Anemia due to chronic illness 08/12/2009 03/26/2016 Ulcerative colitis 07/31/2009 7 Hemangioma of skin and subcutaneous tissue 06/26/2008 08/01/2015 Inflamed seborrheic keratosis 06/26/2008 08/01/2015 Benign neoplasm of skin of o ther and unspecified parts of face 06/26/2008 08/01/2015 Neoplasm of uncertain behavior of skin 05/15/2008 08/01/2015 Other seborrheic keratosis 05/15/2008 0 08/01/2015 SOLAR LENGINES///DYSCHROMIA OTHER 05/15/2008 08/01/2015 Other chronic 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 05/15/2008 08/01/2015 SALEEM ANGIOMA///NEVUS, NON-NEOPLASTIC 05/15/2008 08/01/2015 Unspecified vitamin D deficiency 04/09/2008 04/30/2016 COLITIS NONINFECTIOUS CHRONIC 02/27/2008 03/26/2016 Abdominal pain, other specified site 02/13/2008 04/30/2016 Diarrhea 02/13/2008 04/30/2016 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 03/26/2016 Enthesopathy of hip region 08/13/2006 0 04/30/2016 documented as of this encounter (statuses as of 10/21/2022) [facility] History of Past illness Narrative* Problem Noted Date Diagnosed Date Resolved Date Carpal tunnel syndrome, right 02/19/2021 02/21/2021 Impaired fasting glucose 02/19/2021 Nuclear senile cataract of both eyes 11/04/2020 12/02/2020 Lumbar stenosis 01/16/2020 12/24/2021 Last Assessment & Plan: Assessment: S/p L1-4 decompression PLAN: -Pain control: dexamethasone added for right leg pain, improving -Continue davol drain -PT recommending no needs at discharge -No postop imaging needed -DVT ppx: continue IPCs, heparin SQ beginning POD2 -Mobilize at least 3x daily, OOB for meals -Anticipate d/c in 1-2 days -D/w Dr. Gibbs Multiple thyroid nodules 04/20/2018 Overview: Multi-nodular goiter with stable nodules, FNA hx benign. No further follow up indicated. 03/24/21 US thyroid: Nodule #1 RUL: stable TR3 no f/u Nodule #2 R lower stable TR2 no f/u Nodule #3 Lower center stable TR4 Nodule #4 LML stable no f/u 05/06/20 US thyroid Nodule #1 RUL, Size: 1.1 x 0.6 x 1 cm; no change, mostly cystic TR3 3: No F/U Nodule #2 R midpole Size: 1.2 x 1 x 1.5 cm; previously 1.1 x 1 x 1.3 cm, solid, hypoechoic TR4 1,2,3,5 year f/u Nodule #3 Left midpole, 1 x 0.8 x 0.7 cm; no change, solid TR3, No FNA or F/U Nodule #4 Left midpole,8 x 6 x 8 mm; no change: Mixed cystic and solid No FNA or F/U 05/05/19 US thyroidMultiple nodules. Nodule #1 RUL: 1.1x1.2x0.7cm 20% increase TR3 1-3-5 year f/u Nodule #2 R midpole 1.3x1.1x1.0cm no change, TR4:1-2-3-5 year f/u; Nodule #3 L ymc-alvdw-druwszd no change, TR3 1-3-5 year f/u Nodule #4 LML 11x9mm TR2 no follow up. 11/12/16 Thyroid NM uptake: bilateral hypervascular nodules. 11/23/16 US: RIGHT: A sonolucent nodule in the superior thyroid measuring 9 x 5 x 8 mm. A complex nodule in the superior thyroid measuring 10 x 7 x 9 mm. A solid nodule in the mid thyroid measuring 12 x 9 x 12 mm. A complex nodule with foci of calcifications in the inferior thyroid measuring 9 x 4 x 8 mm. LEFT Multiple nodules identified and the largest ones are measured. A complex nodule in the superior thyroid measuring 9 x 7 x 9 mm. A complex nodule seen in the mid thyroid measuring 8 x 6 x 9 mm. A hypoechoic nodule in the inferior thyroid measuring 15 x 7 x 9 mm. A solid nodule in the inferior thyroid adjacent to the isthmus measuring 10 x 7 x 10 mm. 01/26/17 FNA bilateral nodules Benign:Follicular cells and colloid. 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 12/24/2021 Overview: Added automatically from request for surgery [id number] Degeneration of lumbosacral intervertebral disc 10/05/2017 12/24/2021 Overview: Added automatically from request for surgery [id number] Nonallopathic lesion of lumb ar region, not elsewhere classified 11/20/2014 05/01/2016 Bilateral low back pain without sciatica 11/20/2014 09/30/2015 Knee joint replacement by other means 02/23/2011 05/01/2016 S/P complete repair of rotator cuff 05/15/2010 04/30/2016 Dehydration 10/10/2009 04/30/2016 Anemia due to chronic illness 08/12/2009 03/26/2016 Ulcerative colitis 07/31/2009 7 Hemangioma of skin and subcutaneous tissue 06/26/2008 08/01/2015 Inflamed seborrheic keratosis 06/26/2008 08/01/2015 Benign neoplasm of skin of o ther and unspecified parts of face 06/26/2008 08/01/2015 Neoplasm of uncertain behavior of skin 05/15/2008 08/01/2015 Other seborrheic keratosis 05/15/2008 0 08/01/2015 SOLAR LENGINES///DYSCHROMIA OTHER 05/15/2008 08/01/2015 Other chronic 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 05/15/2008 08/01/2015 SALEEM ANGIOMA///NEVUS, NON-NEOPLASTIC 05/15/2008 08/01/2015 Unspecified vitamin D deficiency 04/09/2008 04/30/2016 COLITIS NONINFECTIOUS CHRONIC 02/27/2008 03/26/2016 Abdominal pain, other specified site 02/13/2008 04/30/2016 Diarrhea 02/13/2008 04/30/2016 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 03/26/2016 Enthesopathy of hip region 08/13/2006 0 04/30/2016 documented as of this encounter (statuses as of 10/23/2022) [facility] History of Past illness Narrative* Problem Noted Date Diagnosed Date Resolved Date Carpal tunnel syndrome, right 02/19/2021 02/21/2021 Impaired fasting glucose 02/19/2021 Nuclear senile cataract of both eyes 11/04/2020 12/02/2020 Lumbar stenosis 01/16/2020 12/24/2021 Last Assessment & Plan: Assessment: S/p L1-4 decompression PLAN: -Pain control: dexamethasone added for right leg pain, improving -Continue davol drain -PT recommending no needs at discharge -No postop imaging needed -DVT ppx: continue IPCs, heparin SQ beginning POD2 -Mobilize at least 3x daily, OOB for meals -Anticipate d/c in 1-2 days -D/w Dr. Gibbs Multiple thyroid nodules 04/20/2018 Overview: Multi-nodular goiter with stable nodules, FNA hx benign. No further follow up indicated. 03/24/21 US thyroid: Nodule #1 RUL: stable TR3 no f/u Nodule #2 R lower stable TR2 no f/u Nodule #3 Lower center stable TR4 Nodule #4 LML stable no f/u 05/06/20 US thyroid Nodule #1 RUL, Size: 1.1 x 0.6 x 1 cm; no change, mostly cystic TR3 3: No F/U Nodule #2 R midpole Size: 1.2 x 1 x 1.5 cm; previously 1.1 x 1 x 1.3 cm, solid, hypoechoic TR4 1,2,3,5 year f/u Nodule #3 Left midpole, 1 x 0.8 x 0.7 cm; no change, solid TR3, No FNA or F/U Nodule #4 Left midpole,8 x 6 x 8 mm; no change: Mixed cystic and solid No FNA or F/U 05/05/19 US thyroidMultiple nodules. Nodule #1 RUL: 1.1x1.2x0.7cm 20% increase TR3 1-3-5 year f/u Nodule #2 R midpole 1.3x1.1x1.0cm no change, TR4:1-2-3-5 year f/u; Nodule #3 L why-kzlzy-gsvxlzl no change, TR3 1-3-5 year f/u Nodule #4 LML 11x9mm TR2 no follow up. 11/12/16 Thyroid NM uptake: bilateral hypervascular nodules. 11/23/16 US: RIGHT: A sonolucent nodule in the superior thyroid measuring 9 x 5 x 8 mm. A complex nodule in the superior thyroid measuring 10 x 7 x 9 mm. A solid nodule in the mid thyroid measuring 12 x 9 x 12 mm. A complex nodule with foci of calcifications in the inferior thyroid measuring 9 x 4 x 8 mm. LEFT Multiple nodules identified and the largest ones are measured. A complex nodule in the superior thyroid measuring 9 x 7 x 9 mm. A complex nodule seen in the mid thyroid measuring 8 x 6 x 9 mm. A hypoechoic nodule in the inferior thyroid measuring 15 x 7 x 9 mm. A solid nodule in the inferior thyroid adjacent to the isthmus measuring 10 x 7 x 10 mm. 01/26/17 FNA bilateral nodules Benign:Follicular cells and colloid. 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 12/24/2021 Overview: Added automatically from request for surgery [id number] Degeneration of lumbosacral intervertebral disc 10/05/2017 12/24/2021 Overview: Added automatically from request for surgery [id number] Nonallopathic lesion of lumb ar region, not elsewhere classified 11/20/2014 05/01/2016 Bilateral low back pain without sciatica 11/20/2014 09/30/2015 Knee joint replacement by other means 02/23/2011 05/01/2016 S/P complete repair of rotator cuff 05/15/2010 04/30/2016 Dehydration 10/10/2009 04/30/2016 Anemia due to chronic illness 08/12/2009 03/26/2016 Ulcerative colitis 07/31/2009 7 Hemangioma of skin and subcutaneous tissue 06/26/2008 08/01/2015 Inflamed seborrheic keratosis 06/26/2008 08/01/2015 Benign neoplasm of skin of o ther and unspecified parts of face 06/26/2008 08/01/2015 Neoplasm of uncertain behavior of skin 05/15/2008 08/01/2015 Other seborrheic keratosis 05/15/2008 0 08/01/2015 SOLAR LENGINES///DYSCHROMIA OTHER 05/15/2008 08/01/2015 Other chronic 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 05/15/2008 08/01/2015 SALEEM ANGIOMA///NEVUS, NON-NEOPLASTIC 05/15/2008 08/01/2015 Unspecified vitamin D deficiency 04/09/2008 04/30/2016 COLITIS NONINFECTIOUS CHRONIC 02/27/2008 03/26/2016 Abdominal pain, other specified site 02/13/2008 04/30/2016 Diarrhea 02/13/2008 04/30/2016 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 03/26/2016 Enthesopathy of hip region 08/13/2006 0 04/30/2016 documented as of this encounter (statuses as of 10/23/2022) [facility] History of Past illness Narrative* Problem Noted Date Diagnosed Date Resolved Date Carpal tunnel syndrome, right 02/19/2021 02/21/2021 Impaired fasting glucose 02/19/2021 Nuclear senile cataract of both eyes 11/04/2020 12/02/2020 Lumbar stenosis 01/16/2020 12/24/2021 Last Assessment & Plan: Assessment: S/p L1-4 decompression PLAN: -Pain control: dexamethasone added for right leg pain, improving -Continue davol drain -PT recommending no needs at discharge -No postop imaging needed -DVT ppx: continue IPCs, heparin SQ beginning POD2 -Mobilize at least 3x daily, OOB for meals -Anticipate d/c in 1-2 days -D/w Dr. Gibbs Multiple thyroid nodules 04/20/2018 Overview: Multi-nodular goiter with stable nodules, FNA hx benign. No further follow up indicated. 03/24/21 US thyroid: Nodule #1 RUL: stable TR3 no f/u Nodule #2 R lower stable TR2 no f/u Nodule #3 Lower center stable TR4 Nodule #4 LML stable no f/u 05/06/20 US thyroid Nodule #1 RUL, Size: 1.1 x 0.6 x 1 cm; no change, mostly cystic TR3 3: No F/U Nodule #2 R midpole Size: 1.2 x 1 x 1.5 cm; previously 1.1 x 1 x 1.3 cm, solid, hypoechoic TR4 1,2,3,5 year f/u Nodule #3 Left midpole, 1 x 0.8 x 0.7 cm; no change, solid TR3, No FNA or F/U Nodule #4 Left midpole,8 x 6 x 8 mm; no change: Mixed cystic and solid No FNA or F/U 05/05/19 US thyroidMultiple nodules. Nodule #1 RUL: 1.1x1.2x0.7cm 20% increase TR3 1-3-5 year f/u Nodule #2 R midpole 1.3x1.1x1.0cm no change, TR4:1-2-3-5 year f/u; Nodule #3 L hzo-wxvys-zpxaecn no change, TR3 1-3-5 year f/u Nodule #4 LML 11x9mm TR2 no follow up. 11/12/16 Thyroid NM uptake: bilateral hypervascular nodules. 11/23/16 US: RIGHT: A sonolucent nodule in the superior thyroid measuring 9 x 5 x 8 mm. A complex nodule in the superior thyroid measuring 10 x 7 x 9 mm. A solid nodule in the mid thyroid measuring 12 x 9 x 12 mm. A complex nodule with foci of calcifications in the inferior thyroid measuring 9 x 4 x 8 mm. LEFT Multiple nodules identified and the largest ones are measured. A complex nodule in the superior thyroid measuring 9 x 7 x 9 mm. A complex nodule seen in the mid thyroid measuring 8 x 6 x 9 mm. A hypoechoic nodule in the inferior thyroid measuring 15 x 7 x 9 mm. A solid nodule in the inferior thyroid adjacent to the isthmus measuring 10 x 7 x 10 mm. 01/26/17 FNA bilateral nodules Benign:Follicular cells and colloid. 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 12/24/2021 Overview: Added automatically from request for surgery [id number] Degeneration of lumbosacral intervertebral disc 10/05/2017 12/24/2021 Overview: Added automatically from request for surgery [id number] Nonallopathic lesion of lumb ar region, not elsewhere classified 11/20/2014 05/01/2016 Bilateral low back pain without sciatica 11/20/2014 09/30/2015 Knee joint replacement by other means 02/23/2011 05/01/2016 S/P complete repair of rotator cuff 05/15/2010 04/30/2016 Dehydration 10/10/2009 04/30/2016 Anemia due to chronic illness 08/12/2009 03/26/2016 Ulcerative colitis 07/31/2009 7 Hemangioma of skin and subcutaneous tissue 06/26/2008 08/01/2015 Inflamed seborrheic keratosis 06/26/2008 08/01/2015 Benign neoplasm of skin of o ther and unspecified parts of face 06/26/2008 08/01/2015 Neoplasm of uncertain behavior of skin 05/15/2008 08/01/2015 Other seborrheic keratosis 05/15/2008 0 08/01/2015 SOLAR LENGINES///DYSCHROMIA OTHER 05/15/2008 08/01/2015 Other chronic 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 05/15/2008 08/01/2015 SALEEM ANGIOMA///NEVUS, NON-NEOPLASTIC 05/15/2008 08/01/2015 Unspecified vitamin D deficiency 04/09/2008 04/30/2016 COLITIS NONINFECTIOUS CHRONIC 02/27/2008 03/26/2016 Abdominal pain, other specified site 02/13/2008 04/30/2016 Diarrhea 02/13/2008 04/30/2016 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 03/26/2016 Enthesopathy of hip region 08/13/2006 0 04/30/2016 documented as of this encounter (statuses as of 10/26/2022) [facility] History of Past illness Narrative* Problem Noted Date Diagnosed Date Resolved Date Carpal tunnel syndrome, right 02/19/2021 02/21/2021 Impaired fasting glucose 02/19/2021 Nuclear senile cataract of both eyes 11/04/2020 12/02/2020 Lumbar stenosis 01/16/2020 12/24/2021 Last Assessment & Plan: Assessment: S/p L1-4 decompression PLAN: -Pain control: dexamethasone added for right leg pain, improving -Continue davol drain -PT recommending no needs at discharge -No postop imaging needed -DVT ppx: continue IPCs, heparin SQ beginning POD2 -Mobilize at least 3x daily, OOB for meals -Anticipate d/c in 1-2 days -D/w Dr. Gibbs Multiple thyroid nodules 04/20/2018 Overview: Multi-nodular goiter with stable nodules, FNA hx benign. No further follow up indicated. 03/24/21 US thyroid: Nodule #1 RUL: stable TR3 no f/u Nodule #2 R lower stable TR2 no f/u Nodule #3 Lower center stable TR4 Nodule #4 LML stable no f/u 05/06/20 US thyroid Nodule #1 RUL, Size: 1.1 x 0.6 x 1 cm; no change, mostly cystic TR3 3: No F/U Nodule #2 R midpole Size: 1.2 x 1 x 1.5 cm; previously 1.1 x 1 x 1.3 cm, solid, hypoechoic TR4 1,2,3,5 year f/u Nodule #3 Left midpole, 1 x 0.8 x 0.7 cm; no change, solid TR3, No FNA or F/U Nodule #4 Left midpole,8 x 6 x 8 mm; no change: Mixed cystic and solid No FNA or F/U 05/05/19 US thyroidMultiple nodules. Nodule #1 RUL: 1.1x1.2x0.7cm 20% increase TR3 1-3-5 year f/u Nodule #2 R midpole 1.3x1.1x1.0cm no change, TR4:1-2-3-5 year f/u; Nodule #3 L yho-jkuoc-dpgjfad no change, TR3 1-3-5 year f/u Nodule #4 LML 11x9mm TR2 no follow up. 11/12/16 Thyroid NM uptake: bilateral hypervascular nodules. 11/23/16 US: RIGHT: A sonolucent nodule in the superior thyroid measuring 9 x 5 x 8 mm. A complex nodule in the superior thyroid measuring 10 x 7 x 9 mm. A solid nodule in the mid thyroid measuring 12 x 9 x 12 mm. A complex nodule with foci of calcifications in the inferior thyroid measuring 9 x 4 x 8 mm. LEFT Multiple nodules identified and the largest ones are measured. A complex nodule in the superior thyroid measuring 9 x 7 x 9 mm. A complex nodule seen in the mid thyroid measuring 8 x 6 x 9 mm. A hypoechoic nodule in the inferior thyroid measuring 15 x 7 x 9 mm. A solid nodule in the inferior thyroid adjacent to the isthmus measuring 10 x 7 x 10 mm. 01/26/17 FNA bilateral nodules Benign:Follicular cells and colloid. 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 12/24/2021 Overview: Added automatically from request for surgery [id number] Degeneration of lumbosacral intervertebral disc 10/05/2017 12/24/2021 Overview: Added automatically from request for surgery [id number] Nonallopathic lesion of lumb ar region, not elsewhere classified 11/20/2014 05/01/2016 Bilateral low back pain without sciatica 11/20/2014 09/30/2015 Knee joint replacement by other means 02/23/2011 05/01/2016 S/P complete repair of rotator cuff 05/15/2010 04/30/2016 Dehydration 10/10/2009 04/30/2016 Anemia due to chronic illness 08/12/2009 03/26/2016 Ulcerative colitis 07/31/2009 7 Hemangioma of skin and subcutaneous tissue 06/26/2008 08/01/2015 Inflamed seborrheic keratosis 06/26/2008 08/01/2015 Benign neoplasm of skin of o ther and unspecified parts of face 06/26/2008 08/01/2015 Neoplasm of uncertain behavior of skin 05/15/2008 08/01/2015 Other seborrheic keratosis 05/15/2008 0 08/01/2015 SOLAR LENGINES///DYSCHROMIA OTHER 05/15/2008 08/01/2015 Other chronic 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 05/15/2008 08/01/2015 SALEEM ANGIOMA///NEVUS, NON-NEOPLASTIC 05/15/2008 08/01/2015 Unspecified vitamin D deficiency 04/09/2008 04/30/2016 COLITIS NONINFECTIOUS CHRONIC 02/27/2008 03/26/2016 Abdominal pain, other specified site 02/13/2008 04/30/2016 Diarrhea 02/13/2008 04/30/2016 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 03/26/2016 Enthesopathy of hip region 08/13/2006 0 04/30/2016 documented as of this encounter (statuses as of 11/09/2022) [facility] History of Past illness Narrative* Problem Noted Date Diagnosed Date Resolved Date Carpal tunnel syndrome, right 02/19/2021 02/21/2021 Impaired fasting glucose 02/19/2021 Nuclear senile cataract of both eyes 11/04/2020 12/02/2020 Lumbar stenosis 01/16/2020 12/24/2021 Last Assessment & Plan: Assessment: S/p L1-4 decompression PLAN: -Pain control: dexamethasone added for right leg pain, improving -Continue davol drain -PT recommending no needs at discharge -No postop imaging needed -DVT ppx: continue IPCs, heparin SQ beginning POD2 -Mobilize at least 3x daily, OOB for meals -Anticipate d/c in 1-2 days -D/w Dr. Gibbs Multiple thyroid nodules 04/20/2018 Overview: Multi-nodular goiter with stable nodules, FNA hx benign. No further follow up indicated. 03/24/21 US thyroid: Nodule #1 RUL: stable TR3 no f/u Nodule #2 R lower stable TR2 no f/u Nodule #3 Lower center stable TR4 Nodule #4 LML stable no f/u 05/06/20 US thyroid Nodule #1 RUL, Size: 1.1 x 0.6 x 1 cm; no change, mostly cystic TR3 3: No F/U Nodule #2 R midpole Size: 1.2 x 1 x 1.5 cm; previously 1.1 x 1 x 1.3 cm, solid, hypoechoic TR4 1,2,3,5 year f/u Nodule #3 Left midpole, 1 x 0.8 x 0.7 cm; no change, solid TR3, No FNA or F/U Nodule #4 Left midpole,8 x 6 x 8 mm; no change: Mixed cystic and solid No FNA or F/U 05/05/19 US thyroidMultiple nodules. Nodule #1 RUL: 1.1x1.2x0.7cm 20% increase TR3 1-3-5 year f/u Nodule #2 R midpole 1.3x1.1x1.0cm no change, TR4:1-2-3-5 year f/u; Nodule #3 L sny-mzqto-rbeinlx no change, TR3 1-3-5 year f/u Nodule #4 LML 11x9mm TR2 no follow up. 11/12/16 Thyroid NM uptake: bilateral hypervascular nodules. 11/23/16 US: RIGHT: A sonolucent nodule in the superior thyroid measuring 9 x 5 x 8 mm. A complex nodule in the superior thyroid measuring 10 x 7 x 9 mm. A solid nodule in the mid thyroid measuring 12 x 9 x 12 mm. A complex nodule with foci of calcifications in the inferior thyroid measuring 9 x 4 x 8 mm. LEFT Multiple nodules identified and the largest ones are measured. A complex nodule in the superior thyroid measuring 9 x 7 x 9 mm. A complex nodule seen in the mid thyroid measuring 8 x 6 x 9 mm. A hypoechoic nodule in the inferior thyroid measuring 15 x 7 x 9 mm. A solid nodule in the inferior thyroid adjacent to the isthmus measuring 10 x 7 x 10 mm. 01/26/17 FNA bilateral nodules Benign:Follicular cells and colloid. 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 12/24/2021 Overview: Added automatically from request for surgery [id number] Degeneration of lumbosacral intervertebral disc 10/05/2017 12/24/2021 Overview: Added automatically from request for surgery [id number] Nonallopathic lesion of lumb ar region, not elsewhere classified 11/20/2014 05/01/2016 Bilateral low back pain without sciatica 11/20/2014 09/30/2015 Knee joint replacement by other means 02/23/2011 05/01/2016 S/P complete repair of rotator cuff 05/15/2010 04/30/2016 Dehydration 10/10/2009 04/30/2016 Anemia due to chronic illness 08/12/2009 03/26/2016 Ulcerative colitis 07/31/2009 7 Hemangioma of skin and subcutaneous tissue 06/26/2008 08/01/2015 Inflamed seborrheic keratosis 06/26/2008 08/01/2015 Benign neoplasm of skin of o ther and unspecified parts of face 06/26/2008 08/01/2015 Neoplasm of uncertain behavior of skin 05/15/2008 08/01/2015 Other seborrheic keratosis 05/15/2008 0 08/01/2015 SOLAR LENGINES///DYSCHROMIA OTHER 05/15/2008 08/01/2015 Other chronic 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 05/15/2008 08/01/2015 SALEEM ANGIOMA///NEVUS, NON-NEOPLASTIC 05/15/2008 08/01/2015 Unspecified vitamin D deficiency 04/09/2008 04/30/2016 COLITIS NONINFECTIOUS CHRONIC 02/27/2008 03/26/2016 Abdominal pain, other specified site 02/13/2008 04/30/2016 Diarrhea 02/13/2008 04/30/2016 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 03/26/2016 Enthesopathy of hip region 08/13/2006 0 04/30/2016 documented as of this encounter (statuses as of 11/09/2022) [facility] History of Past illness Narrative* Problem Noted Date Diagnosed Date Resolved Date Carpal tunnel syndrome, right 02/19/2021 02/21/2021 Impaired fasting glucose 02/19/2021 Nuclear senile cataract of both eyes 11/04/2020 12/02/2020 Lumbar stenosis 01/16/2020 12/24/2021 Last Assessment & Plan: Assessment: S/p L1-4 decompression PLAN: -Pain control: dexamethasone added for right leg pain, improving -Continue davol drain -PT recommending no needs at discharge -No postop imaging needed -DVT ppx: continue IPCs, heparin SQ beginning POD2 -Mobilize at least 3x daily, OOB for meals -Anticipate d/c in 1-2 days -D/w Dr. Gibbs Multiple thyroid nodules 04/20/2018 Overview: Multi-nodular goiter with stable nodules, FNA hx benign. No further follow up indicated. 03/24/21 US thyroid: Nodule #1 RUL: stable TR3 no f/u Nodule #2 R lower stable TR2 no f/u Nodule #3 Lower center stable TR4 Nodule #4 LML stable no f/u 05/06/20 US thyroid Nodule #1 RUL, Size: 1.1 x 0.6 x 1 cm; no change, mostly cystic TR3 3: No F/U Nodule #2 R midpole Size: 1.2 x 1 x 1.5 cm; previously 1.1 x 1 x 1.3 cm, solid, hypoechoic TR4 1,2,3,5 year f/u Nodule #3 Left midpole, 1 x 0.8 x 0.7 cm; no change, solid TR3, No FNA or F/U Nodule #4 Left midpole,8 x 6 x 8 mm; no change: Mixed cystic and solid No FNA or F/U 05/05/19 US thyroidMultiple nodules. Nodule #1 RUL: 1.1x1.2x0.7cm 20% increase TR3 1-3-5 year f/u Nodule #2 R midpole 1.3x1.1x1.0cm no change, TR4:1-2-3-5 year f/u; Nodule #3 L rhp-jsxuc-gtumnfq no change, TR3 1-3-5 year f/u Nodule #4 LML 11x9mm TR2 no follow up. 11/12/16 Thyroid NM uptake: bilateral hypervascular nodules. 11/23/16 US: RIGHT: A sonolucent nodule in the superior thyroid measuring 9 x 5 x 8 mm. A complex nodule in the superior thyroid measuring 10 x 7 x 9 mm. A solid nodule in the mid thyroid measuring 12 x 9 x 12 mm. A complex nodule with foci of calcifications in the inferior thyroid measuring 9 x 4 x 8 mm. LEFT Multiple nodules identified and the largest ones are measured. A complex nodule in the superior thyroid measuring 9 x 7 x 9 mm. A complex nodule seen in the mid thyroid measuring 8 x 6 x 9 mm. A hypoechoic nodule in the inferior thyroid measuring 15 x 7 x 9 mm. A solid nodule in the inferior thyroid adjacent to the isthmus measuring 10 x 7 x 10 mm. 01/26/17 FNA bilateral nodules Benign:Follicular cells and colloid. 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 12/24/2021 Overview: Added automatically from request for surgery [id number] Degeneration of lumbosacral intervertebral disc 10/05/2017 12/24/2021 Overview: Added automatically from request for surgery [id number] Nonallopathic lesion of lumb ar region, not elsewhere classified 11/20/2014 05/01/2016 Bilateral low back pain without sciatica 11/20/2014 09/30/2015 Knee joint replacement by other means 02/23/2011 05/01/2016 S/P complete repair of rotator cuff 05/15/2010 04/30/2016 Dehydration 10/10/2009 04/30/2016 Anemia due to chronic illness 08/12/2009 03/26/2016 Ulcerative colitis 07/31/2009 7 Hemangioma of skin and subcutaneous tissue 06/26/2008 08/01/2015 Inflamed seborrheic keratosis 06/26/2008 08/01/2015 Benign neoplasm of skin of o ther and unspecified parts of face 06/26/2008 08/01/2015 Neoplasm of uncertain behavior of skin 05/15/2008 08/01/2015 Other seborrheic keratosis 05/15/2008 0 08/01/2015 SOLAR LENGINES///DYSCHROMIA OTHER 05/15/2008 08/01/2015 Other chronic 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 05/15/2008 08/01/2015 SALEEM ANGIOMA///NEVUS, NON-NEOPLASTIC 05/15/2008 08/01/2015 Unspecified vitamin D deficiency 04/09/2008 04/30/2016 COLITIS NONINFECTIOUS CHRONIC 02/27/2008 03/26/2016 Abdominal pain, other specified site 02/13/2008 04/30/2016 Diarrhea 02/13/2008 04/30/2016 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 03/26/2016 Enthesopathy of hip region 08/13/2006 0 04/30/2016 documented as of this encounter (statuses as of 11/10/2022) [facility] History of Past illness Narrative* Problem Noted Date Diagnosed Date Resolved Date Carpal tunnel syndrome, right 02/19/2021 02/21/2021 Impaired fasting glucose 02/19/20212 Nuclear senile cataract of both eyes 11/04/2020 12/02/2020 Lumbar stenosis 01/16/2020 12/24/2021 Last Assessment & Plan: Assessment: S/p L1-4 decompression PLAN: -Pain control: dexamethasone added for right leg pain, improving -Continue davol drain -PT recommending no needs at discharge -No postop imaging needed -DVT ppx: continue IPCs, heparin SQ beginning POD2 -Mobilize at least 3x daily, OOB for meals -Anticipate d/c in 1-2 days -D/w Dr. Gibbs Multiple thyroid nodules 04/20/2018 Overview: Multi-nodular goiter with stable nodules, FNA hx benign. No further follow up indicated. 03/24/21 US thyroid: Nodule #1 RUL: stable TR3 no f/u Nodule #2 R lower stable TR2 no f/u Nodule #3 Lower center stable TR4 Nodule #4 LML stable no f/u 05/06/20 US thyroid Nodule #1 RUL, Size: 1.1 x 0.6 x 1 cm; no change, mostly cystic TR3 3: No F/U Nodule #2 R midpole Size: 1.2 x 1 x 1.5 cm; previously 1.1 x 1 x 1.3 cm, solid, hypoechoic TR4 1,2,3,5 year f/u Nodule #3 Left midpole, 1 x 0.8 x 0.7 cm; no change, solid TR3, No FNA or F/U Nodule #4 Left midpole,8 x 6 x 8 mm; no change: Mixed cystic and solid No FNA or F/U 05/05/19 US thyroidMultiple nodules. Nodule #1 RUL: 1.1x1.2x0.7cm 20% increase TR3 1-3-5 year f/u Nodule #2 R midpole 1.3x1.1x1.0cm no change, TR4:1-2-3-5 year f/u; Nodule #3 L [id number] no change, TR3 1-3-5 year f/u Nodule #4 LML 11x9mm TR2 no follow up. 11/12/16 Thyroid NM uptake: bilateral hypervascular nodules. 11/23/16 US: RIGHT: A sonolucent nodule in the superior thyroid measuring 9 x 5 x 8 mm. A complex nodule in the superior thyroid measuring 10 x 7 x 9 mm. A solid nodule in the mid thyroid measuring 12 x 9 x 12 mm. A complex nodule with foci of calcifications in the inferior thyroid measuring 9 x 4 x 8 mm. LEFT Multiple nodules identified and the largest ones are measured. A complex nodule in the superior thyroid measuring 9 x 7 x 9 mm. A complex nodule seen in the mid thyroid measuring 8 x 6 x 9 mm. A hypoechoic nodule in the inferior thyroid measuring 15 x 7 x 9 mm. A solid nodule in the inferior thyroid adjacent to the isthmus measuring 10 x 7 x 10 mm. 01/26/17 FNA bilateral nodules Benign:Follicular cells and colloid. 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 12/24/2021 Overview: Added automatically from request for surgery [id number] Degeneration of lumbosacral intervertebral disc 10/05/2017 12/24/2021 Overview: Added automatically from request for surgery [id number] Nonallopathic lesion of lumb ar region, not elsewhere classified 11/20/2014 05/01/2016 Bilateral low back pain without sciatica 11/20/2014 09/30/2015 Knee joint replacement by other means 02/23/2011 05/01/2016 S/P complete repair of rotator cuff 05/15/2010 04/30/2016 Dehydration 10/10/2009 04/30/2016 Anemia due to chronic illness 08/12/2009 03/26/2016 Ulcerative colitis 07/31/2009 7 Hemangioma of skin and subcutaneous tissue 06/26/2008 08/01/2015 Inflamed seborrheic keratosis 06/26/2008 08/01/2015 Benign neoplasm of skin of o ther and unspecified parts of face 06/26/2008 08/01/2015 Neoplasm of uncertain behavior of skin 05/15/2008 08/01/2015 Other seborrheic keratosis 05/15/2008 0 08/01/2015 SOLAR LENGINES///DYSCHROMIA OTHER 05/15/2008 08/01/2015 Other chronic 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 05/15/2008 08/01/2015 SALEEM ANGIOMA///NEVUS, NON-NEOPLASTIC 05/15/2008 08/01/2015 Unspecified vitamin D deficiency 04/09/2008 04/30/2016 COLITIS NONINFECTIOUS CHRONIC 02/27/2008 03/26/2016 Abdominal pain, other specified site 02/13/2008 04/30/2016 Diarrhea 02/13/2008 04/30/2016 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 03/26/2016 Enthesopathy of hip region 08/13/2006 0 04/30/2016 documented as of this encounter (statuses as of 11/11/2022) [facility] of Past illness Narrative* Problem Noted Date Diagnosed Date Resolved Date Carpal tunnel syndrome, right 02/19/2021 02/21/2021 Impaired fasting glucose 02/19/2021 Nuclear senile cataract of both eyes 11/04/2020 12/02/2020 Lumbar stenosis 01/16/2020 12/24/2021 Last Assessment & Plan: Assessment: S/p L1-4 decompression PLAN: -Pain control: dexamethasone added for right leg pain, improving -Continue davol drain -PT recommending no needs at discharge -No postop imaging needed -DVT ppx: continue IPCs, heparin SQ beginning POD2 -Mobilize at least 3x daily, OOB for meals -Anticipate d/c in 1-2 days -D/w Dr. Gibbs Multiple thyroid nodules 04/20/2018 Overview: Multi-nodular goiter with stable nodules, FNA hx benign. No further follow up indicated. 03/24/21 US thyroid: Nodule #1 RUL: stable TR3 no f/u Nodule #2 R lower stable TR2 no f/u Nodule #3 Lower center stable TR4 Nodule #4 LML stable no f/u 05/06/20 US thyroid Nodule #1 RUL, Size: 1.1 x 0.6 x 1 cm; no change, mostly cystic TR3 3: No F/U Nodule #2 R midpole Size: 1.2 x 1 x 1.5 cm; previously 1.1 x 1 x 1.3 cm, solid, hypoechoic TR4 1,2,3,5 year f/u Nodule #3 Left midpole, 1 x 0.8 x 0.7 cm; no change, solid TR3, No FNA or F/U Nodule #4 Left midpole,8 x 6 x 8 mm; no change: Mixed cystic and solid No FNA or F/U 05/05/19 US thyroidMultiple nodules. Nodule #1 RUL: 1.1x1.2x0.7cm 20% increase TR3 1-3-5 year f/u Nodule #2 R midpole 1.3x1.1x1.0cm no change, TR4:1-2-3-5 year f/u; Nodule #3 L gqk-tzgyb-sorfcvl no change, TR3 1-3-5 year f/u Nodule #4 LML 11x9mm TR2 no follow up. 11/12/16 Thyroid NM uptake: bilateral hypervascular nodules. 11/23/16 US: RIGHT: A sonolucent nodule in the superior thyroid measuring 9 x 5 x 8 mm. A complex nodule in the superior thyroid measuring 10 x 7 x 9 mm. A solid nodule in the mid thyroid measuring 12 x 9 x 12 mm. A complex nodule with foci of calcifications in the inferior thyroid measuring 9 x 4 x 8 mm. LEFT Multiple nodules identified and the largest ones are measured. A complex nodule in the superior thyroid measuring 9 x 7 x 9 mm. A complex nodule seen in the mid thyroid measuring 8 x 6 x 9 mm. A hypoechoic nodule in the inferior thyroid measuring 15 x 7 x 9 mm. A solid nodule in the inferior thyroid adjacent to the isthmus measuring 10 x 7 x 10 mm. 01/26/17 FNA bilateral nodules Benign:Follicular cells and colloid. 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 12/24/2021 Overview: Added automatically from request for surgery [id number] Degeneration of lumbosacral intervertebral disc 10/05/2017 12/24/2021 Overview: Added automatically from request for surgery [id number] Nonallopathic lesion of lumb ar region, not elsewhere classified 11/20/2014 05/01/2016 Bilateral low back pain without sciatica 11/20/2014 09/30/2015 Knee joint replacement by other means 02/23/2011 05/01/2016 S/P complete repair of rotator cuff 05/15/2010 04/30/2016 Dehydration 10/10/2009 04/30/2016 Anemia due to chronic illness 08/12/2009 03/26/2016 Ulcerative colitis 07/31/2009 7 Hemangioma of skin and subcutaneous tissue 06/26/2008 08/01/2015 Inflamed seborrheic keratosis 06/26/2008 08/01/2015 Benign neoplasm of skin of o ther and unspecified parts of face 06/26/2008 08/01/2015 Neoplasm of uncertain behavior of skin 05/15/2008 08/01/2015 Other seborrheic keratosis 05/15/2008 0 08/01/2015 SOLAR LENGINES///DYSCHROMIA OTHER 05/15/2008 08/01/2015 Other chronic 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 05/15/2008 08/01/2015 SALEEM ANGIOMA///NEVUS, NON-NEOPLASTIC 05/15/2008 08/01/2015 Unspecified vitamin D deficiency 04/09/2008 04/30/2016 COLITIS NONINFECTIOUS CHRONIC 02/27/2008 03/26/2016 Abdominal pain, other specified site 02/13/2008 04/30/2016 Diarrhea 02/13/2008 04/30/2016 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 03/26/2016 Enthesopathy of hip region 08/13/2006 0 04/30/2016 documented as of this encounter (statuses as of 11/12/2022) [facility] History of Past illness Narrative* Problem Noted Date Diagnosed Date Resolved Date Carpal tunnel syndrome, right 02/19/2021 02/21/2021 Impaired fasting glucose 02/19/2021 Nuclear senile cataract of both eyes 11/04/2020 12/02/2020 Lumbar stenosis 01/16/2020 12/24/2021 Last Assessment & Plan: Assessment: S/p L1-4 decompression PLAN: -Pain control: dexamethasone added for right leg pain, improving -Continue davol drain -PT recommending no needs at discharge -No postop imaging needed -DVT ppx: continue IPCs, heparin SQ beginning POD2 -Mobilize at least 3x daily, OOB for meals -Anticipate d/c in 1-2 days -D/w Dr. Gibbs Multiple thyroid nodules 04/20/2018 Overview: Multi-nodular goiter with stable nodules, FNA hx benign. No further follow up indicated. 03/24/21 US thyroid: Nodule #1 RUL: stable TR3 no f/u Nodule #2 R lower stable TR2 no f/u Nodule #3 Lower center stable TR4 Nodule #4 LML stable no f/u 05/06/20 US thyroid Nodule #1 RUL, Size: 1.1 x 0.6 x 1 cm; no change, mostly cystic TR3 3: No F/U Nodule #2 R midpole Size: 1.2 x 1 x 1.5 cm; previously 1.1 x 1 x 1.3 cm, solid, hypoechoic TR4 1,2,3,5 year f/u Nodule #3 Left midpole, 1 x 0.8 x 0.7 cm; no change, solid TR3, No FNA or F/U Nodule #4 Left midpole,8 x 6 x 8 mm; no change: Mixed cystic and solid No FNA or F/U 05/05/19 US thyroidMultiple nodules. Nodule #1 RUL: 1.1x1.2x0.7cm 20% increase TR3 1-3-5 year f/u Nodule #2 R midpole 1.3x1.1x1.0cm no change, TR4:1-2-3-5 year f/u; Nodule #3 L [id number]-[id number] no change, TR3 1-3-5 year f/u Nodule #4 LML 11x9mm TR2 no follow up. 11/12/16 Thyroid NM uptake: bilateral hypervascular nodules. 11/23/16 US: RIGHT: A sonolucent nodule in the superior thyroid measuring 9 x 5 x 8 mm. A complex nodule in the superior thyroid measuring 10 x 7 x 9 mm. A solid nodule in the mid thyroid measuring 12 x 9 x 12 mm. A complex nodule with foci of calcifications in the inferior thyroid measuring 9 x 4 x 8 mm. LEFT Multiple nodules identified and the largest ones are measured. A complex nodule in the superior thyroid measuring 9 x 7 x 9 mm. A complex nodule seen in the mid thyroid measuring 8 x 6 x 9 mm. A hypoechoic nodule in the inferior thyroid measuring 15 x 7 x 9 mm. A solid nodule in the inferior thyroid adjacent to the isthmus measuring 10 x 7 x 10 mm. 01/26/17 FNA bilateral nodules Benign:Follicular cells and colloid. 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 12/24/2021 Overview: Added automatically from request for surgery [id number] Degeneration of lumbosacral intervertebral disc 10/05/2017 12/24/2021 Overview: Added automatically from request for surgery [id number] Nonallopathic lesion of lumb ar region, not elsewhere classified 11/20/2014 05/01/2016 Bilateral low back pain without sciatica 11/20/2014 09/30/2015 Knee joint replacement by other means 02/23/2011 05/01/2016 S/P complete repair of rotator cuff 05/15/2010 04/30/2016 Dehydration 10/10/2009 04/30/2016 Anemia due to chronic illness 08/12/2009 03/26/2016 Ulcerative colitis 07/31/2009 7 Hemangioma of skin and subcutaneous tissue 06/26/2008 08/01/2015 Inflamed seborrheic keratosis 06/26/2008 08/01/2015 Benign neoplasm of skin of o ther and unspecified parts of face 06/26/2008 08/01/2015 Neoplasm of uncertain behavior of skin 05/15/2008 08/01/2015 Other seborrheic keratosis 05/15/2008 0 08/01/2015 SOLAR LENGINES///DYSCHROMIA OTHER 05/15/2008 08/01/2015 Other chronic 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 05/15/2008 08/01/2015 SALEEM ANGIOMA///NEVUS, NON-NEOPLASTIC 05/15/2008 08/01/2015 Unspecified vitamin D deficiency 04/09/2008 04/30/2016 COLITIS NONINFECTIOUS CHRONIC 02/27/2008 03/26/2016 Abdominal pain, other specified site 02/13/2008 04/30/2016 Diarrhea 02/13/2008 04/30/2016 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 03/26/2016 Enthesopathy of hip region 08/13/2006 0 04/30/2016 documented as of this encounter (statuses as of 11/16/2022) [facility] History of Past illness Narrative* Problem Noted Date Diagnosed Date Resolved Date Carpal tunnel syndrome, right 02/19/2021 02/21/2021 Impaired fasting glucose 02/19/2021 Nuclear senile cataract of both eyes 11/04/2020 12/02/2020 Lumbar stenosis 01/16/2020 12/24/2021 Last Assessment & Plan: Assessment: S/p L1-4 decompression PLAN: -Pain control: dexamethasone added for right leg pain, improving -Continue davol drain -PT recommending no needs at discharge -No postop imaging needed -DVT ppx: continue IPCs, heparin SQ beginning POD2 -Mobilize at least 3x daily, OOB for meals -Anticipate d/c in 1-2 days -D/w Dr. Gibbs Multiple thyroid nodules 04/20/2018 Overview: Multi-nodular goiter with stable nodules, FNA hx benign. No further follow up indicated. 03/24/21 US thyroid: Nodule #1 RUL: stable TR3 no f/u Nodule #2 R lower stable TR2 no f/u Nodule #3 Lower center stable TR4 Nodule #4 LML stable no f/u 05/06/20 US thyroid Nodule #1 RUL, Size: 1.1 x 0.6 x 1 cm; no change, mostly cystic TR3 3: No F/U Nodule #2 R midpole Size: 1.2 x 1 x 1.5 cm; previously 1.1 x 1 x 1.3 cm, solid, hypoechoic TR4 1,2,3,5 year f/u Nodule #3 Left midpole, 1 x 0.8 x 0.7 cm; no change, solid TR3, No FNA or F/U Nodule #4 Left midpole,8 x 6 x 8 mm; no change: Mixed cystic and solid No FNA or F/U 05/05/19 US thyroidMultiple nodules. Nodule #1 RUL: 1.1x1.2x0.7cm 20% increase TR3 1-3-5 year f/u Nodule #2 R midpole 1.3x1.1x1.0cm no change, TR4:1-2-3-5 year f/u; Nodule #3 L [id number] no change, TR3 1-3-5 year f/u Nodule #4 LML 11x9mm TR2 no follow up. 11/12/16 Thyroid NM uptake: bilateral hypervascular nodules. 11/23/16 US: RIGHT: A sonolucent nodule in the superior thyroid measuring 9 x 5 x 8 mm. A complex nodule in the superior thyroid measuring 10 x 7 x 9 mm. A solid nodule in the mid thyroid measuring 12 x 9 x 12 mm. A complex nodule with foci of calcifications in the inferior thyroid measuring 9 x 4 x 8 mm. LEFT Multiple nodules identified and the largest ones are measured. A complex nodule in the superior thyroid measuring 9 x 7 x 9 mm. A complex nodule seen in the mid thyroid measuring 8 x 6 x 9 mm. A hypoechoic nodule in the inferior thyroid measuring 15 x 7 x 9 mm. A solid nodule in the inferior thyroid adjacent to the isthmus measuring 10 x 7 x 10 mm. 01/26/17 FNA bilateral nodules Benign:Follicular cells and colloid. 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 12/24/2021 Overview: Added automatically from request for surgery [id number] Degeneration of lumbosacral intervertebral disc 10/05/2017 12/24/2021 Overview: Added automatically from request for surgery [id number] Nonallopathic lesion of lumb ar region, not elsewhere classified 11/20/2014 05/01/2016 Bilateral low back pain without sciatica 11/20/2014 09/30/2015 Knee joint replacement by other means 02/23/2011 05/01/2016 S/P complete repair of rotator cuff 05/15/2010 04/30/2016 Dehydration 10/10/2009 04/30/2016 Anemia due to chronic illness 08/12/2009 03/26/2016 Ulcerative colitis 07/31/2009 7 Hemangioma of skin and subcutaneous tissue 06/26/2008 08/01/2015 Inflamed seborrheic keratosis 06/26/2008 08/01/2015 Benign neoplasm of skin of o ther and unspecified parts of face 06/26/2008 08/01/2015 Neoplasm of uncertain behavior of skin 05/15/2008 08/01/2015 Other seborrheic keratosis 05/15/2008 0 08/01/2015 SOLAR LENGINES///DYSCHROMIA OTHER 05/15/2008 08/01/2015 Other chronic 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 05/15/2008 08/01/2015 SALEEM ANGIOMA///NEVUS, NON-NEOPLASTIC 05/15/2008 08/01/2015 Unspecified vitamin D deficiency 04/09/2008 04/30/2016 COLITIS NONINFECTIOUS CHRONIC 02/27/2008 03/26/2016 Abdominal pain, other specified site 02/13/2008 04/30/2016 Diarrhea 02/13/2008 04/30/2016 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 03/26/2016 Enthesopathy of hip region 08/13/2006 0 04/30/2016 documented as of this encounter (statuses as of 11/18/2022) [facility] History of Past illness Narrative* Problem Noted Date Diagnosed Date Resolved Date Carpal tunnel syndrome, right 02/19/2021 02/21/2021 Impaired fasting glucose 02/19/2021 Nuclear senile cataract of both eyes 11/04/2020 12/02/2020 Lumbar stenosis 01/16/2020 12/24/2021 Last Assessment & Plan: Assessment: S/p L1-4 decompression PLAN: -Pain control: dexamethasone added for right leg pain, improving -Continue davol drain -PT recommending no needs at discharge -No postop imaging needed -DVT ppx: continue IPCs, heparin SQ beginning POD2 -Mobilize at least 3x daily, OOB for meals -Anticipate d/c in 1-2 days -D/w Dr. Gibbs Multiple thyroid nodules 04/20/2018 Overview: Multi-nodular goiter with stable nodules, FNA hx benign. No further follow up indicated. 03/24/21 US thyroid: Nodule #1 RUL: stable TR3 no f/u Nodule #2 R lower stable TR2 no f/u Nodule #3 Lower center stable TR4 Nodule #4 LML stable no f/u 05/06/20 US thyroid Nodule #1 RUL, Size: 1.1 x 0.6 x 1 cm; no change, mostly cystic TR3 3: No F/U Nodule #2 R midpole Size: 1.2 x 1 x 1.5 cm; previously 1.1 x 1 x 1.3 cm, solid, hypoechoic TR4 1,2,3,5 year f/u Nodule #3 Left midpole, 1 x 0.8 x 0.7 cm; no change, solid TR3, No FNA or F/U Nodule #4 Left midpole,8 x 6 x 8 mm; no change: Mixed cystic and solid No FNA or F/U 05/05/19 US thyroidMultiple nodules. Nodule #1 RUL: 1.1x1.2x0.7cm 20% increase TR3 1-3-5 year f/u Nodule #2 R midpole 1.3x1.1x1.0cm no change, TR4:1-2-3-5 year f/u; Nodule #3 L [id number]-hewfbhx no change, TR3 1-3-5 year f/u Nodule #4 LML 11x9mm TR2 no follow up. 11/12/16 Thyroid NM uptake: bilateral hypervascular nodules. 11/23/16 US: RIGHT: A sonolucent nodule in the superior thyroid measuring 9 x 5 x 8 mm. A complex nodule in the superior thyroid measuring 10 x 7 x 9 mm. A solid nodule in the mid thyroid measuring 12 x 9 x 12 mm. A complex nodule with foci of calcifications in the inferior thyroid measuring 9 x 4 x 8 mm. LEFT Multiple nodules identified and the largest ones are measured. A complex nodule in the superior thyroid measuring 9 x 7 x 9 mm. A complex nodule seen in the mid thyroid measuring 8 x 6 x 9 mm. A hypoechoic nodule in the inferior thyroid measuring 15 x 7 x 9 mm. A solid nodule in the inferior thyroid adjacent to the isthmus measuring 10 x 7 x 10 mm. 01/26/17 FNA bilateral nodules Benign:Follicular cells and colloid. 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 12/24/2021 Overview: Added automatically from request for surgery [id number] Degeneration of lumbosacral intervertebral disc 10/05/2017 12/24/2021 Overview: Added automatically from request for surgery [id number] Nonallopathic lesion of lumb ar region, not elsewhere classified 11/20/2014 05/01/2016 Bilateral low back pain without sciatica 11/20/2014 09/30/2015 Knee joint replacement by other means 02/23/2011 05/01/2016 S/P complete repair of rotator cuff 05/15/2010 04/30/2016 Dehydration 10/10/2009 04/30/2016 Anemia due to chronic illness 08/12/2009 03/26/2016 Ulcerative colitis 07/31/2009 7 Hemangioma of skin and subcutaneous tissue 06/26/2008 08/01/2015 Inflamed seborrheic keratosis 06/26/2008 08/01/2015 Benign neoplasm of skin of o ther and unspecified parts of face 06/26/2008 08/01/2015 Neoplasm of uncertain behavior of skin 05/15/2008 08/01/2015 Other seborrheic keratosis 05/15/2008 0 08/01/2015 SOLAR LENGINES///DYSCHROMIA OTHER 05/15/2008 08/01/2015 Other chronic 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 05/15/2008 08/01/2015 SALEEM ANGIOMA///NEVUS, NON-NEOPLASTIC 05/15/2008 08/01/2015 Unspecified vitamin D deficiency 04/09/2008 04/30/2016 COLITIS NONINFECTIOUS CHRONIC 02/27/2008 03/26/2016 Abdominal pain, other specified site 02/13/2008 04/30/2016 Diarrhea 02/13/2008 04/30/2016 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 03/26/2016 Enthesopathy of hip region 08/13/2006 0 04/30/2016 documented as of this encounter (statuses as of 11/21/2022) [facility] History of Past illness Narrative* Problem Noted Date Diagnosed Date Resolved Date Carpal tunnel syndrome, right 02/19/2021 02/21/2021 Impaired fasting glucose 02/19/2021 Nuclear senile cataract of both eyes 11/04/2020 12/02/2020 Lumbar stenosis 01/16/2020 12/24/2021 Last Assessment & Plan: Assessment: S/p L1-4 decompression PLAN: -Pain control: dexamethasone added for right leg pain, improving -Continue davol drain -PT recommending no needs at discharge -No postop imaging needed -DVT ppx: continue IPCs, heparin SQ beginning POD2 -Mobilize at least 3x daily, OOB for meals -Anticipate d/c in 1-2 days -D/w Dr. Gibbs Multiple thyroid nodules 04/20/2018 Overview: Multi-nodular goiter with stable nodules, FNA hx benign. No further follow up indicated. 03/24/21 US thyroid: Nodule #1 RUL: stable TR3 no f/u Nodule #2 R lower stable TR2 no f/u Nodule #3 Lower center stable TR4 Nodule #4 LML stable no f/u 05/06/20 US thyroid Nodule #1 RUL, Size: 1.1 x 0.6 x 1 cm; no change, mostly cystic TR3 3: No F/U Nodule #2 R midpole Size: 1.2 x 1 x 1.5 cm; previously 1.1 x 1 x 1.3 cm, solid, hypoechoic TR4 1,2,3,5 year f/u Nodule #3 Left midpole, 1 x 0.8 x 0.7 cm; no change, solid TR3, No FNA or F/U Nodule #4 Left midpole,8 x 6 x 8 mm; no change: Mixed cystic and solid No FNA or F/U 05/05/19 US thyroidMultiple nodules. Nodule #1 RUL: 1.1x1.2x0.7cm 20% increase TR3 1-3-5 year f/u Nodule #2 R midpole 1.3x1.1x1.0cm no change, TR4:1-2-3-5 year f/u; Nodule #3 L [id number] no change, TR3 1-3-5 year f/u Nodule #4 LML 11x9mm TR2 no follow up. 11/12/16 Thyroid NM uptake: bilateral hypervascular nodules. 11/23/16 US: RIGHT: A sonolucent nodule in the superior thyroid measuring 9 x 5 x 8 mm. A complex nodule in the superior thyroid measuring 10 x 7 x 9 mm. A solid nodule in the mid thyroid measuring 12 x 9 x 12 mm. A complex nodule with foci of calcifications in the inferior thyroid measuring 9 x 4 x 8 mm. LEFT Multiple nodules identified and the largest ones are measured. A complex nodule in the superior thyroid measuring 9 x 7 x 9 mm. A complex nodule seen in the mid thyroid measuring 8 x 6 x 9 mm. A hypoechoic nodule in the inferior thyroid measuring 15 x 7 x 9 mm. A solid nodule in the inferior thyroid adjacent to the isthmus measuring 10 x 7 x 10 mm. 01/26/17 FNA bilateral nodules Benign:Follicular cells and colloid. 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 12/24/2021 Overview: Added automatically from request for surgery [id number] Degeneration of lumbosacral intervertebral disc 10/05/2017 12/24/2021 Overview: Added automatically from request for surgery [id number] Nonallopathic lesion of lumb ar region, not elsewhere classified 11/20/2014 05/01/2016 Bilateral low back pain without sciatica 11/20/2014 09/30/2015 Knee joint replacement by other means 02/23/2011 05/01/2016 S/P complete repair of rotator cuff 05/15/2010 04/30/2016 Dehydration 10/10/2009 04/30/2016 Anemia due to chronic illness 08/12/2009 03/26/2016 Ulcerative colitis 07/31/2009 7 Hemangioma of skin and subcutaneous tissue 06/26/2008 08/01/2015 Inflamed seborrheic keratosis 06/26/2008 08/01/2015 Benign neoplasm of skin of o ther and unspecified parts of face 06/26/2008 08/01/2015 Neoplasm of uncertain behavior of skin 05/15/2008 08/01/2015 Other seborrheic keratosis 05/15/2008 0 08/01/2015 SOLAR LENGINES///DYSCHROMIA OTHER 05/15/2008 08/01/2015 Other chronic 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 05/15/2008 08/01/2015 SALEEM ANGIOMA///NEVUS, NON-NEOPLASTIC 05/15/2008 08/01/2015 Unspecified vitamin D deficiency 04/09/2008 04/30/2016 COLITIS NONINFECTIOUS CHRONIC 02/27/2008 03/26/2016 Abdominal pain, other specified site 02/13/2008 04/30/2016 Diarrhea 02/13/2008 04/30/2016 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 03/26/2016 Enthesopathy of hip region 08/13/2006 0 04/30/2016 documented as of this encounter (statuses as of 01/01/2023) [facility] History of Past illness Narrative* Problem Noted Date Diagnosed Date Resolved Date Carpal tunnel syndrome, right 02/19/2021 02/21/2021 Impaired fasting glucose 02/19/2021 Nuclear senile cataract of both eyes 11/04/2020 12/02/2020 Lumbar stenosis 01/16/2020 12/24/2021 Last Assessment & Plan: Assessment: S/p L1-4 decompression PLAN: -Pain control: dexamethasone added for right leg pain, improving -Continue davol drain -PT recommending no needs at discharge -No postop imaging needed -DVT ppx: continue IPCs, heparin SQ beginning POD2 -Mobilize at least 3x daily, OOB for meals -Anticipate d/c in 1-2 days -D/w Dr. Gibbs Multiple thyroid nodules 04/20/2018 Overview: Multi-nodular goiter with stable nodules, FNA hx benign. No further follow up indicated. 03/24/21 US thyroid: Nodule #1 RUL: stable TR3 no f/u Nodule #2 R lower stable TR2 no f/u Nodule #3 Lower center stable TR4 Nodule #4 LML stable no f/u 05/06/20 US thyroid Nodule #1 RUL, Size: 1.1 x 0.6 x 1 cm; no change, mostly cystic TR3 3: No F/U Nodule #2 R midpole Size: 1.2 x 1 x 1.5 cm; previously 1.1 x 1 x 1.3 cm, solid, hypoechoic TR4 1,2,3,5 year f/u Nodule #3 Left midpole, 1 x 0.8 x 0.7 cm; no change, solid TR3, No FNA or F/U Nodule #4 Left midpole,8 x 6 x 8 mm; no change: Mixed cystic and solid No FNA or F/U 05/05/19 US thyroidMultiple nodules. Nodule #1 RUL: 1.1x1.2x0.7cm 20% increase TR3 1-3-5 year f/u Nodule #2 R midpole 1.3x1.1x1.0cm no change, TR4:1-2-3-5 year f/u; Nodule #3 L [id number]-gemklgu no change, TR3 1-3-5 year f/u Nodule #4 LML 11x9mm TR2 no follow up. 11/12/16 Thyroid NM uptake: bilateral hypervascular nodules. 11/23/16 US: RIGHT: A sonolucent nodule in the superior thyroid measuring 9 x 5 x 8 mm. A complex nodule in the superior thyroid measuring 10 x 7 x 9 mm. A solid nodule in the mid thyroid measuring 12 x 9 x 12 mm. A complex nodule with foci of calcifications in the inferior thyroid measuring 9 x 4 x 8 mm. LEFT Multiple nodules identified and the largest ones are measured. A complex nodule in the superior thyroid measuring 9 x 7 x 9 mm. A complex nodule seen in the mid thyroid measuring 8 x 6 x 9 mm. A hypoechoic nodule in the inferior thyroid measuring 15 x 7 x 9 mm. A solid nodule in the inferior thyroid adjacent to the isthmus measuring 10 x 7 x 10 mm. 01/26/17 FNA bilateral nodules Benign:Follicular cells and colloid. 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 12/24/2021 Overview: Added automatically from request for surgery [id number] Degeneration of lumbosacral intervertebral disc 10/05/2017 12/24/2021 Overview: Added automatically from request for surgery [id number] Nonallopathic lesion of lumb ar region, not elsewhere classified 11/20/2014 05/01/2016 Bilateral low back pain without sciatica 11/20/2014 09/30/2015 Knee joint replacement by other means 02/23/2011 05/01/2016 S/P complete repair of rotator cuff 05/15/2010 04/30/2016 Dehydration 10/10/2009 04/30/2016 Anemia due to chronic illness 08/12/2009 03/26/2016 Ulcerative colitis 07/31/2009 7 Hemangioma of skin and subcutaneous tissue 06/26/2008 08/01/2015 Inflamed seborrheic keratosis 06/26/2008 08/01/2015 Benign neoplasm of skin of o ther and unspecified parts of face 06/26/2008 08/01/2015 Neoplasm of uncertain behavior of skin 05/15/2008 08/01/2015 Other seborrheic keratosis 05/15/2008 0 08/01/2015 SOLAR LENGINES///DYSCHROMIA OTHER 05/15/2008 08/01/2015 Other chronic 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 05/15/2008 08/01/2015 SALEEM ANGIOMA///NEVUS, NON-NEOPLASTIC 05/15/2008 08/01/2015 Unspecified vitamin D deficiency 04/09/2008 04/30/2016 COLITIS NONINFECTIOUS CHRONIC 02/27/2008 03/26/2016 Abdominal pain, other specified site 02/13/2008 04/30/2016 Diarrhea 02/13/2008 04/30/2016 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 03/26/2016 Enthesopathy of hip region 08/13/2006 0 04/30/2016 documented as of this encounter (statuses as of 01/04/2023) [facility] History of Past illness Narrative* Problem Noted Date Diagnosed Date Resolved Date Carpal tunnel syndrome, right 02/19/2021 02/21/2021 Impaired fasting glucose 02/19/2021 Nuclear senile cataract of both eyes 11/04/2020 12/02/2020 Lumbar stenosis 01/16/2020 12/24/2021 Last Assessment & Plan: Assessment: S/p L1-4 decompression PLAN: -Pain control: dexamethasone added for right leg pain, improving -Continue davol drain -PT recommending no needs at discharge -No postop imaging needed -DVT ppx: continue IPCs, heparin SQ beginning POD2 -Mobilize at least 3x daily, OOB for meals -Anticipate d/c in 1-2 days -D/w Dr. Gibbs Multiple thyroid nodules 04/20/2018 Overview: Multi-nodular goiter with stable nodules, FNA hx benign. No further follow up indicated. 03/24/21 US thyroid: Nodule #1 RUL: stable TR3 no f/u Nodule #2 R lower stable TR2 no f/u Nodule #3 Lower center stable TR4 Nodule #4 LML stable no f/u 05/06/20 US thyroid Nodule #1 RUL, Size: 1.1 x 0.6 x 1 cm; no change, mostly cystic TR3 3: No F/U Nodule #2 R midpole Size: 1.2 x 1 x 1.5 cm; previously 1.1 x 1 x 1.3 cm, solid, hypoechoic TR4 1,2,3,5 year f/u Nodule #3 Left midpole, 1 x 0.8 x 0.7 cm; no change, solid TR3, No FNA or F/U Nodule #4 Left midpole,8 x 6 x 8 mm; no change: Mixed cystic and solid No FNA or F/U 05/05/19 US thyroidMultiple nodules. Nodule #1 RUL: 1.1x1.2x0.7cm 20% increase TR3 1-3-5 year f/u Nodule #2 R midpole 1.3x1.1x1.0cm no change, TR4:1-2-3-5 year f/u; Nodule #3 L [id number]-dryqeki no change, TR3 1-3-5 year f/u Nodule #4 LML 11x9mm TR2 no follow up. 11/12/16 Thyroid NM uptake: bilateral hypervascular nodules. 11/23/16 US: RIGHT: A sonolucent nodule in the superior thyroid measuring 9 x 5 x 8 mm. A complex nodule in the superior thyroid measuring 10 x 7 x 9 mm. A solid nodule in the mid thyroid measuring 12 x 9 x 12 mm. A complex nodule with foci of calcifications in the inferior thyroid measuring 9 x 4 x 8 mm. LEFT Multiple nodules identified and the largest ones are measured. A complex nodule in the superior thyroid measuring 9 x 7 x 9 mm. A complex nodule seen in the mid thyroid measuring 8 x 6 x 9 mm. A hypoechoic nodule in the inferior thyroid measuring 15 x 7 x 9 mm. A solid nodule in the inferior thyroid adjacent to the isthmus measuring 10 x 7 x 10 mm. 01/26/17 FNA bilateral nodules Benign:Follicular cells and colloid. 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 12/24/2021 Overview: Added automatically from request for surgery [id number] Degeneration of lumbosacral intervertebral disc 10/05/2017 12/24/2021 Overview: Added automatically from request for surgery [id number] Nonallopathic lesion of lumb ar region, not elsewhere classified 11/20/2014 05/01/2016 Bilateral low back pain without sciatica 11/20/2014 09/30/2015 Knee joint replacement by other means 02/23/2011 05/01/2016 S/P complete repair of rotator cuff 05/15/2010 04/30/2016 Dehydration 10/10/2009 04/30/2016 Anemia due to chronic illness 08/12/2009 03/26/2016 Ulcerative colitis 07/31/2009 7 Hemangioma of skin and subcutaneous tissue 06/26/2008 08/01/2015 Inflamed seborrheic keratosis 06/26/2008 08/01/2015 Benign neoplasm of skin of o ther and unspecified parts of face 06/26/2008 08/01/2015 Neoplasm of uncertain behavior of skin 05/15/2008 08/01/2015 Other seborrheic keratosis 05/15/2008 0 08/01/2015 SOLAR LENGINES///DYSCHROMIA OTHER 05/15/2008 08/01/2015 Other chronic 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 05/15/2008 08/01/2015 SALEEM ANGIOMA///NEVUS, NON-NEOPLASTIC 05/15/2008 08/01/2015 Unspecified vitamin D deficiency 04/09/2008 04/30/2016 COLITIS NONINFECTIOUS CHRONIC 02/27/2008 03/26/2016 Abdominal pain, other specified site 02/13/2008 04/30/2016 Diarrhea 02/13/2008 04/30/2016 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 03/26/2016 Enthesopathy of hip region 08/13/2006 0 04/30/2016 documented as of this encounter (statuses as of 01/25/2023) [facility]21 History of Past illness Narrative* Problem Noted Date Diagnosed Date Resolved Date Carpal tunnel syndrome, right 02/19/2021 02/21/2021 Impaired fasting glucose 02/19/2021 Nuclear senile cataract of both eyes 11/04/2020 12/02/2020 Lumbar stenosis 01/16/2020 12/24/2021 Last Assessment & Plan: Assessment: S/p L1-4 decompression PLAN: -Pain control: dexamethasone added for right leg pain, improving -Continue davol drain -PT recommending no needs at discharge -No postop imaging needed -DVT ppx: continue IPCs, heparin SQ beginning POD2 -Mobilize at least 3x daily, OOB for meals -Anticipate d/c in 1-2 days -D/w Dr. Gibbs Multiple thyroid nodules 04/20/2018 Overview: Multi-nodular goiter with stable nodules, FNA hx benign. No further follow up indicated. 03/24/21 US thyroid: Nodule #1 RUL: stable TR3 no f/u Nodule #2 R lower stable TR2 no f/u Nodule #3 Lower center stable TR4 Nodule #4 LML stable no f/u 05/06/20 US thyroid Nodule #1 RUL, Size: 1.1 x 0.6 x 1 cm; no change, mostly cystic TR3 3: No F/U Nodule #2 R midpole Size: 1.2 x 1 x 1.5 cm; previously 1.1 x 1 x 1.3 cm, solid, hypoechoic TR4 1,2,3,5 year f/u Nodule #3 Left midpole, 1 x 0.8 x 0.7 cm; no change, solid TR3, No FNA or F/U Nodule #4 Left midpole,8 x 6 x 8 mm; no change: Mixed cystic and solid No FNA or F/U 05/05/19 US thyroidMultiple nodules. Nodule #1 RUL: 1.1x1.2x0.7cm 20% increase TR3 1-3-5 year f/u Nodule #2 R midpole 1.3x1.1x1.0cm no change, TR4:1-2-3-5 year f/u; Nodule #3 L [id number] no change, TR3 1-3-5 year f/u Nodule #4 LML 11x9mm TR2 no follow up. 11/12/16 Thyroid NM uptake: bilateral hypervascular nodules. 11/23/16 US: RIGHT: A sonolucent nodule in the superior thyroid measuring 9 x 5 x 8 mm. A complex nodule in the superior thyroid measuring 10 x 7 x 9 mm. A solid nodule in the mid thyroid measuring 12 x 9 x 12 mm. A complex nodule with foci of calcifications in the inferior thyroid measuring 9 x 4 x 8 mm. LEFT Multiple nodules identified and the largest ones are measured. A complex nodule in the superior thyroid measuring 9 x 7 x 9 mm. A complex nodule seen in the mid thyroid measuring 8 x 6 x 9 mm. A hypoechoic nodule in the inferior thyroid measuring 15 x 7 x 9 mm. A solid nodule in the inferior thyroid adjacent to the isthmus measuring 10 x 7 x 10 mm. 01/26/17 FNA bilateral nodules Benign:Follicular cells and colloid. 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 12/24/2021 Overview: Added automatically from request for surgery [id number] Degeneration of lumbosacral intervertebral disc 10/05/2017 12/24/2021 Overview: Added automatically from request for surgery [id number] Nonallopathic lesion of lumb ar region, not elsewhere classified 11/20/2014 05/01/2016 Bilateral low back pain without sciatica 11/20/2014 09/30/2015 Knee joint replacement by other means 02/23/2011 05/01/2016 S/P complete repair of rotator cuff 05/15/2010 04/30/2016 Dehydration 10/10/2009 04/30/2016 Anemia due to chronic illness 08/12/2009 03/26/2016 Ulcerative colitis 07/31/2009 7 Hemangioma of skin and subcutaneous tissue 06/26/2008 08/01/2015 Inflamed seborrheic keratosis 06/26/2008 08/01/2015 Benign neoplasm of skin of o ther and unspecified parts of face 06/26/2008 08/01/2015 Neoplasm of uncertain behavior of skin 05/15/2008 08/01/2015 Other seborrheic keratosis 05/15/2008 0 08/01/2015 SOLAR LENGINES///DYSCHROMIA OTHER 05/15/2008 08/01/2015 Other chronic 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 05/15/2008 08/01/2015 SALEEM ANGIOMA///NEVUS, NON-NEOPLASTIC 05/15/2008 08/01/2015 Unspecified vitamin D deficiency 04/09/2008 04/30/2016 COLITIS NONINFECTIOUS CHRONIC 02/27/2008 03/26/2016 Abdominal pain, other specified site 02/13/2008 04/30/2016 Diarrhea 02/13/2008 04/30/2016 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 03/26/2016 Enthesopathy of hip region 08/13/2006 0 04/30/2016 documented as of this encounter (statuses as of 02/14/2023) [facility] History of Past illness Narrative* Problem Noted Date Diagnosed Date Resolved Date Carpal tunnel syndrome, right 02/19/2021 02/21/2021 Impaired fasting glucose 02/19/2021 Nuclear senile cataract of both eyes 11/04/2020 12/02/2020 Lumbar stenosis 01/16/2020 12/24/2021 Last Assessment & Plan: Assessment: S/p L1-4 decompression PLAN: -Pain control: dexamethasone added for right leg pain, improving -Continue davol drain -PT recommending no needs at discharge -No postop imaging needed -DVT ppx: continue IPCs, heparin SQ beginning POD2 -Mobilize at least 3x daily, OOB for meals -Anticipate d/c in 1-2 days -D/w Dr. Gibbs Multiple thyroid nodules 04/20/2018 Overview: Multi-nodular goiter with stable nodules, FNA hx benign. No further follow up indicated. 03/24/21 US thyroid: Nodule #1 RUL: stable TR3 no f/u Nodule #2 R lower stable TR2 no f/u Nodule #3 Lower center stable TR4 Nodule #4 LML stable no f/u 05/06/20 US thyroid Nodule #1 RUL, Size: 1.1 x 0.6 x 1 cm; no change, mostly cystic TR3 3: No F/U Nodule #2 R midpole Size: 1.2 x 1 x 1.5 cm; previously 1.1 x 1 x 1.3 cm, solid, hypoechoic TR4 1,2,3,5 year f/u Nodule #3 Left midpole, 1 x 0.8 x 0.7 cm; no change, solid TR3, No FNA or F/U Nodule #4 Left midpole,8 x 6 x 8 mm; no change: Mixed cystic and solid No FNA or F/U 05/05/19 US thyroidMultiple nodules. Nodule #1 RUL: 1.1x1.2x0.7cm 20% increase TR3 1-3-5 year f/u Nodule #2 R midpole 1.3x1.1x1.0cm no change, TR4:1-2-3-5 year f/u; Nodule #3 L [id number]-poshbzp no change, TR3 1-3-5 year f/u Nodule #4 LML 11x9mm TR2 no follow up. 11/12/16 Thyroid NM uptake: bilateral hypervascular nodules. 11/23/16 US: RIGHT: A sonolucent nodule in the superior thyroid measuring 9 x 5 x 8 mm. A complex nodule in the superior thyroid measuring 10 x 7 x 9 mm. A solid nodule in the mid thyroid measuring 12 x 9 x 12 mm. A complex nodule with foci of calcifications in the inferior thyroid measuring 9 x 4 x 8 mm. LEFT Multiple nodules identified and the largest ones are measured. A complex nodule in the superior thyroid measuring 9 x 7 x 9 mm. A complex nodule seen in the mid thyroid measuring 8 x 6 x 9 mm. A hypoechoic nodule in the inferior thyroid measuring 15 x 7 x 9 mm. A solid nodule in the inferior thyroid adjacent to the isthmus measuring 10 x 7 x 10 mm. 01/26/17 FNA bilateral nodules Benign:Follicular cells and colloid. 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 12/24/2021 Overview: Added automatically from request for surgery [id number] Degeneration of lumbosacral intervertebral disc 10/05/2017 12/24/2021 Overview: Added automatically from request for surgery [id number] Nonallopathic lesion of lumb ar region, not elsewhere classified 11/20/2014 05/01/2016 Bilateral low back pain without sciatica 11/20/2014 09/30/2015 Knee joint replacement by other means 02/23/2011 05/01/2016 S/P complete repair of rotator cuff 05/15/2010 04/30/2016 Dehydration 10/10/2009 04/30/2016 Anemia due to chronic illness 08/12/2009 03/26/2016 Ulcerative colitis 07/31/2009 7 Hemangioma of skin and subcutaneous tissue 06/26/2008 08/01/2015 Inflamed seborrheic keratosis 06/26/2008 08/01/2015 Benign neoplasm of skin of o ther and unspecified parts of face 06/26/2008 08/01/2015 Neoplasm of uncertain behavior of skin 05/15/2008 08/01/2015 Other seborrheic keratosis 05/15/2008 0 08/01/2015 SOLAR LENGINES///DYSCHROMIA OTHER 05/15/2008 08/01/2015 Other chronic 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 05/15/2008 08/01/2015 SALEEM ANGIOMA///NEVUS, NON-NEOPLASTIC 05/15/2008 08/01/2015 Unspecified vitamin D deficiency 04/09/2008 04/30/2016 COLITIS NONINFECTIOUS CHRONIC 02/27/2008 03/26/2016 Abdominal pain, other specified site 02/13/2008 04/30/2016 Diarrhea 02/13/2008 04/30/2016 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 03/26/2016 Enthesopathy of hip region 08/13/2006 0 04/30/2016 documented as of this encounter (statuses as of 02/14/2023) [facility] History of Past illness Narrative* Problem Noted Date Diagnosed Date Resolved Date Carpal tunnel syndrome, right 02/19/2021 02/21/2021 Impaired fasting glucose 02/19/2021 Nuclear senile cataract of both eyes 11/04/2020 12/02/2020 Lumbar stenosis 01/16/2020 12/24/2021 Last Assessment & Plan: Assessment: S/p L1-4 decompression PLAN: -Pain control: dexamethasone added for right leg pain, improving -Continue davol drain -PT recommending no needs at discharge -No postop imaging needed -DVT ppx: continue IPCs, heparin SQ beginning POD2 -Mobilize at least 3x daily, OOB for meals -Anticipate d/c in 1-2 days -D/w Dr. Gibbs Multiple thyroid nodules 04/20/2018 Overview: Multi-nodular goiter with stable nodules, FNA hx benign. No further follow up indicated. 03/24/21 US thyroid: Nodule #1 RUL: stable TR3 no f/u Nodule #2 R lower stable TR2 no f/u Nodule #3 Lower center stable TR4 Nodule #4 LML stable no f/u 05/06/20 US thyroid Nodule #1 RUL, Size: 1.1 x 0.6 x 1 cm; no change, mostly cystic TR3 3: No F/U Nodule #2 R midpole Size: 1.2 x 1 x 1.5 cm; previously 1.1 x 1 x 1.3 cm, solid, hypoechoic TR4 1,2,3,5 year f/u Nodule #3 Left midpole, 1 x 0.8 x 0.7 cm; no change, solid TR3, No FNA or F/U Nodule #4 Left midpole,8 x 6 x 8 mm; no change: Mixed cystic and solid No FNA or F/U 05/05/19 US thyroidMultiple nodules. Nodule #1 RUL: 1.1x1.2x0.7cm 20% increase TR3 1-3-5 year f/u Nodule #2 R midpole 1.3x1.1x1.0cm no change, TR4:1-2-3-5 year f/u; Nodule #3 L [id number] no change, TR3 1-3-5 year f/u Nodule #4 LML 11x9mm TR2 no follow up. 11/12/16 Thyroid NM uptake: bilateral hypervascular nodules. 11/23/16 US: RIGHT: A sonolucent nodule in the superior thyroid measuring 9 x 5 x 8 mm. A complex nodule in the superior thyroid measuring 10 x 7 x 9 mm. A solid nodule in the mid thyroid measuring 12 x 9 x 12 mm. A complex nodule with foci of calcifications in the inferior thyroid measuring 9 x 4 x 8 mm. LEFT Multiple nodules identified and the largest ones are measured. A complex nodule in the superior thyroid measuring 9 x 7 x 9 mm. A complex nodule seen in the mid thyroid measuring 8 x 6 x 9 mm. A hypoechoic nodule in the inferior thyroid measuring 15 x 7 x 9 mm. A solid nodule in the inferior thyroid adjacent to the isthmus measuring 10 x 7 x 10 mm. 01/26/17 FNA bilateral nodules Benign:Follicular cells and colloid. 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 12/24/2021 Overview: Added automatically from request for surgery [id number] Degeneration of lumbosacral intervertebral disc 10/05/2017 12/24/2021 Overview: Added automatically from request for surgery [id number] Nonallopathic lesion of lumb ar region, not elsewhere classified 11/20/2014 05/01/2016 Bilateral low back pain without sciatica 11/20/2014 09/30/2015 Knee joint replacement by other means 02/23/2011 05/01/2016 S/P complete repair of rotator cuff 05/15/2010 04/30/2016 Dehydration 10/10/2009 04/30/2016 Anemia due to chronic illness 08/12/2009 03/26/2016 Ulcerative colitis 07/31/2009 7 Hemangioma of skin and subcutaneous tissue 06/26/2008 08/01/2015 Inflamed seborrheic keratosis 06/26/2008 08/01/2015 Benign neoplasm of skin of o ther and unspecified parts of face 06/26/2008 08/01/2015 Neoplasm of uncertain behavior of skin 05/15/2008 08/01/2015 Other seborrheic keratosis 05/15/2008 0 08/01/2015 SOLAR LENGINES///DYSCHROMIA OTHER 05/15/2008 08/01/2015 Other chronic 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 05/15/2008 08/01/2015 SALEEM ANGIOMA///NEVUS, NON-NEOPLASTIC 05/15/2008 08/01/2015 Unspecified vitamin D deficiency 04/09/2008 04/30/2016 COLITIS NONINFECTIOUS CHRONIC 02/27/2008 03/26/2016 Abdominal pain, other specified site 02/13/2008 04/30/2016 Diarrhea 02/13/2008 04/30/2016 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 03/26/2016 Enthesopathy of hip region 08/13/2006 0 04/30/2016 documented as of this encounter (statuses as of 02/20/2023) [facility] History of Past illness Narrative* Problem Noted Date Diagnosed Date Resolved Date Carpal tunnel syndrome, right 02/19/2021 02/21/2021 Impaired fasting glucose 02/19/2021 Nuclear senile cataract of both eyes 11/04/2020 12/02/2020 Lumbar stenosis 01/16/2020 12/24/2021 Last Assessment & Plan: Assessment: S/p L1-4 decompression PLAN: -Pain control: dexamethasone added for right leg pain, improving -Continue davol drain -PT recommending no needs at discharge -No postop imaging needed -DVT ppx: continue IPCs, heparin SQ beginning POD2 -Mobilize at least 3x daily, OOB for meals -Anticipate d/c in 1-2 days -D/w Dr. Gibbs Multiple thyroid nodules 04/20/2018 Overview: Multi-nodular goiter with stable nodules, FNA hx benign. No further follow up indicated. 03/24/21 US thyroid: Nodule #1 RUL: stable TR3 no f/u Nodule #2 R lower stable TR2 no f/u Nodule #3 Lower center stable TR4 Nodule #4 LML stable no f/u 05/06/20 US thyroid Nodule #1 RUL, Size: 1.1 x 0.6 x 1 cm; no change, mostly cystic TR3 3: No F/U Nodule #2 R midpole Size: 1.2 x 1 x 1.5 cm; previously 1.1 x 1 x 1.3 cm, solid, hypoechoic TR4 1,2,3,5 year f/u Nodule #3 Left midpole, 1 x 0.8 x 0.7 cm; no change, solid TR3, No FNA or F/U Nodule #4 Left midpole,8 x 6 x 8 mm; no change: Mixed cystic and solid No FNA or F/U 05/05/19 US thyroidMultiple nodules. Nodule #1 RUL: 1.1x1.2x0.7cm 20% increase TR3 1-3-5 year f/u Nodule #2 R midpole 1.3x1.1x1.0cm no change, TR4:1-2-3-5 year f/u; Nodule #3 L [id number] no change, TR3 1-3-5 year f/u Nodule #4 LML 11x9mm TR2 no follow up. 11/12/16 Thyroid NM uptake: bilateral hypervascular nodules. 11/23/16 US: RIGHT: A sonolucent nodule in the superior thyroid measuring 9 x 5 x 8 mm. A complex nodule in the superior thyroid measuring 10 x 7 x 9 mm. A solid nodule in the mid thyroid measuring 12 x 9 x 12 mm. A complex nodule with foci of calcifications in the inferior thyroid measuring 9 x 4 x 8 mm. LEFT Multiple nodules identified and the largest ones are measured. A complex nodule in the superior thyroid measuring 9 x 7 x 9 mm. A complex nodule seen in the mid thyroid measuring 8 x 6 x 9 mm. A hypoechoic nodule in the inferior thyroid measuring 15 x 7 x 9 mm. A solid nodule in the inferior thyroid adjacent to the isthmus measuring 10 x 7 x 10 mm. 01/26/17 FNA bilateral nodules Benign:Follicular cells and colloid. 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 12/24/2021 Overview: Added automatically from request for surgery [id number] Degeneration of lumbosacral intervertebral disc 10/05/2017 12/24/2021 Overview: Added automatically from request for surgery [id number] Nonallopathic lesion of lumb ar region, not elsewhere classified 11/20/2014 05/01/2016 Bilateral low back pain without sciatica 11/20/2014 09/30/2015 Knee joint replacement by other means 02/23/2011 05/01/2016 S/P complete repair of rotator cuff 05/15/2010 04/30/2016 Dehydration 10/10/2009 04/30/2016 Anemia due to chronic illness 08/12/2009 03/26/2016 Ulcerative colitis 07/31/2009 7 Hemangioma of skin and subcutaneous tissue 06/26/2008 08/01/2015 Inflamed seborrheic keratosis 06/26/2008 08/01/2015 Benign neoplasm of skin of o ther and unspecified parts of face 06/26/2008 08/01/2015 Neoplasm of uncertain behavior of skin 05/15/2008 08/01/2015 Other seborrheic keratosis 05/15/2008 0 08/01/2015 SOLAR LENGINES///DYSCHROMIA OTHER 05/15/2008 08/01/2015 Other chronic 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 05/15/2008 08/01/2015 SALEEM ANGIOMA///NEVUS, NON-NEOPLASTIC 05/15/2008 08/01/2015 Unspecified vitamin D deficiency 04/09/2008 04/30/2016 COLITIS NONINFECTIOUS CHRONIC 02/27/2008 03/26/2016 Abdominal pain, other specified site 02/13/2008 04/30/2016 Diarrhea 02/13/2008 04/30/2016 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 03/26/2016 Enthesopathy of hip region 08/13/2006 0 04/30/2016 documented as of this encounter (statuses as of 03/16/2023) [facility] History of Past illness Narrative* Problem Noted Date Diagnosed Date Resolved Date Carpal tunnel syndrome, right 02/19/2021 02/21/2021 Impaired fasting glucose 02/19/2021 Nuclear senile cataract of both eyes 11/04/2020 12/02/2020 Lumbar stenosis 01/16/2020 12/24/2021 Last Assessment & Plan: Assessment: S/p L1-4 decompression PLAN: -Pain control: dexamethasone added for right leg pain, improving -Continue davol drain -PT recommending no needs at discharge -No postop imaging needed -DVT ppx: continue IPCs, heparin SQ beginning POD2 -Mobilize at least 3x daily, OOB for meals -Anticipate d/c in 1-2 days -D/w Dr. Gibbs Multiple thyroid nodules 04/20/2018 Overview: Multi-nodular goiter with stable nodules, FNA hx benign. No further follow up indicated. 03/24/21 US thyroid: Nodule #1 RUL: stable TR3 no f/u Nodule #2 R lower stable TR2 no f/u Nodule #3 Lower center stable TR4 Nodule #4 LML stable no f/u 05/06/20 US thyroid Nodule #1 RUL, Size: 1.1 x 0.6 x 1 cm; no change, mostly cystic TR3 3: No F/U Nodule #2 R midpole Size: 1.2 x 1 x 1.5 cm; previously 1.1 x 1 x 1.3 cm, solid, hypoechoic TR4 1,2,3,5 year f/u Nodule #3 Left midpole, 1 x 0.8 x 0.7 cm; no change, solid TR3, No FNA or F/U Nodule #4 Left midpole,8 x 6 x 8 mm; no change: Mixed cystic and solid No FNA or F/U 05/05/19 US thyroidMultiple nodules. Nodule #1 RUL: 1.1x1.2x0.7cm 20% increase TR3 1-3-5 year f/u Nodule #2 R midpole 1.3x1.1x1.0cm no change, TR4:1-2-3-5 year f/u; Nodule #3 L [id number]-[id number] no change, TR3 1-3-5 year f/u Nodule #4 LML 11x9mm TR2 no follow up. 11/12/16 Thyroid NM uptake: bilateral hypervascular nodules. 11/23/16 US: RIGHT: A sonolucent nodule in the superior thyroid measuring 9 x 5 x 8 mm. A complex nodule in the superior thyroid measuring 10 x 7 x 9 mm. A solid nodule in the mid thyroid measuring 12 x 9 x 12 mm. A complex nodule with foci of calcifications in the inferior thyroid measuring 9 x 4 x 8 mm. LEFT Multiple nodules identified and the largest ones are measured. A complex nodule in the superior thyroid measuring 9 x 7 x 9 mm. A complex nodule seen in the mid thyroid measuring 8 x 6 x 9 mm. A hypoechoic nodule in the inferior thyroid measuring 15 x 7 x 9 mm. A solid nodule in the inferior thyroid adjacent to the isthmus measuring 10 x 7 x 10 mm. 01/26/17 FNA bilateral nodules Benign:Follicular cells and colloid. 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 12/24/2021 Overview: Added automatically from request for surgery [id number] Degeneration of lumbosacral intervertebral disc 10/05/2017 12/24/2021 Overview: Added automatically from request for surgery [id number] Nonallopathic lesion of lumb ar region, not elsewhere classified 11/20/2014 05/01/2016 Bilateral low back pain without sciatica 11/20/2014 09/30/2015 Knee joint replacement by other means 02/23/2011 05/01/2016 S/P complete repair of rotator cuff 05/15/2010 04/30/2016 Dehydration 10/10/2009 04/30/2016 Anemia due to chronic illness 08/12/2009 03/26/2016 Ulcerative colitis 07/31/2009 7 Hemangioma of skin and subcutaneous tissue 06/26/2008 08/01/2015 Inflamed seborrheic keratosis 06/26/2008 08/01/2015 Benign neoplasm of skin of o ther and unspecified parts of face 06/26/2008 08/01/2015 Neoplasm of uncertain behavior of skin 05/15/2008 08/01/2015 Other seborrheic keratosis 05/15/2008 0 08/01/2015 SOLAR LENGINES///DYSCHROMIA OTHER 05/15/2008 08/01/2015 Other chronic 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 05/15/2008 08/01/2015 SALEEM ANGIOMA///NEVUS, NON-NEOPLASTIC 05/15/2008 08/01/2015 Unspecified vitamin D deficiency 04/09/2008 04/30/2016 COLITIS NONINFECTIOUS CHRONIC 02/27/2008 03/26/2016 Abdominal pain, other specified site 02/13/2008 04/30/2016 Diarrhea 02/13/2008 04/30/2016 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 03/26/2016 Enthesopathy of hip region 08/13/2006 0 04/30/2016 documented as of this encounter (statuses as of 03/16/2023) [facility] History of Past illness Narrative* Problem Noted Date Diagnosed Date Resolved Date Carpal tunnel syndrome, right 02/19/2021 02/21/2021 Impaired fasting glucose 02/19/2021 Nuclear senile cataract of both eyes 11/04/2020 12/02/2020 Lumbar stenosis 01/16/2020 12/24/2021 Last Assessment & Plan: Assessment: S/p L1-4 decompression PLAN: -Pain control: dexamethasone added for right leg pain, improving -Continue davol drain -PT recommending no needs at discharge -No postop imaging needed -DVT ppx: continue IPCs, heparin SQ beginning POD2 -Mobilize at least 3x daily, OOB for meals -Anticipate d/c in 1-2 days -D/w Dr. Gibbs Multiple thyroid nodules 04/20/2018 Overview: Multi-nodular goiter with stable nodules, FNA hx benign. No further follow up indicated. 03/24/21 US thyroid: Nodule #1 RUL: stable TR3 no f/u Nodule #2 R lower stable TR2 no f/u Nodule #3 Lower center stable TR4 Nodule #4 LML stable no f/u 05/06/20 US thyroid Nodule #1 RUL, Size: 1.1 x 0.6 x 1 cm; no change, mostly cystic TR3 3: No F/U Nodule #2 R midpole Size: 1.2 x 1 x 1.5 cm; previously 1.1 x 1 x 1.3 cm, solid, hypoechoic TR4 1,2,3,5 year f/u Nodule #3 Left midpole, 1 x 0.8 x 0.7 cm; no change, solid TR3, No FNA or F/U Nodule #4 Left midpole,8 x 6 x 8 mm; no change: Mixed cystic and solid No FNA or F/U 05/05/19 US thyroidMultiple nodules. Nodule #1 RUL: 1.1x1.2x0.7cm 20% increase TR3 1-3-5 year f/u Nodule #2 R midpole 1.3x1.1x1.0cm no change, TR4:1-2-3-5 year f/u; Nodule #3 L [id number]-vkyqseu no change, TR3 1-3-5 year f/u Nodule #4 LML 11x9mm TR2 no follow up. 11/12/16 Thyroid NM uptake: bilateral hypervascular nodules. 11/23/16 US: RIGHT: A sonolucent nodule in the superior thyroid measuring 9 x 5 x 8 mm. A complex nodule in the superior thyroid measuring 10 x 7 x 9 mm. A solid nodule in the mid thyroid measuring 12 x 9 x 12 mm. A complex nodule with foci of calcifications in the inferior thyroid measuring 9 x 4 x 8 mm. LEFT Multiple nodules identified and the largest ones are measured. A complex nodule in the superior thyroid measuring 9 x 7 x 9 mm. A complex nodule seen in the mid thyroid measuring 8 x 6 x 9 mm. A hypoechoic nodule in the inferior thyroid measuring 15 x 7 x 9 mm. A solid nodule in the inferior thyroid adjacent to the isthmus measuring 10 x 7 x 10 mm. 01/26/17 FNA bilateral nodules Benign:Follicular cells and colloid. 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 12/24/2021 Overview: Added automatically from request for surgery [id number] Degeneration of lumbosacral intervertebral disc 10/05/2017 12/24/2021 Overview: Added automatically from request for surgery [id number] Nonallopathic lesion of lumb ar region, not elsewhere classified 11/20/2014 05/01/2016 Bilateral low back pain without sciatica 11/20/2014 09/30/2015 Knee joint replacement by other means 02/23/2011 05/01/2016 S/P complete repair of rotator cuff 05/15/2010 04/30/2016 Dehydration 10/10/2009 04/30/2016 Anemia due to chronic illness 08/12/2009 03/26/2016 Ulcerative colitis 07/31/2009 7 Hemangioma of skin and subcutaneous tissue 06/26/2008 08/01/2015 Inflamed seborrheic keratosis 06/26/2008 08/01/2015 Benign neoplasm of skin of o ther and unspecified parts of face 06/26/2008 08/01/2015 Neoplasm of uncertain behavior of skin 05/15/2008 08/01/2015 Other seborrheic keratosis 05/15/2008 0 08/01/2015 SOLAR LENGINES///DYSCHROMIA OTHER 05/15/2008 08/01/2015 Other chronic 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 05/15/2008 08/01/2015 SALEEM ANGIOMA///NEVUS, NON-NEOPLASTIC 05/15/2008 08/01/2015 Unspecified vitamin D deficiency 04/09/2008 04/30/2016 COLITIS NONINFECTIOUS CHRONIC 02/27/2008 03/26/2016 Abdominal pain, other specified site 02/13/2008 04/30/2016 Diarrhea 02/13/2008 04/30/2016 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 03/26/2016 Enthesopathy of hip region 08/13/2006 0 04/30/2016 documented as of this encounter (statuses as of 03/19/2023) [facility] History of Past illness Narrative* Problem Noted Date Diagnosed Date Resolved Date Carpal tunnel syndrome, right 02/19/2021 02/21/2021 Impaired fasting glucose 02/19/2021 Nuclear senile cataract of both eyes 11/04/2020 12/02/2020 Lumbar stenosis 01/16/2020 12/24/2021 Last Assessment & Plan: Assessment: S/p L1-4 decompression PLAN: -Pain control: dexamethasone added for right leg pain, improving -Continue davol drain -PT recommending no needs at discharge -No postop imaging needed -DVT ppx: continue IPCs, heparin SQ beginning POD2 -Mobilize at least 3x daily, OOB for meals -Anticipate d/c in 1-2 days -D/w Dr. Gibbs Multiple thyroid nodules 04/20/2018 Overview: Multi-nodular goiter with stable nodules, FNA hx benign. No further follow up indicated. 03/24/21 US thyroid: Nodule #1 RUL: stable TR3 no f/u Nodule #2 R lower stable TR2 no f/u Nodule #3 Lower center stable TR4 Nodule #4 LML stable no f/u 05/06/20 US thyroid Nodule #1 RUL, Size: 1.1 x 0.6 x 1 cm; no change, mostly cystic TR3 3: No F/U Nodule #2 R midpole Size: 1.2 x 1 x 1.5 cm; previously 1.1 x 1 x 1.3 cm, solid, hypoechoic TR4 1,2,3,5 year f/u Nodule #3 Left midpole, 1 x 0.8 x 0.7 cm; no change, solid TR3, No FNA or F/U Nodule #4 Left midpole,8 x 6 x 8 mm; no change: Mixed cystic and solid No FNA or F/U 05/05/19 US thyroidMultiple nodules. Nodule #1 RUL: 1.1x1.2x0.7cm 20% increase TR3 1-3-5 year f/u Nodule #2 R midpole 1.3x1.1x1.0cm no change, TR4:1-2-3-5 year f/u; Nodule #3 L [id number] no change, TR3 1-3-5 year f/u Nodule #4 LML 11x9mm TR2 no follow up. 11/12/16 Thyroid NM uptake: bilateral hypervascular nodules. 11/23/16 US: RIGHT: A sonolucent nodule in the superior thyroid measuring 9 x 5 x 8 mm. A complex nodule in the superior thyroid measuring 10 x 7 x 9 mm. A solid nodule in the mid thyroid measuring 12 x 9 x 12 mm. A complex nodule with foci of calcifications in the inferior thyroid measuring 9 x 4 x 8 mm. LEFT Multiple nodules identified and the largest ones are measured. A complex nodule in the superior thyroid measuring 9 x 7 x 9 mm. A complex nodule seen in the mid thyroid measuring 8 x 6 x 9 mm. A hypoechoic nodule in the inferior thyroid measuring 15 x 7 x 9 mm. A solid nodule in the inferior thyroid adjacent to the isthmus measuring 10 x 7 x 10 mm. 01/26/17 FNA bilateral nodules Benign:Follicular cells and colloid. 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 12/24/2021 Overview: Added automatically from request for surgery [id number] Degeneration of lumbosacral intervertebral disc 10/05/2017 12/24/2021 Overview: Added automatically from request for surgery [id number] Nonallopathic lesion of lumb ar region, not elsewhere classified 11/20/2014 05/01/2016 Bilateral low back pain without sciatica 11/20/2014 09/30/2015 Knee joint replacement by other means 02/23/2011 05/01/2016 S/P complete repair of rotator cuff 05/15/2010 04/30/2016 Dehydration 10/10/2009 04/30/2016 Anemia due to chronic illness 08/12/2009 03/26/2016 Ulcerative colitis 07/31/2009 7 Hemangioma of skin and subcutaneous tissue 06/26/2008 08/01/2015 Inflamed seborrheic keratosis 06/26/2008 08/01/2015 Benign neoplasm of skin of o ther and unspecified parts of face 06/26/2008 08/01/2015 Neoplasm of uncertain behavior of skin 05/15/2008 08/01/2015 Other seborrheic keratosis 05/15/2008 0 08/01/2015 SOLAR LENGINES///DYSCHROMIA OTHER 05/15/2008 08/01/2015 Other chronic 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 05/15/2008 08/01/2015 SALEEM ANGIOMA///NEVUS, NON-NEOPLASTIC 05/15/2008 08/01/2015 Unspecified vitamin D deficiency 04/09/2008 04/30/2016 COLITIS NONINFECTIOUS CHRONIC 02/27/2008 03/26/2016 Abdominal pain, other specified site 02/13/2008 04/30/2016 Diarrhea 02/13/2008 04/30/2016 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 03/26/2016 Enthesopathy of hip region 08/13/2006 0 04/30/2016 documented as of this encounter (statuses as of 03/19/2023) [facility] History of Past illness Narrative* Problem Noted Date Diagnosed Date Resolved Date Carpal tunnel syndrome, right 02/19/2021 02/21/2021 Impaired fasting glucose 02/19/2021 Nuclear senile cataract of both eyes 11/04/2020 12/02/2020 Lumbar stenosis 01/16/2020 12/24/2021 Last Assessment & Plan: Assessment: S/p L1-4 decompression PLAN: -Pain control: dexamethasone added for right leg pain, improving -Continue davol drain -PT recommending no needs at discharge -No postop imaging needed -DVT ppx: continue IPCs, heparin SQ beginning POD2 -Mobilize at least 3x daily, OOB for meals -Anticipate d/c in 1-2 days -D/w Dr. Gibbs Multiple thyroid nodules 04/20/2018 Overview: Multi-nodular goiter with stable nodules, FNA hx benign. No further follow up indicated. 03/24/21 US thyroid: Nodule #1 RUL: stable TR3 no f/u Nodule #2 R lower stable TR2 no f/u Nodule #3 Lower center stable TR4 Nodule #4 LML stable no f/u 05/06/20 US thyroid Nodule #1 RUL, Size: 1.1 x 0.6 x 1 cm; no change, mostly cystic TR3 3: No F/U Nodule #2 R midpole Size: 1.2 x 1 x 1.5 cm; previously 1.1 x 1 x 1.3 cm, solid, hypoechoic TR4 1,2,3,5 year f/u Nodule #3 Left midpole, 1 x 0.8 x 0.7 cm; no change, solid TR3, No FNA or F/U Nodule #4 Left midpole,8 x 6 x 8 mm; no change: Mixed cystic and solid No FNA or F/U 05/05/19 US thyroidMultiple nodules. Nodule #1 RUL: 1.1x1.2x0.7cm 20% increase TR3 1-3-5 year f/u Nodule #2 R midpole 1.3x1.1x1.0cm no change, TR4:1-2-3-5 year f/u; Nodule #3 L [id number] no change, TR3 1-3-5 year f/u Nodule #4 LML 11x9mm TR2 no follow up. 11/12/16 Thyroid NM uptake: bilateral hypervascular nodules. 11/23/16 US: RIGHT: A sonolucent nodule in the superior thyroid measuring 9 x 5 x 8 mm. A complex nodule in the superior thyroid measuring 10 x 7 x 9 mm. A solid nodule in the mid thyroid measuring 12 x 9 x 12 mm. A complex nodule with foci of calcifications in the inferior thyroid measuring 9 x 4 x 8 mm. LEFT Multiple nodules identified and the largest ones are measured. A complex nodule in the superior thyroid measuring 9 x 7 x 9 mm. A complex nodule seen in the mid thyroid measuring 8 x 6 x 9 mm. A hypoechoic nodule in the inferior thyroid measuring 15 x 7 x 9 mm. A solid nodule in the inferior thyroid adjacent to the isthmus measuring 10 x 7 x 10 mm. 01/26/17 FNA bilateral nodules Benign:Follicular cells and colloid. 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 12/24/2021 Overview: Added automatically from request for surgery [id number] Degeneration of lumbosacral intervertebral disc 10/05/2017 12/24/2021 Overview: Added automatically from request for surgery [id number] Nonallopathic lesion of lumb ar region, not elsewhere classified 11/20/2014 05/01/2016 Bilateral low back pain without sciatica 11/20/2014 09/30/2015 Knee joint replacement by other means 02/23/2011 05/01/2016 S/P complete repair of rotator cuff 05/15/2010 04/30/2016 Dehydration 10/10/2009 04/30/2016 Anemia due to chronic illness 08/12/2009 03/26/2016 Ulcerative colitis 07/31/2009 7 Hemangioma of skin and subcutaneous tissue 06/26/2008 08/01/2015 Inflamed seborrheic keratosis 06/26/2008 08/01/2015 Benign neoplasm of skin of o ther and unspecified parts of face 06/26/2008 08/01/2015 Neoplasm of uncertain behavior of skin 05/15/2008 08/01/2015 Other seborrheic keratosis 05/15/2008 0 08/01/2015 SOLAR LENGINES///DYSCHROMIA OTHER 05/15/2008 08/01/2015 Other chronic 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 05/15/2008 08/01/2015 SALEEM ANGIOMA///NEVUS, NON-NEOPLASTIC 05/15/2008 08/01/2015 Unspecified vitamin D deficiency 04/09/2008 04/30/2016 COLITIS NONINFECTIOUS CHRONIC 02/27/2008 03/26/2016 Abdominal pain, other specified site 02/13/2008 04/30/2016 Diarrhea 02/13/2008 04/30/2016 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 03/26/2016 Enthesopathy of hip region 08/13/2006 0 04/30/2016 documented as of this encounter (statuses as of 03/20/2023) [facility] History of Past illness Narrative* Problem Noted Date Diagnosed Date Resolved Date Carpal tunnel syndrome, right 02/19/2021 02/21/2021 Impaired fasting glucose 02/19/2021 Nuclear senile cataract of both eyes 11/04/2020 12/02/2020 Lumbar stenosis 01/16/2020 12/24/2021 Last Assessment & Plan: Assessment: S/p L1-4 decompression PLAN: -Pain control: dexamethasone added for right leg pain, improving -Continue davol drain -PT recommending no needs at discharge -No postop imaging needed -DVT ppx: continue IPCs, heparin SQ beginning POD2 -Mobilize at least 3x daily, OOB for meals -Anticipate d/c in 1-2 days -D/w Dr. Gibbs Multiple thyroid nodules 04/20/2018 Overview: Multi-nodular goiter with stable nodules, FNA hx benign. No further follow up indicated. 03/24/21 US thyroid: Nodule #1 RUL: stable TR3 no f/u Nodule #2 R lower stable TR2 no f/u Nodule #3 Lower center stable TR4 Nodule #4 LML stable no f/u 05/06/20 US thyroid Nodule #1 RUL, Size: 1.1 x 0.6 x 1 cm; no change, mostly cystic TR3 3: No F/U Nodule #2 R midpole Size: 1.2 x 1 x 1.5 cm; previously 1.1 x 1 x 1.3 cm, solid, hypoechoic TR4 1,2,3,5 year f/u Nodule #3 Left midpole, 1 x 0.8 x 0.7 cm; no change, solid TR3, No FNA or F/U Nodule #4 Left midpole,8 x 6 x 8 mm; no change: Mixed cystic and solid No FNA or F/U 05/05/19 US thyroidMultiple nodules. Nodule #1 RUL: 1.1x1.2x0.7cm 20% increase TR3 1-3-5 year f/u Nodule #2 R midpole 1.3x1.1x1.0cm no change, TR4:1-2-3-5 year f/u; Nodule #3 L [id number] no change, TR3 1-3-5 year f/u Nodule #4 LML 11x9mm TR2 no follow up. 11/12/16 Thyroid NM uptake: bilateral hypervascular nodules. 11/23/16 US: RIGHT: A sonolucent nodule in the superior thyroid measuring 9 x 5 x 8 mm. A complex nodule in the superior thyroid measuring 10 x 7 x 9 mm. A solid nodule in the mid thyroid measuring 12 x 9 x 12 mm. A complex nodule with foci of calcifications in the inferior thyroid measuring 9 x 4 x 8 mm. LEFT Multiple nodules identified and the largest ones are measured. A complex nodule in the superior thyroid measuring 9 x 7 x 9 mm. A complex nodule seen in the mid thyroid measuring 8 x 6 x 9 mm. A hypoechoic nodule in the inferior thyroid measuring 15 x 7 x 9 mm. A solid nodule in the inferior thyroid adjacent to the isthmus measuring 10 x 7 x 10 mm. 01/26/17 FNA bilateral nodules Benign:Follicular cells and colloid. 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 12/24/2021 Overview: Added automatically from request for surgery [id number] Degeneration of lumbosacral intervertebral disc 10/05/2017 12/24/2021 Overview: Added automatically from request for surgery [id number] Nonallopathic lesion of lumb ar region, not elsewhere classified 11/20/2014 05/01/2016 Bilateral low back pain without sciatica 11/20/2014 09/30/2015 Knee joint replacement by other means 02/23/2011 05/01/2016 S/P complete repair of rotator cuff 05/15/2010 04/30/2016 Dehydration 10/10/2009 04/30/2016 Anemia due to chronic illness 08/12/2009 03/26/2016 Ulcerative colitis 07/31/2009 7 Hemangioma of skin and subcutaneous tissue 06/26/2008 08/01/2015 Inflamed seborrheic keratosis 06/26/2008 08/01/2015 Benign neoplasm of skin of o ther and unspecified parts of face 06/26/2008 08/01/2015 Neoplasm of uncertain behavior of skin 05/15/2008 08/01/2015 Other seborrheic keratosis 05/15/2008 0 08/01/2015 SOLAR LENGINES///DYSCHROMIA OTHER 05/15/2008 08/01/2015 Other chronic 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 05/15/2008 08/01/2015 SALEEM ANGIOMA///NEVUS, NON-NEOPLASTIC 05/15/2008 08/01/2015 Unspecified vitamin D deficiency 04/09/2008 04/30/2016 COLITIS NONINFECTIOUS CHRONIC 02/27/2008 03/26/2016 Abdominal pain, other specified site 02/13/2008 04/30/2016 Diarrhea 02/13/2008 04/30/2016 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 03/26/2016 Enthesopathy of hip region 08/13/2006 0 04/30/2016 documented as of this encounter (statuses as of 03/24/2023) [facility] History of Past illness Narrative* Problem Noted Date Diagnosed Date Resolved Date Carpal tunnel syndrome, right 02/19/2021 02/21/2021 Impaired fasting glucose 02/19/2021 Nuclear senile cataract of both eyes 11/04/2020 12/02/2020 Lumbar stenosis 01/16/2020 12/24/2021 Last Assessment & Plan: Assessment: S/p L1-4 decompression PLAN: -Pain control: dexamethasone added for right leg pain, improving -Continue davol drain -PT recommending no needs at discharge -No postop imaging needed -DVT ppx: continue IPCs, heparin SQ beginning POD2 -Mobilize at least 3x daily, OOB for meals -Anticipate d/c in 1-2 days -D/w Dr. Gibbs Multiple thyroid nodules 04/20/2018 Overview: Multi-nodular goiter with stable nodules, FNA hx benign. No further follow up indicated. 03/24/21 US thyroid: Nodule #1 RUL: stable TR3 no f/u Nodule #2 R lower stable TR2 no f/u Nodule #3 Lower center stable TR4 Nodule #4 LML stable no f/u 05/06/20 US thyroid Nodule #1 RUL, Size: 1.1 x 0.6 x 1 cm; no change, mostly cystic TR3 3: No F/U Nodule #2 R midpole Size: 1.2 x 1 x 1.5 cm; previously 1.1 x 1 x 1.3 cm, solid, hypoechoic TR4 1,2,3,5 year f/u Nodule #3 Left midpole, 1 x 0.8 x 0.7 cm; no change, solid TR3, No FNA or F/U Nodule #4 Left midpole,8 x 6 x 8 mm; no change: Mixed cystic and solid No FNA or F/U 05/05/19 US thyroidMultiple nodules. Nodule #1 RUL: 1.1x1.2x0.7cm 20% increase TR3 1-3-5 year f/u Nodule #2 R midpole 1.3x1.1x1.0cm no change, TR4:1-2-3-5 year f/u; Nodule #3 L [id number] no change, TR3 1-3-5 year f/u Nodule #4 LML 11x9mm TR2 no follow up. 11/12/16 Thyroid NM uptake: bilateral hypervascular nodules. 11/23/16 US: RIGHT: A sonolucent nodule in the superior thyroid measuring 9 x 5 x 8 mm. A complex nodule in the superior thyroid measuring 10 x 7 x 9 mm. A solid nodule in the mid thyroid measuring 12 x 9 x 12 mm. A complex nodule with foci of calcifications in the inferior thyroid measuring 9 x 4 x 8 mm. LEFT Multiple nodules identified and the largest ones are measured. A complex nodule in the superior thyroid measuring 9 x 7 x 9 mm. A complex nodule seen in the mid thyroid measuring 8 x 6 x 9 mm. A hypoechoic nodule in the inferior thyroid measuring 15 x 7 x 9 mm. A solid nodule in the inferior thyroid adjacent to the isthmus measuring 10 x 7 x 10 mm. 01/26/17 FNA bilateral nodules Benign:Follicular cells and colloid. 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 12/24/2021 Overview: Added automatically from request for surgery [id number] Degeneration of lumbosacral intervertebral disc 10/05/2017 12/24/2021 Overview: Added automatically from request for surgery [id number] Nonallopathic lesion of lumb ar region, not elsewhere classified 11/20/2014 05/01/2016 Bilateral low back pain without sciatica 11/20/2014 09/30/2015 Knee joint replacement by other means 02/23/2011 05/01/2016 S/P complete repair of rotator cuff 05/15/2010 04/30/2016 Dehydration 10/10/2009 04/30/2016 Anemia due to chronic illness 08/12/2009 03/26/2016 Ulcerative colitis 07/31/2009 7 Hemangioma of skin and subcutaneous tissue 06/26/2008 08/01/2015 Inflamed seborrheic keratosis 06/26/2008 08/01/2015 Benign neoplasm of skin of o ther and unspecified parts of face 06/26/2008 08/01/2015 Neoplasm of uncertain behavior of skin 05/15/2008 08/01/2015 Other seborrheic keratosis 05/15/2008 0 08/01/2015 SOLAR LENGINES///DYSCHROMIA OTHER 05/15/2008 08/01/2015 Other chronic 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 05/15/2008 08/01/2015 SALEEM ANGIOMA///NEVUS, NON-NEOPLASTIC 05/15/2008 08/01/2015 Unspecified vitamin D deficiency 04/09/2008 04/30/2016 COLITIS NONINFECTIOUS CHRONIC 02/27/2008 03/26/2016 Abdominal pain, other specified site 02/13/2008 04/30/2016 Diarrhea 02/13/2008 04/30/2016 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 03/26/2016 Enthesopathy of hip region 08/13/2006 0 04/30/2016 documented as of this encounter (statuses as of 03/26/2023) [facility] History of Past illness Narrative* Problem Noted Date Diagnosed Date Resolved Date Carpal tunnel syndrome, right 02/19/2021 02/21/2021 Impaired fasting glucose 02/19/2021 Nuclear senile cataract of both eyes 11/04/2020 12/02/2020 Lumbar stenosis 01/16/2020 12/24/2021 Last Assessment & Plan: Assessment: S/p L1-4 decompression PLAN: -Pain control: dexamethasone added for right leg pain, improving -Continue davol drain -PT recommending no needs at discharge -No postop imaging needed -DVT ppx: continue IPCs, heparin SQ beginning POD2 -Mobilize at least 3x daily, OOB for meals -Anticipate d/c in 1-2 days -D/w Dr. Gibbs Multiple thyroid nodules 04/20/2018 Overview: Multi-nodular goiter with stable nodules, FNA hx benign. No further follow up indicated. 03/24/21 US thyroid: Nodule #1 RUL: stable TR3 no f/u Nodule #2 R lower stable TR2 no f/u Nodule #3 Lower center stable TR4 Nodule #4 LML stable no f/u 05/06/20 US thyroid Nodule #1 RUL, Size: 1.1 x 0.6 x 1 cm; no change, mostly cystic TR3 3: No F/U Nodule #2 R midpole Size: 1.2 x 1 x 1.5 cm; previously 1.1 x 1 x 1.3 cm, solid, hypoechoic TR4 1,2,3,5 year f/u Nodule #3 Left midpole, 1 x 0.8 x 0.7 cm; no change, solid TR3, No FNA or F/U Nodule #4 Left midpole,8 x 6 x 8 mm; no change: Mixed cystic and solid No FNA or F/U 05/05/19 US thyroidMultiple nodules. Nodule #1 RUL: 1.1x1.2x0.7cm 20% increase TR3 1-3-5 year f/u Nodule #2 R midpole 1.3x1.1x1.0cm no change, TR4:1-2-3-5 year f/u; Nodule #3 L egg-[id number] no change, TR3 1-3-5 year f/u Nodule #4 LML 11x9mm TR2 no follow up. 11/12/16 Thyroid NM uptake: bilateral hypervascular nodules. 11/23/16 US: RIGHT: A sonolucent nodule in the superior thyroid measuring 9 x 5 x 8 mm. A complex nodule in the superior thyroid measuring 10 x 7 x 9 mm. A solid nodule in the mid thyroid measuring 12 x 9 x 12 mm. A complex nodule with foci of calcifications in the inferior thyroid measuring 9 x 4 x 8 mm. LEFT Multiple nodules identified and the largest ones are measured. A complex nodule in the superior thyroid measuring 9 x 7 x 9 mm. A complex nodule seen in the mid thyroid measuring 8 x 6 x 9 mm. A hypoechoic nodule in the inferior thyroid measuring 15 x 7 x 9 mm. A solid nodule in the inferior thyroid adjacent to the isthmus measuring 10 x 7 x 10 mm. 01/26/17 FNA bilateral nodules Benign:Follicular cells and colloid. 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 12/24/2021 Overview: Added automatically from request for surgery [id number] Degeneration of lumbosacral intervertebral disc 10/05/2017 12/24/2021 Overview: Added automatically from request for surgery [id number] Nonallopathic lesion of lumb ar region, not elsewhere classified 11/20/2014 05/01/2016 Bilateral low back pain without sciatica 11/20/2014 09/30/2015 Knee joint replacement by other means 02/23/2011 05/01/2016 S/P complete repair of rotator cuff 05/15/2010 04/30/2016 Dehydration 10/10/2009 04/30/2016 Anemia due to chronic illness 08/12/2009 03/26/2016 Ulcerative colitis 07/31/2009 7 Hemangioma of skin and subcutaneous tissue 06/26/2008 08/01/2015 Inflamed seborrheic keratosis 06/26/2008 08/01/2015 Benign neoplasm of skin of o ther and unspecified parts of face 06/26/2008 08/01/2015 Neoplasm of uncertain behavior of skin 05/15/2008 08/01/2015 Other seborrheic keratosis 05/15/2008 0 08/01/2015 SOLAR LENGINES///DYSCHROMIA OTHER 05/15/2008 08/01/2015 Other chronic 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 05/15/2008 08/01/2015 SALEEM ANGIOMA///NEVUS, NON-NEOPLASTIC 05/15/2008 08/01/2015 Unspecified vitamin D deficiency 04/09/2008 04/30/2016 COLITIS NONINFECTIOUS CHRONIC 02/27/2008 03/26/2016 Abdominal pain, other specified site 02/13/2008 04/30/2016 Diarrhea 02/13/2008 04/30/2016 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 03/26/2016 Enthesopathy of hip region 08/13/2006 0 04/30/2016 documented as of this encounter (statuses as of 03/26/2023) [facility] NoteHNO ID: [id number] Author: Prabhakar Ceron MD Service: ? Author Type: Physician Type: Progress Notes Filed: 12/25/2020 10:30 AM Note Text: NEUROSURGERY FOLLOW UP OFFICE NOTE Prabhakar Ceron MD Date of visit: December 25, 2020 Patient Name: Ms.Judith Mitzi Mcgarry Date of : 1940 Current Age: [age] year old Sex: female MRN/E# [id number] Last Office Visit: 12/10/2020 Chief Complaint: Patient presents with: Established Patient SUBJECTIVE: Ms. Mcgarry presents to the office today for a follow up visit with imaging for evaluation of neck pain. She was last seen on 12/10/2020 with complaints of progressively worsening bilateral hand numbness, limited cervical rotation, and clumsiness of the right hand. She was sent for an MRI AND x-rays of the cervical spine. Today she states her symptoms are unchanged. She notes increased numbness of the right upper extremity, especially when sleeping. She presents for evaluation and plan of care. Symptoms: neck pain, gait imbalance ? PREVIOUS CONSERVATIVE TREATMENTS: None ? PREVIOUS SURGERY: SURGERY: posterior cervical surgery 1982 SURGERY: L1-4 posterior decompression Mar 2020- Dr. 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 / [facility] - Actinic keratosis 06/22/2008 - Degeneration of lumbar or lumbosacral intervertebral disc 08/13/2006 - Diarrhea patient has a J pouch - Enthesopathy of hip region 08/13/2006 - Hyperparathyroidism (HCC) - Knee joint replacement by other means 02/23/2011 right - Other and unspecified hyperlipidemia 04/09/2008 - PMH - PAST MEDICAL HISTORY OF right torn rotator cuff - Pseudophakia of left eye 11/2020 - Pseudophakia of right eye 11/04/2020 Dr. Emily MD - S/P complete repair of rotator cuff 05/15/2010 right arm - Ulcerative colitis, unspecified - Unspecified vitamin D deficiency 04/09/2008 PAST SURGICAL HISTORY Procedure Laterality Date - CATARACT EXTRACTION W/ INTRAOCULAR LENS IMPLANT HX Right 11/04/2020 Dr. Emily MD - COLONOSCOP W/ OR W/O [facility] SPEC 01/1999 Colonoscopy - COLONOSCOP W/ OR W/O [facility] SPEC 02/13/2008 Colonoscopy - COLONOSCOP W/ OR W/O [facility] SPEC 05/17/2017 Colonoscopy - COLONOSCOP W/ OR W/O [facility] SPEC 06/27/2018 pouchoscopy - COLONOSCOPY W/BX 07/31/2009 - EGD W/O OR W/BRUSH/WASH 06/27/2018 EGD - LAMINOTOMY (HEMILAMINECTOMY), WITH DECOMPRESSION OF NERVE ROOT(S) 01/16/2020 Partial L1, complete L2, complete L3, complete L4 laminectomy with decompression of neural elements from L1-L4 - LAPAROSCOPIC CHOLEYCYSTECTOMY Cholecystectomy, lap - PAST SURGICAL HISTORY OF 2007 right hip replacement - PAST SURGICAL HISTORY OF 08/13/2009 exp lap, TPC and IPAA. Colectomy, ileostomy with J pouch, takedown 7-10 - PAST SURGICAL HISTORY OF cervical calcium deposits removed surgically, foraminotomy? - POUCHOSCOPY 02/03/2016 - REMOVAL OF OVARY(S) Left Oophorectomy - REMV CATARACT EXTRACAP,INSERT LENS Left 12/02/2020 - REPAIR ROTATOR CUFF,ACUTE Right 04/12/2010 Rotator cuff repair - SIGMOIDOSCOPY FLEX DIAG 05/28/2008 - SIGMOIDOSCOPY FLEX DIAG 10/01/2011 epeat 1 year - SIGMOIDOSCOPY FLEX DIAG 07/03/2013 Sigmoidoscopy, flexible - SIGMOIDOSCOPY FLEX DIAG 12/10/2014 Sigmoidoscopy, flexible - SIGMOIDOSCOPY FLEX DIAG Sigmoidoscopy, flexible - TOTAL HIP REPLACEMENT 06/27/2012 left hip - TOTAL KNEE REPLACEMENT 02/16/2011 Knee replacement, total right [facility] Dr. Gimenez FAMILY HISTORY Problem Relation Age of Onset - Cancer Brother lung - Diabetes Father - Cancer Paternal Grandmother lung - Alcohol/Drug Mother liver cirrhosis - No Ocular Disease No Family History ALLERGIES No Known Allergies Current Outpatient Medications Medication Sig Dispense Refill - traMADol (ULTRAM) 50 mg tablet TAKE 1 TABLET BY MOUTH EVERY 12 HOURS NEEDED FOR PAIN 180 tablet 0 - vitamin B complex (B COMPLEX-100 ORAL) Take by mouth. - vit A/vit C/vit E/zinc/copper (PRESERVISION AREDS ORAL) Take by mouth. - gabapentin (NEURONTIN) 100 mg capsule TITRATE DIRECTED. INCREASE BY 1 CAPSULE EVERY 5 DAYS, UNTIL GOAL DOSE OF 3 CAPSULES BY MOUTH THREE TIMES A DAY. 810 capsule 1 - traZODone (DESYREL) 100 mg tablet TAKE 1 TABLET BY MOUTH DAILY AT BEDTIME. 90 tablet 3 - omeprazole (PRILOSEC) 40 mg capsule Take 1 capsule by mouth once daily. 90 capsule 3 - ergocalciferol 50,000 unit capsule (VITAMIN D2, DRISDOL) Take 1 capsule by mouth two times a week. 24 capsule 3 - ammonium lactate/emu oil (EMU-LAC TOPICAL) Apply 1 application to affected area as needed. - prednisoLONE acetate (PRED FORTE, ECONOPRED PLUS) 1 % ophthalmic suspensio (more content not included)...[facility]08-31-2021 NoteHNO ID: [id number] Author: Prabhakar Ceron MD Service: ? Author Type: Physician Type: Progress Notes Filed: 12/10/2020 9:33 AM Note Text: NEUROSURGERY CONSULT NOTE Prabhakar Ceron MD Date of visit: December 10, 2020 Patient Name: Ms.Judith Mitzi Mcgarry Date of : 1940 Current Age: [age] year old Sex: female MRN/E# [id number] Chief Complaint: Patient presents with: New Patient HISTORY OF PRESENT ILLNESS : The patient is a 80 year old, right handed female with a past medical history of ulcerative colitis, bilateral hip replacements, right rotator cuff repair, and lumbar laminectomy, who is referred by Dr. Blanchard for neurosurgical evaluation. Ms. Mcgarry presents to the office today as a new patient with imaging for evaluation of neck pain. She describes long standing of neck pain progressively worsening with bilateral hand numbness, limited cervical rotation, and clumsiness of the right hand. She presents today for evaluation and plan of care. Symptoms: neck pain, gait imbalance PREVIOUS CONSERVATIVE TREATMENTS: None PREVIOUS SURGERY: SURGERY: posterior cervical surgery 1982 SURGERY: L1-4 posterior decompression Mar 2020- Dr. 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 / [facility] - Actinic keratosis 06/22/2008 - Degeneration of lumbar or lumbosacral intervertebral disc 08/13/2006 - Diarrhea patient has a J pouch - Enthesopathy of hip region 08/13/2006 - Hyperparathyroidism (HCC) - Knee joint replacement by other means 02/23/2011 right - Other and unspecified hyperlipidemia 04/09/2008 - PMH - PAST MEDICAL HISTORY OF right torn rotator cuff - Pseudophakia of right eye 11/04/2020 Dr. Emily MD - S/P complete repair of rotator cuff 05/15/2010 right arm - Ulcerative colitis, unspecified - Unspecified vitamin D deficiency 04/09/2008 PAST SURGICAL HISTORY Procedure Laterality Date - CATARACT EXTRACTION W/ INTRAOCULAR LENS IMPLANT HX Right 11/04/2020 Dr. Emily MD - COLONOSCOP W/ OR W/O BRSH SPEC 01/1999 Colonoscopy - COLONOSCOP W/ OR W/O BRSH SPEC 02/13/2008 Colonoscopy - COLONOSCOP W/ OR W/O BRSH SPEC 05/17/2017 Colonoscopy - COLONOSCOP W/ OR W/O BRSH SPEC 06/27/2018 pouchoscopy - COLONOSCOPY W/BX 07/31/2009 - EGD W/O OR W/BRUSH/WASH 06/27/2018 EGD - LAMINOTOMY (HEMILAMINECTOMY), WITH DECOMPRESSION OF NERVE ROOT(S) 01/16/2020 Partial L1, complete L2, complete L3, complete L4 laminectomy with decompression of neural elements from L1-L4 - LAPAROSCOPIC CHOLEYCYSTECTOMY Cholecystectomy, lap - PAST SURGICAL HISTORY OF 2007 right hip replacement - PAST SURGICAL HISTORY OF 08/13/2009 exp lap, TPC and IPAA. Colectomy, ileostomy with J pouch, takedown 7-10 - PAST SURGICAL HISTORY OF cervical calcium deposits removed surgically, foraminotomy? - POUCHOSCOPY 02/03/2016 - REMOVAL OF OVARY(S) Left Oophorectomy - REMV CATARACT EXTRACAP,INSERT LENS Left 12/02/2020 - REPAIR ROTATOR CUFF,ACUTE Right 04/12/2010 Rotator cuff repair - SIGMOIDOSCOPY FLEX DIAG 05/28/2008 - SIGMOIDOSCOPY FLEX DIAG 10/01/2011 epeat 1 year - SIGMOIDOSCOPY FLEX DIAG 07/03/2013 Sigmoidoscopy, flexible - SIGMOIDOSCOPY FLEX DIAG 12/10/2014 Sigmoidoscopy, flexible - SIGMOIDOSCOPY FLEX DIAG Sigmoidoscopy, flexible - TOTAL HIP REPLACEMENT 06/27/2012 left hip - TOTAL KNEE REPLACEMENT 02/16/2011 Knee replacement, total right [facility] Dr. Gimenez FAMILY HISTORY Problem Relation Age of Onset - Cancer Brother lung - Diabetes Father - Cancer Paternal Grandmother lung - Alcohol/Drug Mother liver cirrhosis - No Ocular Disease No Family History ALLERGIES No Known Allergies Current Outpatient Medications Medication Sig Dispense Refill - traMADol (ULTRAM) 50 mg tablet TAKE 1 TABLET BY MOUTH EVERY 12 HOURS NEEDED FOR PAIN 180 tablet 0 - vitamin B complex (B COMPLEX-100 ORAL) Take by mouth. - vit A/vit C/vit E/zinc/copper (PRESERVISION AREDS ORAL) Take by mouth. - gabapentin (NEURONTIN) 100 mg capsule TITRATE DIRECTED. INCREASE BY 1 CAPSULE EVERY 5 DAYS, UNTIL GOAL DOSE OF 3 CAPSULES BY MOUTH THREE TIMES A DAY. 810 capsule 1 - moxifloxacin (VIGAMOX) 0.5 % ophthalmic solution Use 1 Drop in the right eye four times daily. Start 2 days before surgery, then continue afterwards. 3 mL 2 - keTORolac (ACULAR) 0.5 % ophthalmic solution Use 1 Drop in the right eye four times daily. Start 2 days before surgery, then continue afterwards. 5 mL 2 - traZODone (DESYREL) 100 mg tablet TAKE 1 TABLET BY MOUTH DAILY AT BEDTIME. 90 tablet 3 - moxifloxacin (VIGAMOX) 0.5 % ophthalmic solution Use 1 Drop in the left eye four rebekah (more content not included)...[facility] Evaluation note* Diagnosis Elevated liver enzymes Other nonspecific abnormal serum enzyme levels [facility] Diagnosis Chronic pain syndrome Type 2 diabetes mellitus without complication, without long-term current use of insulin (HCC) Chronic superficial gastritis without bleeding Atrophic gastritis without mention of hemorrhage Vitamin D deficiency Unspecified vitamin D deficiency [facility] Diagnosis Vitamin D deficiency Unspecified vitamin D deficiency [facility] Iron deficiency anemia secondary to inadequate dietary iron intake- Primary 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 [facility] Diagnosis Iron deficiency anemia secondary to inadequate dietary iron intake- Primary [facility] Diagnosis Hyperparathyroidism (HCC)- Primary Hyperparathyroidism, unspecified [facility]* Diagnosis Adverse effect of proton pump inhibitor- Primary Lightheadedness Dizziness and giddiness Near syncope Syncope and collapse Orthostatic hypotension Hyperlipidemia, mixed Mixed hyperlipidemia Hyperparathyroidism (HCC) Hyperparathyroidism, unspecified Hypercalcemia Vitamin D deficiency Unspecified vitamin D deficiency Disorder of bone and cartilage Disorder of bone and cartilage, unspecified Primary insomnia Persistent disorder of initiating or maintaining sleep H/O total colectomy Other postprocedural status 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 Iron deficiency anemia secondary to inadequate dietary iron intake Multiple thyroid nodules Nontoxic multinodular goiter Fibromyalgia Mylagia and myositis, unspecified Foraminal stenosis of cervical region Spinal stenosis in cervical region Degenerative disc disease, cervical Degeneration of cervical intervertebral disc Facet arthritis of cervical region Cervical spondylosis without myelopathy Spondylosis of lumbar region without myelopathy or radiculopathy Lumbosacral spondylosis without myelopathy Spinal stenosis, lumbar region, with neurogenic claudication Degeneration of lumbar or lumbosacral intervertebral disc Facet arthritis of lumbar region Lumbosacral spondylosis without myelopathy Spondylarthrosis Spondylosis of unspecified site without mention of myelopathy Chronic right SI joint pain Disorders of sacrum Type 2 diabetes mellitus with complication, without long-term current use of insulin ([facility]) documented in this encounter [facility]* Diagnosis Intermediate stage nonexudative age-related macular degeneration of both eyes- Primary RPE (retinal pigment epithelium) atrophy Dystrophies primarily involving the retinal pigment epithelium Posterior vitreous detachment of both eyes Vitreous degeneration Dry eye syndrome of both eyes Pseudophakia of both eyes Lens replaced by other means documented in this encounter [facility] note* Diagnosis Vaginal yeast infection- Primary Candidiasis of vulva and vagina [facility] Diagnosis Iron deficiency anemia secondary to inadequate dietary iron intake- Primary 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 documented in this encounter [facility]* Diagnosis Type 2 diabetes mellitus with complication, without long-term current use of insulin ([facility])- Primary Orthostatic hypotension Near syncope Syncope and collapse Lightheadedness Dizziness and giddiness Hyperlipidemia, mixed Mixed hyperlipidemia Hyperparathyroidism (HCC) Hyperparathyroidism, unspecified Hypercalcemia H/O total colectomy Other postprocedural status Iron deficiency anemia secondary to inadequate dietary iron intake 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 Foraminal stenosis of cervical region Spinal stenosis in cervical region Facet arthritis of cervical region Cervical spondylosis without myelopathy Degenerative disc disease, cervical Degeneration of cervical intervertebral disc Chronic right SI joint pain Disorders of sacrum Spinal stenosis, lumbar region, with neurogenic claudication Spondylosis of lumbar region without myelopathy or radiculopathy Lumbosacral spondylosis without myelopathy Facet arthritis of lumbar region Lumbosacral spondylosis without myelopathy Fibromyalgia Mylagia and myositis, unspecified Primary insomnia Persistent disorder of initiating or maintaining sleep Vitamin D deficiency Unspecified vitamin D deficiency Chronic superficial gastritis without bleeding Atrophic gastritis without mention of hemorrhage Current use of proton pump inhibitor Encounter for long-term (current) use of other medications [facility] Diagnosis Type 2 diabetes mellitus with complication, without long-term current use of insulin (HCC)- Primary [facility]* Diagnosis Fibromyalgia Mylagia and myositis, unspecified Chronic superficial gastritis without bleeding Atrophic gastritis without mention of hemorrhage Chronic pain syndrome [facility]* Diagnosis Piriformis syndrome, right- Primary Hip injury, right, initial encounter Subacromial bursitis of left shoulder joint Facet arthritis of cervical region Cervical spondylosis without myelopathy Degenerative disc disease, cervical Degeneration of cervical intervertebral disc Fibromyalgia Mylagia and myositis, unspecified Neck pain, chronic Cervicalgia Spinal stenosis, lumbar region, with neurogenic claudication [facility] Diagnosis Hip injury, right, initial encounter [facility] Diagnosis Hip injury, right, initial encounter [facility]* Diagnosis Iron deficiency anemia secondary to inadequate dietary iron intake- Primary [facility] Diagnosis Iron deficiency anemia secondary to inadequate dietary iron intake- Primary [facility]* Diagnosis Pain- Primary Generalized pain [facility]* Diagnosis Iron deficiency anemia secondary to inadequate dietary iron intake- Primary 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 [facility] Diagnosis Nonexudative age-related macular degeneration, bilateral, advanced atrophic without subfoveal involvement- Primary Bilateral pseudophakia Lens replaced by other means PVD (posterior vitreous detachment), bilateral [facility] Diagnosis Iron deficiency anemia secondary to inadequate dietary iron intake- Primary 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 [facility] Diagnosis Fibromyalgia Mylagia and myositis, unspecified [facility] Diagnosis Low vision right eye category 1, low vision left eye category 1- Primary Bilateral pseudophakia Lens replaced by other means Regular astigmatism of both eyes Regular astigmatism Dry eye syndrome of both eyes [facility]* Diagnosis Orthostatic hypotension- Primary Near syncope Syncope and collapse Lightheadedness Dizziness and giddiness Hyperlipidemia, mixed Mixed hyperlipidemia Type 2 diabetes mellitus with complication, without long-term current use of insulin (HCC) Hyperparathyroidism (HCC) Hyperparathyroidism, unspecified Hypercalcemia Vitamin D deficiency Unspecified vitamin D deficiency Ulcerative pancolitis with complication (HCC) H/O total colectomy Other postprocedural status Iron deficiency anemia secondary to inadequate dietary iron intake 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 Foraminal stenosis of cervical region Spinal stenosis in cervical region Facet arthritis of cervical region Cervical spondylosis without myelopathy Chronic right SI joint pain Disorders of sacrum Spinal stenosis, lumbar region, with neurogenic claudication Degenerative disc disease, cervical Degeneration of cervical intervertebral disc Facet arthritis of lumbar region Lumbosacral spondylosis without myelopathy Spondylosis of lumbar region without myelopathy or radiculopathy Lumbosacral spondylosis without myelopathy Primary insomnia Persistent disorder of initiating or maintaining sleep Seborrheic keratosis Other seborrheic keratosis [facility]* Diagnosis Incisional hernia, without obstruction or gangrene- Primary Incisional hernia without mention of obstruction or gangrene [facility] Diagnosis Incisional hernia, without obstruction or gangrene Incisional hernia without mention of obstruction or gangrene [facility] Diagnosis Incisional hernia, without obstruction or gangrene- Primary Incisional hernia without mention of obstruction or gangrene [facility] Diagnosis Pre-operative examination- Primary Preoperative examination, unspecified Iron deficiency anemia secondary to inadequate dietary iron intake Hypercalcemia Ulcerative pancolitis with complication (HCC) Type 2 diabetes mellitus with complication, without long-term current use of insulin (HCC) Orthostatic hypotension Neck pain, chronic Cervicalgia Hyperparathyroidism (HCC) Hyperparathyroidism, unspecified Near syncope Syncope and collapse Hyperlipidemia, mixed Mixed hyperlipidemia History of gastric ulcer Personal history of other diseases of digestive system Fibromyalgia Mylagia and myositis, unspecified Elevated LFTs Other abnormal blood chemistry Former smoker Personal history of tobacco use, presenting hazards to health History of total hip replacement, bilateral History of total knee replacement, right Incisional hernia, without obstruction or gangrene Incisional hernia without mention of obstruction or gangrene [facility]* Diagnosis Hypercalcemia- Primary Incisional hernia, without obstruction or gangrene Incisional hernia without mention of obstruction or gangrene [facility] Diagnosis Primary hyperparathyroidism (HCC)- Primary Primary hyperparathyroidism Serum calcium elevated Hypercalcemia Incisional hernia, without obstruction or gangrene Incisional hernia without mention of obstruction or gangrene [facility]* Diagnosis Hypercalcemia- Primary Incisional hernia, without obstruction or gangrene Incisional hernia without mention of obstruction or gangrene [facility]* Diagnosis Hypercalcemia- Primary Hyperparathyroidism (HCC) Hyperparathyroidism, unspecified Incisional hernia, without obstruction or gangrene Incisional hernia without mention of obstruction or gangrene [facility]* Diagnosis Iron deficiency anemia secondary to inadequate dietary iron intake- Primary Rupture of left proximal biceps tendon, initial encounter Traumatic tear of left rotator cuff, unspecified tear extent, initial encounter 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 Hypercalcemia Incisional hernia, without obstruction or gangrene Incisional hernia without mention of obstruction or gangrene documented in this encounter [facility] for referral (narrative)* Diagnostic Procedure Only (Routine) - Closed Specialty Diagnoses / Procedures Referred By Blanca kamara Referred To Contact US IMAGING Diagnoses Elevated liver enzymes Procedures US ABD RT UPPER QUADRANT US ABDOMINAL REAL TIME W/IMAGE LIMITED Alice Goode PA-C [id number] [place] [address] Us Imaging Referral ID Status Reason Start Date Expiration Date V isits Requested Visits Authorized [id number] Closed Auto-Generate d Referral 06/25/2021 07/25/2022 1 1 [facility] for referral (narrative)* Diagnostic Procedure Only (Routine) - Pending Review Specialty Diagnoses / Procedures Referred By Contac t Referred To Contact XR IMAGING Diagnoses Pain Procedures XR SHOULDER GENERAL 3V OR MORE AP/TRUE AP/OTHER LEFT RADEX SHOULDER COMPLETE MINIMUM 2 VIEWS Dawna Wick PA-C [id number] [place] [address] Xr Imaging Referral ID Status Reason Start Date Expiration Date Visits Requested Visits Authorized [id number] Pending Review Auto-Generat ed Referral 11/09/2022 12/09/2023 1 1 [facility] for visit Narrative* Diagnostic Procedure Only (Routine) - Closed Specialty Diagnoses / Procedures Referred By Contac t Referred To Contact US IMAGING Diagnoses Elevated liver enzymes Procedures US ABD RT UPPER QUADRANT US ABDOMINAL REAL TIME W/IMAGE LIMITED Alice Goode PA-C [id number] [place] [address] Us Imaging Referral ID Status Reason Start Date Expiration Date V isits Requested Visits Authorized [id number] Closed Auto-Generate d Referral 06/25/2021 07/25/2022 1 1 [facility] Summary Purpose Family History No Family History Records FoundNo Family History Records FoundNo Family History Records FoundNo Family History Records FoundNo Family History Records FoundNo Family History Records FoundNo Family History Records Found Advance Directives No Advanced Directives Records FoundDocuments on File Type Date 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 Advance Directive(s) 02/21/2021 11:25 AM Advance Directive(s) 12/02/2020 8:54 AM Advance Directive(s) 11/04/2020 7:50 AM Advance Directive(s) 06/25/2020 9:40 AM Advance Directive(s) 01/08/2020 1:19 PM Advance Directive(s) 09/18/2019 7:29 AM Advance Directive(s) 09/05/2019 9:53 AM Advance Directive(s) 12/20/2018 10:14 AM Advance Directive(s) 11/29/2018 11:49 AM Advance Directive(s) 11/08/2018 7:03 AM Advance Directive(s) 10/14/2018 1:36 PM Advance Directive(s) 06/27/2018 7:54 AM Advance Directive(s) 03/22/2018 12:56 PM Advance Directive(s) 03/04/2018 8:15 AM Advance Directive(s) 01/18/2018 9:16 AM Advance Directive(s) 10/26/2017 10:25 AM Advance Directive(s) 08/24/2017 8:20 AM Advance Directive(s) 05/17/2017 2:01 PM Advance Directive(s) 04/27/2017 9:19 AM Advance Directive(s) 03/02/2017 11:13 AM Advance Directive(s) 02/23/2017 10:08 AM Advance Directive(s) 12/09/2016 6:43 AM Advance Directive(s) 02/03/2016 9:42 AM Advance Directive(s) 01/28/2016 10:52 AM Advance Directive(s) 10/11/2009 10:00 PM Documents on File Type Date Recorded 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 Advance Directive(s) 02/21/2021 11:25 AM Advance Directive(s) 12/02/2020 8:54 AM Advance Directive(s) 11/04/2020 7:50 AM Advance Directive(s) 06/25/2020 9:40 AM Advance Directive(s) 01/08/2020 1:19 PM Advance Directive(s) 09/18/2019 7:29 AM Advance Directive(s) 09/05/2019 9:53 AM Advance Directive(s) 12/20/2018 10:14 AM Advance Directive(s) 11/29/2018 11:49 AM Advance Directive(s) 11/08/2018 7:03 AM Advance Directive(s) 10/14/2018 1:36 PM Advance Directive(s) 06/27/2018 7:54 AM Advance Directive(s) 03/22/2018 12:56 PM Advance Directive(s) 03/04/2018 8:15 AM Advance Directive(s) 01/18/2018 9:16 AM Advance Directive(s) 10/26/2017 10:25 AM Advance Directive(s) 08/24/2017 8:20 AM Advance Directive(s) 05/17/2017 2:01 PM Advance Directive(s) 04/27/2017 9:19 AM Advance Directive(s) 03/02/2017 11:13 AM Advance Directive(s) 02/23/2017 10:08 AM Advance Directive(s) 12/09/2016 6:43 AM Advance Directive(s) 02/03/2016 9:42 AM Advance Directive(s) 01/28/2016 10:52 AM Advance Directive(s) 10/11/2009 10:00 PM Documents on File Type Date Recorded 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 In the event of a Fluress shortage, administer Roulette-Fluor 1 drop into both eyes as directed for applanation tonometry, [facility] MED ORDERS Given 12/29/2021 11:00 AM EDT 1 Drop PHENYLephrine 2.5 % 1 Drop (AK-DILATE, TONYA-SYNEPHRINE) 1 Drop, BOTH EYES, DIRECTED, Starting on Wed12/29/21 at 1100, Until Wed12/29/21 at 2259, Administer for dilation PROTECT FROM LIGHT, [facility] MED ORDERS Given 12/29/2021 11:00 AM EDT 1 Drop tropicamide 1 % 1 Drop (MYDRIACYL) 1 Drop, BOTH EYES, DIRECTED, Starting on Wed12/29/21 at 1100, Until Wed12/29/21 at 2259, Administer for dilation, [facility] MED ORDERS Given 12/29/2021 11:00 AM EDT 1 Drop Inactive Administered Medications - up to 3 most recent administrations Medication Order MAR Action Action Date Dose Rate Site betamethasone acetate-betamethasone sodium phosphate 6 mg, BUPivacaine (PF) 0.25 % (2.5 mg/mL) 5 mg, lidocaine (PF) 10 mg/mL (1 %) 20 mg INTRA-ARTICULAR, ONCE, 1 dose, On Wed07/24/22 at 0700, Xylocaine 1% substituted for lidocaine EXP: Given 07/24/2022 6:32 AM EDT Inactive Administered Medications - up to 3 most recent administrations Medication Order MAR Action Action Date Dose Rate Site iron sucrose 200 mg in NaCl 0.9% 100ml (VENOFER) 200 mg, INTRAVENOUS, at 400 mL/hr, Administer over 15 Minutes, ONCE, 1 dose, On Wed11/09/22 at 1500, Please conduct a 30 minute post dose observation. New Bag/Syringe/Bottle 11/09/2022 3:04 PM EDT 200 mg 400 mL/hr Active Administered Medications - up to 3 most recent administrations Medication Order MAR Action Action Date Dose Rate Site fluorescein-benoxinate 0.25-0.4 % 1 Drop (FLURESS) 1 Drop, BOTH EYES, DIRECTED, Starting on Wed11/10/22 at 1400, Until Wed11/11/22 at 0159, Administer for applanation tonometry. In the event of a Fluress shortage, administer Citlali-Fluor 1 drop into both eyes as directed for applanation tonometry Given 11/10/2022 2:00 PM EDT 1 Drop PHENYLephrine 2.5 % 1 Drop (AK-DILATE, TONYA-SYNEPHRINE) 1 Drop, BOTH EYES, DIRECTED, Starting on Wed11/10/22 at 1400, Until Wed11/11/22 at 0159, Administer for dilation PROTECT FROM LIGHT Given 11/10/2022 2:00 PM EDT 1 Drop proparacaine 0.5 % 1 Drop (ALCAINE) 1 Drop, BOTH EYES, DIRECTED, Starting on Wed11/10/22 at 1400, Until Wed11/11/22 at 0159, Administer for pneumo tonometry, tonopen tonometry, or pachymetry. In the event of a proparacaine shortage, administer tetracaine 0.5% ophthalmic drops 1 drop in both eyes as directed for pneumo tonometry, tonopen tonometry, or pachymetry Given 11/10/2022 2:00 PM EDT 1 Drop tropicamide 1 % 1 Drop (MYDRIACYL) 1 Drop, BOTH EYES, DIRECTED, Starting on Wed11/10/22 at 1400, Until Wed11/11/22 at 0159, Administer for dilation Given 11/10/2022 2:00 PM EDT 1 Drop Inactive Administered Medications - up to 3 most recent administrations Medication Order MAR Action Action Date Dose Rate Site iron sucrose 200 mg in NaCl 0.9% 100ml (VENOFER) 200 mg, INTRAVENOUS, at 400 mL/hr, Administer over 15 Minutes, ONCE, 1 dose, On Wed11/11/22 at 1500, Please conduct a 30 minute post dose observation. New Bag/Syringe/Bottle 11/11/2022 2:58 PM EDT 200 mg 400 mL/hr Inactive Administered Medications - up to 3 most recent administrations Medication Order MAR Action Action Date Dose Rate Site iron sucrose 200 mg in NaCl 0.9% 100ml (VENOFER) 200 mg, INTRAVENOUS, at 400 mL/hr, Administer over 15 Minutes, ONCE, 1 dose, On Wed11/06/22 at 1200, Please conduct a 30 minute post dose observation. New Bag/Syringe/Bottle 11/06/2022 12:00 PM EDT 200 mg 400 mL/hr Inactive Administered Medications - up to 3 most recent administrations Medication Order MAR Action Action Date Dose Rate Site acetaminophen 650 mg tab(s) (TYLENOL) 650 mg, ORAL, ONCE, 1 dose, On [place] 03/25/23 at 1230, Give 30 minutes before infusion. No more than 4000 mg of acetaminophen should be given per day (FROM ALL SOURCES), If ordered PRN for pain, patient/guardian may elect to receive this medication for higher pain levels INSTEAD of the opioid, if preferred: N/A Given 03/25/2023 12:09 PM EST 650 mg zoledronic pb-[id number]-6.9NaCl 4 mg iv piggyback 100 mL (ZOMETA) 4 mg, INTRAVENOUS, Administer over 15 Minutes, ONCE, 1 dose, On [place] 03/25/23 at 1230, Hazardous Potential Reproductive Risk Drug: Use appropriate PPE. New Bag/Syringe/Bottle 03/25/2023 12:09 PM EST 4 mg Reason for Referral Specialty Diagnoses / Procedures Referred By Blanca kamara Referred To Contact CT IMAGING Diagnoses Incisional hernia, without obstruction or gangrene Procedures CT ABD/PEL WO IVCON CT ABD & PELVIS W/O CONTRAST Alejo Whitten MD [address] [place] [address] [place] [address] Referral ID Status Reason Start Date Expiration Date Visits Requested Visits Authorized [id number] Authorized Auto-Generat ed Referral 3 02/20/2024 1 1 Referral ID Status Reason Start Date Expiration Date V isits Requested Visits Authorized [id number] Closed Auto-Generate d Referral 01/21/2023 02/20/2024 1 1 Additional Source Comments INFORMATION SOURCE (unrecogn ized section and content) DATE CREATED AUTHOR AUTHOR'S ORGANIZ ATION 05/22/2019 [facility] DATE CREATED AUTHOR AUTHOR'S ORGANIZ ATION 12/27/2020 [facility] DATE CREATED AUTHOR AUTHOR'S ORGANIZ ATION 05/04/2021 [facility] DATE CREATED AUTHOR AUTHOR'S ORGANIZ ATION 10/24/2022 [facility] DATE CREATED AUTHOR AUTHOR'S ORGANIZ ATION 04/01/2023 [facility] DATE CREATED AUTHOR AUTHOR'S ORGANIZ ATION 05/30/2023 [facility] Source Comments (unrecognize d section and content) In the event this informatio n is protected by the Federal Confidentiality of Alcohol and Drug Abuse Patient Records regulations: The Federal rules restrict any use of the information to criminally investigate or prosecute any alcohol or drug abuse patient.[facility] HospitalIn the event this information is protected by the Federal Confidentiality of Alcohol and Drug Abuse Patient Records regulations: The Federal rules restrict any use of the information to criminally investigate or prosecute any alcohol or drug abuse patient.[facility] HospitalIn the event this information is protected by the Federal Confidentiality of Alcohol and Drug Abuse Patient Records regulations: The Federal rules restrict any use of the information to criminally investigate or prosecute any alcohol or drug abuse patient.[facility] HospitalIn the event this information is protected by the Federal Confidentiality of Alcohol and Drug Abuse Patient Records regulations: The Federal rules restrict any use of the information to criminally investigate or prosecute any alcohol or drug abuse patient.[facility] HospitalIn the event this information is protected by the Federal Confidentiality of Alcohol and Drug Abuse Patient Records regulations: The Federal rules restrict any use of the information to criminally investigate or prosecute any alcohol or drug abuse patient.[facility] HospitalIn the event this information is protected by the Federal Confidentiality of Alcohol and Drug Abuse Patient Records regulations: The Federal rules restrict any use of the information to criminally investigate or prosecute any alcohol or drug abuse patient.[facility] HospitalIn the event this information is protected by the Federal Confidentiality of Alcohol and Drug Abuse Patient Records regulations: The Federal rules restrict any use of the information to criminally investigate or prosecute any alcohol or drug abuse patient.[facility] HospitalIn the event this information is protected by the Federal Confidentiality of Alcohol and Drug Abuse Patient Records regulations: The Federal rules restrict any use of the information to criminally investigate or prosecute any alcohol or drug abuse patient.[facility] HospitalIn the event this information is protected by the Federal Confidentiality of Alcohol and Drug Abuse Patient Records regulations: The Federal rules restrict any use of the information to criminally investigate or prosecute any alcohol or drug abuse patient.[facility] HospitalIn the event this information is protected by the Federal Confidentiality of Alcohol and Drug Abuse Patient Records regulations: The Federal rules restrict any use of the information to criminally investigate or prosecute any alcohol or drug abuse patient.[facility] HospitalIn the event this information is protected by the Federal Confidentiality of Alcohol and Drug Abuse Patient Records regulations: The Federal rules restrict any use of the information to criminally investigate or prosecute any alcohol or drug abuse patient.[facility] HospitalIn the event this information is protected by the Federal Confidentiality of Alcohol and Drug Abuse Patient Records regulations: The Federal rules restrict any use of the information to criminally investigate or prosecute any alcohol or drug abuse patient.[facility] HospitalIn the event this information is protected by the Federal Confidentiality of Alcohol and Drug Abuse Patient Records regulations: The Federal rules restrict any use of the information to criminally investigate or prosecute any alcohol or drug abuse patient.[facility] HospitalIn the event this information is protected by the Federal Confidentiality of Alcohol and Drug Abuse Patient Records regulations: The Federal rules restrict any use of the information to criminally investigate or prosecute any alcohol or drug abuse patient.[facility] HospitalIn the event this information is protected by the Federal Confidentiality of Alcohol and Drug Abuse Patient Records regulations: The Federal rules restrict any use of the information to criminally investigate or prosecute any alcohol or drug abuse patient.[facility] HospitalIn the event this information is protected by the Federal Confidentiality of Alcohol and Drug Abuse Patient Records regulations: The Federal rules restrict any use of the information to criminally investigate or prosecute any alcohol or drug abuse patient.[facility] HospitalIn the event this information is protected by the Federal Confidentiality of Alcohol and Drug Abuse Patient Records regulations: The Federal rules restrict any use of the information to criminally investigate or prosecute any alcohol or drug abuse patient.[facility] HospitalIn the event this information is protected by the Federal Confidentiality of Alcohol and Drug Abuse Patient Records regulations: The Federal rules restrict any use of the information to criminally investigate or prosecute any alcohol or drug abuse patient.[facility] HospitalIn the event this information is protected by the Federal Confidentiality of Alcohol and Drug Abuse Patient Records regulations: The Federal rules restrict any use of the information to criminally investigate or prosecute any alcohol or drug abuse patient.[facility] HospitalIn the event this information is protected by the Federal Confidentiality of Alcohol and Drug Abuse Patient Records regulations: The Federal rules restrict any use of the information to criminally investigate or prosecute any alcohol or drug abuse patient.[facility] HospitalIn the event this information is protected by the Federal Confidentiality of Alcohol and Drug Abuse Patient Records regulations: The Federal rules restrict any use of the information to criminally investigate or prosecute any alcohol or drug abuse patient.[facility] HospitalIn the event this information is protected by the Federal Confidentiality of Alcohol and Drug Abuse Patient Records regulations: The Federal rules restrict any use of the information to criminally investigate or prosecute any alcohol or drug abuse patient.[facility] HospitalIn the event this information is protected by the Federal Confidentiality of Alcohol and Drug Abuse Patient Records regulations: The Federal rules restrict any use of the information to criminally investigate or prosecute any alcohol or drug abuse patient.[facility] HospitalIn the event this information is protected by the Federal Confidentiality of Alcohol and Drug Abuse Patient Records regulations: The Federal rules restrict any use of the information to criminally investigate or prosecute any alcohol or drug abuse patient.[facility] HospitalIn the event this information is protected by the Federal Confidentiality of Alcohol and Drug Abuse Patient Records regulations: The Federal rules restrict any use of the information to criminally investigate or prosecute any alcohol or drug abuse patient.[facility] HospitalIn the event this information is protected by the Federal Confidentiality of Alcohol and Drug Abuse Patient Records regulations: The Federal rules restrict any use of the information to criminally investigate or prosecute any alcohol or drug abuse patient.[facility] HospitalIn the event this information is protected by the Federal Confidentiality of Alcohol and Drug Abuse Patient Records regulations: The Federal rules restrict any use of the information to criminally investigate or prosecute any alcohol or drug abuse patient.[facility] HospitalIn the event this information is protected by the Federal Confidentiality of Alcohol and Drug Abuse Patient Records regulations: The Federal rules restrict any use of the information to criminally investigate or prosecute any alcohol or drug abuse patient.[facility] HospitalIn the event this information is protected by the Federal Confidentiality of Alcohol and Drug Abuse Patient Records regulations: The Federal rules restrict any use of the information to criminally investigate or prosecute any alcohol or drug abuse patient.[facility]In the event this information is protected by the Federal Confidentiality of Alcohol and Drug Abuse Patient Records regulations: The Federal rules restrict any use of the information to criminally investigate or prosecute any alcohol or drug abuse patient.[facility] HospitalIn the event this information is protected by the Federal Confidentiality of Alcohol and Drug Abuse Patient Records regulations: The Federal rules restrict any use of the information to criminally investigate or prosecute any alcohol or drug abuse patient.[facility] HospitalIn the event this information is protected by the Federal Confidentiality of Alcohol and Drug Abuse Patient Records regulations: The Federal rules restrict any use of the information to criminally investigate or prosecute any alcohol or drug abuse patient.[facility] HospitalIn the event this information is protected by the Federal Confidentiality of Alcohol and Drug Abuse Patient Records regulations: The Federal rules restrict any use of the information to criminally investigate or prosecute any alcohol or drug abuse patient.[facility] HospitalIn the event this information is protected by the Federal Confidentiality of Alcohol and Drug Abuse Patient Records regulations: The Federal rules restrict any use of the information to criminally investigate or prosecute any alcohol or drug abuse patient.[facility] HospitalIn the event this information is protected by the Federal Confidentiality of Alcohol and Drug Abuse Patient Records regulations: The Federal rules restrict any use of the information to criminally investigate or prosecute any alcohol or drug abuse patient.[facility] HospitalIn the event this information is protected by the Federal Confidentiality of Alcohol and Drug Abuse Patient Records regulations: The Federal rules restrict any use of the information to criminally investigate or prosecute any alcohol or drug abuse patient.[facility] HospitalIn the event this information is protected by the Federal Confidentiality of Alcohol and Drug Abuse Patient Records regulations: The Federal rules restrict any use of the information to criminally investigate or prosecute any alcohol or drug abuse patient.[facility] HospitalIn the event this information is protected by the Federal Confidentiality of Alcohol and Drug Abuse Patient Records regulations: The Federal rules restrict any use of the information to criminally investigate or prosecute any alcohol or drug abuse patient.[facility] HospitalIn the event this information is protected by the Federal Confidentiality of Alcohol and Drug Abuse Patient Records regulations: The Federal rules restrict any use of the information to criminally investigate or prosecute any alcohol or drug abuse patient.[facility] HospitalIn the event this information is protected by the Federal Confidentiality of Alcohol and Drug Abuse Patient Records regulations: The Federal rules restrict any use of the information to criminally investigate or prosecute any alcohol or drug abuse patient.[facility] HospitalIn the event this information is protected by the Federal Confidentiality of Alcohol and Drug Abuse Patient Records regulations: The Federal rules restrict any use of the information to criminally investigate or prosecute any alcohol or drug abuse patient.[facility] HospitalIn the event this information is protected by the Federal Confidentiality of Alcohol and Drug Abuse Patient Records regulations: The Federal rules restrict any use of the information to criminally investigate or prosecute any alcohol or drug abuse patient.[facility] HospitalIn the event this information is protected by the Federal Confidentiality of Alcohol and Drug Abuse Patient Records regulations: The Federal rules restrict any use of the information to criminally investigate or prosecute any alcohol or drug abuse patient.[facility] HospitalIn the event this information is protected by the Federal Confidentiality of Alcohol and Drug Abuse Patient Records regulations: The Federal rules restrict any use of the information to criminally investigate or prosecute any alcohol or drug abuse patient.[facility] HospitalIn the event this information is protected by the Federal Confidentiality of Alcohol and Drug Abuse Patient Records regulations: The Federal rules restrict any use of the information to criminally investigate or prosecute any alcohol or drug abuse patient.[facility] HospitalIn the event this information is protected by the Federal Confidentiality of Alcohol and Drug Abuse Patient Records regulations: The Federal rules restrict any use of the information to criminally investigate or prosecute any alcohol or drug abuse patient.[facility] HospitalIn the event this information is protected by the Federal Confidentiality of Alcohol and Drug Abuse Patient Records regulations: The Federal rules restrict any use of the information to criminally investigate or prosecute any alcohol or drug abuse patient.[facility] HospitalIn the event this information is protected by the Federal Confidentiality of Alcohol and Drug Abuse Patient Records regulations: The Federal rules restrict any use of the information to criminally investigate or prosecute any alcohol or drug abuse patient.[facility] HospitalIn the event this information is protected by the Federal Confidentiality of Alcohol and Drug Abuse Patient Records regulations: The Federal rules restrict any use of the information to criminally investigate or prosecute any alcohol or drug abuse patient.[facility] Care Teams (unrecognized sec tion and content) Senior Project Coordinator Relationship Specialty Start Date End Date Alice Goode PA-C [address] [place] [address] PCP - General Family Practice 10/26/16 Senior Project Coordinator Relationship Specialty Start Date End Date Alice Goode PA-C [address] [place] [address] PCP - General Family Practice 10/26/16 Senior Project Coordinator Relationship Specialty Start Date End Date Alice Goode PA-C [address] [place] [address] PCP - General Family Practice 10/26/16 Senior Project Coordinator Relationship Specialty Start Date End Date Alice Goode PA-C [address] [place] [address] PCP - General Family Practice 10/26/16 Senior Project Coordinator Relationship Specialty Start Date End Date Alice Goode PA-C [address] [place] [address] PCP - General Family Practice 10/26/16 Senior Project Coordinator Relationship Specialty Start Date End Date Alice Goode PA-C [address] [place] [address] PCP - General Family Practice 10/26/16 Senior Project Coordinator Relationship Specialty Start Date End Date Alice Goode PA-C [address] [place] [address] PCP - General Family Practice 10/26/16 Senior Project Coordinator Relationship Specialty Start Date End Date Alice Goode PA-C [address] [place] [address] PCP - General Family Medicine 10/26/16 Senior Project Coordinator Relationship Specialty Start Date End Date Alice Goode PA-C [address] [place] [address] PCP - General Family Medicine 10/26/16 Senior Project Coordinator Relationship Specialty Start Date End Date Alice Goode PA-C [address] [place] [address] PCP - General Family Medicine 10/26/16 Senior Project Coordinator Relationship Specialty Start Date End Date Alice Goode PA-C [address] [place] [address] PCP - General Family Medicine 10/26/16 Senior Project Coordinator Relationship Specialty Start Date End Date Alice Goode PA-C [address] [place] [address] PCP - General Family Medicine 10/26/16 Senior Project Coordinator Relationship Specialty Start Date End Date Alice Goode PA-C [address] [place] [address] PCP - General Family Medicine 10/26/16 Senior Project Coordinator Relationship Specialty Start Date End Date Alice Goode PA-C [address] [place] [address] PCP - General Family Medicine 10/26/16 Senior Project Coordinator Relationship Specialty Start Date End Date Alice Goode PA-C [address] [place] [address] PCP - General Family Medicine 10/26/16 Senior Project Coordinator Relationship Specialty Start Date End Date Alice Goode PA-C [address] [place] [address] PCP - General Family Medicine 10/26/16 Senior Project Coordinator Relationship Specialty Start Date End Date Alice Goode PA-C [address] [place] [address] PCP - General Family Medicine 10/26/16 Senior Project Coordinator Relationship Specialty Start Date End Date Alice Goode PA-C [address] [place] [address] PCP - General Family Medicine 10/26/16 Senior Project Coordinator Relationship Specialty Start Date End Date Alice Goode PA-C [address] [place] [address] PCP - General Family Medicine 10/26/16 Senior Project Coordinator Relationship Specialty Start Date End Date Alice Goode PA-C [address] [place] [address] PCP - General Family Medicine 10/26/16 Senior Project Coordinator Relationship Specialty Start Date End Date Alice Goode PA-C [address] [place] [address] PCP - General Family Medicine 10/26/16 Senior Project Coordinator Relationship Specialty Start Date End Date Alice Goode PA-C [address] [place] [address] PCP - General Family Medicine 10/26/16 Senior Project Coordinator Relationship Specialty Start Date End Date Alice Goode PA-C [address] [place] [address] PCP - General Family Medicine 10/26/16 Senior Project Coordinator Relationship Specialty Start Date End Date Alice Goode PA-C [address] [place] [address] PCP - General Family Medicine 10/26/16 Senior Project Coordinator Relationship Specialty Start Date End Date Alice Goode PA-C [address] [place] [address] PCP - General Family Medicine 10/26/16 Senior Project Coordinator Relationship Specialty Start Date End Date Alice Goode PA-C [address] [place] [address] PCP - General Family Medicine 10/26/16 Senior Project Coordinator Relationship Specialty Start Date End Date Alice Goode PA-C [address] [place] [address] PCP - General Family Medicine 10/26/16 Senior Project Coordinator Relationship Specialty Start Date End Date Alice Goode PA-C [address] [place] [address] PCP - General Family Medicine 10/26/16 Senior Project Coordinator Relationship Specialty Start Date End Date Alice Goode PA-C [address] [place] [address] PCP - General Family Medicine 10/26/16 Senior Project Coordinator Relationship Specialty Start Date End Date Alice Goode PA-C [address] [place] [address] PCP - General Family Medicine 10/26/16 Senior Project Coordinator Relationship Specialty Start Date End Date Alice Goode PA-C [address] [place] [address] PCP - General Family Medicine 10/26/16 Senior Project Coordinator Relationship Specialty Start Date End Date Alice Goode PA-C [address] [place] [address] PCP - General Family Medicine 10/26/16 Senior Project Coordinator Relationship Specialty Start Date End Date Alice Goode PA-C [address] [place] [address] PCP - General Family Medicine 10/26/16 Senior Project Coordinator Relationship Specialty Start Date End Date Alice Goode PA-C [address] [facility] [id number] PCP - General Family Medicine 10/26/16 Senior Project Coordinator Relationship Specialty Start Date End Date Alice Goode PA-C [address] [place] [address] PCP - General Family Medicine 10/26/16 Senior Project Coordinator Relationship Specialty Start Date End Date Alice Goode PA-C [address] [place] [address] PCP - General Family Medicine 10/26/16 Senior Project Coordinator Relationship Specialty Start Date End Date Alice Goode PA-C [address] [place] [address] PCP - General Family Medicine 10/26/16 Senior Project Coordinator Relationship Specialty Start Date End Date Alice Goode PA-C [address] [place] [address] PCP - General Family Medicine 10/26/16 Reason for Visit (unrecogniz ed section and content) Reason Comments Patient Request Reason Comments Medication Request Gabapentin 300 mg Medication Update stopped taking Metfo rmin and Cymbalta Reason Onset Date Comments Refill Request 09/15/2021 see Rx notes Reason Comments Established Patient Reason Comments Opened In Error Reason Comments 6 Month Exam Reason Comments Nonexudative Macular Degeneration Follow Up Bilateral Reason Comments Medication Problem Reason Onset Date Comments Refill Request 06/29/2022 Reason Comments Follow Up Reason Comments Orders Reason Onset Date Comments Refill Request 07/16/2022 Reason Onset Date Comments Allied Health Visit 07/17/2022 Medication A dherence Outreach Reason Comments Hip Pain Reason Onset Date Comments Refill Request 08/11/2022 Reason Onset Date Comments Refill Request 09/05/2022 Reason Comments Medication Follow-up Reason Comments Benefits Investigation Reason Comments Appointment Reason Comments Non-Chemotherapy Treatment Specialty Diagnoses / Procedures Referred By Blanca Referred To Contact Diagnoses Malabsorption of iron Iron deficiency anemia secondary to inadequate dietary iron intake Procedures IRON SUCROSE INJECTION PER 1 MG Chantale Coulter APRN.COLD STORAGE WORKER [address] [place] [address] [facility] [address] [place] [address] Referral ID Status Reason Start Date Expiration Date V isits Requested Visits Authorized [id number] Authorized 10/26/2022 01/24/2023 5 5 Reason Comments Macular Degeneration Evaluation Both Eye s Reason Comments [facility] (Decreased Vision) 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 kishan Reason Comments Consult Umbilical hernia Reason Comments Radiology CT Specialty Diagnoses / Procedures Referred By [facility] t Referred To Contact CT IMAGING Diagnoses Incisional hernia, without obstruction or gangrene Procedures CT ABD/PEL WO IVCON CT ABD & PELVIS W/O CONTRAST Aljeo Whitten MD [address] [place] [address] [place] [address] Referral ID Status Reason Start Date Expiration Date V isits Requested Visits Authorized [id number] Closed Auto-Generate d Referral 01/21/2023 02/20/2024 1 1 Reason Comments Follow Up Incisional hernia, f ollow up CT scan Reason Comments Consult Reason Comments Patient Update ClearFlowhart message Reason Comments START RECLAST Specialty Diagnoses / Procedures Referred By Contac t Referred To Contact Diagnoses Malabsorption of iron Iron deficiency anemia secondary to inadequate dietary iron intake Hypercalcemia Procedures INJECTION, ZOLEDRONIC ACID, 1 MG Tima Tyler, DO [address] [place] [address] [facility] [address] [place] [address] Referral ID Status Reason Start Date Expiration Date V isits Requested Visits Authorized [id number] Waiting for Response 03/23/2023 06/21/2023 1 1 Reason Comments Results 03/25/2023 Calcium l evel now 11.4 FOR RECORDS PERTAINING TO PATIENTS WHO ARE OR HAVE BEEN ENROLLED IN A CHEMICAL DEPENDENCY/SUBSTANCEABUSE PROGRAM, SOME INFORMATION MAY BE OMITTED. This clinical summary was aggregated from multiple sources. Caution should be exercised in using it in the provision of clinical care. This summary normalizes information from multiple sources, and as a consequence, information in this document may materially change the coding, format and clinical context of patient data. In addition, data may be omitted in some cases. CLINICAL DECISIONS SHOULD BE BASED ON THE PRIMARY CLINICAL RECORDS. [employer] provides no warranty or guarantee of the accuracy or completeness of information in this document.
== END | disposition home or self-care (01) ==
LOC: CT 07:43
PROVIDERS: PCP Physician Assistant; Referring Provider Student in an Organized Health Care Education/Training Program; Visit Provider Student in an Organized Health Care Education/Training Program
DX: S46.012A Strain of muscle(s) and tendon(s) of the rotator cuff of left shoulder, initial encounter (principal); M19.012 Primary osteoarthritis, left shoulder; X58.XXXA Exposure to other specified factors, initial encounter
CPT/HCPCS: 73200

== ENCOUNTER 2023-06-17 12:05 | Observation (INO) | payer MEDICARE, OTHER, SELFPAY ==
--- NOTE | 2023-05-31 07:45 | EKG12_ITS ---
Test Reason : PREOP Blood Pressure : / mmHG Vent. Rate : 056 BPM Atrial Rate : 056 BPM P-R Int : 178 ms QRS Dur : 082 ms QT Int : 416 ms P-R-T Axes : 028 013 056 degrees QTc Int : 401 ms Sinus bradycardia Otherwise normal ECG Confirmed by YG ZIEGLER, NAE ([id number]), writer editor ALANIS GARCIA ([id number]) on 05/31/2023 10:21:25 AM Referred By: Refugio Alvaraod Confirmed By:NAE RONQUILLO MD
[2023-05-31 10:27] LABS: Absolute Lymphocyte Count 2.19 X10^3/uL (0.83-4.51); Absolute Neutrophil Count 5.7 X10^3/uL (2.0-7.7); Basophil# 0.11 X10^3/uL; Basophil% 1.2 % (0-1); Eosinophil# 0.21 X10^3/uL; Eosinophils% 2.3 % (0-5); Hematocrit 42.5 % (37-47); Hemoglobin 13.4 g/dL (12.0-15.0); Lymphocyte # 2.19 X10^3/ul (0.83-4.51); Lymphocyte % 24.2 % (19-41); Mean Corp Hgb Conc 31.5 g/dL (32-36); Mean Corpuscular Hgb 28.1 pg (27.0-32.0); Mean Corpuscular Volume 89.1 fL (81-99); Mean Platelet Vol. 9.8 fl (6.2-12.0); Monocyte# 0.76 X10^3/uL; Monocyte% 8.4 % (0-10); NRBC Flagged by Analyzer 0 % (0-5); Neutrophil # 5.74 X10^3/uL (2.7-7.7); Neutrophil % 63.5 % (47-70); Platelet Count 248 K/mm3 (150-450); RBC Distribution Width CV 14.4 % (11.6-14.6); RBC Distribution Width SD 46.9 fl (35.1-43.9); Red Blood Count 4.77 M/mm3 (4.2-5.4); White Blood Count 9.1 K/mm3 (4.4-11.0)
[2023-05-31 10:32] LABS: International Normalized Ratio 1.1; Prothrombin Time (Protime)PT. 14.5 SECONDS (11.7-14.9)
[2023-05-31 10:33] LABS: Partial Thromboplast Time 25.6 Seconds (24.1-36.2)
[2023-05-31 11:10] LABS: Albumin, Serum 3.3 g/dL (3.2-5.0); Anion Gap 6 (5-15); BUN 21 mg/dL (7-18); BUN/Creat Ratio 26.4 RATIO (10-20); Calcium,Total 10.5 mg/dL (8.5-10.1); Chloride 112 mmol/L (98-107); EST Glomerular Filtration Rate 74 mL/min (>60); Est Glom Filt Rate - Afr Amer 89 mL/min (>60); Glucose 145 mg/dL (74-106); Potassium 3.8 mmol/L (3.5-5.1); Sodium Level 140 mmol/L (136-145)
[2023-05-31 11:31] LABS: Hemoglobin A1c 6.8 % (3.8-5.6)
[2023-05-31 11:45] LABS: Magnesium 2.2 mg/dL (1.6-2.6)
[2023-06-17] VITALS (13 sets, daily range): BP systolic 127–173; BP diastolic 70–94; PULSE 62–88; RESP 14–18; TEMP 36.2–36.6; O2SAT 96–100; BMI 27.6
--- NOTE | 2023-06-17 | SHO_PTH ---
PATHOLOGY RESULTS PATIENT: TATY MEDINA LOC: MS3 U#:[id number] AGE/SX: 82/F ROOM: [id number] RE06/17/[address]: Dr. Refugio Alvarado DO : 1940 BED: 1 DIS: 06/18/2023 SPEC #: [id number] RECD: 06/17/23 13:44 STATUS: MIC JOSE #: [id number] ANH: 06/17/23 00:[address]: Refugio Alvarado DEPT: SURGICAL PATHOLOGY RECD BY: Chris Caro ENTERED: 06/17/23 13:44 SP TYPE: HUMERUS OTHR DR: MD Alice Klein PA Tissues: Humerus, NOS Procedures: Decalcification bone/plaque Surgery Specimen Level IV HEADER OPERATION: ERAS, left reverse total shoulder arthroplasty PRE-OP DIAGNOSIS: Severe left shoulder arthritis, fibromyalgia TISSUE SUBMITTED: Left shoulder bone and tissue MICROSCOPIC DIAGNOSIS Left shoulder bone and tissue, total shoulder replacement/resection: Humeral head with degenerative osteoarthritic changes. A piece of fibroadipose tissue, fibroconnective tissue and reactive synovial tissue. DENA:harjinder 06/23/2023 MICROSCOPIC DESCRIPTION Slides are reviewed. GROSS DESCRIPTION Received is one container labeled with the patient's name and designated left shoulder bone and tissue. The specimen consists of a humeral head measuring 5.0 x 4.5 x 2.5 cm. The articular surface shows areas of erosion and osteophyte formation. Also present in the container is a piece of soft tissue measuring 1.5 x 2.0 x 0.3 cm. Medical Staff Specialist sections are submitted in three cassettes as follows: 1??soft tissue, entirely submitted, 2 & 3 - humeral head after decalcification. / DENA:harjinder 06/17/2023 TC:5 CPT: 71897, 02700
[2023-06-17] MEDS: Lactated Ringers 1,000 ML 999 ML IV ×2 (09:48→11:55)
[2023-06-17] MEDS: Celecoxib 200 MG Capsule 400 MG PO (09:49)
[2023-06-17] MEDS: Gabapentin 600 MG Tablet PO (09:49)
[2023-06-17] MEDS: Magnesium 1 GM over 15 mins IV (09:49)
[2023-06-17] MEDS: Acetaminophen 500 MG Tablet 1000 MG PO ×2 (09:49→16:29)
[2023-06-17] MEDS: Lactated Ringers 1,000 ML 75 ML IV (09:50)
--- NOTE | 2023-06-17 10:00 | OP.PCM_ITS ---
Report of Operation Date of Procedure: 06/17/23 Description of Surgical Findings:: Preoperative diagnosis: Left shoulder rotator cuff arthropathy Postoperative diagnosis: Left shoulder rotator cuff arthropathy Procedure: Left reverse total shoulder arthroplasty Surgeon: Refugio Alvarado DO Motor Installer: Priscila Whatley PA-C Anesthesia: General endotracheal Die Mounter: Henry Martinez CRNA Complications: None apparent Drains: None Estimated blood loss: 150 cc Urinary output: None IV fluids: 1200 cc crystalloid Specimens: None Surgical implants: Tornier Aequalis PerFORM+ reversed baseplate 25 mm diameter +6 mm lateralization, standard glenosphere cobalt chrome 36 mm diameter, Tornier perform inlay stem size #3, +0 mm retentive size number 3 36 mm diameter polyethylene insert, short central post and peripheral screws x4. Surgical indications: This is a 82-year-old female with persistent left shoulder pain and weakness. X-rays revealed rotator cuff arthropathy. Patient had pseudoparalysis of her left upper extremity. I recommended a reverse shoulder arthroplasty. We obtained a preoperative CT scan for planning. The risks, benefits, alternatives the procedure was reviewed with the patient and he agreed to proceed. Risks included but were not limited to bleeding, infection, instability, loss of life or limb, risk of anesthesia, neurovascular injury, persistent pain, stiffness, prolonged immobilization, need for additional surgery, loosening of orthopedic hardware. He expressed understanding and wished to proceed with surgery. Surgical details: Patient arrived to [facility] morning of the procedure and was greeted by the same day surgery staff. Prior to her upper procedure, I greeted the patient in the preoperative holding area I identified the patient by name, record number, and date of . Informed consent was confirmed. The operative extremity was marked. All questions were answered to patient satisfaction. An interscalene block was administered prior to procedure by anesthesia staff for postoperative and intraoperative analgesia. At time of her procedure, patient was brought to the operative suite and positioned supine on a standard table with a beachchair attachment. General anesthesia was induced after all bony prominences were well-padded. Endotracheal tube was placed. After adequate anesthesia and securing the tube, we prepared the patient to be positioned in the beachchair position. A well- padded preschool head teacher was applied. The nonoperative extremity was placed in a well arm ortiz. She was then brought into the beachchair position after we confirmed an appropriate blood pressure. We then spun the bed 45 degrees. The operative extremity was then prepared. In the butterfly wing of the bed was removed and a well-padded torso strap was applied to secure the patient to the bed. The operative extremity was now free. We then prepped and draped the left upper extremity in normal, sterile orthopedic fashion. We then performed a timeout with all parties in attendance in agreement with the side, site, and operation be performed. 2 g Ancef was administered prior to incision by anesthesia staff, as well as 1 g TXA IV. No concerns were voiced and we elected to proceed. I first marked a standard deltopectoral incision just lateral to the coracoid process in line with the long axis of the humerus. Skin was sharply incised with 10 blade scalpel. I then dissected bluntly through the subcutaneous layers and found the fat stripe between the deltoid and pectoralis major. The cephalic vein was then identified and protected. It was retracted laterally with the deltoid. I then bluntly dissected underneath the deltoid with a Quigley elevator. Juana retractor was placed. The upper 1 cm of the pectoralis major was released. I then identified the long head of the biceps tendon in the intertubercular groove. This was tenodesed in situ with #2 FiberWire. I then amputated the biceps proximal to the tenodesis site and followed the tendon to the supraglenoid tubercle where it was amputated. This identified the lesser and greater tuberosities. The supraspinatus was completely torn and retracted with an exposed greater tuberosity. The subscapularis was completely torn. Capsular attachments to the anterior medial humerus were released with Bovie cautery. Humeral head was then dislocated anteriorly. Appropriate access to the humeral head was confirmed. I then subluxed the humeral head posteriorly with a Fukuda retractor placed around the posterior lip of the glenoid. Inferior capsule was tension. I was able to palpate the axillary nerve. Inferior capsule was then released to the 4 o'clock position of the glenoid face. I then removed the Fukuda retractor and redislocated the shoulder anteriorly. I then made a anatomic neck cut of the cartilaginous surface of the humeral head. Sizing plate for a size # 3 stem was utilized to determine appropriate reaming size. A central pin was placed engaging the lateral cortex of the humerus. A size # 3 reamer was used to ream the humeral metaphysis and prepare for the inlay stem. A canal finding reamer was utilized prior to sequential broaching to a size # 3 short stem with excellent rotational and axial purchase in the humerus. I remove the broach handle left the size # [address] I then subluxed the humerus posterior to the glenoid. I then placed retractors around the posterior and anterior glenoid to expose the glenoid. Glenoid labrum was removed with Bovie cautery protecting the axillary nerve. We then used the custom guide from [employer] to position our centering pin, exiting approximately 25 mm from the joint surface along the anterior scapula. Guide was removed and pin was analyzed and compared to preoperative planning. It appeared to be in appropriate position. The Nautilus shaped reamer was then placed over top of the centering pin. I reamed a flat surface of the glenoid. We then removed the reamer and used the cannulated drill for the short central post. Post and baseplate was assembled on the back table. We then inserted the baseplate and central post the assembled baseplate to an appropriate depth with good press-fit purchase. A Newman was used to confirm depth. Cortical screws then were placed in the peripheral holes with good purchase. The baseplate had excellent purchase and the entire scapula would rotate with rotation of the baseplate. We then impacted the 36 mm glenosphere with a standard eccentricity and tightened the locking screw mechanism. We then removed retractors and turned our attention back to the humerus. I placed a standard + 0 millimeters retentive polyethylene insert. I then reduced the shoulder. There was excellent range of motion and stability in all planes of motion. We selected this as our final size. We removed trials from the [facility] after final dislocation. I copiously irrigated the canal. Broach was placed on hand and then impacted to an appropriate depth. Final +0 mm retentive polyethylene insert was placed. Final reduction was then performed. We then copiously irrigated the wound with Irrisept solution and normal saline solution. We reapproximated the interval with 0 Vicryl suture. Subcutaneous layers were reapproximated with 2 -0 Vicryl suture. Skin was finally running V- Loc 3-0 Monocryl suture and Dermabond. A sterile silver Mepilex dressing was applied. Patient was then placed in an ultra sling. Patient tolerated procedure well without complication. She was positioned back in the supine position extubated in the operative suite. She was transferred to the [place] and subsequently to PACU in stable condition. Need for skilled regulatory affairs assistant: Priscila Whatley PA-C was critical to the outcome of the case. During the course of the procedure the physician regulatory affairs assistant played a vital role. Her intimate knowledge of my steps in the procedure aided in safe and expedient completion of the procedure. The PA played a vital role in positioning particularly in obtaining the appropriate positioning. The PA was also vital in the retraction of soft tissues during the exposure and protecting vital structures. The PA was also vital and protecting soft tissues during times of bony cuts. She also played a vital role in closure with my direct supervision. The PA was also important during reduction and dislocation of the joint and trials intraoperatively. Intraoperative medications: 2 g Ancef IV, 1 g TXA IV x2 Post Operative Plan: Patient will be placed in observation overnight for medical monitoring and early convalescence. Weightbearing: Nonweightbearing left upper extremity, okay for pendulums. Range of motion of wrist elbow and hand as tolerated. Antibiotics: 2 g Ancef IV prior to incision, 24 hours IV antibiotics postoperatively DVT Prophylaxis: Aspirin enteric-coated 81 mg twice daily starting tomorrow Nino: None Dressing: Maintain silver dressing x7 days. Okay to shower dressing on day 4 X-Rays: 2 weeks postop in the office Pain Medication: Oxycodone Rx upon discharge Follow-up: 2 weeks post-operatively with me in the office
[2023-06-17] MEDS: Cefazolin 2 GM in 0.9% Normal Saline (100mL Bag) 100 ML IV (10:34)
[2023-06-17] MEDS: Lactated Ringers 1,000 ML 125 ML IV ×2 (10:45→16:29)
[2023-06-17] MEDS: TXA 1000mg in NS100 100ml (IVPB at Incision) 660 MG IV (10:50)
[2023-06-17 11:11] LABS: Bedside Glucose 130 mg/dL (74-106)
--- NOTE | 2023-06-17 12:35 | RAD_ITS ---
INDICATION: post op -- AP and Lateral X-Ray of operative shoulder in PACU EXAMINATION/TECHNIQUE: X-RAY - LEFT XR Shoulder Min 2 Views 2 VIEWS COMPARISON: CT scan of the left shoulder of 05/31/2023. FINDINGS: SOFT TISSUES: Soft tissue swelling and gas in soft tissues consistent with recent surgery. No radiopaque foreign body. BONES/JOINTS: No acute fracture or subluxation. Left shoulder arthroplasty. The alignment appears unremarkable. No sclerotic or destructive changes observed. RAD/Shoulder min 2 Views IMPRESSION: Status post left shoulder arthroplasty. Electronically Signed: Kilo Acuña MD at 13:11 EST ,
[2023-06-17] MEDS: Gabapentin 300 MG Capsule PO ×2 (16:29→21:15)
--- NOTE | 2023-06-17 17:00 | CASEMGMT ---
Addendum entered by Merary Finnegan 06/18/23 10:33: DUNCAN Garcia, made aware pt would like to complete AD, if SW available. Original Note: RN?CM?DUSTER TENDER?CM?to room to meet with patient for initial transition planning/care coordination?assessment.?RN?CM?introduced self and role at [facility].? Pt voices understanding and consents to?assessment?at this time.? Pt resting in bed in no distress at this time.? Pt is A/O at this time and answers all questions appropriately.?? Care providers, pharmacy, and demographics verified/updated at this time. PCP: ALONZO Crook Specialists: allison Ventura Preferred Pharmacy: Insurance: [facility] Prescription Benefit:?yes Living Will/HPOA:?Has done a LW and HPCOA in the past, but states her was listed as the agent, but he has . She would like to complete new ones. She was made aware if SW available while she is in the hospital this can be completed. She would like to to that, if possible. She was made aware, if SW not available, this can be done as an OP. She voices understanding. LNOK: Daughter, Gail. Son, Brendon. Living Arrangements: Lives alone in mobile home w/4 steps to enter. Pt was independent w/ADL's and IADL's and works part-time (3 days/week, from 9A-2P). 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 She plans to return to work end of July/beg august. Pt will be going to her male friends' home @ discharge and he can assist her as needed while she recovers. He has 10 steps to go up to get to his porch and then no steps into the home. His home is one-level w/a basement. Transportation:?Pt states drives self and states no transportation concerns at this time.? Male friend will take her home @ discharge. DME: States has the following DME:?shower seat/tub bench only. ? Pt states no need for further DME at this time.? HHC/SNF: No hx of either. Pt plans to f/u with Dr Alvarado in 2 weeks and then plans to do OP therapy @ [facility]. Pt wishes to go to her friends' home @ discharge and states has no concerns with going home at time of discharge.? CM?to follow for any further discharge planning/needs.? Pt voices no further concerns/needs at this time.? Advised pt to ask for?CM?if any further questions/concerns/needs arise.? Voices understanding. PLAN:??Discharge to friends' house. To f/u with Dr Alvarado in 2 weeks and then plans to do OP therapy @ [facility]. Meenu CHAPINN?RN?CM
[2023-06-17] MEDS: Cefazolin 1 GM/50 ML BAG IV (18:15)
[2023-06-17] MEDS: Pantoprazole Sodium 40 MG Tablet PO (21:15)
[2023-06-18 00:13] VITALS: BP 157/83; PULSE 72; RESP 16; TEMP 36.6; O2SAT 95
[2023-06-18] MEDS: Cefazolin 1 GM/50 ML BAG IV (02:51)
[2023-06-18 04:13] VITALS: BP 138/82; PULSE 67; RESP 16; TEMP 36.6; O2SAT 96
[2023-06-18] MEDS: oxyCODONE 5 MG Tablet PO ×2 (04:21→12:18)
[2023-06-18] MEDS: Gabapentin 300 MG Capsule PO (05:11)
[2023-06-18 06:48] LABS: Hematocrit 36.5 % (37-47); Hemoglobin 11.6 g/dL (12.0-15.0); Mean Corp Hgb Conc 31.8 g/dL (32-36); Mean Corpuscular Hgb 27.3 pg (27.0-32.0); Mean Corpuscular Volume 85.9 fL (81-99); Mean Platelet Vol. 9.6 fl (6.2-12.0); Platelet Count 188 K/mm3 (150-450); RBC Distribution Width CV 13.9 % (11.6-14.6); RBC Distribution Width SD 43.3 fl (35.1-43.9); Red Blood Count 4.25 M/mm3 (4.2-5.4); White Blood Count 13.3 K/mm3 (4.4-11.0)
[2023-06-18 07:37] LABS: Anion Gap 7 (5-15); BUN 15 mg/dL (7-18); BUN/Creat Ratio 19.5 RATIO (10-20); Calcium,Total 10.1 mg/dL (8.5-10.1); Chloride 109 mmol/L (98-107); Creatinine, Serum 0.77 mg/dL (0.55-1.02); EST Glomerular Filtration Rate 76 mL/min (>60); Est Glom Filt Rate - Afr Amer 93 mL/min (>60); Estimated Creatinine Clearance 54.92 ml/min; Glucose 155 mg/dL (74-106); Potassium 3.9 mmol/L (3.5-5.1); Sodium Level 140 mmol/L (136-145)
[2023-06-18 07:52] VITALS: BP 180/72; PULSE 71; RESP 18; TEMP 36.4; O2SAT 97
[2023-06-18] MEDS: Pantoprazole Sodium 40 MG Tablet PO (08:03)
[2023-06-18] MEDS: Aspirin E.C. 81 MG Tablet PO (08:04)
--- NOTE | 2023-06-18 10:53 | CASEMGMT ---
Social Work SW met with pt to discuss advance directives. Pt states that he had completed documents at one time, but since then her has passed and pt requesting to complete new documents. SW reviewed living will and health care POA with pt and assisted with completion. Pt naming her dgt Gail Soto as HCPOA. Originals given to pt and copy placed on pt chart. Demographics updated in medical record. NAEL Spangler
--- NOTE | 2023-06-18 11:32 | PCM.PN.ORT ---
Subjective Subjective Patient is s/p an 82-year-old female status post left reverse total shoulder arthroplasty with Dr. Alvarado 06/17/2023. Patient resting comfortably in bed. Rates pain 5/ 10 at rest. With movement for/10. States taking Tylenol and oxycodone for pain as needed and ice help to relieve pain. Patient is compliant with UltraSling at all times. Okay to continue working with occupational therapy. Afebrile, no chest pain, shortness of breath, negative calf pain/ erythema, and no other signs of DVT. Objective Data Objective Data Vital Signs: Vital Signs Temp Pulse Resp BP Pulse Ox O2 Del Method O2 Flow Rate 97.5 F L 71 18 180/72 H 97 Room Air 4 06/18/23 07:52 06/18/23 07:52 06/18/23 07:52 06/18/23 07:52 06/18/23 07:52 06/18/23 07:52 06/17/23 13:33 Oxygen Flow Rate (L/min) 4 Oxygen Delivery Method Room Air Weight: 73.028 kg Body Mass Index (BMI) 27.6 Intake & Output: Intake and Output for Last 24 Hours 06/16/23 06/17/23 06/18/23 23:59 23:59 23:59 Intake Total 4638.66 / 4638.66 208 / 208 Output Total 400 / 400 Balance 4238.66 / 4238.66 / 208 Lab / Micro Data 06/18/23 06:25 06/18/23 06:25 Labs: Laboratory Results - last 24 hr 06/18/23 06:25: WBC 13.3 H, RBC 4.25, Hgb 11.6 L, Hct 36.5 L, MCV 85.9, MCH 27.3, MCHC 31.8 L, RDW Std Deviation 43.3, RDW Coeff of Estefani 13.9, Plt Count 188, MPV 9.6, Sodium 140, Potassium 3.9, Chloride 109 H, Carbon Dioxide 24.0, Anion Gap 7, BUN 15, Creatinine 0.77, Estim Creat Clear Calc 54.92, Est GFR (MDRD) Af Amer 93, Est GFR (MDRD) Non-Af 76, BUN/Creatinine Ratio 19.5, Glucose 155 H, Calcium 10.1 Micro: Microbiology 05/31/23 08:31 Swab (Method) Nasal Screen MRSA/MSSA - Final Radiography Diagnostic Testing: Radiology Impression Shoulder X-Ray 06/17/23 12:35 IMPRESSION: Status post left shoulder arthroplasty. Electronically Signed: Kilo Acuña MD at 13:11 EST , Physical Exam Narrative Patient resting comfortably in bed UltraSling intact in place. No signs of acute distress Satting well on room air Limb is warm to touch, Sensation intact throughout entire upper extremity including axillary, radian, median, ulnar nerve distribution. Motor intact to radial, median, ulnar nerve distribution Radial pulses bounding. Dressing clean dry intact. Calf nontender to palpation, no erythema, no edema. Negative Homans Assessment & Plan Assessment/Plan (1) S/p reverse total shoulder arthroplasty: PLAN: 1. Nonweightbearing to left upper extremity. UltraSling at all times. Okay for pendulum exercises. And range of motion at the elbow wrist and hand. Continue with OT. 2. plan for discharge home today. 3. Patient will follow up for post op appointment as previously scheduled 2 weeks postoperatively in the office. 4. Patient has outpatient PT appointment in 2 weeks after postop appointment. 5. WBC 13.3 acute reactive leukocytosis: secondary to pre operative decadron. no acute systemic signs of infection. will monitor, and likely self resolve. 6. H/H 11.6 previously from 13.4. : post operative anemia secondary to acute blood loss intraoperatively. Patient is asymptomatic at this time. No intraoperative complications. will continue to monitor. no acute interventions. 7. DVT prophylaxis : Aspirin 81 mg twice daily x 2 weeks. 8. Pain control: patient instructed to take tylenol 500mg 2 tablets TID. and oxycodone 1-2 tablets every 4-6 hours only as needed for pain control. 9. ok to remove post op dressing. post op day 7
--- NOTE | 2023-06-18 11:50 | DCINST_ITS ---
Discharge Instructions Diet Discharge Diet: No restrictions Activity Discharge Activity: Return to Normal Activity and May Not Drive May shower in (days): 2 Ice area for (Minutes): 20 Weight Bearing Status: No weight bearing (to left upper extremity) Dressing / Incision Call your doctor if your incision/area has: Continuous Slow Oozing, Sudden Increased Bleeding, Increased Pain/ Swelling, Increased Redness, Foul Smelling Discharge and Swelling at the incision site Call your doctor if you observe: Fever of 101 or Higher, Inability to urinate, Inability to have a bowel movement, Shortness of breath, Dizziness, Swelling in the ankles, Chest pain, Calf discomfort and Uncontrolled pain Suture Line Care: Avoid Pulling/Pushing Remove Dressing in: 1 week Cleanse incision/area with: Soap & Water and Keep Dressing Clean & Dry Additional Dressing/Incision Instructions:: ultrasling at all times. ok for pendulums and elbow / wrist ROM. Follow Up Care When: [facility] in 2 weeks as previously scheduled. Test Results: Test results from this visit will be discussed in further detail at your follow- up appointment, if applicable. Discharge Plan Admission Admit Date/Time: 06/17/23 12:05 Attending Provider: Refugio Alvarado Primary Care Provider: Alice Goode Consulting Providers: Walter Valencia Discharge Orders/Prescriptions Prescriptions: No Action gabapentin 400 mg capsule 300 mg PO TID omeprazole 40 mg capsule,delayed release(DR/EC) 40 mg PO BID trazodone 100 mg tablet 100 mg PO QHS PRN PRN (Reason: insomnia) aspirin-acetaminophen (buffer) 250-250 mg tablet 2 tab PO DAILY PRN PRN (Reason: pain) PreserVision AREDS 4,296 mcg-226 mg-90 mg capsule 1 cap PO BID
[2023-06-18 12:11] VITALS: BP 124/70; PULSE 91; RESP 18; TEMP 36.7; O2SAT 98
--- NOTE | 2023-06-18 12:17 | PHA.DC_ITS ---
Pharmacy [facility] Pharmacy Service has performed discharge medication reconciliation and counseling for this patient. The patient's discharge medication list was reviewed for discrepancies and discrepancies were resolved. The patient was counseled on the following discharge medications and changes in medications for homegoing were reviewed. The Reason for Use, instructions for use, and potential side effects were reviewed for all new medications. The patient's questions regarding all of their medications were answered. 1. Acetaminophen 1000 mg PO Q8H 2. Meloxicam 7.5 mg PO BID 3. Oxycodone 5-10 mg PO Q4-6H PRN pain 4. Aspirin 81 mg PO daily 5. Senna/docusate 2 tablets PO BID The patient was able to verbally demonstrate an understanding of their discharge medications. Medications at Discharge Home Medications gabapentin 400 mg capsule 300 mg PO TID 05/24/23 omeprazole 40 mg capsule,delayed release 40 mg PO BID 05/24/23 trazodone 100 mg tablet 100 mg PO QHS PRN PRN insomnia 05/24/23 vitamins A,C,M-patg-qryejb 4,296 mcg-226 mg-90 mg capsule (PreserVision AREDS) 1 cap PO BID 05/24/23 acetaminophen 500 mg tablet 1,000 mg (2 x 500 mg) PO Q8 #10 tabs 06/18/23 aspirin 81 mg tablet,delayed release 81 mg PO DAILY@0800 #14 tabs 06/18/23 meloxicam 7.5 mg tablet 7.5 mg PO BID #60 tabs 06/18/23 oxycodone 5 mg tablet 5 - 10 mg (1 - 2 x 5 mg) PO .4-6hrs prn PRN Pain Score 4- 10 1 week #42 tabs 06/18/23 sennosides 8.6 mg-docusate sodium 50 mg tablet (Stool Softener-Stimulant Laxative) 2 tab PO BID #10 tabs 06/18/23
--- NOTE | 2023-06-18 12:50 | CASEMGMT ---
LISE ZUÑIGA NOTE: Discharge order is in. RN CM to room. Pt sitting up in chair in room. She denies having any discharge needs or concerns. Meenu CHAPINN LISE ZUÑIGA
== END 2023-06-18 13:13 | disposition home or self-care (01) ==
LOC: SDC 13:40 → MS3 13:40
PROVIDERS: Anesthesiology; Admitting Provider Student in an Organized Health Care Education/Training Program; PCP Physician Assistant; Referring Provider Student in an Organized Health Care Education/Training Program; Visit Provider Student in an Organized Health Care Education/Training Program
PROC: (CPT 23472; principal; 2023-06-17 10:15)
DX: M12.812 Other specific arthropathies, not elsewhere classified, left shoulder (principal); E11.9 Type 2 diabetes mellitus without complications; M79.7 Fibromyalgia; Z87.891 Personal history of nicotine dependence; Z79.899 Other long term (current) drug therapy; E78.00 Pure hypercholesterolemia, unspecified; R00.1 Bradycardia, unspecified; R06.02 Shortness of breath; Z87.19 Personal history of other diseases of the digestive system
CPT/HCPCS: 23472; 01638; 64415; 36415; 73030; 80048; 82040; 82962; 83036; 83735; 85025; 85027; 85610; 85730; 87081; 88305; 88311; 93005; 94668; 96361; 96365; 96366; 97166; 99221; 99252; C1776; J7120; G0378; G0463; J2405; J3475

== ENCOUNTER 2023-07-02 16:13 | Emergency (ER) | payer MEDICARE, OTHER, SELFPAY ==
[2023-07-02] VITALS (9 sets, daily range): BP systolic 141–214; BP diastolic 64–120; PULSE 65–79; RESP 14–20; TEMP 36.2–36.6; O2SAT 90–100; BMI 28.0
--- NOTE | 2023-07-02 16:48 | EX.ED.UPPERE ---
HPI History of Present Illness Chief Complaint: Disclocation Informant: patient Narrative Narrative: Patient had an elective left reverse total shoulder arthroplasty about [address] Alvarado. She been doing very well and followed up today for routine checkup and x-rays which apparently showed that it is dislocated and so she was referred here to the ER. She denies any injury, significant pain, numbness or tingling, activity or feeling out of normal. PFSH [facility] [place] Medical History Arthritis Clavicle fracture Diabetes Former smoker High cholesterol History of fibromyalgia History of macular degeneration History of stress test Hx of ulcerative colitis Iron deficiency anemia Leg cramps Osteomyelitis Post-menopausal Shortness of breath on exertion Wears glasses Wears hearing aid Wears partial dentures Home Medications gabapentin 400 mg capsule 300 mg PO TID 05/24/23 [History Last Taken 06/16/23] omeprazole 40 mg capsule,delayed release 40 mg PO BID 05/24/23 [History Last Taken 06/17/23 07:00] trazodone 100 mg tablet 100 mg PO QHS PRN PRN insomnia 05/24/23 [History Last Taken Unknown] vitamins A,C,Y-fwog-vkgaat 4,296 mcg-226 mg-90 mg capsule (PreserVision AREDS) 1 cap PO BID 05/24/23 [History Last Taken 06/16/23 07:00] acetaminophen 500 mg tablet 1,000 mg (2 x 500 mg) PO Q8 #10 tabs 06/18/23 [Rx Last Taken Unknown] aspirin 81 mg tablet,delayed release 81 mg PO DAILY@0800 #14 tabs 06/18/23 [Rx Last Taken Unknown] meloxicam 7.5 mg tablet 7.5 mg PO BID #60 tabs 06/18/23 [Rx Last Taken Unknown] oxycodone 5 mg tablet 5 - 10 mg (1 - 2 x 5 mg) PO .4-6hrs prn PRN Pain Score 4-10 1 week #42 tabs 06/18/23 [Rx Last Taken Unknown] sennosides 8.6 mg-docusate sodium 50 mg tablet (Stool Softener-Stimulant Laxative) 2 tab PO BID #10 tabs 06/18/23 [Rx Last Taken Unknown] Allergy/AdvReac Type Severity Reaction Status Date / Time No Known Allergies Allergy Verified 07/02/23 16:14 Surgical History History of colectomy History of colostomy reversal History of esophagogastroduodenoscopy (EGD) History of lumbar laminectomy History of salpingoophorectomy History of shoulder surgery Hx of cervical spine surgery Hx of cholecystectomy Hx of colonoscopy Hx of hernia repair Hx of left cataract extraction Hx of right cataract extraction Hx of total hip arthroplasty Hx of total hip arthroplasty Hx of total knee arthroplasty Social History Smoking Status: Former smoker ROS ROS ED Constitutional Constitutional ED: Denies chills or fever(s) Musculoskeletal Musculoskeletal: Denies extremity pain or neck pain Integumentary Denies Abrasions, rash or wounds Neurologic Neurologic: Denies paresthesias or weakness EXAM Physical Exam Const Vital Signs: 07/02/23 16:14 Temperature 97.2 F L Temperature Source Temporal Pulse Rate 73 Respiratory Rate 18 Blood Pressure 141/77 H Blood Pressure Mean 98 Pulse Ox 100 Oxygen Delivery Method Room Air Positive well nourished and well developed General Appearance ED: well developed and NAD Neck full ROM and supple Back/Spine normal ROM and normal to inspection Extremity Extremity Narrative: Left upper extremity held in neutral position in orthopedic sling. Anterior surgical incision clean, dry, intact without dehiscence or signs of infection or discharge or bleeding. There is a prominence in this area, mild swelling about the shoulder, no tenderness, no gross deformity to me. Neurovascular intact distally. Neuro oriented x3, no focal motor deficits and no sensory deficits noted Sensorium / Orientation: alert Psych mental status grossly normal and thought process normal Skin no wounds Rashes: no rashes MDM MDM MDM Narrative Medical decision making narrative: I reviewed outpatient radiology results. I do not have any outpatient x-rays I can see from today so we obtained three-view x-ray series of the left shoulder in order to evaluate current status of the joint. On my interpretation, it is consistent with anterior-inferior dislocation of the joint. See the procedure note, I performed procedural sedation while orthopedics performed a closed reduction. Postreduction films were obtained, 2 views of mitral rotation show good reduction. Patient was monitored till recovery and has a ride home, follow-up per orthopedics. Management Discussion w/another healthcare provider: [facility] (Orthopedics Dr. Alvarado) Procedures Procedural Sedation 1 (Initial Baseline): Consent Signed: Yes Any Problems With Anesthesia: No You/Your family experience fever (hyperthermia) w/anesthesia: No Sedation medication: Etomidate Dose: 10 Route: IV Total Moderate Sedation Units: 14 Maliampati Score: Class II ASA Classification: I Comment:: On monitor with prophylactic nasal cannula oxygenation and IV fluids, end-tidal CO2 monitoring, airway equipment at the bedside. Tolerated well. Initially with etomidate, patient did have a little bit of myoclonus, the only complication was that we were unable to successfully perform the reduction of the shoulder due to muscle spasms. Therefore as patient was waking up, she became aware but was still lethargic, able to speak, she was then given propofol just a little more than 1 mg/kg IV, 80 mg in addition to fentanyl 50 mcg, this provided excellent sedation/muscle relaxation for the procedural sedation which was performed by Dr. Alvarado orthopedics. She awakened uneventfully being monitored closely by nursing staff at the bedside throughout the procedure, without any other complications. Discharge Plan Triage Chief Complaint: Disclocation ED Provider: Khai Anderson Dx/Rx/DC Orders Clinical Impression: Dislocation of shoulder, anterior, left, closed Instructions: ED Dislocation: Shoulder (Reduced) Prescriptions: No Action gabapentin 400 mg capsule 300 mg PO TID omeprazole 40 mg capsule,delayed release(DR/EC) 40 mg PO BID trazodone 100 mg tablet 100 mg PO QHS PRN PRN (Reason: insomnia) PreserVision AREDS 4,296 mcg-226 mg-90 mg capsule 1 cap PO BID sennosides-docusate sodium [Stool Softener-Stimulant Laxat] 8.6-50 mg Tablet 2 tab PO BID Qty: 10 0RF aspirin 81 mg Tablet,Delayed Release (Dr/Ec) 81 mg PO DAILY@0800 Qty: 14 0RF acetaminophen 500 mg Tablet 1,000 mg PO Q8 Qty: 10 0RF meloxicam 7.5 mg Tablet 7.5 mg PO BID Qty: 60 0RF oxycodone 5 mg Tablet 5 - 10 mg PO .4-6hrs prn PRN (Reason: Pain Score 4-10) 7 Days Qty: 42 0RF Primary Care Provider: Alice Goode Referrals: Refugio Alvarado DO [Med Staff - Active Staff] - (as per orthopaedics)
--- NOTE | 2023-07-02 17:20 | RAD_ITS ---
STUDY: X-RAY - LEFT SHOULDER REASON FOR EXAM: Female, 82 years old. dislocation TECHNIQUE: 2 view(s) of the shoulder. COMPARISON: 06/17/2023. FINDINGS: Complete dislocation of complete bipolar left shoulder arthroplasty. Humerus is anterior to the normal position. There is hypertrophic osteoarthrosis of the acromioclavicular joint with inferior osseous spur formation. Normal acromion. Normal humeral head and visualized proximal humerus. The soft tissue structures are unremarkable. Normal visualized pulmonary apex. RAD/Shoulder min 2 Views IMPRESSION: Complete dislocation of complete bipolar left shoulder arthroplasty. Electronically Signed: Mika Andre MD at 17:45 EDT ,
[2023-07-02] MEDS: Etomidate 20 MG/10 ML Vial 10 MG IV (17:38)
[2023-07-02] MEDS: Propofol 200 MG/20 ML Vial IV BOLUS (17:45)
[2023-07-02] MEDS: fentaNYL 100 MCG/2 ML Ampul 50 MCG IV (17:47)
--- NOTE | 2023-07-02 17:55 | RAD_ITS ---
STUDY: X-RAY - LEFT SHOULDER REASON FOR EXAM: Female, 82 years old. postreduction -- port; AP scapY TECHNIQUE: 2 view(s) of the shoulder. COMPARISON: Radiographs of earlier today.. FINDINGS: There has been reduction of previous left shoulder arthroplasty dislocation since prior exam. No other acute abnormalities or changes. Electronically Signed: Mika Andre MD at 18:39 EDT , RAD/Shoulder min 2 Views IMPRESSION: undefined
--- NOTE | 2023-07-02 18:12 | CONS.ORTHO ---
HPI Consult Data Date of Consult: 07/02/23 HPI Narrative HPI Narrative: TATY MEDINA, is a 82 F who presents from my office after she arrived for her 2-week follow-up today for a left reverse shoulder arthroplasty. X-rays upon arrival demonstrated a anterior dislocation of the prosthesis. She denies any trauma in the past. She states, remarkably, but she has had minimal pain and she is doing well. She reports she comes out of sling only for pendulum exercises and to shower. She denies any numbness or tingling, denies fevers, chills and nausea or vomiting, chest pain or shortness of breath. I advised the patient to go to the emergency department for closed reduction under conscious sedation. I saw the patient in the emergency department to assist with the reduction. [facility] Medical History Arthritis Clavicle fracture Diabetes Former smoker High cholesterol History of fibromyalgia History of macular degeneration History of stress test Hx of ulcerative colitis Iron deficiency anemia Leg cramps Osteomyelitis Post-menopausal Shortness of breath on exertion Wears glasses Wears hearing aid Wears partial dentures Home Medications gabapentin 400 mg capsule 300 mg PO TID 05/24/23 [History Last Taken 06/16/23] omeprazole 40 mg capsule,delayed release 40 mg PO BID 05/24/23 [History Last Taken 06/17/23 07:00] trazodone 100 mg tablet 100 mg PO QHS PRN PRN insomnia 05/24/23 [History Last Taken Unknown] vitamins A,C,D-yhuh-kqasjy 4,296 mcg-226 mg-90 mg capsule (PreserVision AREDS) 1 cap PO BID 05/24/23 [History Last Taken 06/16/23 07:00] acetaminophen 500 mg tablet 1,000 mg (2 x 500 mg) PO Q8 #10 tabs 06/18/23 [Rx Last Taken Unknown] aspirin 81 mg tablet,delayed release 81 mg PO DAILY@0800 #14 tabs 06/18/23 [Rx Last Taken Unknown] meloxicam 7.5 mg tablet 7.5 mg PO BID #60 tabs 06/18/23 [Rx Last Taken Unknown] oxycodone 5 mg tablet 5 - 10 mg (1 - 2 x 5 mg) PO .4-6hrs prn PRN Pain Score 4-10 1 week #42 tabs 06/18/23 [Rx Last Taken Unknown] sennosides 8.6 mg-docusate sodium 50 mg tablet (Stool Softener-Stimulant Laxative) 2 tab PO BID #10 tabs 06/18/23 [Rx Last Taken Unknown] Allergy/AdvReac Type Severity Reaction Status Date / Time No Known Allergies Allergy Verified 07/02/23 16:14 Surgical History History of colectomy History of colostomy reversal History of esophagogastroduodenoscopy (EGD) History of lumbar laminectomy History of salpingoophorectomy History of shoulder surgery Hx of cervical spine surgery Hx of cholecystectomy Hx of colonoscopy Hx of hernia repair Hx of left cataract extraction Hx of right cataract extraction Hx of total hip arthroplasty Hx of total hip arthroplasty Hx of total knee arthroplasty Social History Smoking Status: Former smoker ROS ROS Narrative 12 point review of systems obtained, negative as otherwise noted in HPI. Vital Signs Vital Signs Vital Signs: 07/02/23 16:14 07/02/23 16:40 07/02/23 17:39 Temperature 97.2 F L 97.8 F Temperature Source Temporal Pulse Rate 73 75 79 Pulse Rate [1 (Initial Baseline)] Pulse Rate [2] Pulse Rate [4] Respiratory Rate 18 14 18 Respiratory Rate [1 (Initial Baseline)] Respiratory Rate [2] Respiratory Rate [4] Blood Pressure 141/77 H 161/78 H 201/89 H Blood Pressure [1 (Initial Baseline)] Blood Pressure [2] Blood Pressure [4] Blood Pressure Mean 98 105 Pulse Ox 100 99 100 Oxygen Delivery Method Room Air Room Air Nasal Cannula Oxygen Delivery Method [1 (Initial Baseline)] Oxygen Delivery Method [2] Oxygen Delivery Method [4] Oxygen Flow Rate (L/min) 2 Oxygen Flow Rate (L/min) [1 (Initial Baseline)] Oxygen Flow Rate (L/min) [2] Oxygen Flow Rate (L/min) [4] 07/02/23 17:39 07/02/23 17:50 07/02/23 18:00 Temperature Temperature Source Pulse Rate Pulse Rate [1 (Initial Baseline)] 78 Pulse Rate [2] 78 Pulse Rate [4] 67 Respiratory Rate Respiratory Rate [1 (Initial Baseline)] 16 Respiratory Rate [2] 18 Respiratory Rate [4] 16 Blood Pressure Blood Pressure [1 (Initial Baseline)] 214/120 H Blood Pressure [2] 192/107 H Blood Pressure [4] 177/81 H Blood Pressure Mean Pulse Ox Oxygen Delivery Method Nasal Cannula Oxygen Delivery Method [1 (Initial Baseline)] Nasal Cannula Oxygen Delivery Method [2] Nasal Cannula Oxygen Delivery Method [4] Nasal Cannula Oxygen Flow Rate (L/min) 3 3 Oxygen Flow Rate (L/min) [1 (Initial Baseline)] 2 Oxygen Flow Rate (L/min) [2] 3 Oxygen Flow Rate (L/min) [4] 3 Weight Weight: 163 lb 3.2 oz Body Mass Index (BMI) 28.0 Physical Exam Narrative General - A&Ox3, NAD. VSS/AF. Left upper Extremity -well-healing deltopectoral incision. Gross deformity left shoulder with palpable humeral prosthesis. SILT & motor intact in radial, ulnar, musculocutaneous, axillary, and median nerve distributions. Radial, ulnar pulses 2+. Compartments soft and compressible. BCR in finger tips. Imaging Radiology Impression Shoulder X-Ray 07/02/23 17:20 IMPRESSION: Complete dislocation of complete bipolar left shoulder arthroplasty. Electronically Signed: Mika Andre MD at 17:45 EDT , Assessment & Plan Assessment/Plan (1) Dislocation of shoulder, anterior, left, closed: PLAN: Anterior dislocation of the left reverse shoulder arthroplasty. Given the lack of known time of dislocation, I suspect the dislocation happened during positioning while the patient was still under nerve blockade. Regardless, I recommended closed reduction of the left shoulder under conscious sedation. See procedure note below for details. Patient tolerated procedure well without apparent complication. Description of procedure: Conscious sedation administered by emergency room physician. After adequate sedation, I applied internal rotation to the left upper extremity, distraction through the axilla and then a posterior directed force over the humeral prosthesis. A visible and palpable clunk was appreciated. Postreduction films demonstrated a reduced left reverse shoulder arthroplasty. Patient was replaced in her UltraSling. She awoke well from anesthesia. She tolerated procedure well without apparent complication. Plan: Follow-up 1 week in my office. We will delay initiation of physical therapy. Strict immobilization of the left lower extremity. I explained she may remove the sling for hygiene however she should maintain her shoulder in the abducted position. Patient has oxycodone at home as needed for pain, Meloxicam as well. She will call the office Wednesday for an appointment. She was advised to sleep in a recliner and avoid laying flat.
== END 2023-07-02 18:59 | disposition home or self-care (01) ==
LOC: ED 16:55
PROVIDERS: Emergency Provider Emergency Medicine; PCP Physician Assistant; Visit Provider Emergency Medicine
DX: T84.028A Dislocation of other internal joint prosthesis, initial encounter (principal); E11.9 Type 2 diabetes mellitus without complications; Z96.612 Presence of left artificial shoulder joint; Y83.8 Other surgical procedures as the cause of abnormal reaction of the patient, or of later complication, without mention of misadventure at the time of the procedure; E78.00 Pure hypercholesterolemia, unspecified; M79.7 Fibromyalgia; Z79.1 Long term (current) use of non-steroidal anti-inflammatories (NSAID); Z79.82 Long term (current) use of aspirin; Z79.899 Other long term (current) drug therapy; Z87.891 Personal history of nicotine dependence
CPT/HCPCS: 23650; 73030; 96374; 96375; 99156; 99285; J7030; A4216

== ENCOUNTER → 2024-07-12 | Outpatient (CLI) | payer MEDICARE, OTHER, SELFPAY ==
--- NOTE | 2024-07-12 14:57 | NEURO ---
NCS and/or EMG Patient Report Ordering Doctor: Refugio Alvarado DATE OF SERVICE: 07/12/24 María presents with complaints of numbness and tingling in the left hand, primarily in digits 1 and 2. Electrodiagnostic findings: Left median motor nerve demonstrates prolonged latency with normal amplitude and reduced conduction velocity. Left ulnar motor response within normal limits. Prolonged left median F?wave. Prolonged left median sensory latency at the wrist. Needle EMG testing was performed in the left upper limb. All muscles tested showed no evidence of denervation with normal motor unit action potentials Electrodiagnostic impression: This is an abnormal study in the left upper limb. 1. Electrodiagnostic findings suggestive of left-sided median mononeuropathy. This consistent with a moderate to advanced left carpal tunnel syndrome. Multi Select Codes Neurology Neurology Interp Codes: 64876-28 Musc test done w/n test comp (interp) and 02341-33 Nrv cndj tst 5-6 studies (interp)
== END | disposition home or self-care (01) ==
LOC: PSN 13:46
PROVIDERS: PCP Clinical Nurse Specialist Adult Health; Referring Provider Student in an Organized Health Care Education/Training Program; Visit Provider Student in an Organized Health Care Education/Training Program
DX: R20.2 Paresthesia of skin (principal)
CPT/HCPCS: 95886; 95909